=== PATIENT | male | born 1945 | race Caucasian/White ===

== ENCOUNTER → 2017-08-23 | Outpatient (CLI) | payer OTHER ==
[~2017-08-23] MED LIST: ALBU18002; ALBUAER19 INH; ALFU1TAB37 PO; ATEN-173 PO; CLTP PO; DOFE500C PO; DOXE10CA PO; DSWCR TOP; FLUT1INH INH; GADAVIST IV PRN; LISI5TAB PO; LSX20 PO; MAGN400T6 PO; MULT-506 PO; POTA10CA28 PO; PRED10TA PO; SIMV40TA2 PO; TIOTCAP INH; ZOLP10TA PO
--- NOTE | 2017-08-23 12:04 | DIAGNOSTIC IMAGING REPORT ---
PELVIC COMBO HISTORY: 72 years-old Male MALIGNANT NEOPLASM OF URINARY BLADDER questioned cystic lesion of the right inferior pubic ramus on comparison CT study with concern for metastasis. COMPARISON: CT abdomen and pelvis 08/02/2016, therapeutic CT scan 08/14/2017 TECHNIQUE: Multiplanar multisequence MRI of the pelvis was obtained both with and without the use of 9.5 mL Gadavist FINDINGS: Brachytherapy seeds noted within the prostate. Areas of heterogeneous asymmetric enhancement noted within the mid prostate as seen on image 34 series 11 and image 37 series 11. There is asymmetric wall thickening of the left lower lateral urinary bladder as seen on image 30 and 31 of series 8 mild diffuse bladder wall thickening and bladder wall trabeculation is noted with mild urinary bladder distention. No definite intraluminal urinary bladder mass identified. There is an ovoid nodular peripherally enhancing lesion posterior to the urinary bladder just left to the midline which measures 1.6 x 1.6 x 2.5 cm as seen on image 27 series 11 and image 24 of series 12 demonstrating enhancing internal septations. This lesion demonstrates intermediate T1 and T2 signal. No additional suspicious enhancing pelvic lesions identified. There is no adenopathy identified. There is mild intramuscular edema of the left iliopsoas muscle as seen on image 13 of series 4 with mild enhancement seen within this distribution. Additionally, there is mild enhancement of the distal iliopsoas musculature as seen on image 35 series 11 without significant iliopsoas bursitis. Minimal bone marrow edema of the right inferior pubic ramus, image 38 series 4 is likely degenerative. Mild to moderate degenerative changes involve the bilateral hips. No suspicious bony lesions identified. Subcortical cystic changes of the right acetabulum are noted. Avascular necrosis of the right femoral head is noted without articular collapse. No definite left 88. Intervertebral disc space narrowing and endplate spurring is seen within the lower lumbar spine. IMPRESSION: 1. Nodular lesion posterior to the urinary bladder just left of the midline measuring up to 1.6 x 1.6 x 2.5 cm demonstrates peripheral and thin internal enhancement with intermediate T1 and T2 signal appearing unchanged in size from comparison study 08/14/2017. This lesion is indeterminate with small abscess or metastatic disease differential considerations. Follow-up recommended. 2. Trabeculation of the urinary bladder wall with asymmetric thickening along the inferior lateral urinary bladder wall suggests sequela of chronic bladder outlet obstruction without definite suspicious enhancing bladder mass identified. 3. Brachytherapy seeds of the prostate with areas of ill-defined heterogeneous central prostate enhancement. Correlate with PSA level. 4. Mild intramuscular edema and enhancement of the left iliopsoas musculature suggests grade 1 muscle strain without evidence of iliopsoas bursitis. 5. Avascular necrosis of the right femoral head without articular collapse. 6. No evidence of bony metastasis. The above report was generated using voice recognition software. It may contain grammatical, syntax or spelling errors. Electronically signed by: Ish Diaz M.D. 08/23/2017 12:02 PM Dictated Date/Time: 08/23/2017 8:43 AM
== END | disposition home or self-care (01) ==
LOC: C.MRIBC 06:59
PROVIDERS: ATTEND Internal Medicine Hematology & Oncology
DX: C67.9 Malignant neoplasm of bladder, unspecified (principal)

== ENCOUNTER 2017-09-27 10:37 | Inpatient (IN) | payer OTHER ==
[~2017-09-27] VITALS: Ht 177.8 cm; Wt 97.0 kg
[~2017-09-27 10:37] MED LIST changes: -ALBU18002; +ALBU18002 IN; -GADAVIST IV PRN
[2017-09-27] MEDS ORDERED: SODIUM CHLORIDE 0.9% 1000ML 500 ML IV STA (11:17)
--- NOTE | 2017-09-27 11:26 | EMERGENCY ROOM VISIT NOTE ---
History Report prepared by Amilcar: Isabell Limon Under the Supervision of: Dr. Teddy Akbar M.D. First contact with patient: 10:58 Chief Complaint: REFERRED BY DOCTOR Stated Complaint: DR REFERRED - LOW BLOOD COUNT History of Present Illness The patient is a 72 year old male who presents to the Emergency Room with complaints of persistent generalized weakness that began several weeks ago. Per records, the patient is currently undergoing chemotherapy treatment for muscle invasive bladder cancer. Records indicate that over the last several days he has had at least three falls. Records indicate that the patient's was found to be hyponatremic with a sodium of 122. Records note that the patient has been drinking alcohol and the patient states that he drinks 3 drinks per day. The patient's notes that the patient fell and hit his head on September 15. Today, the patient complains of abdominal pain. He denies any fever or headache. The patient reports a history of COPD. He states that his tetanus is up to date. Source of History: patient, spouse/significant other (), other (records) Onset: several days ago Position: other (global) Quality: other (generalized weakness) Timing: other (persistent) Associated Symptoms: + abdominal pain, No fevers, No headache Review of Systems See HPI for pertinent positives & negatives. A total of 10 systems reviewed and were otherwise negative. Past Medical & Surgical Medical Problems: (1) Atrial fibrillation (2) COPD (chronic obstructive pulmonary disease) (3) Fall (4) Hyperlipidemia (5) Hypertension (6) Prostate cancer Family History Patient reports no known family medical history. Social History Smoking Status: Former Smoker Marital Status: Occupation Status: employed Current/Historical Medications Scheduled Alfuzosin HCl (Uroxatral), 10 MG PO QPM Atenolol (Tenormin), 25 MG PO BID Atorvastatin (Lipitor), 40 MG PO HS Calcium/Vitamin D (Caltrate 600 Plus *), 1 TAB PO QAM Dofetilide (Tikosyn), 500 MCG PO Q12H Fluticasone Furoate-Vilanterol (Breo Ellipta), 1 PUFF INH QAM Fluticasone Propionate (Nasal) (Flonase Allergy Relief), 2 SPRAYS INH DAILY Furosemide (Lasix *), 20 MG PO QAM Lisinopril (Prinivil), 1 TAB PO QPM Magnesium Oxide (Mag-Ox), 400 MG PO QPM Multivitamin (Multivitamin), 1 TAB PO QPM Potassium Chloride (Micro-K Ext Rel), 10 MEQ PO BID Tiotropium Harvey (Spiriva Handihaler), 1 CAP INH QAM Scheduled PRN Albuterol Inhaler (Ventolin Inhaler), 2 PUFFS INH QID PRN for SOB/Wheezing Albuterol Sulfate (Proair Respiclick), 1-2 INHA IN Q4H PRN for Shortness of Breath Desonide 0.05% (Desowen 0.05%), 1 APPLN TOP BID PRN for PRN Docusate Sodium (Colace), 1 CAP PO BID PRN for Constipation Promethazine (Phenergan ), 12.5 MG PO Q8H PRN for Nausea or Vomiting Zolpidem Tartrate (Ambien), 10 MG PO HS PRN for Sleep Allergies Coded Allergies: No Known Allergies (Unverified , 09/27/17) Physical Exam Vital Signs Date Time Temp Pulse Resp B/P (MAP) Pulse Ox O2 Delivery O2 Flow Rate FiO2 09/27/17 12:47 78 20 126/89 96 Room Air 09/27/17 12:03 81 16 109/63 96 Room Air 09/27/17 11:23 95 Room Air 09/27/17 10:51 36.9 65 18 131/70 94 Room Air Physical Exam GENERAL: Patient is in no acute distress. HEENT: Healing abrasion/laceration to the right parietal scalp, no signs of cellulitis, mucous membranes slightly dry, no scleral icterus NECK: No stridor, no adenopathy, no meningismus, trachea is midline. LUNGS: Wheezing bilaterally, breath sounds equal, no rhonchi HEART: Without murmurs gallops or rubs, regular rate and rhythm. ABDOMEN: Soft, nontender, bowel sounds positive, no hernias, no peritonitis. EXTREMITIES: Mild bilateral pedal edema. No cyanosis, full range of motion of all the joints without pain or difficulty, no signs for acute trauma. NEUROLOGIC: Oriented x 3, no acute motor or sensory deficits, no focal weakness. SKIN: No rash, no jaundice, no diaphoresis. Medical Decision & Procedures ER Provider Diagnostic Interpretation: Radiology results as stated below per my review and radiologist interpretation: CT SCAN OF THE BRAIN WITHOUT IV CONTRAST CLINICAL HISTORY: Generalized weakness. COMPARISON STUDY: No priors. TECHNIQUE: Unenhanced axial CT scan of the brain is performed from the vertex to the skull base. A dose lowering technique was utilized adhering to the principles of ALARA. CT DOSE: 537.48 mGy.cm FINDINGS: Brain parenchyma: There are age-related involutional changes noting moderate patchy subcortical and periventricular microangiopathic change. There is no hemorrhage, mass effect, or evidence of acute territorial ischemia by CT criteria. Coarse calcifications are noted in the right cerebellar hemisphere in the right periventricular white matter. Britton-white matter is preserved. No extra-axial fluid collection is seen. Ventricles, sulci, cisterns: Prominent secondary to involutional change. Intracranial vasculature: There is atherosclerotic calcification of the cavernous carotid and vertebral arteries. Calvarium: Unremarkable. Sinuses and mastoids: The visualized paranasal sinuses are clear. The mastoid air cells are well pneumatized. Orbits: The bony orbits are grossly intact. IMPRESSION: There is no hemorrhage, mass effect, or evidence of acute territorial ischemia by CT criteria. Electronically signed by: Teddy Aj M.D. 09/27/2017 11:57 AM Dictated Date/Time: 09/27/2017 11:54 AM CHEST ONE VIEW PORTABLE CLINICAL HISTORY: EVALUATE ALTERED MENTAL STATUS/WEAKNESS dyspnea COMPARISON STUDY: 08/31/2016 FINDINGS: Mild stable cardiomegaly. Diaphragms are smooth. Lungs are clear. Central catheter in superior vena cava. Stable postoperative changes of the low cervical spine. IMPRESSION: Chronic and postoperative change. No acute process. The above report was generated using voice recognition software. It may contain grammatical, syntax or spelling errors. Electronically signed by: Rg Neff M.D. 09/27/2017 11:52 AM Dictated Date/Time: 09/27/2017 11:51 AM Laboratory Results 09/27/17 11:15 Red Blood Count 2.35, Mean Corpuscular Volume 97.0, Mean Corpuscular Hemoglobin 34.5, Mean Corpuscular Hemoglobin Concent 35.5, Mean Platelet Volume , Neutrophils (%) (Auto) 54.7, Lymphocytes (%) (Auto) 26.2, Monocytes (%) (Auto) 17.6, Eosinophils (%) (Auto) 0.6, Basophils (%) (Auto) 0.6, Neutrophils # (Auto ) 1.99, Lymphocytes # (Auto) 0.95, Monocytes # (Auto) 0.64, Eosinophils # (Auto ) 0.02, Basophils # (Auto) 0.02 09/27/17 11:15 Test 09/27/17 11:10 09/27/17 11:15 09/27/17 11:31 Urine Color YELLOW Urine Appearance CLEAR (CLEAR) Urine pH 7.5 (4.5-7.5) Urine Specific [place] 1.010 (1.000-1.030) Urine Protein NEG (NEG) Urine Glucose (UA) NEG (NEG) Urine Ketones NEG (NEG) Urine Occult Blood TRACE (NEG) Urine Nitrite NEG (NEG) Urine Bilirubin NEG (NEG) Urine Urobilinogen NEG (NEG) Urine Leukocyte Esterase MODERATE (NEG) Urine WBC (Auto) >30 /hpf (0-5) Urine RBC (Auto) 0-4 /hpf (0-4) Urine Hyaline Casts (Auto) 1-5 /lpf (0-5) Urine Epithelial Cells (Auto) >30 /lpf (0-5) Urine Bacteria (Auto) NEG (NEG) Urine Renal Epithelial Cells 0-5 /lpf (0-5) White Blood Count 3.63 K/uL (4.8-10.8) Red Blood Count 2.35 M/uL (4.7-6.1) Hemoglobin 8.1 g/dL (14.0-18.0) Hematocrit 22.8 % (42-52) Mean Corpuscular Volume 97.0 fL (80-100) Mean Corpuscular Hemoglobin 34.5 pg (25-34) Mean Corpuscular Hemoglobin Concent 35.5 g/dl (32-36) Platelet Count K/uL (130-400) Mean Platelet Volume fL (7.4-10.4) Neutrophils (%) (Auto) 54.7 % Lymphocytes (%) (Auto) 26.2 % Monocytes (%) (Auto) 17.6 % Eosinophils (%) (Auto) 0.6 % Basophils (%) (Auto) 0.6 % Neutrophils # (Auto) 1.99 K/uL (1.4-6.5) Lymphocytes # (Auto) 0.95 K/uL (1.2-3.4) Monocytes # (Auto) 0.64 K/uL (0.11-0.59) Eosinophils # (Auto) 0.02 K/uL (0-0.5) Basophils # (Auto) 0.02 K/uL (0-0.2) RDW Standard Deviation 45.4 fL (36.4-46.3) RDW Coefficient of Variation 13.3 % (11.5-14.5) Immature Granulocyte % (Auto) 0.3 % Immature Granulocyte # (Auto) 0.01 K/uL (0.00-0.02) Large Platelets 1+ Prothrombin Time 10.5 SECONDS (9.0-12.0) Prothromb Time International Ratio 1.0 (0.9-1.1) Activated Partial Thromboplast Time 32.3 SECONDS (21.0-31.0) Partial Thromboplastin Ratio 1.2 Anion Gap 10.0 mmol/L (3-11) Est Creatinine Clear Calc Drug Dose 53.6 ml/min Estimated GFR () 55.1 Estimated GFR (Non- 47.5 BUN/Creatinine Ratio 19.1 (10-20) Calcium Level 8.6 mg/dl (8.5-10.1) Magnesium Level 1.5 mg/dl (1.8-2.4) Total Bilirubin 0.8 mg/dl (0.2-1) Aspartate Amino Transf (AST/SGOT) 25 U/L (15-37) Alanine Aminotransferase (ALT/SGPT) 28 U/L (12-78) Alkaline Phosphatase 65 U/L (45-117) Total Creatine Kinase 113 U/L (39-308) Troponin I 0.034 ng/ml (0-0.045) Total Protein 6.6 gm/dl (6.4-8.2) Albumin 2.6 gm/dl (3.4-5.0) Globulin 4.0 gm/dl (2.5-4.0) Albumin/Globulin Ratio 0.7 (0.9-2) Thyroid Stimulating Hormone (TSH) 1.230 uIu/ml (0.300-4.500) Ethyl Alcohol mg/dL < 3.0 mg/dl (0-3) Laboratory results reviewed by me. Medications Administered Medications (Trade) Dose Ordered Sig/Martha Route Start Time Stop Time Status Last Admin Dose Admin Sodium Chloride 500 ml @ 999 mls/hr Q31M STAT IV 09/27/17 11:17 09/27/17 11:47 DC 09/27/17 11:17 999 MLS/HR Magnesium Sulfate (Magnesium Sulfate) 2 gm NOW STAT IV 09/27/17 11:56 09/27/17 11:57 DC 09/27/17 12:43 2 GM Sodium Chloride 500 ml @ 999 mls/hr Q31M STAT IV 09/27/17 11:56 09/27/17 12:26 DC 09/27/17 11:56 999 MLS/HR Potassium Chloride (Klor-Con M10) 20 meq NOW STAT PO 09/27/17 13:04 09/27/17 13:16 DC 09/27/17 13:41 20 MEQ ECG Indication: weakness Rate (beats per minute): 80 Rhythm: sinus rhythm Findings: PVC, no acute ischemic change ED Course 1113: The patient was evaluated in room A12B. A complete history and physical exam was performed. 1117: Ordered Sodium Chloride 500 ml @ 999 mls/hr IV. 1156: Ordered Sodium Chloride 500 ml @ 999 mls/hr IV, Magnesium Sulfate 2 gm IV. 1213: I reevaluated the patient and he is resting comfortably. I discussed the test results with him and I discussed the treatment plan. He verbalized complete understanding and agreement. He will be evaluated for further treatment. 1243: I discussed the patients case with Maria Akbar PA-C. She is going to evaluate the patient for further treatment. Medical Decision The patient is a 72 year old male who presents to the ED with complaints of generalized weakness. Differential diagnoses considered include Renal failure, dehydration, electrolyte imbalance, anemia, infection, intracranial bleeding, alcohol abuse. The patient has a low white count and hemoglobin, this is baseline for him. Renal panel testing shows some mild acute renal failure and dehydration. Magnesium was low at 1.5. There is no hepatitis. The patient appears to be in a euthyroid state. There is no coagulopathy. Urinalysis suggests infection versus contamination, urine culture is pending. Alcohol level is undetectable. Brain CT shows no acute bleed or mass effect. Chest film does not show pneumonia or CHF. EKG shows a sinus rhythm, no acute ischemia. Cardiac enzyme testing times one is not consistent with acute cardiac injury. The patient presents with frequent falls. He is hyponatremic, dehydrated and hypomagnesemic. By history, he has been drinking quite a bit of alcohol as of late. The patient requires IV therapy to correct his chemistries. I did speak with the patient and the housing case manager. The on-call hospitalist was consulted. Patient was given IV magnesium, IV saline during his ER stay, he is resting comfortably. Medication Reconcilliation Current Medication List: was personally reviewed by me Blood Pressure Screening Patient's blood pressure: Elevated blood pressure Blood pressure disposition: Elevated BP felt to be situational, Did not require urgent referral Consults Time Called: 1210 Consulting Physician: Maria Akbar PA-C Returned Call: [phone] I discussed the patients case with Maria Akbar PA-C. She is going to evaluate the patient for further treatment. Impression Primary Impression: Hyponatremia Additional Impressions: Dehydration Anemia Hypomagnesemia Head trauma Scribe Attestation The scribe's documentation has been prepared under my direction and personally reviewed by me in its entirety. I confirm that the note above accurately reflects all work, treatment, procedures, and medical decision making performed by me. Departure Information Dispostion Being Evaluated By Hospitalist Referrals No Doctor, Assigned (PCP) Problem Qualifiers
[2017-09-27 11:32] LABS: HEMATOCRIT 22.8 % (42-52); MEAN CORPUSCULAR HEMOGLOBIN 34.5 pg (25-34); MEAN CORPUSCULAR HGB CONC 35.5 g/dl (32-36); RED BLOOD COUNT 2.35 M/uL (4.7-6.1); WHITE BLOOD COUNT 3.63 K/uL (4.8-10.8)
[2017-09-27] MEDS ORDERED: ASPI81TA28 PO (11:33)
[2017-09-27] MEDS ORDERED: DOCU-94 PO (11:33)
[2017-09-27] MEDS ORDERED: PROM12.57 PO (11:33)
[2017-09-27] MEDS ORDERED: ATOR-24 PO (11:33)
[2017-09-27] MEDS ORDERED: FLUT0.15 INH (11:33)
[2017-09-27 11:42] LABS: PARTIAL THROMBOPLASTIN RATIO 1.2; PROTHROMBIN TIME (PATIENT) 10.5 SECONDS (9.0-12.0)
[2017-09-27 11:50] LABS: BUN/CREATININE RATIO 19.1 (10-20); CALCIUM 8.6 mg/dl (8.5-10.1); CREATININE 1.44 mg/dl (0.60-1.40); MAGNESIUM 1.5 mg/dl (1.8-2.4); POTASSIUM 3.2 mmol/L (3.5-5.1)
[2017-09-27 11:53] LABS: URINE APPEARANCE CLEAR (CLEAR); URINE BILIRUBIN NEG (NEG); URINE COLOR YELLOW; URINE EPITHELIAL CELL AUTO >30 /lpf (0-5); URINE NITRITE NEG (NEG); URINE PH 7.5 (4.5-7.5); UROBILINOGEN NEG (NEG); ZZUR CULT IF INDIC CLEAN CATCH YES
--- NOTE | 2017-09-27 11:53 | DIAGNOSTIC IMAGING REPORT ---
CHEST ONE VIEW PORTABLE CLINICAL HISTORY: EVALUATE ALTERED MENTAL STATUS/WEAKNESS dyspnea COMPARISON STUDY: 08/31/2016 FINDINGS: Mild stable cardiomegaly. Diaphragms are smooth. Lungs are clear. Central catheter in superior vena cava. Stable postoperative changes of the low cervical spine. IMPRESSION: Chronic and postoperative change. No acute process. The above report was generated using voice recognition software. It may contain grammatical, syntax or spelling errors. Electronically signed by: Rg Neff M.D. 09/27/2017 11:52 AM Dictated Date/Time: 09/27/2017 11:51 AM
[2017-09-27 11:54] LABS: MANUAL MICROSCOPIC REQUIRED? NO; REVIEW REQ? YES
[2017-09-27] MEDS ORDERED: SODIUM CHLORIDE 0.9% 500ML 500 ML IV STA (11:56)
[2017-09-27] MEDS ORDERED: MAGNESIUM SULFATE 1GM / D5W 1 GM BAG IV STA (11:56)
--- NOTE | 2017-09-27 11:59 | DIAGNOSTIC IMAGING REPORT ---
CT SCAN OF THE BRAIN WITHOUT IV CONTRAST CLINICAL HISTORY: Generalized weakness. COMPARISON STUDY: No priors. TECHNIQUE: Unenhanced axial CT scan of the brain is performed from the vertex to the skull base. A dose lowering technique was utilized adhering to the principles of ALARA. CT DOSE: 537.48 mGy.cm FINDINGS: Brain parenchyma: There are age-related involutional changes noting moderate patchy subcortical and periventricular microangiopathic change. There is no hemorrhage, mass effect, or evidence of acute territorial ischemia by CT criteria. Coarse calcifications are noted in the right cerebellar hemisphere in the right periventricular white matter. Britton-white matter is preserved. No extra-axial fluid collection is seen. Ventricles, sulci, cisterns: Prominent secondary to involutional change. Intracranial vasculature: There is atherosclerotic calcification of the cavernous carotid and vertebral arteries. Calvarium: Unremarkable. Sinuses and mastoids: The visualized paranasal sinuses are clear. The mastoid air cells are well pneumatized. Orbits: The bony orbits are grossly intact. IMPRESSION: There is no hemorrhage, mass effect, or evidence of acute territorial ischemia by CT criteria. Electronically signed by: Teddy Aj M.D. 09/27/2017 11:57 AM Dictated Date/Time: 09/27/2017 11:54 AM
[2017-09-27 12:00] LABS: ALB/GLOB RATIO 0.7 (0.9-2); THYROID STIMULATING HORMONE 1.23 uIu/ml (0.300-4.500)
[2017-09-27 12:02] LABS: BASO % 0.6 %; BASO ABS # 0.02 K/uL (0-0.2); COMPLETE YES; EOS % 0.6 %; IG% 0.3 %; LARGE PLATELETS 1+; LYMPH % 26.2 %; LYMPH ABS # 0.95 K/uL (1.2-3.4); MONO % 17.6 %; NEUT % 54.7 %
[2017-09-27] MEDS ORDERED: POTASSIUM CHLORIDE 10 MEQ TABCR PO STA (13:04)
[2017-09-27] MEDS ORDERED: ONDANSETRON INJ 2 MG/ML 2 ML VIAL IV PRN (13:15)
[2017-09-27] MEDS ORDERED: ACETAMINOPHEN 325 MG TAB PO PRN (13:15)
[2017-09-27] MEDS ORDERED: PROMETHAZINE HCL 25 MG TAB PO PRN (13:30)
[2017-09-27] MEDS ORDERED: ALBUTEROL HFA 8 GM INHALER INH PRN (13:30)
[2017-09-27] MEDS ORDERED: DOCUSATE SODIUM 100 MG CAP PO PRN (13:30)
[2017-09-27] MEDS ORDERED: DESONIDE CR 15 GM TUBE EXT PRN (13:30)
[2017-09-27] MEDS ORDERED: HEPARIN SOD 5000 UNIT/0.5 ML CARP SQ SCH (14:00)
[2017-09-27 14:07] VITALS: BP 128/64; PULSE 78; O2SAT 96; Ht 177.8 cm; Wt 97.0 kg
--- NOTE | 2017-09-27 14:43 | History and Physical ---
History & Physical Date & Time of Service: Sep 27, 2017 at 14:00 Chief Complaint: Dr Referred - Low Blood Count Primary Care Physician: Nba Good III, M.D. History of Present Illness Source: patient, clinic records This is a 72 year old male with a PMH of muscle invasive bladder CA s/p TURBT with ongoing chemo/radiation, paroxysmal A. Fib s/p ablation on ongoing Tikosyn no longer on anticoagulation due to bladder CA, COPD and ongoing tobacco use, ongoing alcohol abuse, HTN, HLD, PAD (severe L common femoral artery arthrosclerosis, ascending thoracic aortic aneurysm, systolic CHF with LVEF ~ 45 % and global hypokinesis - presents after being sent over by Hem/Onc secondary to multiple falls in the past week. As per patient, he has fallen three times, states when he stands up, he gets really dizzy and falls. As per records, he is drinking "three drinks" per day - as per patient, he has been drinking like this for the past 50 years. He denies chest pain. States he has some shortness of breath at baseline, but it is because of his COPD and it is nothing new. Denies fevers/chills. States occasionally he gets nauseous but not this past week. Intermittent constipation and diarrhea with chemo/radiation. Is c/o urinary frequency, but no dysuria. Denies recent hematuria. Past Medical/Surgical History Medical Problems: (1) Atrial fibrillation Status: Chronic (2) COPD (chronic obstructive pulmonary disease) Status: Chronic (3) Hyperlipidemia Status: Chronic (4) Hypertension Status: Chronic (5) Prostate cancer Permanent Comment: Adenocarcinoma prostate, presenting PSA 4.8, clinical stage TIc Status post hormonal suppression for 7 months Status post external beam radiation therapy completed 12/01/2003 Status post iodine seed implant as boost completed 01/05/2004 Status: Resolved Family History Patient reports no known family medical history. Social History Smoking Status: Former Smoker Marital Status: Occupational Status: employed Immunizations History of Influenza Vaccine: Yes Influenza Vaccine Date: Aug 08, 2013 History of Tetanus Vaccine?: Yes History of Pneumococcal: Yes Pneumococcal Date: Jun 03, 2008 History of Hepatitis B Vaccine: No Multi-Drug Resistant Organisms History of MDRO: No Allergies Coded Allergies: No Known Allergies (Unverified , 09/27/17) Home Medications Scheduled Alfuzosin HCl (Uroxatral), 10 MG PO QPM Atenolol (Tenormin), 25 MG PO BID Atorvastatin (Lipitor), 40 MG PO HS Calcium/Vitamin D (Caltrate 600 Plus *), 1 TAB PO QAM Dofetilide (Tikosyn), 500 MCG PO Q12H Fluticasone Furoate-Vilanterol (Breo Ellipta), 1 PUFF INH QAM Fluticasone Propionate (Nasal) (Flonase Allergy Relief), 2 SPRAYS INH DAILY Furosemide (Lasix *), 20 MG PO QAM Lisinopril (Prinivil), 1 TAB PO QPM Magnesium Oxide (Mag-Ox), 400 MG PO QPM Multivitamin (Multivitamin), 1 TAB PO QPM Potassium Chloride (Micro-K Ext Rel), 10 MEQ PO BID Tiotropium [place] (Spiriva Handihaler), 1 CAP INH QAM Scheduled PRN Albuterol Inhaler (Ventolin Inhaler), 2 PUFFS INH QID PRN for SOB/Wheezing Albuterol Sulfate (Proair Respiclick), 1-2 INHA IN Q4H PRN for Shortness of Breath Desonide 0.05% ([place]en 0.05%), 1 APPLN TOP BID PRN for PRN Docusate Sodium (Colace), 1 CAP PO BID PRN for Constipation Promethazine (Phenergan ), 12.5 MG PO Q8H PRN for Nausea or Vomiting Zolpidem Tartrate (Ambien), 10 MG PO HS PRN for Sleep Review of Systems Constitutional: + weakness, + fatigue, No fever, No chills, No sweats Respiratory: No cough, No sputum, No wheezing, No shortness of breath, No dyspnea on exertion, No dyspnea at rest, No hemoptysis Cardiovascular: No chest pain, No orthopnea, No edema, No palpitations Abdomen: + nausea, + diarrhea, + constipation, No pain, No vomiting, No GI bleeding Musculoskeletal: No joint pain, No muscle pain Genitourinary - Male: + urinary frequency, No hematuria, No dysuria, No urinary urgency, No urinary hesitancy, No urinary retention, No urinary incontinence Neurologic: + weakness, + vertigo, + balance problems, No memory loss, No paralysis, No numbness/tingling Psychiatric: No depression symptoms, No anxiety, No insomnia Endocrine: No fatigue, No excessive thirst Hematologic / Lymphatic: No abnormal bleeding/bruising Integumentary: No rash Allergic / Immunologic: No environmental allergies, No seasonal allergies Physical Exam Vital Signs Date Time Temp Pulse Resp B/P (MAP) Pulse Ox O2 Delivery O2 Flow Rate FiO2 09/27/17 13:35 87 20 118/64 93 Room Air 09/27/17 12:47 78 20 126/89 96 Room Air 09/27/17 12:03 81 16 109/63 96 Room Air 09/27/17 11:23 95 Room Air 09/27/17 10:51 36.9 65 18 131/70 94 Room Air General Appearance: WD/WN, no apparent distress Head: normocephalic, atraumatic Eyes: normal inspection ENT: hearing grossly normal Neck: supple Respiratory/Chest: chest non-tender, lungs clear, normal breath sounds, no respiratory distress, no accessory muscle use Cardiovascular: regular rate, rhythm, no edema, no murmur Abdomen/GI: normal bowel sounds, non tender, soft Extremities/Musculoskelatal: normal inspection, no calf tenderness, normal capillary refill, no pedal edema, normal range of motion Neurologic/Psych: president and chief commercial officer II-XII nml as tested, no motor/sensory deficits, alert, normal mood/affect, oriented x 3 Skin: normal color Lymphatic: no adenopathy Diagnostics Laboratory Results Results Past 24 Hours Test 09/27/17 11:10 09/27/17 11:15 09/27/17 11:31 Range/Units Urine Color YELLOW Urine Appearance CLEAR CLEAR Urine pH 7.5 4.5-7.5 Urine Specific [place] 1.010 1.000-1.030 Urine Protein NEG NEG Urine Glucose (UA) NEG NEG Urine Ketones NEG NEG Urine Occult Blood TRACE NEG Urine Nitrite NEG NEG Urine Bilirubin NEG NEG Urine Urobilinogen NEG NEG Urine Leukocyte Esterase MODERATE NEG Urine WBC (Auto) >30 0-5 /hpf Urine RBC (Auto) 0-4 0-4 /hpf Urine Hyaline Casts (Auto) 1-5 0-5 /lpf Urine Epithelial Cells (Auto) >30 0-5 /lpf Urine Bacteria (Auto) NEG NEG Urine Renal Epithelial Cells 0-5 0-5 /lpf White Blood Count 3.63 4.8-10.8 K/uL Red Blood Count 2.35 4.7-6.1 M/uL Hemoglobin 8.1 14.0-18.0 g/dL Hematocrit 22.8 42-52 % Mean Corpuscular Volume 97.0 80-100 fL Mean Corpuscular Hemoglobin 34.5 25-34 pg Mean Corpuscular Hemoglobin Concent 35.5 32-36 g/dl Platelet Count 130-400 K/uL Mean Platelet Volume 7.4-10.4 fL Neutrophils (%) (Auto) 54.7 % Lymphocytes (%) (Auto) 26.2 % Monocytes (%) (Auto) 17.6 % Eosinophils (%) (Auto) 0.6 % Basophils (%) (Auto) 0.6 % Neutrophils # (Auto) 1.99 1.4-6.5 K/uL Lymphocytes # (Auto) 0.95 1.2-3.4 K/uL Monocytes # (Auto) 0.64 0.11-0.59 K/uL Eosinophils # (Auto) 0.02 0-0.5 K/uL Basophils # (Auto) 0.02 0-0.2 K/uL RDW Standard Deviation 45.4 36.4-46.3 fL RDW Coefficient of Variation 13.3 11.5-14.5 % Immature Granulocyte % (Auto) 0.3 % Immature Granulocyte # (Auto) 0.01 0.00-0.02 K/uL Large Platelets 1+ Prothrombin Time 10.5 9.0-12.0 SECONDS Prothromb Time International Ratio 1.0 0.9-1.1 Activated Partial Thromboplast Time 32.3 21.0-31.0 SECONDS Partial Thromboplastin Ratio 1.2 Sodium Level 123 136-145 mmol/L Potassium Level 3.2 3.5-5.1 mmol/L Chloride Level 88 98-107 mmol/L Carbon Dioxide Level 25 21-32 mmol/L Anion Gap 10.0 3-11 mmol/L Blood Urea Nitrogen 28 7-18 mg/dl Creatinine 1.44 0.60-1.40 mg/dl Est Creatinine Clear Calc Drug Dose 53.6 ml/min Estimated GFR () 55.1 Estimated GFR (Non- 47.5 BUN/Creatinine Ratio 19.1 10-20 Random Glucose 104 70-99 mg/dl Calcium Level 8.6 8.5-10.1 mg/dl Magnesium Level 1.5 1.8-2.4 mg/dl Total Bilirubin 0.8 0.2-1 mg/dl Aspartate Amino Transf (AST/SGOT) 25 15-37 U/L Alanine Aminotransferase (ALT/SGPT) 28 12-78 U/L Alkaline Phosphatase 65 45-117 U/L Total Creatine Kinase 113 39-308 U/L Troponin I 0.034 0-0.045 ng/ml Total Protein 6.6 6.4-8.2 gm/dl Albumin 2.6 3.4-5.0 gm/dl Globulin 4.0 2.5-4.0 gm/dl Albumin/Globulin Ratio 0.7 0.9-2 Thyroid Stimulating Hormone (TSH) 1.230 0.300-4.500 uIu/ml Ethyl Alcohol mg/dL < 3.0 0-3 mg/dl Microbiology Results 09/27/17 Urine Culture, Received Pending Diagnostic Radiology CT SCAN OF THE BRAIN WITHOUT IV CONTRAST CLINICAL HISTORY: Generalized weakness. COMPARISON STUDY: No priors. TECHNIQUE: Unenhanced axial CT scan of the brain is performed from the vertex to the skull base. A dose lowering technique was utilized adhering to the principles of ALARA. CT DOSE: 537.48 mGy.cm FINDINGS: Brain parenchyma: There are age-related involutional changes noting moderate patchy subcortical and periventricular microangiopathic change. There is no hemorrhage, mass effect, or evidence of acute territorial ischemia by CT criteria. Coarse calcifications are noted in the right cerebellar hemisphere in the right periventricular white matter. Britton-white matter is preserved. No extra-axial fluid collection is seen. Ventricles, sulci, cisterns: Prominent secondary to involutional change. Intracranial vasculature: There is atherosclerotic calcification of the cavernous carotid and vertebral arteries. Calvarium: Unremarkable. Sinuses and mastoids: The visualized paranasal sinuses are clear. The mastoid air cells are well pneumatized. Orbits: The bony orbits are grossly intact. IMPRESSION: There is no hemorrhage, mass effect, or evidence of acute territorial ischemia by CT criteria. CHEST ONE VIEW PORTABLE CLINICAL HISTORY: EVALUATE ALTERED MENTAL STATUS/WEAKNESS dyspnea COMPARISON STUDY: 08/31/2016 FINDINGS: Mild stable cardiomegaly. Diaphragms are smooth. Lungs are clear. Central catheter in superior vena cava. Stable postoperative changes of the low cervical spine. IMPRESSION: Chronic and postoperative change. No acute process. EKG Sinus rhythm with Premature atrial complexes with Aberrant conduction Left anterior fascicular block Prolonged QTc Impression Assessment and Plan This is a 72 year old male with a PMH of muscle invasive bladder CA s/p TURBT with ongoing chemo/radiation - presents with weakness, hyponatremia and multiple falls Weakness/Dehydration s/p Falls patient is presenting with three falls in the past week states that when he gets up, he feels weak and has falls Head CT - no acute process will monitor in tele give IVFs due to dehydration replace electrolytes PT/OT ordered discharge planning evaluation check an echo check vitamin B12 in AM Hyponatremia secondary to dehydration, diarrhea Na level of 123 will give IVFs (NS + 20meq KCl at 100mL/hr) closely monitor for fluid overload recheck labs at 1800 Hypokalemia/Hypomagnesemia secondary to diarrhea, dehydration, decreased appetite replace and monitor UTI UA with positive leukocytes, patient also c/o urinary frequency urine culture is pending will add Rocephin for now until cultures return L Hydroureter CT scan of abdomen/pelvis done as outpatient on September 15 there was concurrent asymmetric bladder wall thickening on that side will consult urology for further input regarding this Paroxysmal A. Fib patient with a regular rhythm currently he has gone through with ablation currently on Tikosyn as per cardiology recheck EKG in AM, monitor QTc continue Atenolol for rate control no anticoagulation due to bladder CA COPD ongoing tobacco use, counseled on cessation continue current medications Nocturnal 3L of O2 Chronic Systolic CHF last LVEF ~ 45% there was global hypokinesis noted on previous echo due to multiple falls, will recheck an echo hold Lasix continue b-ron DVT ppx Lovenox FULL CODE - discussion with patient who stated that he would do whatever his wishes; will need to discuss with VTE Prophylaxis VTE Risk Assessment Done? Y/N: Yes Risk Level: High
[2017-09-27] MEDS: NSS + 20MEQ KCL 1000ML 1,000 ML IV SCH (15:29)
[2017-09-27] MEDS: BREO ELLIPTA - ORDER AWAITING ACTION SCH ×2 (15:37→23:35)
[2017-09-27] MEDS: CEFTRIAXONE SOD INJ 1 GM in DEXTROSE 5% ADD-VANTAGE 50ML 50 ML IV SCH (15:37)
--- NOTE | 2017-09-27 16:11 | ECHOCARDIOGRAM REPORT ---
*NOTICE TO RECEIVING DEMOCRAT AGENCY This information is strictly Confidential and protected under [place] law. [place] law prohibits you from making any further disclosure of this information unless further disclosure is expressly permitted by the written consent of the person to whom it pertains or is authorized by law. A general authorization for the release of medical or other information is not sufficient for this purpose. Hospital accepts no responsibility if the information is made available to any other person, INCLUDING THE PATIENT. Interpretation Summary * Name: GABINO MCKINNEY JR Study Date: 09/27/2017 02:04 PM BP: 118/64 mmHg * Patient Location: [id number].2E\S\E209\S\1 HR: 87 * : 1945 (M/d/yyyy) Gender: Male Height: 70 in * Age: 72 yrs Ethnicity: CA Weight: 222 lb * Ordering Physician: Magda Echeverria * Referring Physician: Malik Britton * Performed By: Isabell Dodge RDCS * * Reason For Study: SYNCOPE * BSA: 2.2 m2 * -- Conclusions -- * The left ventricle is normal in size. * There is moderate concentric left ventricular hypertrophy. * No regional wall motion abnormalities noted. * Ejection Fraction = 50-55%. * Diastolic dysfunction, Grade II (pseudonormalization pattern). * Aortic valve sclerosis moderate, without significant aortic valvular stenosis. * There is mild to moderate mitral regurgitation. Procedure Details * A contrast injection of Definity was performed to improve assessment of LV function. * Contrast was injected into an intravenous site in the central line. * One vial of Definity ultrasound contrast was diluted in normal saline to a total volume of 10 ml. A total of '2' ml of solution was administered during imaging. * Lot # [id number] of Definity utilized for procedure. * Expiration date DEC 03. * The attending nurse who injected the contrast agent was HAYLEE TRINIDAD RN. * A complete two-dimensional transthoracic echocardiogram was performed (2D, M-mode, Doppler and color flow Doppler). Left Ventricle * The left ventricle is normal in size. * There is moderate concentric left ventricular hypertrophy. * Ejection Fraction = 50-55%. * Left ventricular systolic function is normal. * No regional wall motion abnormalities noted. Right Ventricle * The right ventricle is normal in size and function. Atria * The left atrial size is normal. * Right atrial size is normal. * No ASD detected; PFO is not assessed. Mitral Valve * The mitral valve leaflets appear thickened, but open well. * There is no mitral valve stenosis. * There is mild to moderate mitral regurgitation. Tricuspid Valve * The tricuspid valve is normal. * There is no tricuspid stenosis. * There is trace tricuspid regurgitation. Aortic Valve * Aortic valve sclerosis moderate, without significant aortic valvular stenosis. * The aortic valve is not well visualized. * No aortic regurgitation is present. Pulmonic Valve * The pulmonic valve is not well visualized. Great Vessels * The aortic root is normal size. Pericardium/Pleural * There is no pericardial effusion. Great Vessels * Normal inferior vena cava diameter and respiratory variation suggests normal central venous pressure. Left Ventricular Diastolic Function * Diastolic dysfunction, Grade II (pseudonormalization pattern). MMode 2D Measurements and Calculations IVSd 1.8 cm IVSs 2.3 cm LVIDd 5.5 cm LVIDs 3.7 cm LVPWd 1.5 cm LVPWs 2.3 cm IVS/LVPW 1.2 FS 31.8 % EDV(Teich) 145.8 ml ESV(Teich) 59.3 ml EF(Teich) 59.3 % EDV(cubed) 164.0 ml ESV(cubed) 51.9 ml EF(cubed) 68.3 % % IVS thick 24.3 % % LVPW thick 53.8 % LV mass(C)d 433.3 grams LV mass(C)dI 198.6 grams/m\S\2 LV mass(C)s 438.1 grams LV mass(C)sI 200.8 grams/m\S\2 SV(Teich) 86.5 ml SI(Teich) 39.7 ml/m\S\2 SV(cubed) 112.1 ml SI(cubed) 51.4 ml/m\S\2 Ao root diam 4.3 cm Ao root area 14.2 cm\S\2 LA dimension 4.7 cm LA/Ao 1.1 LVAd ap4 38.1 cm\S\2 LVLd ap4 9.3 cm EDV(MOD-sp4) 132.7 ml EDV(sp4-el) 132.9 ml LVAs ap4 23.2 cm\S\2 LVLs ap4 8.3 cm ESV(MOD-sp4) 56.5 ml ESV(sp4-el) 54.9 ml EF(MOD-sp4) 57.4 % EF(sp4-el) 58.7 % LVAd ap2 39.7 cm\S\2 LVLd ap2 8.2 cm EDV(MOD-sp2) 163.1 ml EDV(sp2-el) 163.1 ml LVAs ap2 25.4 cm\S\2 LVLs ap2 7.4 cm ESV(MOD-sp2) 76.4 ml ESV(sp2-el) 74.0 ml EF(MOD-sp2) 53.2 % EF(sp2-el) 54.6 % LVLd %diff -13.49 % EDV(MOD-bp) 156.9 ml LVLs %diff -12.48 % ESV(MOD-bp) 69.4 ml EF(MOD-bp) 55.7 % SV(MOD-sp4) 76.2 ml SI(MOD-sp4) 34.9 ml/m\S\2 SV(MOD-sp2) 86.7 ml SI(MOD-sp2) 39.8 ml/m\S\2 SV(MOD-bp) 87.4 ml SI(MOD-bp) 40.1 ml/m\S\2 SV(sp4-el) 78.0 ml SI(sp4-el) 35.8 ml/m\S\2 SV(sp2-el) 89.0 ml SI(sp2-el) 40.8 ml/m\S\2 Doppler Measurements and Calculations MV E max tati 102.8 cm/sec MV A max tati 64.6 cm/sec MV E/A 1.6 MV dec time 0.16 sec Ao V2 max 195.5 cm/sec Ao max PG 15.3 mmHg Ao max PG (full) 9.2 mmHg AI max tati 381.0 cm/sec AI max PG 58.1 mmHg AI dec slope 192.5 cm/sec\S\2 AI P1/2t 579.8 msec LV V1 max PG 6.0 mmHg LV V1 max 122.8 cm/sec MR max tati 488.7 cm/sec MR max PG 95.5 mmHg
--- NOTE | 2017-09-27 16:23 | Urology Consultation ---
History General Date of Service: Sep 27, 2017. Chief Complaint: left hydronephrosis Primary Care Physician: Nba Good III, M.D. Pt seen a urologist before?: Yes If yes, why?: bladder cancer History of Present Illness I am asked by Dr Echeverria to evaluate and treat patient for left hydronephrosis. He has had locally advanced bladder cancer for years. His comorbid illness ( mainly lung) have prevented him from consideration of cystectomy (Dr Bennett, [facility]) . He has had initial chemo with [place], then salvage chemo this fall with 5FU. He seems to have had a partial response on the most recent ct scan. He does have new left hydro. The hydro goes all the way down the ureter to the left bladder wall. Patient believes this ureter has needed a stent in years past with Dr Alcantara. He did not recall having problems tolerating the stent. He is admitted with weakness and falls. His serum sodium was very low at 122, and his creatinine was up from a baseline of 1.2 to 1.4 today. His urine has some white cells and he reports no dysuria and no hematuria , but he has had frequency and foul odor to the urine. His reports a few weeks ago he could not void and was able to pass a small 14 fr catheter to drain himself once and then he resumed voiding. He is feeling ok. Imaging Imaging: CT Laboratory Results Past 24 Hours Test 09/27/17 11:10 09/27/17 11:15 09/27/17 11:31 09/27/17 15:32 Range/Units Urine Color YELLOW Urine Appearance CLEAR CLEAR Urine pH 7.5 4.5-7.5 Urine Specific [place] 1.010 1.000-1.030 Urine Protein NEG NEG Urine Glucose (UA) NEG NEG Urine Ketones NEG NEG Urine Occult Blood TRACE NEG Urine Nitrite NEG NEG Urine Bilirubin NEG NEG Urine Urobilinogen NEG NEG Urine Leukocyte Esterase MODERATE NEG Urine WBC (Auto) >30 0-5 /hpf Urine RBC (Auto) 0-4 0-4 /hpf Urine Hyaline Casts (Auto) 1-5 0-5 /lpf Urine Epithelial Cells (Auto) >30 0-5 /lpf Urine Bacteria (Auto) NEG NEG Urine Renal Epithelial Cells 0-5 0-5 /lpf White Blood Count 3.63 4.8-10.8 K/uL Red Blood Count 2.35 4.7-6.1 M/uL Hemoglobin 8.1 14.0-18.0 g/dL Hematocrit 22.8 42-52 % Mean Corpuscular Volume 97.0 80-100 fL Mean Corpuscular Hemoglobin 34.5 25-34 pg Mean Corpuscular Hemoglobin Concent 35.5 32-36 g/dl Platelet Count 132 130-400 K/uL Mean Platelet Volume 7.4-10.4 fL Neutrophils (%) (Auto) 54.7 % Lymphocytes (%) (Auto) 26.2 % Monocytes (%) (Auto) 17.6 % Eosinophils (%) (Auto) 0.6 % Basophils (%) (Auto) 0.6 % Neutrophils # (Auto) 1.99 1.4-6.5 K/uL Lymphocytes # (Auto) 0.95 1.2-3.4 K/uL Monocytes # (Auto) 0.64 0.11-0.59 K/uL Eosinophils # (Auto) 0.02 0-0.5 K/uL Basophils # (Auto) 0.02 0-0.2 K/uL RDW Standard Deviation 45.4 36.4-46.3 fL RDW Coefficient of Variation 13.3 11.5-14.5 % Immature Granulocyte % (Auto) 0.3 % Immature Granulocyte # (Auto) 0.01 0.00-0.02 K/uL Large Platelets 1+ Prothrombin Time 10.5 9.0-12.0 SECONDS Prothromb Time International Ratio 1.0 0.9-1.1 Activated Partial Thromboplast Time 32.3 21.0-31.0 SECONDS Partial Thromboplastin Ratio 1.2 Sodium Level 123 136-145 mmol/L Potassium Level 3.2 3.5-5.1 mmol/L Chloride Level 88 98-107 mmol/L Carbon Dioxide Level 25 21-32 mmol/L Anion Gap 10.0 3-11 mmol/L Blood Urea Nitrogen 28 7-18 mg/dl Creatinine 1.44 0.60-1.40 mg/dl Est Creatinine Clear Calc Drug Dose 53.6 ml/min Estimated GFR () 55.1 Estimated GFR (Non- 47.5 BUN/Creatinine Ratio 19.1 10-20 Random Glucose 104 70-99 mg/dl Calcium Level 8.6 8.5-10.1 mg/dl Magnesium Level 1.5 1.8-2.4 mg/dl Total Bilirubin 0.8 0.2-1 mg/dl Aspartate Amino Transf (AST/SGOT) 25 15-37 U/L Alanine Aminotransferase (ALT/SGPT) 28 12-78 U/L Alkaline Phosphatase 65 45-117 U/L Total Creatine Kinase 113 39-308 U/L Troponin I 0.034 0-0.045 ng/ml Total Protein 6.6 6.4-8.2 gm/dl Albumin 2.6 3.4-5.0 gm/dl Globulin 4.0 2.5-4.0 gm/dl Albumin/Globulin Ratio 0.7 0.9-2 Thyroid Stimulating Hormone (TSH) 1.230 0.300-4.500 uIu/ml Ethyl Alcohol mg/dL < 3.0 0-3 mg/dl Microbiology Results 09/27/17 Urine Culture, Received Pending Labs were reviewed and are within normal limits unless listed below. Labs are available in the chart and at [facility] Problem List Medical Problems: (1) Acute urinary retention Status: Acute (2) Anemia Status: Acute (3) Dehydration Status: Acute (4) Head trauma Status: Acute (5) Hemorrhagic cystitis Status: Acute (6) Hypomagnesemia Status: Acute (7) Hyponatremia Status: Acute Past History A Fib, alcohol addiction, cancer, chemotherapy, COPD, coronary artery disease, hypertension Family History Patient reports no known family medical history. Social History Hx Tobacco Use In Past Year?: No Smoking: quit greater than 1 year Alcohol: daily (2-3 drinks per day) Marital status: Housing status: lives with family Occupation status: employed Immunizations History of Influenza Vaccine: Yes Influenza Vaccine Date: Aug 08, 2013 History of Tetanus Vaccine?: Yes History of Pneumococcal: Yes Pneumococcal Date: Jun 03, 2008 History of Hepatitis B Vaccine: No History of MDRO No Allergies Coded Allergies: No Known Allergies (Unverified , 09/27/17) Medications Home Medications: Home Meds and Scripts Medications Dose Route/Sig Max Daily Dose Days Date Category Flonase Allergy Relief (Fluticasone Propionate (Nasal)) 50 Mcg/Act Spr 2 Sprays INH DAILY 09/27/17 Reported Lipitor (Atorvastatin Calcium) 40 Mg Tab 40 Mg PO HS 09/27/17 Reported Phenergan (Promethazine HCl) 12.5 Mg Tab 12.5 Mg PO Q8H PRN 09/27/17 Reported Colace (Docusate Sodium) 100 Mg Cap 1 Cap PO BID PRN 09/27/17 Reported Micro-K Ext Rel (Potassium Chloride) 10 Meq Cap 10 Meq PO BID 09/10/17 Reported Uroxatral (Alfuzosin HCl) 10 Mg Tab 10 Mg PO QPM 08/23/16 Reported [place]en 0.05% (Desonide) 60 Gm Cr 1 Appln TOP BID PRN 08/23/16 Reported Proair Respiclick (Albuterol Sulfate) 108 Mcg/Act Aer 1-2 Inha IN Q4H PRN 07/18/16 Reported Prinivil (Lisinopril) 5 Mg Tab 1 Tab PO QPM 07/18/16 Reported Spiriva Handihaler (Tiotropium [place]) 18 Mcg/ Aerp 1 Cap INH QAM 08/21/14 Reported Ventolin Inhaler (Albuterol) Aers 2 Puffs INH QID PRN 08/14/14 Reported Tikosyn (Dofetilide) 500 Mcg Cap 500 Mcg PO Q12H 08/14/14 Reported Breo Ellipta (Fluticasone Furoate-Vilanterol) 1 Inh Inh 1 Puff INH QAM 08/14/14 Reported Ambien (Zolpidem Tartrate) 10 Mg Tab 10 Mg PO HS PRN 10/22/12 Reported Mag-Ox (Magnesium Oxide) 400 Mg Tab 400 Mg PO QPM 06/28/10 Reported Lasix * (Furosemide) 20 Mg Tab 20 Mg PO QAM 06/28/10 Reported Multivitamin (Multivitamins) Tab 1 Tab PO QPM 06/28/10 Reported Tenormin (Atenolol) 25 Mg Tab 25 Mg PO BID 06/28/10 Reported Caltrate 600 Plus * (Calcium/Vitamin D) Tab 1 Tab PO QAM 04/20/09 Reported Inpatient Medications: Current Inpatient Medications Medications (Trade) Dose Ordered Sig/Martha Route Start Time Stop Time Status Last Admin Dose Admin Ceftriaxone Sodium 1 gm/ Dextrose 50 ml @ 100 mls/hr Q24H IV 09/27/17 16:00 10/07/17 13:14 09/27/17 15:37 100 MLS/HR Potassium Chloride/Sodium Chloride 1,000 ml @ 100 mls/hr Q10H IV 09/27/17 15:15 10/27/17 13:14 09/27/17 15:29 100 MLS/HR Acetaminophen (Tylenol Tab) 650 mg Q4H PRN PO 09/27/17 13:15 10/27/17 13:14 Ondansetron HCl (Zofran Inj) 4 mg Q6H PRN IV 09/27/17 13:15 10/27/17 13:14 Albuterol (Ventolin Hfa Inhaler) 2 puffs QID PRN INH 09/27/17 13:30 10/27/17 13:29 Alfuzosin HCl (Uroxatral Tab) 10 mg QPM PO 09/27/17 21:00 10/27/17 20:59 Atenolol (Tenormin Tab) 25 mg BID PO 09/27/17 21:00 10/27/17 20:59 Atorvastatin Calcium (Lipitor Tab) 40 mg HS PO 09/27/17 21:00 10/27/17 20:59 Calcium/Vitamin D (Caltrate Plus Tab) 1 tab QAM PO 09/28/17 09:00 10/28/17 08:59 Desonide (Desowen 0.05% Crm) 1 appln BID PRN EXT 09/27/17 13:30 10/27/17 13:29 Docusate Sodium (coLACE CAP) 100 mg BID PRN PO 09/27/17 13:30 10/27/17 13:29 Fluticasone Propionate (Flonase Nasal [place]) 2 sprays DAILY NA 09/28/17 09:00 10/28/17 08:59 Lisinopril (Zestril Tab) 5 mg QPM PO 09/27/17 21:00 10/27/17 20:59 Magnesium Oxide (Mag-Ox Tab) 400 mg QPM PO 09/27/17 21:00 10/27/17 20:59 Multivitamins (Multivitamin Tab) 1 tab QPM PO 09/27/17 21:00 10/27/17 20:59 Potassium Chloride (Klor-Con M10) 10 meq BID PO 09/27/17 21:00 10/27/17 20:59 Promethazine HCl (Phenergan Tab) 12.5 mg Q8H PRN PO 09/27/17 13:30 10/27/17 13:29 Tiotropium [place] (Spiriva Handihaler Inhaler) 1 puff QAM INH 09/28/17 09:00 10/28/17 08:59 Zolpidem Tartrate (Ambien Tab) 10 mg HS PRN PO 09/27/17 13:30 10/27/17 13:29 Dofetilide (Tikosyn) 500 mcg Q12 PO 09/27/17 21:00 10/27/17 20:59 Miscellaneous Information (Order Awaiting Action) 1 ea QS N/A 09/27/17 16:00 10/27/17 15:59 Enoxaparin Sodium (Lovenox Inj) 30 mg Q12H SQ 09/27/17 14:15 10/27/17 14:14 UNV Review of Systems Review of Systems Constitutional: No fever, No chills Neurological: + problem reported (falls) Endocrine: + tired/sluggish Gastrointestinal: + nausea, + constipation Cardiovascular: No chest pain, No palpitations Respiratory: + chronic cough, No shortness of breath Male : + frequent urination, + weak stream, + nocturia more than once/night, No painful urination Physical Exam Vital Signs: Vital Signs Past 12 Hours Date Time Temp Pulse Resp B/P (MAP) Pulse Ox O2 Delivery O2 Flow Rate FiO2 09/27/17 14:07 78 20 128/64 96 Room Air 09/27/17 13:35 87 20 118/64 93 Room Air 09/27/17 12:47 78 20 126/89 96 Room Air 09/27/17 12:03 81 16 109/63 96 Room Air 09/27/17 11:23 95 Room Air 09/27/17 10:51 36.9 65 18 131/70 94 Room Air Physical Exam: General Appearance: WD/WN, no apparent distress, + obese Eyes: bilateral eyes normal inspection ENT: hearing grossly normal Neck: no adenopathy, no JVD, trachea midline Gastrointestinal: Abdomen: normal abdomen Bladder: normal bladder Renal: normal renal Hernia: absent hernia Liver: normal liver Extremities: non-tender, normal inspection, no pedal edema, no calf tenderness Neurologic/Psychiatric: alert, normal mood/affect, oriented x 3 Skin: normal color, warm/dry, no rash Lymphatic: no adenopathy Assessment & Plan Assessment & Plan new left hydroureteronephrosis I suspect this is from bladder cancer locally advanced at left trigone will see what tomorrows cr is if improving with hydration then no intervention. if creatinine rises then will need to consider nephrostomy tube or a nephro- ureteral stent at [facility]. I described neph tube and he is not certain he wants that if it comes to it. I have not been able to get scopes into his bladder this year due to urethral stenosis from prior prostate radiation so I do not think I can get a stent up from the bladder. await urine culture
[2017-09-27 19:05] LABS: BUN/CREATININE RATIO 18.8 (10-20); CALCIUM 8.3 mg/dl (8.5-10.1); CREATININE 1.64 mg/dl (0.60-1.40); MAGNESIUM 1.9 mg/dl (1.8-2.4); PHOSPHORUS 2.9 mg/dl (2.5-4.9); POTASSIUM 3.6 mmol/L (3.5-5.1)
[2017-09-27 19:20] VITALS: BP_SYST 123; BP_SYST 129; BP_SYST 145; BP_DIAS 73; BP_DIAS 82; BP_DIAS 86; PULSE 101; TEMP 37; O2SAT 94
[2017-09-27 20:30] VITALS: O2SAT 94
[2017-09-27] MEDS: ALFUZosin TAB 10 MG TAB PO SCH (20:56)
[2017-09-27] MEDS: ATORVASTATIN 40 MG TAB PO SCH (20:56)
[2017-09-27] MEDS: DOFETILIDE 125 MCG CAP PO SCH (20:56)
[2017-09-27] MEDS: MULTIVITAMIN TAB PO SCH (20:56)
[2017-09-27] MEDS: MAGNESIUM OXIDE 400 MG TAB PO SCH (20:57)
[2017-09-27] MEDS: POTASSIUM CHLORIDE 10 MEQ TABCR PO SCH (20:57)
[2017-09-27] MEDS ORDERED: LISINOPRIL 5 MG TAB PO SCH (21:00)
[2017-09-27] MEDS ORDERED: ENOXAPARIN 30 MG/0.3 ML SYR SQ SCH (21:00)
[2017-09-27] MEDS: ZOLPIDEM TARTRATE 10 MG TAB PO PRN (21:54)
[2017-09-28] VITALS (7 sets, daily range): BP systolic 119–142; BP diastolic 71–84; PULSE 66–101; TEMP 36.1–36.6; O2SAT 92–99
[2017-09-28] MEDS: NSS + 20MEQ KCL 1000ML 1,000 ML IV SCH ×2 (02:14→12:32)
[2017-09-28 07:12] LABS: HEMATOCRIT 20.8 % (42-52); MEAN CELL VOLUME 97.7 fL (80-100); MEAN CORPUSCULAR HEMOGLOBIN 33.8 pg (25-34); MEAN CORPUSCULAR HGB CONC 34.6 g/dl (32-36); RED BLOOD COUNT 2.13 M/uL (4.7-6.1); WHITE BLOOD COUNT 3.93 K/uL (4.8-10.8)
[2017-09-28 07:14] LABS: BUN/CREATININE RATIO 19.1 (10-20); CALCIUM 8.2 mg/dl (8.5-10.1); CREATININE 1.39 mg/dl (0.60-1.40); MAGNESIUM 1.8 mg/dl (1.8-2.4); PHOSPHORUS 3.1 mg/dl (2.5-4.9); POTASSIUM 3.3 mmol/L (3.5-5.1)
[2017-09-28] MEDS ORDERED: POTASSIUM CHLORIDE 10 MEQ TABCR PO STA (07:46)
[2017-09-28 07:50] LABS: MEAN PLATELET VOLUME 9.7 fL (7.4-10.4); PLATELET COUNT 188 K/uL (130-400)
[2017-09-28] MEDS: BREO ELLIPTA - ORDER AWAITING ACTION SCH ×2 (08:00→16:00)
[2017-09-28 08:04] LABS: HEMATOCRIT 21.8 % (42-52)
[2017-09-28] MEDS: POTASSIUM CHLORIDE 10 MEQ TABCR PO SCH ×2 (08:25→21:15)
[2017-09-28] MEDS: DOFETILIDE 125 MCG CAP PO SCH ×2 (08:25→21:15)
[2017-09-28] MEDS: CALCIUM 600MG + VIT D 400 IU TAB PO SCH (08:25)
[2017-09-28] MEDS: FLUTICASONE PROPIONATE NA SPR 16 GM BTL SCH (08:26)
[2017-09-28] MEDS: TIOTROPIUM BROMIDE 5 PUFF/90 MCG INH INH SCH (08:26)
[2017-09-28 09:13] LABS: BASO % 0.5 %; BASO ABS # 0.02 K/uL (0-0.2); COMPLETE YES; EOS % 0.5 %; GIANT PLATELETS 2+; LYMPH % 26.2 %; LYMPH ABS # 1.03 K/uL (1.2-3.4); MONO % 21.4 %; NEUT % 50.4 %
--- NOTE | 2017-09-28 10:24 | Nephrology Consultation ---
Nephrology Consultation Date of Consultation: Sep 28, 2017. Attending Physician: Dr Kelly Requesting Physician: Dr Kelly Reason for Consultation: Hyponatremia History of Present Illness 72 year old male undergoing active CTX for invasive bladder CA sent from oncology clinic yesterday d/t 3 falls past week and orthostatic sx and admitted w/ hyponatremia, hypokalemia, hypomagnesemia, new L hydroureter, dehydration, as well as further eval of falls. his presenting sodium was 123, w/ creatinine 1.4. He has chronic hyponatremia w/ values [id number] 130s since 2012. his most recent sodium in our system was 127 late laste month. His baseline creatinine is 1.1-1.2 most recently last month. His urine culture has 2 types of GNR w/ inflamed sediment and c/o frequency at presentation and transient retention a few weeks prior to presentation. Overnight orthostatics were checked > he does not quite meet criteria but did have 10 poitn drop in SBP from sitting/supine to standing (had been 20 point drop at presentation). He denies recent diarrhea or any bm over past 4 days. no n/v but does endorse decreased po past several days. 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 Social History Smoking Status: Former Smoker Marital Status: Occupation Status: employed Allergies Coded Allergies: No Known Allergies (Unverified , 09/27/17) Medications Current Inpatient Medications Medications (Trade) Dose Ordered Sig/Martha Route Start Time Stop Time Status Last Admin Dose Admin Ceftriaxone Sodium 1 gm/ Dextrose 50 ml @ 100 mls/hr Q24H IV 09/27/17 16:00 10/07/17 13:14 09/27/17 15:37 100 MLS/HR Potassium Chloride/Sodium Chloride 1,000 ml @ 75 mls/hr [id number] IV 09/27/17 15:15 10/27/17 13:14 09/28/17 02:14 100 MLS/HR Acetaminophen (Tylenol Tab) 650 mg Q4H PRN PO 09/27/17 13:15 10/27/17 13:14 Ondansetron HCl (Zofran Inj) 4 mg Q6H PRN IV 09/27/17 13:15 10/27/17 13:14 Albuterol (Ventolin Hfa Inhaler) 2 puffs QID PRN INH 09/27/17 13:30 10/27/17 13:29 Alfuzosin HCl (Uroxatral Tab) 10 mg QPM PO 09/27/17 21:00 10/27/17 20:59 09/27/17 20:56 10 MG Atenolol (Tenormin Tab) 25 mg BID PO 09/27/17 21:00 10/27/17 20:59 09/28/17 08:25 25 MG Atorvastatin Calcium (Lipitor Tab) 40 mg HS PO 09/27/17 21:00 10/27/17 20:59 09/27/17 20:56 40 MG Calcium/Vitamin D (Caltrate Plus Tab) 1 tab QAM PO 09/28/17 09:00 10/28/17 08:59 09/28/17 08:25 1 TAB Desonide (Desowen 0.05% Crm) 1 appln BID PRN EXT 09/27/17 13:30 10/27/17 13:29 Docusate Sodium (coLACE CAP) 100 mg BID PRN PO 09/27/17 13:30 10/27/17 13:29 Fluticasone Propionate (Flonase Nasal [place]) 2 sprays DAILY NA 09/28/17 09:00 10/28/17 08:59 09/28/17 08:26 2 SPRAYS Lisinopril (Zestril Tab) 5 mg QPM PO 09/27/17 21:00 10/27/17 20:59 09/27/17 20:57 5 MG Magnesium Oxide (Mag-Ox Tab) 400 mg QPM PO 09/27/17 21:00 10/27/17 20:59 09/27/17 20:57 400 MG Multivitamins (Multivitamin Tab) 1 tab QPM PO 09/27/17 21:00 10/27/17 20:59 09/27/17 20:56 1 TAB Potassium Chloride (Klor-Con M10) 10 meq BID PO 09/27/17 21:00 10/27/17 20:59 09/28/17 08:25 10 MEQ Promethazine HCl (Phenergan Tab) 12.5 mg Q8H PRN PO 09/27/17 13:30 10/27/17 13:29 Tiotropium [place] (Spiriva Handihaler Inhaler) 1 puff QAM INH 09/28/17 09:00 10/28/17 08:59 09/28/17 08:26 1 PUFF Zolpidem Tartrate (Ambien Tab) 10 mg HS PRN PO 09/27/17 13:30 10/27/17 13:29 09/27/17 21:54 10 MG Dofetilide (Tikosyn) 500 mcg Q12 PO 09/27/17 21:00 10/27/17 20:59 09/28/17 08:25 500 MCG Miscellaneous Information (Order Awaiting Action) 1 ea QS N/A 09/27/17 16:00 10/27/17 15:59 Heparin Sodium (Porcine) (Heparin 100 Unit/ml 5ml Flush) 5 ml PRN PRN IV 09/28/17 01:00 10/28/17 00:59 Home Meds and Scripts Medications Dose Route/Sig Max Daily Dose Days Date Category Flonase Allergy Relief (Fluticasone Propionate (Nasal)) 50 Mcg/Act Spr 2 Sprays INH DAILY 09/27/17 Reported Lipitor (Atorvastatin Calcium) 40 Mg Tab 40 Mg PO HS 09/27/17 Reported Phenergan (Promethazine HCl) 12.5 Mg Tab 12.5 Mg PO Q8H PRN 09/27/17 Reported Colace (Docusate Sodium) 100 Mg Cap 1 Cap PO BID PRN 09/27/17 Reported Micro-K Ext Rel (Potassium Chloride) 10 Meq Cap 10 Meq PO BID 09/10/17 Reported Uroxatral (Alfuzosin HCl) 10 Mg Tab 10 Mg PO QPM 08/23/16 Reported Desowen 0.05% (Desonide) 60 Gm Cr 1 Appln TOP BID PRN 08/23/16 Reported Proair Respiclick (Albuterol Sulfate) 108 Mcg/Act Aer 1-2 Inha IN Q4H PRN 07/18/16 Reported Prinivil (Lisinopril) 5 Mg Tab 1 Tab PO QPM 07/18/16 Reported Spiriva Handihaler (Tiotropium [place]) 18 Mcg/ Aerp 1 Cap INH QAM 08/21/14 Reported Ventolin Inhaler (Albuterol) Aers 2 Puffs INH QID PRN 08/14/14 Reported Tikosyn (Dofetilide) 500 Mcg Cap 500 Mcg PO Q12H 08/14/14 Reported Breo Ellipta (Fluticasone Furoate-Vilanterol) 1 Inh Inh 1 Puff INH QAM 08/14/14 Reported Ambien (Zolpidem Tartrate) 10 Mg Tab 10 Mg PO HS PRN 10/22/12 Reported Mag-Ox (Magnesium Oxide) 400 Mg Tab 400 Mg PO QPM 06/28/10 Reported Lasix * (Furosemide) 20 Mg Tab 20 Mg PO QAM 06/28/10 Reported Multivitamin (Multivitamins) Tab 1 Tab PO QPM 06/28/10 Reported Tenormin (Atenolol) 25 Mg Tab 25 Mg PO BID 06/28/10 Reported Caltrate 600 Plus * (Calcium/Vitamin D) Tab 1 Tab PO QAM 04/20/09 Reported Review of Systems Constitutional: + weakness, + fatigue, No fever, No weight loss Eyes: No worsening of vision ENT: No hearing loss Respiratory: No cough, No shortness of breath, No dyspnea on exertion, No dyspnea at rest Cardiac: No chest pain, No orthopnea, No edema, No palpitations Abdomen: + constipation, No pain, No nausea, No vomiting, No diarrhea Musculoskeletal: No joint pain, No muscle pain Male : + urinary frequency (+ urgency), + problem reported (occasional retention), No dysuria Neuro: + balance problems, No memory loss, No weakness Psych: No depression symptoms, No anxiety Heme: No abnormal bleeding/bruising Endo: + fatigue, No excessive thirst, No excessive urination Skin: No rash, No itch, No new/changing skin lesions Physical Exam Date Time Temp Pulse Resp B/P (MAP) Pulse Ox O2 Delivery O2 Flow Rate FiO2 09/28/17 08:00 Nasal Cannula 3.0 09/28/17 07:32 36.5 66 19 120/73 (89) 92 Room Air 09/28/17 04:09 36.4 67 16 130/76 (94) 97 Nasal Cannula 3.0 09/28/17 04:00 Nasal Cannula 2.0 09/28/17 00:33 36.1 97 18 140/81 (100) 95 3.0 101 139/74 (95) 129/84 (99) 09/28/17 00:00 Nasal Cannula 2.0 09/27/17 20:30 94 Room Air 09/27/17 19:20 37.0 101 20 123/73 (90) 94 Room Air 129/82 (98) 145/86 (105) 09/27/17 16:56 Room Air 09/27/17 14:07 78 20 128/64 96 Room Air 09/27/17 13:35 87 20 118/64 93 Room Air 09/27/17 12:47 78 20 126/89 96 Room Air 09/27/17 12:03 81 16 109/63 96 Room Air 09/27/17 11:23 95 Room Air 09/27/17 10:51 36.9 65 18 131/70 94 Room Air General Appearance: WD/WN, no apparent distress, + obese, + pertinent finding ( on RA, needs assist to maneuver for exam) Eyes: EOMI ENT: hearing grossly normal Neck: + pertinent finding (stiffer neck) Respiratory/Chest: normal breath sounds, no respiratory distress, + decreased breath sounds Cardiovascular: regular rate, rhythm, no edema Abdomen: normal bowel sounds, non tender, soft, + pertinent finding (no fuchs) Extremities: non-tender, normal inspection, no pedal edema Neurologic/Psych: alert, normal mood/affect, oriented x 3 (some recall limits at times) Skin: no jaundice, warm/dry, no rash Diagnostics Last 24 Hours Test 09/27/17 11:10 09/27/17 11:15 09/27/17 11:31 12/14/17 15:32 Urine Color YELLOW Urine Appearance CLEAR Urine pH 7.5 Urine Specific [place] 1.010 Urine Protein NEG Urine Glucose (UA) NEG Urine Ketones NEG Urine Occult Blood TRACE Urine Nitrite NEG Urine Bilirubin NEG Urine Urobilinogen NEG Urine Leukocyte Esterase MODERATE Urine WBC (Auto) >30 /hpf Urine RBC (Auto) 0-4 /hpf Urine Hyaline Casts (Auto) 1-5 /lpf Urine Epithelial Cells (Auto) >30 /lpf Urine Bacteria (Auto) NEG Urine Renal Epithelial Cells 0-5 /lpf White Blood Count 3.63 K/uL Red Blood Count 2.35 M/uL Hemoglobin 8.1 g/dL Hematocrit 22.8 % Mean Corpuscular Volume 97.0 fL Mean Corpuscular Hemoglobin 34.5 pg Mean Corpuscular Hemoglobin Concent 35.5 g/dl Platelet Count K/uL 132 K/uL Mean Platelet Volume fL Neutrophils (%) (Auto) 54.7 % Lymphocytes (%) (Auto) 26.2 % Monocytes (%) (Auto) 17.6 % Eosinophils (%) (Auto) 0.6 % Basophils (%) (Auto) 0.6 % Neutrophils # (Auto) 1.99 K/uL Lymphocytes # (Auto) 0.95 K/uL Monocytes # (Auto) 0.64 K/uL Eosinophils # (Auto) 0.02 K/uL Basophils # (Auto) 0.02 K/uL RDW Standard Deviation 45.4 fL RDW Coefficient of Variation 13.3 % Immature Granulocyte % (Auto) 0.3 % Immature Granulocyte # (Auto) 0.01 K/uL Large Platelets 1+ Prothrombin Time 10.5 SECONDS Prothromb Time International Ratio 1.0 Activated Partial Thromboplast Time 32.3 SECONDS Partial Thromboplastin Ratio 1.2 Sodium Level 123 mmol/L Potassium Level 3.2 mmol/L Chloride Level 88 mmol/L Carbon Dioxide Level 25 mmol/L Anion Gap 10.0 mmol/L Blood Urea Nitrogen 28 mg/dl Creatinine 1.44 mg/dl Est Creatinine Clear Calc Drug Dose 53.6 ml/min Estimated GFR () 55.1 Estimated GFR (Non- 47.5 BUN/Creatinine Ratio 19.1 Random Glucose 104 mg/dl Calcium Level 8.6 mg/dl Magnesium Level 1.5 mg/dl Total Bilirubin 0.8 mg/dl Aspartate Amino Transf (AST/SGOT) 25 U/L Alanine Aminotransferase (ALT/SGPT) 28 U/L Alkaline Phosphatase 65 U/L Total Creatine Kinase 113 U/L Troponin I 0.034 ng/ml Total Protein 6.6 gm/dl Albumin 2.6 gm/dl Globulin 4.0 gm/dl Albumin/Globulin Ratio 0.7 Thyroid Stimulating Hormone (TSH) 1.230 uIu/ml Ethyl Alcohol mg/dL < 3.0 mg/dl Test 09/27/17 18:22 09/28/17 06:05 09/28/17 07:57 Sodium Level 128 mmol/L 127 mmol/L Potassium Level 3.6 mmol/L 3.3 mmol/L Chloride Level 93 mmol/L 95 mmol/L Carbon Dioxide Level 29 mmol/L 25 mmol/L Anion Gap 6.0 mmol/L 7.0 mmol/L Blood Urea Nitrogen 31 mg/dl 27 mg/dl Creatinine 1.64 mg/dl 1.39 mg/dl Est Creatinine Clear Calc Drug Dose 46.1 ml/min 54.4 ml/min Estimated GFR () 47.0 57.5 Estimated GFR (Non- 40.6 49.6 BUN/Creatinine Ratio 18.8 19.1 Random Glucose 124 mg/dl 116 mg/dl Calcium Level 8.3 mg/dl 8.2 mg/dl Phosphorus Level 2.9 mg/dl 3.1 mg/dl Magnesium Level 1.9 mg/dl 1.8 mg/dl White Blood Count 3.93 K/uL Red Blood Count 2.13 M/uL Hemoglobin 7.2 g/dL 7.7 g/dL Hematocrit 20.8 % 21.8 % Mean Corpuscular Volume 97.7 fL Mean Corpuscular Hemoglobin 33.8 pg Mean Corpuscular Hemoglobin Concent 34.6 g/dl Platelet Count 188 K/uL Mean Platelet Volume 9.7 fL Neutrophils (%) (Auto) 50.4 % Lymphocytes (%) (Auto) 26.2 % Monocytes (%) (Auto) 21.4 % Eosinophils (%) (Auto) 0.5 % Basophils (%) (Auto) 0.5 % Neutrophils # (Auto) 1.98 K/uL Lymphocytes # (Auto) 1.03 K/uL Monocytes # (Auto) 0.84 K/uL Eosinophils # (Auto) 0.02 K/uL Basophils # (Auto) 0.02 K/uL RDW Standard Deviation 46.0 fL RDW Coefficient of Variation 13.5 % Immature Granulocyte % (Auto) 1.0 % Immature Granulocyte # (Auto) 0.04 K/uL Giant Platelets 2+ Vitamin B12 Level 488 pg/mL Diagnostic Radiology: head ct no acute i-c process cxr no acute cardiopulm process TTE moderate CLVH w/o WMA; EF 50%; grade 2 D dysfnxn; m-mod mitral rgg EKG: SR w/ PAC, aberrant conduction; L AFB; long QTc Assessment & Plan 72 y/o M w/ active tx for invasive bladder CA, chronic hyponatremia, HTN, A fib , chronic systolic HF, active tobacco/EtOH use admitted 09/27 for UTI, electrolyte disorders after presenting with falls and orthostatic sx. Acute on chronic hyponatremia improved w/ hydration back to his outpt baseline, though goal would be to normalize na if possible <<>>suspect acute component hydration issue; suspect chronic component relates more to low solute diet and possibly to ctx. Goal sNa tomorrow am is 133 -he had a L of NS and is now getting 75 mL / hr NS w/ K as below -orders in to recheck bmp today at 1500; then again in am -continue efforts to correct K <>sNa will not correct w/o repleting this -02 needs are not new; he appears to be tolerating fluids <> continue IVF for now but low threshold for XR Hypokalemia, ongoing mild -had 30 mEq this am; had 20 mEq last evening; on 20 mEq daily total as outpt w/ lasix <>this dose also continued on admission -also getting NS w/ 20 mEq/L K at 75 ml/hr -on acei -recheck lab as above Hypomagnesemia -on mag supplements chronically ; also had 20 gm iv >> now corrected L hydroureter and active bladder CA -urology following > if worsening renal failure, may need nephrostomy tube or neph/[place]teral stent [place] [facility] if [place]; not a stent candidate from urethral approach -given hydroureter, leukopenia, + urine cxs, I ordered blood cxs for completeness; already on ceftriaxone (first dose given yesterday 0) Appreciate consult; will follow with you.
[2017-09-28 11:46] LABS: PLATELET COUNT 197 K/uL (130-400)
[2017-09-28] MEDS ORDERED: NURSING VERBAL MED ORDER ONE (13:00)
[2017-09-28] MEDS ORDERED: POLYETHYLENE (MIRALAX) 17 GM PACK PO ONE (13:30)
[2017-09-28 15:58] LABS: BUN/CREATININE RATIO 19.7 (10-20); CALCIUM 8.7 mg/dl (8.5-10.1); CREATININE 1.39 mg/dl (0.60-1.40)
[2017-09-28] MEDS: CEFTRIAXONE SOD INJ 1 GM in DEXTROSE 5% ADD-VANTAGE 50ML 50 ML IV SCH (16:00)
--- NOTE | 2017-09-28 17:54 | Progress Note ---
Internal Med Progress Note Date of Service: Sep 28, 2017. Provider Documentation: SUBJECTIVE: feels much better no complain of dizzy spell or lightheadedness no SOB or sob no fever or chills OBJECTIVE: Vital Signs-as noted below Exam: General-no apparent distress . well appearing male , no sign of distress Eyes-sclera non icteric , PERRLA/EOMI ENT-NAD Neck-no thyromegaly , trachea midline Lungs-diminished , no wheeze or rales Heart-regular S1/S2 Abdomen-soft, non tender Extremities-no rash or deformity Neuro-AAO x3, no focal deficit Lab data as noted below. ASSESSMENT & PLAN: SYNCOPE : possible due to dehydration , electrolyte derangement no arrhythmia noted CT head negative for Acute change cont IV Fluids, monitor in tele ECHO : There is moderate concentric left ventricular hypertrophy. No regional wall motion abnormalities noted. Ejection Fraction = 50-55%. Diastolic dysfunction, Grade II (pseudonormalization pattern). Aortic valve sclerosis moderate, without significant aortic valvular stenosis. There is mild to moderate mitral regurgitation. FALL AMBULATORY DYSFUNCTION possible due to generalized deconditioning , bladder Ca on chemo needs PT/OT eval fall precaution possible rehab prior to returning home HYPONATREMIA/ELECTROLYTE DERANGEMENT due to poor po intake , dehydration cont IV fluid monitor lytes appreciate input form nephrology JAXON : due to dehydration , Cr improved with IV fluid ANEMIA OF CHRONIC DISEASE : due to bladder Ca on chemo follow H&H tx for Hb < 7 or if symptomatic BLADDER CA : advanced stage appreciate input form urology POSSIBLE UTI : on Rocephin follow urine culture LEFT SIDED HYDROURETER due to Bladder outlet obstruction with malignancy appreciate Urology eval Cystoscopy /ureteric stent no possible due to stricture, involvement of bladder trigone involvement with tumor may need Tertiary care tx with percutaneous Nephrostomy placement if clinically declines HX OF PAROXYSMAL AFIB on Tykosin not an candidate for anticoagulation due to bladder Ca, high risk for CA CHRONIC CHF ISCHEMIC CARDIOMYOPATHY: echo as above compensated ordered IV fluid for dehydration /JAXON /hyponatremia monitor vol status DVT ppx Lovenox FULL CODE DISPOSITION to be determined lives at home , multiple falls recently PT/OT eval Social service consulted for discharge planning Medicine follow up with Dr Good Vital Signs: Date Time Temp Pulse Resp B/P (MAP) Pulse Ox O2 Delivery O2 Flow Rate FiO2 09/28/17 19:13 36.4 93 24 142/71 (94) 98 Room Air 09/28/17 16:00 Nasal Cannula 3.0 09/28/17 15:25 36.6 73 18 119/80 (93) 99 Room Air 09/28/17 12:00 Nasal Cannula 3.0 09/28/17 11:42 36.6 87 19 121/72 (88) 93 Room Air 09/28/17 08:00 Nasal Cannula 3.0 09/28/17 07:32 36.5 66 19 120/73 (89) 92 Room Air 09/28/17 04:09 36.4 67 16 130/76 (94) 97 Nasal Cannula 3.0 09/28/17 04:00 Nasal Cannula 2.0 09/28/17 00:33 36.1 97 18 140/81 (100) 95 3.0 101 139/74 (95) 129/84 (99) 09/28/17 00:00 Nasal Cannula 2.0 09/27/17 20:30 94 Room Air Lab Results: Results Past 24 Hours Test 09/28/17 06:05 09/28/17 07:57 09/28/17 15:23 Range/Units White Blood Count 3.93 4.8-10.8 K/uL Red Blood Count 2.13 4.7-6.1 M/uL Hemoglobin 7.2 7.7 14.0-18.0 g/dL Hematocrit 20.8 21.8 42-52 % Mean Corpuscular Volume 97.7 80-100 fL Mean Corpuscular Hemoglobin 33.8 25-34 pg Mean Corpuscular Hemoglobin Concent 34.6 32-36 g/dl Platelet Count 188 130-400 K/uL Mean Platelet Volume 9.7 7.4-10.4 fL Neutrophils (%) (Auto) 50.4 % Lymphocytes (%) (Auto) 26.2 % Monocytes (%) (Auto) 21.4 % Eosinophils (%) (Auto) 0.5 % Basophils (%) (Auto) 0.5 % Neutrophils # (Auto) 1.98 1.4-6.5 K/uL Lymphocytes # (Auto) 1.03 1.2-3.4 K/uL Monocytes # (Auto) 0.84 0.11-0.59 K/uL Eosinophils # (Auto) 0.02 0-0.5 K/uL Basophils # (Auto) 0.02 0-0.2 K/uL RDW Standard Deviation 46.0 36.4-46.3 fL RDW Coefficient of Variation 13.5 11.5-14.5 % Immature Granulocyte % (Auto) 1.0 % Immature Granulocyte # (Auto) 0.04 0.00-0.02 K/uL Giant Platelets 2+ Sodium Level 127 130 136-145 mmol/L Potassium Level 3.3 4.0 3.5-5.1 mmol/L Chloride Level 95 99 98-107 mmol/L Carbon Dioxide Level 25 26 21-32 mmol/L Anion Gap 7.0 5.0 3-11 mmol/L Blood Urea Nitrogen 27 27 7-18 mg/dl Creatinine 1.39 1.39 0.60-1.40 mg/dl Est Creatinine Clear Calc Drug Dose 54.4 54.4 ml/min Estimated GFR () 57.5 57.5 Estimated GFR (Non- 49.6 49.6 BUN/Creatinine Ratio 19.1 19.7 10-20 Random Glucose 116 106 70-99 mg/dl Calcium Level 8.2 8.7 8.5-10.1 mg/dl Phosphorus Level 3.1 2.5-4.9 mg/dl Magnesium Level 1.8 1.8-2.4 mg/dl Vitamin B12 Level 488 211-911 pg/mL Microbiology Results 09/28/17 Blood Culture, Received Pending 09/28/17 Blood Culture, Received Pending
[2017-09-28] MEDS: MAGNESIUM OXIDE 400 MG TAB PO SCH (21:15)
[2017-09-28] MEDS: ATORVASTATIN 40 MG TAB PO SCH (21:15)
[2017-09-28] MEDS: ALFUZosin TAB 10 MG TAB PO SCH (21:15)
[2017-09-28] MEDS: MULTIVITAMIN TAB PO SCH (21:15)
[2017-09-28] MEDS: ZOLPIDEM TARTRATE 10 MG TAB PO PRN (22:22)
[2017-09-29] VITALS (13 sets, daily range): BP systolic 128–166; BP diastolic 70–96; PULSE 71–91; TEMP 36.3–37.1; O2SAT 93–99
[2017-09-29 05:07] LABS: BUN/CREATININE RATIO 18.8 (10-20); CALCIUM 8.5 mg/dl (8.5-10.1); CREATININE 1.37 mg/dl (0.60-1.40); POTASSIUM 3.8 mmol/L (3.5-5.1)
[2017-09-29 05:09] LABS: MEAN CELL VOLUME 98.6 fL (80-100); MEAN CORPUSCULAR HEMOGLOBIN 34.3 pg (25-34); MEAN CORPUSCULAR HGB CONC 34.8 g/dl (32-36); MEAN PLATELET VOLUME 9.8 fL (7.4-10.4); PLATELET COUNT 218 K/uL (130-400); RED BLOOD COUNT 2.13 M/uL (4.7-6.1); WHITE BLOOD COUNT 4.43 K/uL (4.8-10.8)
[2017-09-29] MEDS ORDERED: POLYETHYLENE (MIRALAX) 17 GM PACK PO SCH (09:00)
[2017-09-29] MEDS: CIPROFLOXACIN 500 MG TAB PO SCH ×2 (09:28→20:13)
[2017-09-29] MEDS: FLUTICASONE PROPIONATE NA SPR 16 GM BTL SCH (09:28)
[2017-09-29] MEDS: DOFETILIDE 125 MCG CAP PO SCH ×2 (09:29→20:13)
[2017-09-29] MEDS: TIOTROPIUM BROMIDE 5 PUFF/90 MCG INH INH SCH (09:29)
[2017-09-29] MEDS: BREO ELLIPTA - ORDER AWAITING ACTION SCH ×4 (09:29→22:19)
[2017-09-29] MEDS: CALCIUM 600MG + VIT D 400 IU TAB PO SCH (09:30)
[2017-09-29] MEDS: POTASSIUM CHLORIDE 10 MEQ TABCR PO SCH ×2 (09:30→20:13)
--- NOTE | 2017-09-29 16:25 | Progress Note ---
Internal Med Progress Note Date of Service: Sep 29, 2017. Provider Documentation: SUBJECTIVE: sitting up on chair , feels well offers no complain mentions he walked very well in hallway ( 3 rounds with physical therapy ) today did not had any dizzy spell or lightheadedness wants to go home tomorrow OBJECTIVE: Vital Signs-as noted below Exam: General-no apparent distress . well appearing male , no sign of distress Eyes-sclera non icteric , PERRLA/EOMI ENT-NAD Neck-no thyromegaly , trachea midline Lungs-diminished , no wheeze or rales Heart-regular S1/S2 Abdomen-soft, non tender Extremities-no rash or deformity Neuro-AAO x3, no focal deficit Lab data as noted below. ASSESSMENT & PLAN: SYNCOPE : possible due to dehydration , electrolyte derangement /infection UTI no arrhythmia noted CT head negative for Acute change ECHO : There is moderate concentric left ventricular hypertrophy. No regional wall motion abnormalities noted. Ejection Fraction = 50-55%. Diastolic dysfunction, Grade II (pseudonormalization pattern). Aortic valve sclerosis moderate, without significant aortic valvular stenosis. There is mild to moderate mitral regurgitation. 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 given bladder ca /radiation tx ordered for fluid restriction 1500 ml/day repeat BMP in AM JAXON : resolved due to dehydration , Cr improved with IV fluid ANEMIA OF CHRONIC DISEASE : due to bladder Ca on radiation no evidence of blood loss -no hematuria or GI bleed ( stool heme occult negative ) HB persistently low 7.2 with generalized weakness /deconditioning ordered for 1 unit of PRBC transfusion today repeat Hb in AM BLADDER CA : advanced stage appreciate input form urology LEFT SIDED HYDROURETER due to Bladder outlet obstruction with malignancy appreciate Urology eval Cystoscopy /ureteric stent no possible due to stricture, involvement of bladder trigone involvement with tumor may need Tertiary care tx with percutaneous Nephrostomy placement if clinically declines E Coli UTI : urine culture -E coli nieto sensitive changed to PO Cipro will need 10 days tx ( complicated UTI /bladder CA /urinary retention ) HX OF PAROXYSMAL AFIB on Tykosin not an candidate for anticoagulation due to bladder Ca, high risk for bleeding CHRONIC CHF ISCHEMIC CARDIOMYOPATHY: echo as above compensated monitor vol status DVT ppx Lovenox FULL CODE DISPOSITION lives at home , presented with generalized deconditioning /syncope /Fall at home cont PT/OT pt wants to return home D/w -pt does show improvement with his function and balance , was present during PT willing for home health visiting nurse Social service consulted for discharge planning Medicine follow up with Dr Good Vital Signs: Date Time Temp Pulse Resp B/P (MAP) Pulse Ox O2 Delivery O2 Flow Rate FiO2 09/29/17 13:10 36.3 72 18 132/70 (90) 99 Room Air 09/29/17 13:10 Nasal Cannula 09/29/17 12:46 36.6 71 18 96 3.0 09/29/17 12:00 Nasal Cannula 3.0 09/29/17 11:38 36.6 71 18 139/81 (100) 96 3.0 09/29/17 08:13 36.7 71 18 150/70 (96) 95 09/29/17 08:00 Nasal Cannula 3.0 09/29/17 04:00 Nasal Cannula 3.0 09/29/17 03:54 36.9 73 19 134/73 (93) 95 Room Air 09/29/17 00:00 Nasal Cannula 3.0 09/28/17 23:52 36.5 89 19 141/76 (97) 99 Nasal Cannula 2.0 09/28/17 20:00 Nasal Cannula 3.0 09/28/17 19:13 36.4 93 24 142/71 (94) 98 Room Air Lab Results: Results Past 24 Hours Test 09/29/17 04:20 09/29/17 09:15 Range/Units White Blood Count 4.43 4.8-10.8 K/uL Red Blood Count 2.13 4.7-6.1 M/uL Hemoglobin 7.3 14.0-18.0 g/dL Hematocrit 21.0 42-52 % Mean Corpuscular Volume 98.6 80-100 fL Mean Corpuscular Hemoglobin 34.3 25-34 pg Mean Corpuscular Hemoglobin Concent 34.8 32-36 g/dl RDW Standard Deviation 48.3 36.4-46.3 fL RDW Coefficient of Variation 13.8 11.5-14.5 % Platelet Count 218 130-400 K/uL Mean Platelet Volume 9.8 7.4-10.4 fL Sodium Level 129 136-145 mmol/L Potassium Level 3.8 3.5-5.1 mmol/L Chloride Level 98 98-107 mmol/L Carbon Dioxide Level 25 21-32 mmol/L Anion Gap 6.0 3-11 mmol/L Blood Urea Nitrogen 26 7-18 mg/dl Creatinine 1.37 0.60-1.40 mg/dl Est Creatinine Clear Calc Drug Dose 55.2 ml/min Estimated GFR () 58.5 Estimated GFR (Non- 50.4 BUN/Creatinine Ratio 18.8 10-20 Random Glucose 114 70-99 mg/dl Calcium Level 8.5 8.5-10.1 mg/dl Stool Occult Blood NEGATIVE NEGATIVE
[2017-09-29] MEDS ORDERED: TNR25 PO (16:26)
[2017-09-29] MEDS ORDERED: CPR500 PO (16:26)
[2017-09-29] MEDS: MULTIVITAMIN TAB PO SCH (20:13)
[2017-09-29] MEDS: ALFUZosin TAB 10 MG TAB PO SCH (20:13)
[2017-09-29] MEDS: ATORVASTATIN 40 MG TAB PO SCH (20:13)
[2017-09-29] MEDS: MAGNESIUM OXIDE 400 MG TAB PO SCH (20:14)
[2017-09-29] MEDS: ZOLPIDEM TARTRATE 10 MG TAB PO PRN (21:14)
[2017-09-30] VITALS (7 sets, daily range): BP systolic 139–162; BP diastolic 74–88; PULSE 69–96; TEMP 36.4–37.4; O2SAT 94–100
[2017-09-30 06:18] LABS: BUN/CREATININE RATIO 15.4 (10-20); CALCIUM 9.1 mg/dl (8.5-10.1); CREATININE 1.63 mg/dl (0.60-1.40); MAGNESIUM 1.5 mg/dl (1.8-2.4); POTASSIUM 4.3 mmol/L (3.5-5.1)
[2017-09-30 06:31] LABS: HEMATOCRIT 25.6 % (42-52); MEAN CELL VOLUME 97.3 fL (80-100); MEAN CORPUSCULAR HEMOGLOBIN 33.8 pg (25-34); MEAN CORPUSCULAR HGB CONC 34.8 g/dl (32-36); MEAN PLATELET VOLUME 9.2 fL (7.4-10.4); PLATELET COUNT 250 K/uL (130-400); RED BLOOD COUNT 2.63 M/uL (4.7-6.1); WHITE BLOOD COUNT 5.24 K/uL (4.8-10.8)
[2017-09-30 06:36] LABS: PLT ESTIMATE NORMAL
--- NOTE | 2017-09-30 06:36 | Progress Note ---
Subjective Date of Service: Sep 30, 2017. Subjective Pt evaluation today including: conversation w/ patient, physical exam, chart review, lab review Voiding: no voiding problems Hx of Bladder Ca with Left [place]. Trending Cr since admission: 09/28: 1.39 09/29: 1.37 09/30: 1.63 Pt denies left sided flank pain. No nausea. No vomiting. No complaints related to his bladder. He is still having dizzy spells. Urine Cx: E. Coli (nieto sensitive) Problem List Medical Problems: (1) Acute urinary retention Status: Acute (2) Anemia Status: Acute (3) Dehydration Status: Acute (4) Head trauma Status: Acute (5) Hemorrhagic cystitis Status: Acute (6) Hypomagnesemia Status: Acute (7) Hyponatremia Status: Acute Review of Systems Constitutional: No fever, No chills Respiratory: + shortness of breath Abdomen: No pain Male : + slowing stream Endo: + fatigue All Other Systems: Reviewed and Negative Objective Vital Signs Date Time Temp Pulse Resp B/P (MAP) Pulse Ox O2 Delivery O2 Flow Rate FiO2 09/30/17 00:00 98 Nasal Cannula 2.5 09/29/17 23:27 36.5 88 20 144/71 (95) 98 Nasal Cannula 2.0 09/29/17 19:44 37.1 88 20 158/88 93 09/29/17 19:15 36.9 91 20 157/72 99 09/29/17 18:15 36.9 77 20 159/83 95 09/29/17 17:45 37.0 88 20 164/96 94 09/29/17 17:30 36.6 90 22 154/86 96 09/29/17 17:19 36.6 85 20 166/89 95 09/29/17 16:00 Room Air 3.0 09/29/17 16:00 36.3 71 18 128/75 (92) 96 Room Air 09/29/17 13:10 36.3 72 18 132/70 (90) 99 Room Air 09/29/17 13:10 Nasal Cannula 09/29/17 12:46 36.6 71 18 96 3.0 09/29/17 12:00 Nasal Cannula 3.0 09/29/17 11:38 36.6 71 18 139/81 (100) 96 3.0 09/29/17 08:13 36.7 71 18 150/70 (96) 95 09/29/17 08:00 Nasal Cannula 3.0 Physical Exam General Appearance: WD/WN, no apparent distress Cardiovascular: regular rate, rhythm Abdomen: normal bowel sounds, non tender, soft Skin: warm/dry, no rash Lymphatic: no adenopathy Laboratory Results Last 24 Hours Test 09/29/17 09:15 09/30/17 05:42 Stool Occult Blood NEGATIVE Sodium Level 131 mmol/L Potassium Level 4.3 mmol/L Chloride Level 98 mmol/L Carbon Dioxide Level 26 mmol/L Anion Gap 7.0 mmol/L Blood Urea Nitrogen 25 mg/dl Creatinine 1.63 mg/dl Est Creatinine Clear Calc Drug Dose 46.5 ml/min Estimated GFR () 47.4 Estimated GFR (Non- 40.9 BUN/Creatinine Ratio 15.4 Random Glucose 110 mg/dl Calcium Level 9.1 mg/dl Magnesium Level 1.5 mg/dl Assessment and Plan (1) Hydronephrosis (2) Bladder cancer metastasized to bone The Cr has risen slightly today. He continues to deny flank pain. No CV tenderness. Too early to say if the rise will continue. Ideally would recheck Cr tomorrow. If continues to climb, then consider nephrostomy tube placement. Pt seems more agreeable to this option if it is felt to be necessary. Continue Cipro for UTI. Will follow closely.
[2017-09-30] MEDS ORDERED: MAGNESIUM SULFATE 1GM / D5W 1 GM in PREMIXED IN D5W 100 ML IV ONE (08:00)
[2017-09-30] MEDS: BREO ELLIPTA - ORDER AWAITING ACTION SCH ×3 (08:00→22:46)
[2017-09-30] MEDS: FLUTICASONE PROPIONATE NA SPR 16 GM BTL SCH (08:00)
[2017-09-30] MEDS ORDERED: SODIUM CHLORIDE 0.9% 1000ML 1,000 ML IV SCH (08:00)
[2017-09-30] MEDS ORDERED: LISINOPRIL 5 MG TAB PO SCH (08:00)
[2017-09-30] MEDS: CIPROFLOXACIN 500 MG TAB PO SCH ×2 (08:36→19:24)
[2017-09-30] MEDS: DOFETILIDE 125 MCG CAP PO SCH ×2 (08:36→19:26)
[2017-09-30] MEDS: POTASSIUM CHLORIDE 10 MEQ TABCR PO SCH ×2 (08:39→19:25)
[2017-09-30] MEDS: CALCIUM 600MG + VIT D 400 IU TAB PO SCH (08:39)
[2017-09-30] MEDS: TIOTROPIUM BROMIDE 5 PUFF/90 MCG INH INH SCH (09:10)
--- NOTE | 2017-09-30 16:48 | NEPHROLOGY PROGRESS NOTE ---
DATE: 09/30/2017 SUBJECTIVE: The patient denies having any new problems. Serum sodium is going up steadily and is up to 131 this morning. Denies any nausea, vomiting, chest pain, or shortness of breath. Urology is closely following the patient. He does have frequency of urine with low urine stream. Sodium is getting better and is up to 131, but creatinine this morning was slightly higher at 1.63. PHYSICAL EXAMINATION: VITAL SIGNS: Blood pressure 139/80, 97% on room air, temperature is 36.4. HEENT: Mucous membranes moist. NECK: Supple. No jugular venous distention. CHEST: Bilateral decreased breath sounds, occasional crackles. CARDIOVASCULAR: S1 and S2, regular. ABDOMEN: Soft, nontender. EXTREMITIES: Shows trace to 1+ edema. LABORATORY DATA: This morning show sodium 131, potassium 4.3, BUN 25, creatinine 1.6, phosphorus 3.1, magnesium 1.5. Hemoglobin 8.9, WBC count 5.24, and platelet count 250. ASSESSMENT AND PLAN: A 72-year-old male with active treatment for invasive bladder cancer as well as chronic hyponatremia. RECOMMENDATIONS: Acute on chronic hyponatremia, sodium is steadily going up and is now up to 131 with just IV fluid. I would continue with the same. He is starting to have some lower extremity edema, but his creatinine went up today, so I would have no problem with continuing the IV fluid. Potassium is now normal; however, magnesium is slightly low and he has already received 1 dose of magnesium today, so we do not need to give anymore. Continue daily labs to monitor the serum sodium as well as electrolytes. MTDD
--- NOTE | 2017-09-30 17:01 | Progress Note ---
Internal Med Progress Note Date of Service: Sep 30, 2017. Provider Documentation: SUBJECTIVE: offers no complain no dizzy spell or lightheadedness OBJECTIVE: Vital Signs-as noted below Exam: General-no apparent distress . well appearing male , no sign of distress Eyes-sclera non icteric , PERRLA/EOMI ENT-NAD Neck-no thyromegaly , trachea midline Lungs-diminished , no wheeze or rales Heart-regular S1/S2 Abdomen-soft, non tender Extremities-no rash or deformity Neuro-AAO x3, no focal deficit Lab data as noted below. ASSESSMENT & PLAN: SYNCOPE no further symptom : possible due to dehydration , electrolyte derangement /infection UTI no arrhythmia noted CT head negative for Acute change ECHO : There is moderate concentric left ventricular hypertrophy. No regional wall motion abnormalities noted. Ejection Fraction = 50-55%. Diastolic dysfunction, Grade II (pseudonormalization pattern). Aortic valve sclerosis moderate, without significant aortic valvular stenosis. There is mild to moderate mitral regurgitation. clinically pt improved , vitals stable cont PT/OT FALL/ AMBULATORY DYSFUNCTION possible due to generalized deconditioning , bladder Ca on chemo PT/OT eval requested pt mentions doing well with walking not interested in going to rehab HYPONATREMIA/ELECTROLYTE DERANGEMENT due to poor po intake , dehydration Na transiently improved with IV NSS monitor lytes appreciate input form nephrology -pt has chronic Hyponatremia JAXON : Cr elevated 1.6 today ordered IV fluid ( D/c fluid restriction ) monitor Lytes ANEMIA OF CHRONIC DISEASE : due to bladder Ca on radiation no evidence of blood loss -no hematuria or GI bleed ( stool heme occult negative ) HB persistently low 7.2 with generalized weakness /deconditioning rs/p 1 unit of PRBC transfusion repeat Hb in AM improved 8.9 BLADDER CA : advanced stage appreciate input form urology LEFT SIDED HYDROURETER due to Bladder outlet obstruction with malignancy appreciate Urology eval Cystoscopy /ureteric stent no possible due to stricture, involvement of bladder trigone involvement with tumor may need Tertiary care tx with percutaneous Nephrostomy placement if clinically declines E Coli UTI : urine culture -E coli nieto sensitive changed to PO Cipro will need 10 days tx ( complicated UTI /bladder CA /urinary retention ) HX OF PAROXYSMAL AFIB on Tykosin not an candidate for anticoagulation due to bladder Ca, high risk for bleeding CHRONIC CHF ISCHEMIC CARDIOMYOPATHY: echo as above compensated monitor vol status DVT ppx moderate to high risk due to advanced malignancy Lovenox FULL CODE DISPOSITION Possible discharge home tomorrow if remains medically stable Social service consulted for discharge planning Medicine follow up with Dr Good contact : katina Mascorro [phone]. Vital Signs: Date Time Temp Pulse Resp B/P (MAP) Pulse Ox O2 Delivery O2 Flow Rate FiO2 09/30/17 16:00 Room Air 09/30/17 15:13 36.4 80 18 139/80 (99) 97 Room Air 09/30/17 08:00 98 Nasal Cannula 2.5 09/30/17 07:30 36.6 69 18 158/88 (111) 100 2.0 09/30/17 00:00 98 Nasal Cannula 2.5 09/29/17 23:27 36.5 88 20 144/71 (95) 98 Nasal Cannula 2.0 09/29/17 19:44 37.1 88 20 158/88 93 09/29/17 19:15 36.9 91 20 157/72 99 Lab Results: Results Past 24 Hours Test 09/30/17 05:42 Range/Units White Blood Count 5.24 4.8-10.8 K/uL Red Blood Count 2.63 4.7-6.1 M/uL Hemoglobin 8.9 14.0-18.0 g/dL Hematocrit 25.6 42-52 % Mean Corpuscular Volume 97.3 80-100 fL Mean Corpuscular Hemoglobin 33.8 25-34 pg Mean Corpuscular Hemoglobin Concent 34.8 32-36 g/dl RDW Standard Deviation 52.7 36.4-46.3 fL RDW Coefficient of Variation 15.2 11.5-14.5 % Platelet Count 250 130-400 K/uL Mean Platelet Volume 9.2 7.4-10.4 fL Platelet Estimate NORMAL Sodium Level 131 136-145 mmol/L Potassium Level 4.3 3.5-5.1 mmol/L Chloride Level 98 98-107 mmol/L Carbon Dioxide Level 26 21-32 mmol/L Anion Gap 7.0 3-11 mmol/L Blood Urea Nitrogen 25 7-18 mg/dl Creatinine 1.63 0.60-1.40 mg/dl Est Creatinine Clear Calc Drug Dose 46.5 ml/min Estimated GFR () 47.4 Estimated GFR (Non- 40.9 BUN/Creatinine Ratio 15.4 10-20 Random Glucose 110 70-99 mg/dl Calcium Level 9.1 8.5-10.1 mg/dl Magnesium Level 1.5 1.8-2.4 mg/dl
--- NOTE | 2017-09-30 19:00 | Discharge Instructions ---
Discharge Instructions Date of Service Sep 30, 2017. Admission Reason for Admission: Dehydration, Fall Discharge Discharge Diagnosis / Problem: DEHYDRATION /FALL /ANEMIA OF CHRONIC DISEASE / UTI / C DIFF Discharge Goals Goal(s): Decrease discomfort, Improve function, Increase independence, Improve disease control, Diagnostic testing, Therapeutic intervention Activity Recommendations Activity Limitations: as noted below ( TOLERATED ) . Instructions / Follow-Up Instructions / Follow-Up HOSPITAL FOLLOW UP : 10/04/2017 10:00 AM Nba Good III, MD Family Practice [facility] LAB WORK COMPLETE BLOOD COUNT /BASIC METABOLIC PANEL : 10/03/17Sunday HEME ONC FOLLOW UP : 10/04/2017 8:15 AM Malik Britton MD Hematology/Oncology [facility] YOU HAVE GI INFECTION -C DIFFICILE IT IS A VERY CONTAGIOUS INFECTION -WASH YOUR HANDS WITH SOAP AND WATER EVERY TIME AFTER USING THE RESTROOM AND BEFORE EATING DO NOT SHARE PERSONAL ITEMS , UTENSILS WITH OTHER -CUPS, PLATES , GLASS NEEDS TO BE SEPARATE ALL HOUSEHOLD MEMBERS SHOULD ALSO DO STRICT HAND WASHING WITH SOAP AND WATER PRIOR TO MEALS PLEASE WIPE THE BATHROOM COMMODE , SKIN , FAUCETS , DOOR KNOBS , KITCHEN COUNTER -POSSIBLE CONTACT AREAS WITH CHLORAX WIPE -WHICH CAN HELP TO DESTROY THE SPORES OF THE BACTERIA TAKE PROBIOTICS -OVER THE COUNTER FOR AT LEAST 3-4 WEEKS PLEASE CALL YOUR FAMILY PHYSICIAN IF YOUR DEVELOP FEVER, WORSENING OF ABDOMINAL PAIN OR DIARRHEA Current Hospital Diet Patient's current hospital diet: Regular Diet Discharge Diet Recommended Diet: Regular Diet Pending Studies Studies pending at discharge: yes List of pending studies: LAB WORK COMPLETE BLOOD COUNT /BASIC METABOLIC PANEL 10/03/17Sunday Medical Emergencies . Who to Call and When: Medical Emergencies: If at any time you feel your situation is an emergency, please call 911 immediately. . Non-Emergent Contact Non-Emergency issues call your: Primary Care Provider . . "Provider Documentation" section prepared by Yoko Kelly. . VTE Core Measure Inpt VTE Proph given/why not?: Beena Khan, DARYL's
[2017-09-30] MEDS: ATORVASTATIN 40 MG TAB PO SCH (19:24)
[2017-09-30] MEDS: MAGNESIUM OXIDE 400 MG TAB PO SCH (19:24)
[2017-09-30] MEDS: MULTIVITAMIN TAB PO SCH (19:24)
[2017-09-30] MEDS: ALFUZosin TAB 10 MG TAB PO SCH (19:26)
[2017-09-30] MEDS: ZOLPIDEM TARTRATE 10 MG TAB PO PRN (21:23)
[2017-10-01 03:43] VITALS: BP 141/75; PULSE 75; TEMP 36.4; O2SAT 99
[2017-10-01 06:16] LABS: BUN/CREATININE RATIO 17.1 (10-20); CALCIUM 8.9 mg/dl (8.5-10.1); CREATININE 1.72 mg/dl (0.60-1.40); MAGNESIUM 1.6 mg/dl (1.8-2.4); POTASSIUM 4.2 mmol/L (3.5-5.1)
[2017-10-01 06:58] LABS: HEMATOCRIT 24.5 % (42-52); MEAN CELL VOLUME 97.6 fL (80-100); MEAN CORPUSCULAR HEMOGLOBIN 33.5 pg (25-34); MEAN CORPUSCULAR HGB CONC 34.3 g/dl (32-36); MEAN PLATELET VOLUME 9.8 fL (7.4-10.4); PLATELET COUNT 301 K/uL (130-400); RED BLOOD COUNT 2.51 M/uL (4.7-6.1); WHITE BLOOD COUNT 5.34 K/uL (4.8-10.8)
[2017-10-01 07:02] LABS: PLT ESTIMATE NORMAL
[2017-10-01 07:29] VITALS: BP 148/81; PULSE 79; TEMP 36.5; O2SAT 96
[2017-10-01] MEDS: BREO ELLIPTA - ORDER AWAITING ACTION SCH (08:00)
[2017-10-01] MEDS: FLUTICASONE PROPIONATE NA SPR 16 GM BTL SCH (08:00)
[2017-10-01] MEDS: METRONIDAZOLE 500 MG TAB PO SCH ×2 (08:59→13:08)
[2017-10-01] MEDS: CALCIUM 600MG + VIT D 400 IU TAB PO SCH (09:00)
[2017-10-01] MEDS: DOFETILIDE 125 MCG CAP PO SCH (09:01)
[2017-10-01] MEDS: POTASSIUM CHLORIDE 10 MEQ TABCR PO SCH (09:01)
[2017-10-01] MEDS: TIOTROPIUM BROMIDE 5 PUFF/90 MCG INH INH SCH (09:02)
[2017-10-01] MEDS: CIPROFLOXACIN 500 MG TAB PO SCH (09:03)
[2017-10-01 11:56] VITALS: BP 137/63; PULSE 72; TEMP 36.3; O2SAT 94
[2017-10-01] MEDS ORDERED: VANCOMYCIN HCL 125 MG/2.5ML SOLN PO SCH (12:00)
[2017-10-01] MEDS ORDERED: RASPBERRY SYRUP 5 ML UDP PO SCH (12:00)
[2017-10-01] MEDS ORDERED: VANC1SUS PO (12:27)
[2017-10-01] MEDS ORDERED: AMX500 PO (12:27)
[2017-10-01] MEDS ORDERED: LCTX PO (12:28)
[2017-10-01] MEDS ORDERED: MAGNESIUM OXIDE 400 MG TAB PO STA (12:29)
[2017-10-01 12:59] VITALS: BP 137/63; PULSE 72; TEMP 36.3; O2SAT 94
--- NOTE | 2017-10-01 15:50 | Discharge Summary ---
Discharge Summary Date of Service Oct 01, 2017. Discharge Summary Admission Date: Sep 27, 2017 at 13:13 Discharge Date: Oct 01, 2017 Discharge Disposition: Home with services Principal Diagnosis: DEHYDRATION /FALL /ANEMIA OF CHRONIC DISEASE /UTI / C DIFF Procedures: ECHO : There is moderate concentric left ventricular hypertrophy. No regional wall motion abnormalities noted. Ejection Fraction = 50-55%. Diastolic dysfunction, Grade II (pseudonormalization pattern). Aortic valve sclerosis moderate, without significant aortic valvular stenosis. There is mild to moderate mitral regurgitation. CT HEAD WITHOUT CONTRAST : IMPRESSION: There is no hemorrhage, mass effect, or evidence of acute territorial ischemia by CT criteria. CHEST XRAY : IMPRESSION: Chronic and postoperative change. No acute process. Consultations: UROLOGY DR HEAD NEPHROLOGY [facility] Medication Reconciliation New Medications: Lactobacillus Acidophilus (Lactinex) Tab 1 TAB PO TIDM for 30 Days, #90 TAB over the counter Amoxicillin (Amoxicillin) 500 Mg Cap 500 MG PO Q12 for 5 Days, #10 CAP Atenolol (Atenolol) 25 Mg Tab 25 MG PO DAILY for 30 Days, #30 TAB Vancomycin HCl (Vancomycin HCl + Syrspend) 50 Mg/Ml Natalee 125 MG PO QID for 10 Days, #40 EA Continued Medications: Albuterol Inhaler (Ventolin Inhaler) Aers 2 PUFFS INH QID PRN for SOB/Wheezing Albuterol Sulfate (Proair Respiclick) 108 Mcg/Act Aer 1-2 INHA IN Q4H PRN for Shortness of Breath Alfuzosin HCl (Uroxatral) 10 Mg Tab 10 MG PO QPM Atorvastatin (Lipitor) 40 Mg Tab 40 MG PO HS Calcium/Vitamin D (Caltrate 600 Plus *) Tab 1 TAB PO QAM Desonide 0.05% (Desowen 0.05%) 60 Gm Cr 1 APPLN TOP BID PRN for PRN Docusate Sodium (Colace) 100 Mg Cap 1 CAP PO BID PRN for Constipation Dofetilide (Tikosyn) 500 Mcg Cap 500 MCG PO Q12H Fluticasone Furoate-Vilanterol (Breo Ellipta) 1 Inh Inh 1 PUFF INH QAM Fluticasone Propionate (Nasal) (Flonase Allergy Relief) 50 Mcg/Act Spr 2 SPRAYS INH DAILY Magnesium Oxide (Mag-Ox) 400 Mg Tab 400 MG PO QPM, 0 Refills Multivitamin (Multivitamin) Tab 1 TAB PO QPM Potassium Chloride (Micro-K Ext Rel) 10 Meq Cap 10 MEQ PO BID Promethazine (Phenergan ) 12.5 Mg Tab 12.5 MG PO Q8H PRN for Nausea or Vomiting Tiotropium [place] (Spiriva Handihaler) 18 Mcg/ Aerp 1 CAP INH QAM Zolpidem Tartrate (Ambien) 10 Mg Tab 10 MG PO HS PRN for Sleep Discontinued Medications: Atenolol (Tenormin) 25 Mg Tab 25 MG PO BID Furosemide (Lasix *) 20 Mg Tab 20 MG PO QAM Lisinopril (Prinivil) 5 Mg Tab 1 TAB PO QPM, 1 Refill Referrals At Discharge Follow up Referrals: Oncology/Hematology Referral - 10/04/17 with Malik Britton MD Physician Referral - 10/04/17 with Nba Good III, M.D. Admission Information HPI (per Admitting provider): This is a 72 year old male with a PMH of muscle invasive bladder CA s/p TURBT with ongoing chemo/radiation, paroxysmal A. Fib s/p ablation on ongoing Tikosyn no longer on anticoagulation due to bladder CA, COPD and ongoing tobacco use, ongoing alcohol abuse, HTN, HLD, PAD (severe L common femoral artery arthrosclerosis, ascending thoracic aortic aneurysm, systolic CHF with LVEF ~ 45 % and global hypokinesis - presents after being sent over by Hem/Onc secondary to multiple falls in the past week. As per patient, he has fallen three times, states when he stands up, he gets really dizzy and falls. As per records, he is drinking "three drinks" per day - as per patient, he has been drinking like this for the past 50 years. He denies chest pain. States he has some shortness of breath at baseline, but it is because of his COPD and it is nothing new. Denies fevers/chills. States occasionally he gets nauseous but not this past week. Intermittent constipation and diarrhea with chemo/radiation. Is c/o urinary frequency, but no dysuria. Denies recent hematuria. Physical Exam (per Admitting): General Appearance: WD/WN, no apparent distress Head: normocephalic, atraumatic Eyes: normal inspection ENT: hearing grossly normal Neck: supple Respiratory/Chest: chest non-tender, lungs clear, normal breath sounds, no respiratory distress, no accessory muscle use Cardiovascular: regular rate, rhythm, no edema, no murmur Abdomen/GI: normal bowel sounds, non tender, soft Extremities/Musculoskelatal: normal inspection, no calf tenderness, normal capillary refill, no pedal edema, normal range of motion Neurologic/Psych: care transition coordinator II-XII nml as tested, no motor/sensory deficits, alert , normal mood/affect, oriented x 3 Skin: normal color Lymphatic: no adenopathy Hospital Course feels well very eager to be discharged home today had diarrhea last night stool C diff positive started on PO Vancomycin no complain of nausea or abdominal pain no fever or chills had one bowel movement with soft stool today PHYSICAL EXAM : Exam: General-no apparent distress . well appearing male , no sign of distress Eyes-sclera non icteric , PERRLA/EOMI ENT-NAD Neck-no thyromegaly , trachea midline Lungs-diminished , no wheeze or rales Heart-regular S1/S2 Abdomen-soft, non tender Extremities-no rash or deformity Neuro-AAO x3, no focal deficit Last 8 Hrs Date Time Temp Pulse Resp B/P (MAP) Pulse Ox O2 Delivery O2 Flow Rate FiO2 10/01/17 12:59 36.3 72 18 94 Room Air 10/01/17 11:56 36.3 72 18 137/63 (87) 94 Room Air 10/01/17 08:00 Room Air C DIFF + : Started on PO Vancomycin complete 10 days course added Probiotic /Lactinex pt and counselled for strict hand washing with soap and water and contact isolation to prevent spread SYNCOPE possible due to dehydration , electrolyte derangement /infection UTI no arrhythmia noted CT head negative for Acute change no further episode vitals stable no dizzy spell or lightheadedness ambulating without any symptoms ECHO : There is moderate concentric left ventricular hypertrophy. No regional wall motion abnormalities noted. Ejection Fraction = 50-55%. Diastolic dysfunction, Grade II (pseudonormalization pattern). Aortic valve sclerosis moderate, without significant aortic valvular stenosis. There is mild to moderate mitral regurgitation. clinically pt improved , vitals stable appreciate PT/OT -eval recommend return home with home health visiting nurse FALL/ AMBULATORY DYSFUNCTION possible due to generalized deconditioning , bladder Ca on chemo improved appreciate PT/OT -eval recommend return home with home health visiting nurse HYPONATREMIA/ELECTROLYTE DERANGEMENT due to poor po intake , dehydration monitor lytes appreciate input form nephrology JAXON /ckd stage 3 : Cr worsened 1.6-> 1.7 no improve after IV hydration ' bladder CA /involvement of bladder trigone - possible bladder Out let obstruction will need Nephrostomy drainage -at tertiary center if renal function continues to worsen home Medications -Lasix /Lisinopril D/alessandra repeat BMP in 2 days script given for lab draw by home health nursing report to be faxed to Dr Good 's office ANEMIA OF CHRONIC DISEASE : due to bladder Ca on radiation no evidence of blood loss -no hematuria or GI bleed ( stool heme occult negative ) HB persistently low 7.2 with generalized weakness /deconditioning s/p 1 unit of PRBC transfusion hb stable post transfusion monitor out pt lab BLADDER CA /LEFT SIDED HYDROURETER : advanced stage appreciate input form urology Bladder outlet obstruction with malignancy Cystoscopy /ureteric stent no possible due to stricture, involvement of bladder trigone involvement with tumor will need Tertiary care tx with percutaneous Nephrostomy placement if renal function continues to worsen pt and his updated E Coli UTI : urine culture -E coli nieto sensitive Abx changed to Amoxicillin/( Fluoroquinolone /Ciprofloxacin avoided due to C diff infection ) will need 10 days tx ( complicated UTI /bladder CA /urinary retention ) HX OF PAROXYSMAL AFIB on Tykosin not an candidate for anticoagulation due to bladder Ca, high risk for bleeding CHRONIC CHF ISCHEMIC CARDIOMYOPATHY: echo as above compensated monitor vol status DVT ppx moderate to high risk due to advanced malignancy Lovenox FULL CODE DISPOSITION discharge home today arrangements made for home health visiting nurse Medicine follow up with Dr Good Total time spent on discharge = 40MINS This includes examination of the patient, discharge planning, medication reconciliation, and communication with other providers. Discharge Instructions Discharge Instructions Date of Service Sep 30, 2017. Admission Reason for Admission: Dehydration, Fall Discharge Discharge Diagnosis / Problem: DEHYDRATION /FALL /ANEMIA OF CHRONIC DISEASE / UTI / C DIFF Discharge Goals Goal(s): Decrease discomfort, Improve function, Increase independence, Improve disease control, Diagnostic testing, Therapeutic intervention Activity Recommendations Activity Limitations: as noted below ( TOLERATED ) . Instructions / Follow-Up Instructions / Follow-Up HOSPITAL FOLLOW UP : 10/04/2017 10:00 AM Nba Good III, MD [facility] LAB WORK COMPLETE BLOOD COUNT /BASIC METABOLIC PANEL : 10/03/17Sunday HEME ONC FOLLOW UP : 10/04/2017 8:15 AM Malik Britton MD Hematology/Oncology [facility] YOU HAVE GI INFECTION -C DIFFICILE IT IS A VERY CONTAGIOUS INFECTION -WASH YOUR HANDS WITH SOAP AND WATER EVERY TIME AFTER USING THE RESTROOM AND BEFORE EATING DO NOT SHARE PERSONAL ITEMS , UTENSILS WITH OTHER -CUPS, PLATES , GLASS NEEDS TO BE SEPARATE ALL HOUSEHOLD MEMBERS SHOULD ALSO DO STRICT HAND WASHING WITH SOAP AND WATER PRIOR TO MEALS PLEASE WIPE THE BATHROOM COMMODE , SKIN , FAUCETS , DOOR KNOBS , KITCHEN COUNTER -POSSIBLE CONTACT AREAS WITH CHLORAX WIPE -WHICH CAN HELP TO DESTROY THE SPORES OF THE BACTERIA TAKE PROBIOTICS -OVER THE COUNTER FOR AT LEAST 3-4 WEEKS PLEASE CALL YOUR FAMILY PHYSICIAN IF YOUR DEVELOP FEVER, WORSENING OF ABDOMINAL PAIN OR DIARRHEA Current Hospital Diet Patient's current hospital diet: Regular Diet Discharge Diet Recommended Diet: Regular Diet Pending Studies Studies pending at discharge: yes List of pending studies: LAB WORK COMPLETE BLOOD COUNT /BASIC METABOLIC PANEL 10/03/17Sunday Medical Emergencies . Who to Call and When: Medical Emergencies: If at any time you feel your situation is an emergency, please call 911 immediately. . Non-Emergent Contact Non-Emergency issues call your: Primary Care Provider . . "Provider Documentation" section prepared by Yoko Kelly. . VTE Core Measure Inpt VTE Proph given/why not?: Beean Khan, SCD's Additional Copies To Nba Good III, M.D. Simmons, Jennifer ., MD
[2017-10-01] MEDS ORDERED: AMOXICILLIN 500 MG CAP PO SCH (21:00)
== END 2017-10-01 14:47 | disposition home or self-care (01) | DRG 687 ==
LOC: C.EDB 10:38 → C.2E 13:13 → ENRESERV 13:21 → C.4E 09-29 12:53
PROVIDERS: ADMIT Family Medicine; ATTEND Hospitalist
DX: C67.9 Malignant neoplasm of bladder, unspecified (principal); I50.22 Chronic systolic (congestive) heart failure; N13.4 Hydroureter; N39.0 Urinary tract infection, site not specified; I13.0 Hypertensive heart and chronic kidney disease with heart failure and stage 1 through stage 4 chronic kidney disease, or unspecified chronic kidney disease; C79.51 Secondary malignant neoplasm of bone; Z87.891 Personal history of nicotine dependence; I48.0 Paroxysmal atrial fibrillation; J44.9 Chronic obstructive pulmonary disease, unspecified; F10.10 Alcohol abuse, uncomplicated; E78.5 Hyperlipidemia, unspecified; I73.9 Peripheral vascular disease, unspecified; E78.1 Pure hyperglyceridemia; E86.0 Dehydration; E83.42 Hypomagnesemia; D63.8 Anemia in other chronic diseases classified elsewhere; B96.89 Other specified bacterial agents as the cause of diseases classified elsewhere; R55 Syncope and collapse; N18.3 Chronic kidney disease, stage 3 (moderate); W19.XXXA Unspecified fall, initial encounter

== ENCOUNTER → 2017-10-03 | Outpatient (CLI) | payer OTHER ==
[~2017-10-03] MED LIST changes: +AMX500 PO; -ATEN-173 PO; +ATOR-24 PO; +DOCU-94 PO; -DOXE10CA PO; +FLUT0.15 INH; +LCTX PO; -LISI5TAB PO; -LSX20 PO; -PRED10TA PO; +PROM12.57 PO; -SIMV40TA2 PO; +TNR25 PO; +VANC1SUS PO
[2017-10-03 12:07] LABS: BLOOD UREA NITROGEN 29 mg/dl (7-18); BUN/CREATININE RATIO 16.8 (10-20); CALCIUM 9.2 mg/dl (8.5-10.1); CARBON DIOXIDE 22 mmol/L (21-32); CHLORIDE 96 mmol/L (98-107); CREATININE 1.71 mg/dl (0.60-1.40); GLUCOSE 91 mg/dl (70-99); POTASSIUM 4.1 mmol/L (3.5-5.1); SODIUM 127 mmol/L (136-145)
[2017-10-03 13:21] LABS: HEMATOCRIT 27.8 % (42-52); MEAN CELL VOLUME 96.2 fL (80-100); MEAN CORPUSCULAR HEMOGLOBIN 33.2 pg (25-34); MEAN CORPUSCULAR HGB CONC 34.5 g/dl (32-36); MEAN PLATELET VOLUME 9.8 fL (7.4-10.4); PLATELET COUNT 420 K/uL (130-400); RED BLOOD COUNT 2.89 M/uL (4.7-6.1); WHITE BLOOD COUNT 5.79 K/uL (4.8-10.8)
[2017-10-03 13:22] LABS: PLT ESTIMATE NORMAL
== END | disposition home or self-care (01) ==
LOC: C.LABSPEC 11:13
PROVIDERS: ATTEND Hospitalist
DX: N17.9 Acute kidney failure, unspecified (principal); D64.9 Anemia, unspecified

== ENCOUNTER → 2017-10-17 | Outpatient (CLI) | payer OTHER ==
[~2017-10-17] MED LIST changes: -AMX500 PO; -LCTX PO
[2017-10-17 11:05] LABS: BLOOD UREA NITROGEN 19 mg/dl (7-18); CALCIUM 9.1 mg/dl (8.5-10.1); CARBON DIOXIDE 24 mmol/L (21-32); CREATININE 1.25 mg/dl (0.60-1.40); GLUCOSE 96 mg/dl (70-99); POTASSIUM 4.1 mmol/L (3.5-5.1); SODIUM 132 mmol/L (136-145)
== END | disposition home or self-care (01) ==
LOC: C.LABSPEC 10:27
PROVIDERS: ATTEND Family Medicine
DX: N18.3 Chronic kidney disease, stage 3 (moderate) (principal)

== ENCOUNTER → 2017-12-07 | Outpatient (CLI) | payer OTHER ==
[~2017-12-07] MED LIST changes: -DOCU-94 PO; -PROM12.57 PO; -VANC1SUS PO
[2017-12-07 10:07] VITALS: BP 114/61; PULSE 72; TEMP 36.7; O2SAT 95
--- NOTE | 2017-12-07 11:48 | Radiation Oncology Follow-Up ---
Radiation Oncology Follow-Up Date of Visit Dec 07, 2017. Reason For Visit One-month follow-up in cancer survivorship care plan Radiation Completion Date 11/05/17 Bladder;Hormonal supp;RT 12/01/03;Implant 01/05/04 Diagnosis (1) Bladder cancer Status: Acute Permanent Comment: Gross hematuria Status post TURBT 08/21/2014 High-grade urothelial carcinoma T1 Ureteral stent and BCG instillations Status post TURBT 12/15/2014 high-grade urothelial carcinoma Follow-up with recheck cystoscopies Status post cystoscopy and bladder biopsy 07/28/2016 High-grade urothelial carcinoma T2 Status post 4 cycles of neoadjuvant cisplatin and gemcitabine Patient found to be inoperable due to comorbidities Unable to advance cystoscope in 01/2017 Status post completion of palliative radiation therapy 11/05/2017. He received 5940 cGy Last Edited By: Sallie Levy on Dec 07, 2017 11:47 (2) Prostate cancer Status: Resolved Permanent Comment: Adenocarcinoma prostate, presenting PSA 4.8, clinical stage TIc Status post hormonal suppression for 7 months Status post external beam radiation therapy completed 12/01/2003 Status post iodine seed implant as boost completed 01/05/2004 Last Edited By: Sallie Levy on Aug 08, 2017 11:52 History of Present Illness Mr. 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 The lesion was a biopsy stage TIIc. The patient was treated with definitive combined modality therapy consisting of 7 months of hormonal suppression followed by a course of external radiation completing on 12/01/2003 with a dose of 45 Gy followed by an iodine seed implant on 2003 for a planned dose of 115 Gy. The patient's MARY responded well and ultimately became undetectable. Unfortunately in the fall the patient presented with an episode of gross hematuria. He was seen by Dr. Omalley who performed a cystoscopy and transurethral resection of a bladder tumor with retrograde stent on the left on 08/21/2014. The patient was noted to have a bladder tumor covering the left wall the bladder and obstructing the left ureteral orifice with left hydronephrosis. Pathology confirmed a high-grade urothelial carcinoma with focal invasion of the subepithelial connective tissue. There was no infiltration in the muscularis propria. The TNM stage was a T1 lesion. Case: [id number]. On 12/15/2014 patient underwent a repeat cystoscopy with transurethral resection and fulguration of bladder tumor. Several TUR biopsies of abnormal tissue was removed along with removal of a left ureteral stent, a left retrograde pyelogram was performed with replacement of the left ureteral stent. His cystoscopic examination revealed a normal anterior urethra. Prostatic fossa was mildly obstructing and ischemic-looking from prior radiation. The bladder showed 1 tumor on the left lateral wall with areas of erythema in the posterior bladder wall. The retrograde study showed improvement in the hydronephrosis seen on previous studies. The tissue again showed a urothelial carcinoma high-grade without invasion of the subepithelial connective tissue or the muscularis propria identified. Case: [id number]. On 05/04/2015 Dr. Omalley performed a cystoscopy, left retrograde pyelogram and transurethral resection with fulguration of bladder tumor. His cystoscopic exam showed the prostatic fossa was open. The prostate was ischemic secondary to radioactive seed implant and years ago. The bladder showed 2 tumors on the posterior wall that were papillary. There was irregular mucosa on the trigone and around both the left and right ureteral orifices. Pathology showed carcinoma in situ with no invasive carcinoma identified. Case: [id number]. Urine cytology performed on 2014 showed benign squamous urothelial cells with no malignant cells seen. Repeat urine cytology performed on 2015 showed rare atypical cells suspicious for high-grade dysplasia/ adenocarcinoma. Case: [id number]. Urine cytology performed on 07/07/2016 showed atypical urothelial cells that are concerning for neoplasm particularly a low-grade urothelial neoplasia. Case: [id number]. On 07/18/2016 Dr. Omalley performed a cystoscopy with clot evacuation and bladder biopsy and fulguration following recurrent gross hematuria. He did note some difficulty getting through the stricture at the prostatic fossa but was able to negotiate the scope through the stricture into the bladder. The right and left ureteral orifices were identified and cannulated. The clot was evacuated. 2 specimens of abnormal looking mucosa was removed from the bladder with the area and fulgurated for hemostasis. Pathology revealed an invasive urothelial carcinoma high-grade with evidence of muscularis propria and therefore invasion appreciated. There was no lymphovascular invasion. The tumor did invade into the muscularis propria and was a pathologic stage pTII this was consistent with an invasive high-grade urothelial carcinoma. Case: [id number]. 08/02/2016 patient underwent an abdominal and pelvic CT scan with contrast. This showed multiple iodine seeds within the prostate with no other acute processes appreciated in the abdomen or pelvis. Patient was treated with BCG. Patient was subsequently seen by Dr. Brittaney Umaña and Dr. Malik Britton. CT scans of the abdomen and pelvis were performed on 11/30/2016. This revealed a nodule in the left aspect of the bladder wall measuring 1.2 x 1.0 cm that was of concern for bladder carcinoma. The patient was started on Neoadjuvant Chemotherapy with Cisplatin and Gemcitabine. He received 4 cycles and underwent a repeat CT scan on 06/21/2017. This showed prominent bladder wall thickening most notably posteriorly and inferiorly. It also noted an increase in the size of the soft tissue nodule posterior to the left aspect of the bladder wall. This measured 2.0 x 1.6 cm which is increased from the previous measurement of 1.2 x 1.0 cm. There was a stable appearance of a pulmonary nodule less than 3 mm. There was a stable 4.5 cm ascending aortic aneurysm appreciated and evidence of stable emphysema noted. Brachytherapy seeds were in seen within the prostate there was no suspicious lytic or blastic lesions. There was a mild compression deformity at T6 superior endplate of T8. The patient was seen by Dr. Umaña to evaluate the potential role of surgery with evidence of tumor growth following systemic chemotherapy. Dr. Umaña arranged for the patient to be seen by Dr. Dionicio Faustin who evaluated the patient and given his comorbidities did not feel he would be a surgical candidate. The patient was sent for a second opinion to Dr. Bennett at [place] who also felt that given his comorbidities and prior pelvic radiation that radical surgery would not be an option. We were therefore asked to see the patient for consideration of palliative radiation. He completed radiation therapy He completed radiation therapy November 05, 2017. He received 5940 cGy. Interim History He has been doing well over the past month. He has had no recurrence of hematuria. He denies bladder pressure or pain. He feels his urinary status is unchanged. He completed an AUA score sheet and gave a score of 15. He also completed and expanded prostate cancer index composite for clinical practice and gave a score of 2 of 12 and urinary incontinence symptoms. He gives a score of 6 of 12 and urinary irritation symptoms. He given a score of 0 12 and bowel symptoms. He gave a score of 8 of 12 and sexual symptoms. He gives a score 0 of 12 and hormonal vitality symptoms. His total was 16 of 60. He denies dysuria. He has recheck appointment with Dr. Umaña next week. He has continued follow-up with medical oncology. Allergies Coded Allergies: No Known Allergies (Unverified , 09/27/17) Home Medications Scheduled Alfuzosin HCl (Uroxatral), 10 MG PO QPM Atenolol (Atenolol), 25 MG PO DAILY Atorvastatin (Lipitor), 40 MG PO HS Calcium/Vitamin D (Caltrate 600 Plus *), 1 TAB PO QAM Dofetilide (Tikosyn), 500 MCG PO Q12H Fluticasone Furoate-Vilanterol (Breo Ellipta), 1 PUFF INH QAM Fluticasone Propionate (Nasal) (Flonase Allergy Relief), 2 SPRAYS INH DAILY Magnesium Oxide (Mag-Ox), 400 MG PO QPM Multivitamin (Multivitamin), 1 TAB PO QPM Potassium Chloride (Micro-K Ext Rel), 10 MEQ PO DAILY Tiotropium [place] (Spiriva Handihaler), 1 CAP INH QAM Scheduled PRN Albuterol Inhaler (Ventolin Inhaler), 2 PUFFS INH QID PRN for SOB/Wheezing Albuterol Sulfate (Proair Respiclick), 1-2 INHA IN Q4H PRN for Shortness of Breath Desonide 0.05% (Desowen 0.05%), 1 APPLN TOP BID PRN for PRN Zolpidem Tartrate (Ambien), 10 MG PO HS PRN for Sleep Review of Systems Gastrointestinal: Symptoms: WNL GI Comments: 2 BMs/day;Formed stools;No fiber supplements; Oral: Symptoms: No Problems Respiratory: Symptoms: Moist Cough, SOB With Exertion, Productive Cough Respiratory Comments: oxygen at 3l/min via cannula at HS Sputum Character: Clear sputum when productive; Other Respiratory: SOB w/exertion that he related to his COPD - no change Urinary: Comments: Doesn't ignore urge to void;Can' go 2 hrs betw'n voids;Hourly at HS Skin: Symptoms: No Problems Physical Exam Vital Signs Date Time Temp Pulse Resp B/P (MAP) Pulse Ox O2 Delivery O2 Flow Rate FiO2 12/07/17 10:07 36.7 72 20 114/61 95 Fatigue: None General Appearance: no apparent distress Eyes: normal inspection, EOMI ENT: normal ENT inspection, hearing grossly normal Respiratory/Chest: lungs clear, no respiratory distress, no accessory muscle use, + decreased breath sounds Cardiovascular: regular rate, rhythm, no gallop, no murmur Abdomen: non tender, soft, no organomegaly Extremities: no pedal edema Neurologic/Psychiatric: no motor/sensory deficits, alert, normal mood/affect Skin: normal color Pain Management Patient Reports Pain: Yes Initial Pain Intensity: 3.0 Pain Management Plan The pain he has is related to arthritis. He takes prescribed medication. He does not require any pain management through our office. Laboratory Laboratory Results: not applicable Pathology Pathology Results: not applicable Imaging Imaging Studies: not applicable Assessment & Plan Plan: Continue follow-up with his primary care physician, medical oncology and urology. He will be seeing Dr. Umaña next week. We discussed that if PSA is currently not up-to-date. Will defer the timing of the PSA to Dr. Umaña. Because he has recently completed radiation therapy to the bladder she may possibly postpone this to a later date. He will continue follow-up in medical oncology and a CAT scan has been ordered for January. Today we completed a cancer survivorship care plan. A copy of the document was given to the patient. He was given a survivorship booklet. We asked him to return to our office in 6 months. He may call our office if he has any questions or concerns in the interim. Total Time In Follow-Up I spent 20 minutes speaking to the patient and performing examination. I spent 20 minutes reviewing information, preparing the survivorship document, and completing this note. Copy To Malik Britton MD; Nba Good III, M.D.; Brittaney Umaña MD Problem Qualifiers (1) Bladder cancer: Bladder location: overlapping sites Qualified Codes: C67.8 - Malignant neoplasm of overlapping sites of bladder
== END | disposition home or self-care (01) ==
LOC: C.ONC 09:54
PROVIDERS: ATTEND Physician Assistant Medical
DX: Z08 Encounter for follow-up examination after completed treatment for malignant neoplasm (principal); Z92.3 Personal history of irradiation; Z85.51 Personal history of malignant neoplasm of bladder; Z85.46 Personal history of malignant neoplasm of prostate

== ENCOUNTER 2019-05-03 20:32 | Inpatient (IN) ==
--- OUTSIDE RECORDS SUMMARY | 2019-05-03 20:35 | External Medical Summary | Continuity of Care Document ---
:1945 Author Name Keren Langford Address Unavailable Unavailable , Care Team Providers Name Role Phone Tushar Langford Unavailable [email or web address] Unavailable [email or web address] Shahram Langford Unavailable [email or web address] Carlos Langford Unavailable [email or web address] Nadine ANTUNEZ Unavailable [email or web address] RAJAN III, E Unavailable Unavailable Unavailable Unavailable Unavailable Problems Bladder cancer (188.9) (C67.9) Gross hematuria (599.71) (R31.0) Prostate cancer (185) (C61) Urinary symptom or sign (788.99) (R39.9) Adenocarcinoma of prostate (185) (C61) Allergic dermatitis (692.9) (L23.9) Actinic keratosis (702.0) (L57.0) Epidermal cyst (706.2) (L72.0) Inflamed seborrheic keratosis (702.11) (L82.0) Dysuria (788.1) (R30.0) Abnormal finding on lung imaging (793.19) (R91.8) Pneumonia (486) (J18.9) Nocturia (788.43) (R35.1) Urinary tract infection (599.0) (N39.0) Skin infection (686.9) (L08.9) Chronic obstructive pulmonary disease (496) (J44.9) Neoplasm of uncertain behavior of skin (238.2) (D48.5) Pleural effusion (511.9) (J90) Malignant tumor of urinary bladder (188.9) (C67.9) Solitary pulmonary nodule (793.11) (R91.1) Prostatitis (601.9) (N41.9) 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 Quantity: 90 Refills: 3 Multi-Day Oral Tablet; TAKE 1 TABLET DAILY. Refills: 0 Atenolol 25 MG Oral Tablet; TAKE 1 TABLET TWICE DAILY. Quantity: 180 Refills: 3 Furosemide 20 MG Oral Tablet; TAKE 1 TABLET DAILY NEEDED. Quantity: 30 Refills: 5 Lisinopril 5 MG Oral Tablet; TAKE 1 TABLET DAILY. Refills: 0 Tikosyn 500 MCG Oral Capsule; TAKE 1 CAPSULE TWICE DAILY. Start: 20-Jan-2014 Refills: 0 Potassium Chloride ER 10 MEQ Oral Tablet Extended Release Refills: 0 Flonase 50 MCG/ACT SUSP Refills: 0 Desonide 0.05 % External Cream Refills: 0 Fish Oil 1000 MG Oral Capsule Refills: 0 predniSONE TABS; TAKE TABLET PRN Refills: 0 Caltrate 600 + D 600-125 MG-IU TABS Refills: 0 Clobetasol Propionate 0.05 % External Oi ntment; APPLY AND GENTLY MASSAGE INTO AFFECTED AREA(S) TWICE DAILY. Primitivo Gonzalez Start: 24-Apr-2016 Quantity: 1 60 GM Tube Refills: 3 Fluocinonide 0.05 % External Ointment; A PPLY SPARINGLY TO AFFECTED AREA(S) TWICE DAILY Primitivo Gonzalez Start: 04-May-2016 Quantity: 1 60 GM Tube Refills: 2 Zocor TABS; TAKE 40 MG Bedtime Refills: 0 Spiriva HandiHaler 18 MCG Inhalation Cap yemi; INHALE CONTENTS OF 1 CAPSULE ONCE DAILY. Quantity: 30 Refills: 5 Vitamin C TABS; TAKE 1000 MG Daily Refills: 0 Doxepin HCl - 10 MG Oral Capsule Refills: 0 Clobetasol Propionate 0.05 % External Oi ntment; APPLY SPARINGLY TO AFFECTED AREA(S) TWICE DAILY Primitivo Gonzalez Start: 16-May-2016 Quantity: 1 45 GM Tube Refills: 1 Alfuzosin HCl ER 10 MG Oral Tablet Exten ded Release 24 Hour; TAKE 1 TABLET Daily after supper Primitivo Omalley Start: 13-Jul-2014 Quantity: 90 Refills: 3 Breo Ellipta 100-25 MCG/INH Inhalation A erosol Powder Breath Activated; INHALE 1 PUFFS Daily HARMONY Castro Start: 22-Apr-2014 Quantity: 1 60 Aerosol Powder Br eath Activated Disp Pack Refills: 5 ProAir RespiClick 108 (90 Base) MCG/ACT Inhalation Aerosol Powder Breath Activated; 2 Puffs Q4 hours as needed. HARMONY Mccoy Start: 015 Quantity: 1 1 Aerosol Powder Zeny ath Activated Box Refills: 5 Ambien 10 MG Oral Tablet; TAKE 1 TABLET AT BEDTIME NEEDED . Quantity: 30 Refills: 5 Procedures History of Neck Surgery Status: Complete d History of Heart Surgery Status: Complet ed Immunizations Fluzone High-Dose Intramuscular Suspension On: 27-Jul-2014 1 5:47 Lot #: [id number], [employer] Influenza On: Jul-2015 Family History natural daughter Family history of Familial (Benign Essential) Tremor Status: Active Social History - Smoking Status Former smoker Plan of Treatment Planned Observations Planned Goals not documented Results No Known Results Results not documented
[2019-05-03] MEDS ORDERED: MoRPHine SULFATE 4 MG/ML 1 ML CARP\\VIAL IV STA ×2 (20:47→23:26)
[2019-05-03 21:42] LABS: Prothrombin Time 9.8 Seconds (9.0-12.0)
[2019-05-03 21:45] LABS: Albumin Level 3.3 gm/dl (3.4-5.0); BUN Creatinine Ratio 15.5 (10-20); Calcium 8.5 mg/dl (8.5-10.1); Creatinine Clr Calc Pharmacy 55.2 ml/min; Est GFR (Non-African American) 54.4; Magnesium 1.9 mg/dl (1.8-2.4); Potassium 3.8 mmol/L (3.5-5.1)
[2019-05-03 21:54] LABS: Hematocrit (blood only) 30.6 % (42-52); Hemoglobin 10.9 g/dL (14.0-18.0); Mean Corpuscular Hgb Conc 35.6 g/dL (32-36); Mean Platelet Volume 9.8 fL (7.4-10.4); Platelet Count 199 K/uL (130-400); RDW Coefficient of Variation 13.5 % (11.5-14.5); RDW Standard Deviation 45.8 fL (36.4-46.3); Red Blood Count 3.29 M/uL (4.7-6.1)
[2019-05-03 21:55] LABS: Immature Granulocytes # (auto) 0.04 K/uL (0.00-0.02); Immature Granulocytes % (auto) 0.4 %; Lymphocytes # (auto) 0.87 K/uL (1.2-3.4); Lymphocytes % (auto) 8.9 %; Monocytes # (auto) 0.69 K/uL (0.11-0.59); Neutrophils % (auto) 83.7 %; Target Cells 1+
[2019-05-03 21:56] LABS: Albumin Globulin Ratio 0.9 (0.9-2); Bilirubin,Total 0.6 mg/dl (0.2-1); Globulin 3.7 gm/dl (2.5-4.0)
--- NOTE | 2019-05-03 22:12 | CT Scan Report ---
CT head/brain wo con CLINICAL HISTORY: Head pain status post trauma COMPARISON STUDY: 09/01/2018 TECHNIQUE: Axial CT of the brain is performed from the vertex to the skull base. IV contrast was not administered for this examination. A dose lowering technique was utilized adhering to the principles of ALARA. CT DOSE: FINDINGS: No intra or extra-axial mass lesions are visualized. There is no CT evidence of acute cortical infarc tion. There is no evidence of midline shift. There is no acute hemorrhage. No calvarial fractures ar e visualized. There are moderate white matter hypodensities likely on a small vessel basis. There is mild ventricular prominence likely secondary to volume loss. There is a stable small right cerebellar parenchymal calcification, and stable small calcification ad jacent to the right lateral ventricle. There is no evidence of acute sinusitis IMPRESSION: No acute intracranial findings Electronically signed by: Win Granados M.D. 05/03/2019 10:10 PM
[2019-05-03] MEDS ORDERED: THIAMINE HCL 100 MG TAB PO STA (22:16)
[2019-05-03] MEDS ORDERED: FOLIC ACID 1 MG TAB PO STA (22:16)
[2019-05-03] MEDS ORDERED: LORazepam 1 MG/2 ML VIAL IV STA (22:16)
--- NOTE | 2019-05-03 22:16 | CT Scan Report ---
CT OF THE CERVICAL SPINE CLINICAL HISTORY: Neck pain status post trauma COMPARISON STUDY: October 2012 CT DOSE: 1534.61 mGy.cm TECHNIQUE: CT scan of the cervical spine was performed from the skull base to the thoracic inlet. Yvonne ges are reviewed in the axial, sagittal, and coronal planes. IV contrast was not administered for thi s examination. A dose lowering technique was utilized adhering to the principles of ALARA. FINDINGS: Visualized portions lung apices reveal pulmonary emphysema. The prevertebral soft tissues are normal. No fractures or subluxations are visualized. There are postsurgical changes of a C4 and C5 corpectomy with anterior spinal fusion. There is also e vidence of a C2-T2 posterior spinal fusion. The examination is somewhat limited from a technical standpoint due to marked osteopenia and artifact from the metallic hardware. IMPRESSION: 1. Technically limited study secondary to osteopenia and artifact from cervical spinal hardware 2. Postsurgical changes as described above 3. No acute fractures or traumatic subluxations identified. Electronically signed by: Win Granados M.D. 05/03/2019 10:14 PM
--- NOTE | 2019-05-03 22:18 | CT Scan Report ---
CT facial bones wo con CT DOSE: CLINICAL HISTORY: Facial pain status post trauma COMPARISON STUDY: No previous studies for comparison. TECHNIQUE: Helical images were acquired in the transverse plane. The study was reviewed and analyzed on the independent 3-D workstation. A dose lowering technique was utilized adhering to the principle s of ALARA. The pterygoid plates appear intact. The zygomatic arches appear intact. The globes appear intact. There is no evidence of orbital emphysema. The orbital melchor and floor appear intact. The mandibular condyles appear intact. There is bilateral maxillary sinus mucosal thickening. There are postsurgical changes present within the cervical spine. IMPRESSION: No facial fractures identified. Electronically signed by: Win Granados M.D. 05/03/2019 10:17 PM
--- NOTE | 2019-05-03 22:28 | XRay Report ---
XR chest 1V portable CLINICAL HISTORY: weakness COMPARISON STUDY: 09/08/2018 FINDINGS: The heart is enlarged. There is a right-sided A-Port catheter present. There are old right- sided rib fractures. There is stable focal eventration right hemidiaphragm. Increased density at the left lung base remains unchanged from the prior study and may be chronic. There is stable mild inters titial thickening.[There are postsurgical changes within the cervical spine. IMPRESSION: Stable cardiomegaly and interstitial thickening. Increased density at the left lung base, unchanged from the prior study and likely chronic. No acute findings. Electronically signed by: Win Granados M.D. 05/03/2019 10:26 PM
--- NOTE | 2019-05-03 22:29 | XRay Report ---
XR hip LT 2-3V w pelvis CLINICAL HISTORY: Right hip pain status post trauma COMPARISON: None. DISCUSSION: There are vascular calcifications present. There are osteoarthritic changes present withi n the hips right greater than left. Prostate brachytherapy seeds are visualized. There are no acute f ractures or dislocations. IMPRESSION: No acute fractures or dislocations identified. Electronically signed by: Win Granados M.D. 05/03/2019 10:28 PM
--- NOTE | 2019-05-03 22:29 | XRay Report ---
XR shoulder LT min 2V routine CLINICAL HISTORY: Left shoulder pain status post trauma COMPARISON: None. DISCUSSION: There is acute nondisplaced proximal humeral fracture involving the greater tuberosity. T here is no dislocation. There are old left-sided rib fractures. IMPRESSION: Acute nondisplaced proximal left humeral fracture with involvement of the greater tuberos ity Electronically signed by: Win Granados M.D. 05/03/2019 10:27 PM
--- NOTE | 2019-05-04 01:32 | Emergency Department Note ---
Entered by Johanny Dodd acting as a scribe for History of Present Illness General Chief complaint: Fall Time Seen by Provider: 05/03/19 20:32 History of Present Illness Provider complaint: fall Onset (ago): hour(s) (20) Pain Consistency: + other (episode) Maximum Pain Intensity: 7 Quality: + other (fall) Associated symptoms: + other (left arm pain, left leg pain) Treatments prior to arrival: none The patient is a 73 year old white male w/ PMHx of alcohol abuse, DVT, COPD, HTN, Afib, and atrial flutter who presents to the ED w/ CC of an episode of a f all beginning 20 hours ago. The patient states that fell this morning at 0100, but does not remember how. The patient states that his left arm and left leg are in pain. The patient denies any treatments prior to arrival. Per EMS, the patient is an alcoholic and his last drink was at 1800 today. Home Medications Home Medications Medication Instructions Recorded Confirmed Type Breo Ellipta 1 inh INHALATION DAILY 09/01/18 05/03/19 History ProAir RespiClick 1 - 2 puff INHALATION Q4 PRN 09/01/18 05/03/19 History Spiriva with HandiHaler 1 cap INHALATION DAILY 09/01/18 05/03/19 History alfuzosin 10 mg PO QPM 09/01/18 05/03/19 History atorvastatin 40 mg PO DAILY 09/01/18 05/03/19 History clobetasol [Temovate] 1 applic TOPICAL BID PRN 09/01/18 05/03/19 History desonide 1 applic TOPICAL BID PRN 09/01/18 05/03/19 History dofetilide 500 mcg PO Q12H 09/01/18 05/03/19 History multivitamin with iron 1 tab PO DAILY 09/01/18 05/03/19 History potassium chloride 10 meq PO DAILY 09/01/18 05/03/19 History zolpidem 10 mg PO HS PRN 09/01/18 05/03/19 History metoprolol succinate 12.5 mg PO BID 05/03/19 05/03/19 History naproxen sodium 220 mg PO BID PRN 05/03/19 05/03/19 History Allergies Allergy/AdvReac Type Severity Reaction Status Date / Time No Known Allergies Allergy Unverified 09/01/18 06:31 Past Med/Surg History Medical History Orthostatic hypotension Alcohol withdrawal Tremor DVT prophylaxis Acute renal failure Lower extremity edema Obesity (BMI 30.0-34.9) Hyponatremia Aspiration pneumonia (Acute) Atrial flutter (Acute) COPD (chronic obstructive pulmonary disease) (Chronic) Atrial fibrillation (Chronic) Hypertension (Chronic) Hyperlipidemia (Chronic) Atrial fibrillation with RVR (Acute) Prostate cancer (Resolved) "Adenocarcinoma prostate, presenting PSA 4.8, clinical stage TIc Status post hormonal suppression for 7 months Status post external beam radiation therapy completed 12/01/2003 Status post iodine seed implant as boost completed 01/05/2004" Bladder cancer (Acute) "Gross hematuria Status post TURBT 08/21/2014 High-grade urothelial carcinoma T1 Ureteral stent and BCG instillations Status post TURBT 12/15/2014 high-grade urothelial carcinoma Follow-up with recheck cystoscopies Status post cystoscopy and bladder biopsy 07/28/2016 High-grade urothelial carcinoma T2 Status post 4 cycles of neoadjuvant cisplatin and gemcitabine Patient found to be inoperable due to comorbidities Unable to advance cystoscope in 01/2017 Status post completion of palliative radiation therapy 11/05/2017. He received 5940 cGy" On 11/12/17 12:59 Sallie Levy wrote "Gross hematuria Status post TURBT 08/21/2014 High-grade urothelial carcinoma T1 Ureteral stent and BCG instillations Status post TURBT 12/15/2014 high-grade urothelial carcinoma Follow-up with recheck cystoscopies Status post cystoscopy and bladder biopsy 07/28/2016 High-grade urothelial carcinoma T2 Status post 4 cycles of neoadjuvant cisplatin and gemcitabine Patient found to be in optimal due to comorbidities Unable to advance cystoscope in 01/2017 Status post completion of palliative radiation therapy 11/05/2017. He received 5940 cGy" Social History Preferred Language: Moldovan Communication Ability: Effective Beliefs That Will Affect Care: None marital status: Current Living Situation: Spouse Feels Safe at Home: Yes Smoking Status: Former smoker Tobacco Type: cigarettes Cigarettes Per Day: 1 pack per day Hx Alcohol Use: Yes Alcohol type: beer and hard liquor Hx Substance Use: No Review of Systems See HPI for pertinent positives & negatives. and A total of 10 systems reviewed and were otherwise negative Physical Exam Vital Signs Vital Signs - 24 hr 05/03/19 20:43 05/03/19 22:14 05/03/19 22:47 Temperature 37.0 C Temperature Source Oral Sepsis Recent Fever Within 48 Hours No Sepsis New/Unexplained Change in Mental Status No Sepsis Action Taken by Nursing No Action Required Pulse Rate 77 Pulse Rate [Right Finger] 81 Pulse Rhythm Regular Pulse Strength Normal Respiratory Rate 26 H 26 H Respiratory Effort / Characteristics Labored Respiratory Depth Normal Respiratory Pattern Regular Blood Pressure 138/73 Blood Pressure [Right Arm] 158/82 H Blood Pressure Mean 94 Blood Pressure Mean [Right Arm] 107 Blood Pressure Position Sitting Pulse Oximetry 94 94 94 Oxygen Delivery Method Room Air 05/03/19 22:48 Temperature Temperature Source Sepsis Recent Fever Within 48 Hours Sepsis New/Unexplained Change in Mental Status Sepsis Action Taken by Nursing Pulse Rate Pulse Rate [Right Finger] 71 Pulse Rhythm Pulse Strength Respiratory Rate 18 Respiratory Effort / Characteristics Respiratory Depth Respiratory Pattern Blood Pressure Blood Pressure [Right Arm] 158/82 H Blood Pressure Mean Blood Pressure Mean [Right Arm] 107 Blood Pressure Position Pulse Oximetry 93 Oxygen Delivery Method Room Air GENERAL: Well appearing, well nourished, NAD, non-toxic. EYE EXAM: Normal conjunctiva. PERRL, no anisocoria and EOM's grossly intact w/o pain. HEAD: Abrasion to left forehead, bruising to nasal bridge. OROPHARYNX: Moist mucous membranes. Grossly normal dentition. NECK: Supple, no nuchal rigidity, no adenopathy, non-tender. No signs of me ningismus. LUNGS: Wheezes throughout. Normal chest wall mechanics. HEART: NSR, no MRG. ABDOMEN: Abdomen soft, non-tender, normo-active bowel sounds, no masses, no rebound or guarding. BACK: No CVA TTP. SKIN: No rashes and bruising as noted on L knee. UPPER EXTREMITIES: Left shoulder pain, decreased ROM secondary to pain, compartment soft, NVI distally. Upper extremities are grossly normal. LOWER EXTREMITIES: Left hip pain, decreased ROM secondary to pain. L knee pain w/ scant bruising and swelling. Compartments soft, NVI distally. No pitting edema. No calf pain. NEURO EXAM: A&O x3, cranial nerves II-XII grossly intact, normal speech, moves all 4 extremities on command w/o issue. Course 2038: Past medical records reviewed. The patient was evaluated in room B12. A complete history and physical exam was performed. 2323: I reevaluated the patient and he is having trouble bearing weight on his left leg. 2345: I discussed the patient's case with Dr. Giovana Sifuentes Hospitalist. He will manage the patient for further management. Consultations Consultation #1: I discussed the patient's case with Dr. Giovana Sifuentes Hospitalliz. He will manage the patient for further management. Time: 23:45 Administered Medications Discontinued Medications Folic Acid (Folvite) 1 mg PO NOW STA Stop: 05/03/19 22:17 Last Admin: 05/03/19 22:40 Dose: 1 mg Documented by: [id number] Lorazepam (Ativan) 1 mg in 2 mls @ 2 mls/min IV NOW STA Stop: 05/03/19 22:17 Last Admin: 05/03/19 22:41 Dose: 2 mls/min Documented by: [id number] Morphine Sulfate (Morphine Sulfate) 4 mg IV NOW STA Stop: 05/03/19 20:48 Last Admin: 05/03/19 21:11 Dose: 4 mg Documented by: [id number] Morphine Sulfate (Morphine Sulfate) 4 mg IV NOW STA Stop: 05/03/19 23:27 Last Admin: 05/04/19 00:19 Dose: 4 mg Documented by: [id number] Thiamine HCl (Vitamin B-1) 100 mg PO NOW STA Stop: 05/03/19 22:17 Last Admin: 05/03/19 22:40 Dose: 100 mg Documented by: [id number] Medical Decision Making Medical Records Attestation: I reviewed the patient's medical records. Home Medications Current Medication List: was personally reviewed by me Laboratory Data Attestation: I reviewed the patient's lab results. Result diagrams: 05/03/19 21:00 05/03/19 21:00 Lab Results 05/03/19 05/03/19 05/03/19 Range/Units 21:00 21:00 21:00 WBC 9.80 (4.8-10.8) K/uL RBC 3.29 L (4.7-6.1) M/uL Hgb 10.9 L (14.0-18.0) g/dL Hct 30.6 L (42-52) % MCV 93.0 (80-100) fL MCH 33.1 (25-34) pg MCHC 35.6 (32-36) g/dL RDW Std Deviation 45.8 (36.4-46.3) fL RDW Coeff of Jude 13.5 (11.5-14.5) % Plt Count 199 (130-400) K/uL MPV 9.8 (7.4-10.4) fL Immature Gran % (Auto) 0.4 % Neut % (Auto) 83.7 % Lymph % (Auto) 8.9 % [place] % (Auto) 7.0 % Eos % (Auto) 0.0 % Baso % (Auto) 0.0 % Immature Gran # (Auto) 0.04 H (0.00-0.02) K/uL Neut # (Auto) 8.20 H (1.4-6.5) K/uL Lymph # (Auto) 0.87 L (1.2-3.4) K/uL [place] # (Auto) 0.69 H (0.11-0.59) K/uL Eos # (Auto) 0.00 (0-0.5) K/uL Baso # (Auto) 0.00 (0-0.2) K/uL Target Cells 1+ PT 9.8 (9.0-12.0) Seconds INR 1.0 (0.9-1.1) Sodium (136-145) mmol/L Potassium (3.5-5.1) mmol/L Chloride (98-107) mmol/L Carbon Dioxide (21-32) mmol/L Anion Gap (3-11) BUN (7-18) mg/dl Creatinine (0.6-1.4) mg/dl Est Cr Clr Drug Dosing ml/min Est GFR ( Amer) Est GFR (Non-Af Amer) BUN/Creatinine Ratio (10-20) Glucose (70-99) mg/dl Calcium (8.5-10.1) mg/dl Magnesium (1.8-2.4) mg/dl Total Bilirubin (0.2-1) mg/dl AST (15-37) U/L ALT (12-78) U/L Alkaline Phosphatase (45-117) U/L Total Creatine Kinase (39-308) U/L Total Protein (6.4-8.2) gm/dl Albumin (3.4-5.0) gm/dl Globulin (2.5-4.0) gm/dl Albumin/Globulin Ratio (0.9-2) TSH (0.300-4.500) uIu/ml Ethyl Alcohol mg/dL 140.0 H (0-3) mg/dl 05/03/19 Range/Units 21:00 WBC (4.8-10.8) K/uL RBC (4.7-6.1) M/uL Hgb (14.0-18.0) g/dL Hct (42-52) % MCV (80-100) fL MCH (25-34) pg MCHC (32-36) g/dL RDW Std Deviation (36.4-46.3) fL RDW Coeff of Jude (11.5-14.5) % Plt Count (130-400) K/uL MPV (7.4-10.4) fL Immature Gran % (Auto) % Neut % (Auto) % Lymph % (Auto) % [place] % (Auto) % Eos % (Auto) % Baso % (Auto) % Immature Gran # (Auto) (0.00-0.02) K/uL Neut # (Auto) (1.4-6.5) K/uL Lymph # (Auto) (1.2-3.4) K/uL [place] # (Auto) (0.11-0.59) K/uL Eos # (Auto) (0-0.5) K/uL Baso # (Auto) (0-0.2) K/uL Target Cells PT (9.0-12.0) Seconds INR (0.9-1.1) Sodium 125 L (136-145) mmol/L Potassium 3.8 (3.5-5.1) mmol/L Chloride 90 L (98-107) mmol/L Carbon Dioxide 24 (21-32) mmol/L Anion Gap 11.0 (3-11) BUN 20 H (7-18) mg/dl Creatinine 1.28 (0.6-1.4) mg/dl Est Cr Clr Drug Dosing 55.2 ml/min Est GFR ( Amer) 63.0 Est GFR (Non-Af Amer) 54.4 BUN/Creatinine Ratio 15.5 (10-20) Glucose 100 H (70-99) mg/dl Calcium 8.5 (8.5-10.1) mg/dl Magnesium 1.9 (1.8-2.4) mg/dl Total Bilirubin 0.6 (0.2-1) mg/dl AST 54 H (15-37) U/L ALT 55 (12-78) U/L Alkaline Phosphatase 152 H (45-117) U/L Total Creatine Kinase 303 (39-308) U/L Total Protein 7.0 (6.4-8.2) gm/dl Albumin 3.3 L (3.4-5.0) gm/dl Globulin 3.7 (2.5-4.0) gm/dl Albumin/Globulin Ratio 0.9 (0.9-2) TSH 1.850 (0.300-4.500) uIu/ml Ethyl Alcohol mg/dL (0-3) mg/dl Imaging Data Attestation: I personally reviewed and interpreted this imaging study as follows: My Impression: L KNEE XR Indication: Knee pain Impression: Mild left knee effusion. No obvious fracture dislocation. At herosclerotic disease noted. Radiologist's Impression: Radiology results as stated below per my review and the radiologist's interpretation: CT head/brain wo con CLINICAL HISTORY: Head pain status post trauma COMPARISON STUDY: 09/01/2018 TECHNIQUE: Axial CT of the brain is performed from the vertex to the skull base. IV contrast was not administered for this examination. A dose lowering technique was utilized adhering to the principles of ALARA. CT DOSE: FINDINGS: No intra or extra-axial mass lesions are visualized. There is no CT evidence of acute cortical infarction. There is no evidence of midline shift. There is no acute hemorrhage. No calvarial fractures are visualized. There are moderate white matter hypodensities likely on a small vessel basis. There is mild ventricular prominence likely secondary to volume loss. There is a stable small right cerebellar parenchymal calcification, and stable small calcification adjacent to the right lateral ventricle. There is no evidence of acute sinusitis IMPRESSION: No acute intracranial findings Electronically signed by: Win Granados M.D. 05/03/2019 10:[address] facial bones wo con CT DOSE: CLINICAL HISTORY: Facial pain status post trauma COMPARISON STUDY: No previous studies for comparison. TECHNIQUE: Helical images were acquired in the transverse plane. The study was r eviewed and analyzed on the independent 3-D workstation. A dose lowering technique was utilized adhering to the principles of ALARA. The pterygoid plates appear intact. The zygomatic arches appear intact. The globes appear intact. There is no evidence of orbital emphysema. The orbital melchor and floor appear intact. The mandibular condyles appear intact. There is bilateral maxillary sinus mucosal thickening. There are postsurgical changes present within the cervical spine. IMPRESSION: No facial fractures identified. Electronically signed by: Win Granados M.D. 05/03/2019 10:[address] OF THE CERVICAL SPINE CLINICAL HISTORY: Neck pain status post trauma COMPARISON STUDY: October 2012 CT DOSE: 1534.61 mGy.cm TECHNIQUE: CT scan of the cervical spine was performed from the skull base to the thoracic inlet. Images are reviewed in the axial, sagittal, and coronal planes. IV contrast was not administered for this examination. A dose lowering technique was utilized adhering to the principles of ALARA. FINDINGS: Visualized portions lung apices reveal pulmonary emphysema. The prevertebral soft tissues are normal. No fractures or subluxations are visualized. There are postsurgical changes of a C4 and C5 corpectomy with anterior spinal fusion. There is also evidence of a C2-T2 posterior spinal fusion. The examination is somewhat limited from a technical standpoint due to marked osteopenia and artifact from the metallic hardware. IMPRESSION: 1. Technically limited study secondary to osteopenia and artifact from cervical spinal hardware 2. Postsurgical changes as described above 3. No acute fractures or traumatic subluxations identified. Electronically signed by: Win Granados M.D. 05/03/2019 10:14 PM XR chest 1V portable CLINICAL HISTORY: weakness COMPARISON STUDY: 09/08/2018 FINDINGS: The heart is enlarged. There is a right-sided A-Port catheter present. There are old right-sided rib fractures. There is stable focal eventration right hemidiaphragm. Increased density at the left lung base remains unchanged from the prior study and may be chronic. There is stable mild interstitial thickening.[There are postsurgical changes within the cervical spine. IMPRESSION: Stable cardiomegaly and interstitial thickening. Increased density at the left lung base, unchanged from the prior study and likely chronic. No acute findings. Electronically signed by: Win Granados M.D. 05/03/2019 10:26 PM XR shoulder LT min 2V routine CLINICAL HISTORY: Left shoulder pain status post trauma COMPARISON: None. DISCUSSION: There is acute nondisplaced proximal humeral fracture involving the greater tuberosity. There is no dislocation. There are old left-sided rib fractures. IMPRESSION: Acute nondisplaced proximal left humeral fracture with involvement of the greater tuberosity Electronically signed by: Win Granados M.D. 05/03/2019 10:27 PM XR hip LT 2-3V w pelvis CLINICAL HISTORY: Right hip pain status post trauma COMPARISON: None. DISCUSSION: There are vascular calcifications present. There are osteoarthritic changes present within the hips right greater than left. Prostate brachytherapy seeds are visualized. There are no acute fractures or dislocations. IMPRESSION: No acute fractures or dislocations identified. Electronically signed by: Win Granados M.D. 05/03/2019 10:28 PM ECG Data Attestation: I personally reviewed and interpreted this ECG as follows: Indication: other (fall) Rhythm: sinus rhythm Findings: + 1st degree AV block, + Q waves (inferiorly) and + left axis deviation Comparison ECG Date: from (04/15/2019) Change: the following changes noted (1st degree AV block new, left axis deviation old, Q wave more pronounced) Blood Pressure Blood Pressure Findings: Elevated blood pressure Blood Pressure Disposition: further management by hospitalist MDM Narrative The patient is a 73 year old white male w/ PMHx of alcohol abuse, DVT, COPD, HTN, Afib, and atrial flutter who presents to the ED w/ CC of an episode of a fall beginning 20 hours ago. Differential diagnosis: Etiologies such as fracture, cervical/vertebral injury, dislocation, intra- abdominal process, pneumothorax, intrathoracic trauma, intracranial injury, soft tissue injury, neurologic process, as well as other traumatic pathologies were entertained. Patient was seen and evaluated the bedside. The patient reportedly did have a fall earlier today around 1 AM tonight was seen again by EMS later in the day. The patient does have a known history of COPD history of alcohol abuse as well as COPD A. fib hypertension. The patient does take Tikosyn but does not take any blood thinning medications. The patient did have CTs of the head neck face as well as extremity films of the shoulder and left hip. The patient also does have a white count chronic but stable anemia. The patient does have low sodium which is likely related to the patient's alcohol intoxication and chronic alcohol use. Patient's EKG does not appear much changed with the exception of first-degree AV block. The patient does have a left humerus fracture. Patient was placed in a sling. CT of the cervical spine was unremarkable. Patient was also noted to have left knee swelling so a knee x-ray was obtained. Patient's left hip films were unremarkable. Left knee x-ray by my read does not show any evidence of acute fracture dislocation but the patient was stated that he was not able to bear weight. Given the acute concerns alcohol intoxication and associated hyponatremia I did discuss case with the on-call hospitalist agreed to further evaluate treat the patient. Patient was admitted to the medicine service. I counseled the patient on smoking cessation for 5 minutes, was offered reso urces as well as recommendations to help with smoking cessation, resources were provided, patient understood. Patient was also counseled on alcohol abstinence. Impression & Plan Fall, Alcohol intoxication, Hyponatremia, Fracture, humerus, Encounter for smoking cessation counseling Discharge Plan Visit Data Chief Complaint: Fall ED Provider: Michael Burk Discharge Problem: Fall, Alcohol intoxication, Hyponatremia, Fracture, humerus, Encounter for smoking cessation counseling Patient Disposition: Being Evaluated by Hospitalist Discharge Instructions Interventions: ED Discharge Assessment Last Done: 05/04/19 00:48 Discharge Problem: Fall Qualifiers: Encounter type: initial encounter Qualified Code(s): W19.XXXA - Unspecified fall, initial encounter Alcohol intoxication Qualifiers: Complication of substance-induced condition: with unspecified complication Qualified Code(s): F10.929 - Alcohol use, unspecified with intoxication, unspecified Fracture, humerus Qualifiers: Encounter type: initial encounter Humerus Location: shaft Fracture type: closed Fracture morphology: transverse Fracture alignment: displaced Laterality: left Qualified Code(s): S42.322A - Displaced transverse fracture of shaft of humerus, left arm, initial encounter for closed fracture The scribe's documentation has been prepared under my direction and personally reviewed by me in its entirety. I confirm that the note above accurately reflects all work, treatment, procedures, and medical decision making performed by me.
--- NOTE | 2019-05-04 01:39 | History & Physical Report ---
Date of Service May 04, 2019 Assessment & Plan (1) Alcohol intoxication: (2) Hyponatremia: (3) Fracture, humerus: (4) Orthostatic hypotension: (5) Dizziness: (6) Obesity (BMI 30.0-34.9): (7) Atrial fibrillation: (8) Hypertension: (9) Hyperlipidemia: (10) Prostate cancer: (11) Fall: Gentle IV fluids, alcohol withdrawal protocol, he has a nondisplaced fracture of the humerus we have put the arm in a sling, Ortho consult in the morning, continue outpatient medications where appropriate, monitor daily labs. Urology eval for the hematuria with Dr. Umaña who is his urologist. She can see him on Sunday, inpatient status likely to be here more than 2 midnights, DVT prophylaxis with SCDs, hold subcu heparin secondary to hematuria, fall and aspiration precautions ROS-No Headache, No Visual Changes, No Nausea, No Vomiting, No Fever, No Chills, No Neck Pain or Stiffness, No Chest Pain, No Palpitations, No SOB, No VU, No Cough, No Sputum, No Wheezing, No Abdominal Pain, No Diarrhea, No Hematemesis, No Hemoptysis, No Unexpected Weight Loss, No Flank pain, No Melena, No Hematochezia, No Frequency, No Urgency, No Burning, No Hematuria, No Rashes, No Diaphoresis. Appetite is Normal, complains of falling, left arm pain, left knee and left hip pain. Sore nose and sore forehead Physical Exam Gen-AAO x 3, NAD, Afebrile, very pleasant Head-swollen nose, head lack left forehead with swelling, EOMI, PERRLA, Anicteric Sclera, No Posterior Pharyngeal Erythema Neck-Supple, No JVD, No Thyromegaly, No Masses, No LAD, No Bruits Lungs-Clear to Auscultation Bilaterally, No Rales, No Rhonchi, No Wheezing, No Crepitus Chest-No S4, +S1, +S2, No S3, No Murmurs, No Rubs, No Gallops, No Ectopy Abdomen-Soft, Bowel Sounds Present, Non Tender, Non Distended, No Hepatomegaly, No Splenomegaly, No Palpable Masses, No Rebound, No Rigidity, No Guarding Musculoskeletal-Full Range of Motion Bilaterally, No CVAT Extremities-No Cyanosis, No Clubbing, No Edema Nuero-Cranial Nerves II-XII grossly intact, Motor WNL, DTRs WNL, Strength WNL, Non Focal Psych-Normal Mood History of Present Illness 73 year old male past medical history of orthostatic hypotension, alcoholism, a cute renal failure, hypertension, edema, obesity, hyponatremia, aspiration pneumonia, atrial fib/flutter, COPD-on 3 L nasal cannula at home, hyperlipidemia, prostate and bladder cancer, degenerative disc disease of the cervical spine, hyperlipidemia who fell last night around 1 AM, on 05/03 AM at 1 AM. He had been drinking and was going to the bathroom and does not remember how he fell but he fell. He sleeps in a recliner downstairs in his living room and his did not realize what it happened to him until the morning. It took several hours to coax the patient to come to the emergency room he was found to have a left humerus fracture which was nondisplaced. His sodium was found to be 125 so I was called and asked to admit the patient. Past medical historyorthostatic hypotension, alcoholism, acute renal failure, hypertension, edema, obesity, pancreatic cyst, hyponatremia, aspiration pneumonia, atrial fib/flutter, COPD-on 3 L nasal cannula at home, hyperl ipidemia, prostate and bladder cancer, degenerative disc disease of the cervical spine, hyperlipidemia Past surgical historypancreatic cyst, seeds in his prostate, neck fusion and cervical spine Family historymother of an unknown cause father of some kind of organ failure, he has a brother who in a motor vehicle accident he has 1 son one daughter who are alive and healthy Social historyheavy drinker hard liquor and beer, pack a day smoker for 55 years, lives with his . Primary Care Provider: Nba Good MD Allergies Allergy/AdvReac Type Severity Reaction Status Date / Time No Known Allergies Allergy Unverified 09/01/18 06:31 Home Medications Home Medications Medication Instructions Recorded Confirmed Type Breo Ellipta 1 inh INHALATION DAILY 09/01/18 05/03/19 History ProAir RespiClick 1 - 2 puff INHALATION Q4 PRN 09/01/18 05/03/19 History Spiriva with HandiHaler 1 cap INHALATION DAILY 09/01/18 05/03/19 History alfuzosin 10 mg PO QPM 09/01/18 05/03/19 History atorvastatin 40 mg PO DAILY 09/01/18 05/03/19 History clobetasol [Temovate] 1 applic TOPICAL BID PRN 09/01/18 05/03/19 History desonide 1 applic TOPICAL BID PRN 09/01/18 05/03/19 History dofetilide 500 mcg PO Q12H 09/01/18 05/03/19 History multivitamin with iron 1 tab PO DAILY 09/01/18 05/03/19 History potassium chloride 10 meq PO DAILY 09/01/18 05/03/19 History zolpidem 10 mg PO HS PRN 09/01/18 05/03/19 History metoprolol succinate 12.5 mg PO BID 05/03/19 05/03/19 History naproxen sodium 220 mg PO BID PRN 05/03/19 05/03/19 History Past Med/Surg History Medical History Orthostatic hypotension Alcohol withdrawal Tremor DVT prophylaxis Acute renal failure Lower extremity edema Obesity (BMI 30.0-34.9) Hyponatremia Aspiration pneumonia (Acute) Atrial flutter (Acute) COPD (chronic obstructive pulmonary disease) (Chronic) Atrial fibrillation (Chronic) Hypertension (Chronic) Hyperlipidemia (Chronic) Atrial fibrillation with RVR (Acute) Prostate cancer (Resolved) "Adenocarcinoma prostate, presenting PSA 4.8, clinical stage TIc Status post hormonal suppression for 7 months Status post external beam radiation therapy completed 12/01/2003 Status post iodine seed implant as boost completed 01/05/2004" Bladder cancer (Acute) "Gross hematuria Status post TURBT 08/21/2014 High-grade urothelial carcinoma T1 Ureteral stent and BCG instillations Status post TURBT 12/15/2014 high-grade urothelial carcinoma Follow-up with recheck cystoscopies Status post cystoscopy and bladder biopsy 07/28/2016 High-grade urothelial carcinoma T2 Status post 4 cycles of neoadjuvant cisplatin and gemcitabine Patient found to be inoperable due to comorbidities Unable to advance cystoscope in 01/2017 Status post completion of palliative radiation therapy 11/05/2017. He received 5940 cGy" On 11/12/17 12:59 Sallie Levy wrote "Gross hematuria Status post TURBT 08/21/2014 High-grade urothelial carcinoma T1 Ureteral stent and BCG instillations Status post TURBT 12/15/2014 high-grade urothelial carcinoma Follow-up with recheck cystoscopies Status post cystoscopy and bladder biopsy 07/28/2016 High-grade urothelial carcinoma T2 Status post 4 cycles of neoadjuvant cisplatin and gemcitabine Patient found to be in optimal due to comorbidities Unable to advance cystoscope in 01/2017 Status post completion of palliative radiation therapy 11/05/2017. He received 5940 cGy" Social History Preferred Language: Danish Communication Ability: Effective Beliefs That Will Affect Care: None marital status: Current Living Situation: Spouse Feels Safe at Home: Yes Smoking Status: Former smoker Tobacco Type: cigarettes Cigarettes Per Day: 1 pack per day Hx Alcohol Use: Yes Alcohol type: beer and hard liquor Hx Substance Use: No Results & Data Vital Signs (Past 12 Hours) Vital Signs Temp Pulse Pulse Resp BP BP Pulse Ox 05/04/19 00:20 80 18 183/88 H 94 05/03/19 22:48 71 18 158/82 H 93 05/03/19 22:47 94 05/03/19 22:14 81 26 H 158/82 H 94 05/03/19 20:43 37.0 C 77 26 H 138/73 94 Allergies No Known Allergies Allergy (Unverified 09/01/18 06:31) Height/Weight/Isolation Height 5 ft 6 in Weight 99.9 kg Chemistry 05/03/19 21:00 Sodium 125 L Potassium 3.8 Chloride 90 L Carbon Dioxide 24 Anion Gap 11.0 BUN 20 H Creatinine 1.28 Glucose 100 H (1) Alcohol intoxication Complication of substance-induced condition: with unspecified complication Qualified Code(s): F10.929 - Alcohol use, unspecified with intoxication, unspecified (2) Fracture, humerus Encounter type: initial encounter Fracture alignment: displaced Fracture morphology: transverse Fracture type: closed Humerus Location: shaft Laterality: left Qualified Code(s): S42.322A - Displaced transverse fracture of shaft of humerus, left arm, initial encounter for closed fracture (3) Hypertension Hypertension type: essential hypertension Qualified Code(s): I10 - Essential (primary) hypertension (4) Fall Encounter type: initial encounter Qualified Code(s): W19.XXXA - Unspecified fall, initial encounter
[2019-05-04] MEDS ORDERED: MULTI-VITAMIN INFUSION 10 ML, THIAMINE HCL 100 MG, FOLIC ACID 1 MG in SODIUM CHLORIDE 0... IV SCH (01:43)
[2019-05-04] MEDS ORDERED: DESONIDE CR 15 GM TUBE EXT PRN (01:43)
[2019-05-04] MEDS ORDERED: POLYETHYLENE (MIRALAX) 17 GM PACK PO PRN (01:43)
[2019-05-04] MEDS ORDERED: CLOBETASOL PROPIONATE 0.05% OINT 15 GM TUBE EXT PRN (01:43)
[2019-05-04] MEDS ORDERED: LORazepam 1 MG/2 ML VIAL IV PRN (01:43)
[2019-05-04] MEDS ORDERED: LORazepam 1 MG TAB PO PRN ×2 (01:43)
[2019-05-04] MEDS ORDERED: THIAMINE HCL 100 MG/ML 2 ML VIAL IM STA (01:43)
[2019-05-04 05:24] LABS: Prothrombin Time 10.2 Seconds (9.0-12.0)
[2019-05-04 05:39] LABS: BUN Creatinine Ratio 15.7 (10-20); Calcium 8.5 mg/dl (8.5-10.1); Creatinine Clr Calc Pharmacy 66.7 ml/min; Est GFR (African American) 75.7; Est GFR (Non-African American) 65.3; Potassium 4.3 mmol/L (3.5-5.1)
[2019-05-04 05:41] LABS: Albumin Globulin Ratio 0.9 (0.9-2); Bilirubin,Total 0.6 mg/dl (0.2-1); Globulin 3.4 gm/dl (2.5-4.0); Total Protein 6.4 gm/dl (6.4-8.2)
[2019-05-04 06:02] LABS: Hematocrit (blood only) 28.9 % (42-52); Hemoglobin 10.2 g/dL (14.0-18.0); Mean Corpuscular Hgb Conc 35.3 g/dL (32-36); Mean Corpuscular Volume 93.8 fL (80-100); Mean Platelet Volume 9.8 fL (7.4-10.4); Platelet Count 181 K/uL (130-400); RDW Coefficient of Variation 13.6 % (11.5-14.5); RDW Standard Deviation 46.6 fL (36.4-46.3); Red Blood Count 3.08 M/uL (4.7-6.1); White Blood Count 10.87 K/uL (4.8-10.8)
[2019-05-04 06:03] LABS: Platelet Estimate Normal (Normal)
--- NOTE | 2019-05-04 06:09 | XRay Report ---
XR knee LT 3V CLINICAL HISTORY: pain post fall trauma. Pain. COMPARISON: None. DISCUSSION: Moderate degenerative change medial joint compartment. Chondrocalcinosis. Small joint eff usion. Soft tissue vascular calcification. There is no evidence for soft tissue swelling. IMPRESSION: Degenerative change. Small joint effusion. The above report was generated using voice recognition software. It may contain grammatical, syntax or spelling errors. Electronically signed by: Rg Neff M.D. 05/04/2019 6:08 AM
[2019-05-04] MEDS: FLINTSTONES COMPLETE CHEWABLE TAB PO SCH (07:24)
[2019-05-04] MEDS: POTASSIUM CHLORIDE 10 MEQ TABCR PO SCH (07:24)
[2019-05-04] MEDS: ATORVASTATIN 40 MG TAB PO SCH (07:25)
[2019-05-04] MEDS: DOFETILIDE 125 MCG CAPSULE PO SCH ×2 (07:25→20:13)
[2019-05-04] MEDS: TIOTROPIUM BROMIDE 5 PUFF/90 MCG INH INH SCH (07:25)
[2019-05-04] MEDS: METOPROLOL SUCC 25MG EXT REL TAB PO SCH ×2 (07:26→20:13)
[2019-05-04 09:53] LABS: Appearance Urine Cloudy (Clear); Bacteria Urine Automated 3+ (Negative); Bilirubin Urine Negative (Negative); Color Urine Yellow; Epithelial Cell Urine Auto 0-5 /lpf (0-5); Glucose Urine UA Negative (Negative); Ketones Urine Trace (Negative); Leukocyte Esterase Urine 3+ (Negative); Nitrite Urine Negative (Negative); Specific Gravity Urine 1.011 (1.000-1.030); Urobilinogen Urine Negative (Negative); WBC Urine Automated >30 /hpf (0-5); pH Urine 7.5 (4.5-7.5)
[2019-05-04 10:04] LABS: Protein Urine Negative (Negative)
--- NOTE | 2019-05-04 10:27 | Urology Consultation ---
Date of Consultation May 04, 2019 History of Present Illness Reason for Consultation: gross hematuria Attending Physician: Danielle Avina MD History of Present Illness I was paged at 8am to see pt for gross hematuria. I interviewed patient this morning and he has no gross hematuria at present. He did have some urinary bleeding earlier this week which resolved on its own as he tends to do. He has metastatic bladder cancer and has had chemotherapy and radiation for palliation. He has never been a surgical candidate for cystectomy due to medical comorbidities and this has not improved with time. 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 Padron catheters should be avoided in this patient. Allergies Allergy/AdvReac Type Severity Reaction Status Date / Time No Known Allergies Allergy Unverified 09/01/18 06:31 Home Medications Home Medications Medication Instructions Recorded Confirmed Type Breo Ellipta 1 inh INHALATION DAILY 09/01/18 05/03/19 History ProAir RespiClick 1 - 2 puff INHALATION Q4 PRN 09/01/18 05/03/19 History Spiriva with HandiHaler 1 cap INHALATION DAILY 09/01/18 05/03/19 History alfuzosin 10 mg PO QPM 09/01/18 05/03/19 History atorvastatin 40 mg PO DAILY 09/01/18 05/03/19 History clobetasol [Temovate] 1 applic TOPICAL BID PRN 09/01/18 05/03/19 History desonide 1 applic TOPICAL BID PRN 09/01/18 05/03/19 History dofetilide 500 mcg PO Q12H 09/01/18 05/03/19 History multivitamin with iron 1 tab PO DAILY 09/01/18 05/03/19 History potassium chloride 10 meq PO DAILY 09/01/18 05/03/19 History zolpidem 10 mg PO HS PRN 09/01/18 05/03/19 History metoprolol succinate 12.5 mg PO BID 05/03/19 05/03/19 History naproxen sodium 220 mg PO BID PRN 05/03/19 05/03/19 History Patient History Medical History Orthostatic hypotension Alcohol withdrawal Tremor DVT prophylaxis Acute renal failure Lower extremity edema Obesity (BMI 30.0-34.9) Hyponatremia Aspiration pneumonia (Acute) Atrial flutter (Acute) COPD (chronic obstructive pulmonary disease) (Chronic) Atrial fibrillation (Chronic) Hypertension (Chronic) Hyperlipidemia (Chronic) Atrial fibrillation with RVR (Acute) Prostate cancer (Resolved) "Adenocarcinoma prostate, presenting PSA 4.8, clinical stage TIc Status post hormonal suppression for 7 months Status post external beam radiation therapy completed 12/01/2003 Status post iodine seed implant as boost completed 01/05/2004" Bladder cancer (Acute) "Gross hematuria Status post TURBT 08/21/2014 High-grade urothelial carcinoma T1 Ureteral stent and BCG instillations Status post TURBT 12/15/2014 high-grade urothelial carcinoma Follow-up with recheck cystoscopies Status post cystoscopy and bladder biopsy 07/28/2016 High-grade urothelial carcinoma T2 Status post 4 cycles of neoadjuvant cisplatin and gemcitabine Patient found to be inoperable due to comorbidities Unable to advance cystoscope in 01/2017 Status post completion of palliative radiation therapy 11/05/2017. He received 5940 cGy" On 11/12/17 12:59 Sallie Levy wrote "Gross hematuria Status post TURBT 08/21/2014 High-grade urothelial carcinoma T1 Ureteral stent and BCG instillations Status post TURBT 12/15/2014 high-grade urothelial carcinoma Follow-up with recheck cystoscopies Status post cystoscopy and bladder biopsy 07/28/2016 High-grade urothelial carcinoma T2 Status post 4 cycles of neoadjuvant cisplatin and gemcitabine Patient found to be in optimal due to comorbidities Unable to advance cystoscope in 01/2017 Status post completion of palliative radiation therapy 11/05/2017. He received 5940 cGy" Social History Preferred Language: Yi Communication Ability: Effective Beliefs That Will Affect Care: None marital status: Current Living Situation: Spouse Other Information That Helps Us Care for You: No Feels Safe at Home: Yes Safety Concerns: Feels Safe At This Time Smoking Status: Heavy tobacco smoker Tobacco Type: cigarettes Cigarettes Per Day: 1 pack per day Hx Alcohol Use: Yes Alcohol type: hard liquor Hx Substance Use: No Results & Data Vital Signs (Past 12 Hours) Vital Signs Temp Pulse Pulse Resp BP Pulse Ox 05/04/19 08:28 37.3 C 93 H 18 146/67 H 96 05/04/19 03:26 36.6 C 76 18 143/83 H 97 05/04/19 03:15 79 05/04/19 01:35 36.9 C 72 20 146/76 H 94 05/04/19 00:20 80 18 183/88 H 94 05/03/19 22:48 71 18 158/82 H 93 05/03/19 22:47 94
--- NOTE | 2019-05-04 10:57 | Consultation Report ---
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 HISTORY OF PRESENT ILLNESS: Nba is delightful. He is pleasant, multitude of medical problems. He was drinking alcohol early last evening, had suffered a fall injury, unsure of the exact mechanism, was admitted through the hospital because of the alcohol intoxication, low sodium, hypertension and dizziness. I am seeing him this morning on rounds at 8:30 a.m. and he is alert, oriented, pleasant and with moderate left shoulder pain. No significant left hip pain. PAST MEDICAL HISTORY: Positive as stated for alcoholism, hyponatremia, obesity, AFib, hypertension, prostate CA. PAST SURGICAL HISTORY: Includes prostate CA, neck fusion cervical spine surgery. SOCIAL HISTORY: Positive for significant alcohol intake and smoking. REVIEW OF SYSTEMS: Denies any blurred vision, double vision, tinnitus, vertigo. No chest pain. No wheezing. No abdominal pain. No urgency, frequency. PHYSICAL EXAMINATION: GENERAL: He is alert, oriented, pleasant gentleman. He is afebrile. MUSCULOSKELETAL: He has some full range of motion of the extremities. He has pain over the left shoulder near the greater tuberosity of the left shoulder. There is no breakage of skin. There is no warmth, erythema. NEUROLOGIC: Intact. IMAGING DATA: His x-rays demonstrated a nondisplaced fracture lateral aspect of the left proximal humerus. IMPRESSION: Delightful patient with a significant amount of comorbidities that have been dictated upon. Also has now a nondisplaced left proximal humerus fracture. PLAN: He would be treated with a sling only. There are no surgical indications. Hopefully we will get him stabilized and he can get back to the office next 2 or 3 weeks for further followup.
[2019-05-04] MEDS: ACETAMINOPHEN 325 MG TAB PO PRN ×2 (16:11→21:50)
--- NOTE | 2019-05-04 18:00 | Hospitalist Progress Note ---
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 CT face showed no facial fractures identified. CT head showed no acute intracranial finding Xray Hip/Pelvis showed no acute fractures or dislocations identified. Left knee xray showed no degenerative change. small joint effusion. Ortho on board recommended no surgical intervention for the left humeral fracture Continue conservative management and keep the sling on Follow up with Ortho Dr. Blanca in 2 to 3 weeks Fall precaution (4) Alcohol intoxication: Chronic alcohol abuse Alcohol level on admission 114 Alcohol protocol with Ativan will add gabapentin will monitor closely for sign of withdrawn and DT Continue thiamine and folic acid (5) Hyponatremia: Chronic Hyponatremia Mostly related to alcohol intake Na on admission 125, improves to 131 today Continue monitor BMP (6) COPD (chronic obstructive pulmonary disease): Continue spiriva Will add on duoneb prn Stable (7) Prostate cancer: (8) Hematuria: Episode of hematuria early today Urine has been cleared Urology on board recommended to avoid Padron catheter insertion Not surgical candidate for cystectomy due to medical comorbidities Hemoglobin stable Monitor CBC (9) Paroxysmal atrial fibrillation: Currently in sinus rhythm on the telemetry Had ablation done in 2014 Rate controlled on dofetilide and Metoprolol succinate Not a candidate for anticoagulant due to poor tolerance, multiple falls, past hematuria with persistent anemia Stable DVT px on SCDs due to hematuria CODE STATUS FULL CODE Disposition Continue monitor in telemetry Subjective Pt was seen and examined Lying in bed with no distress Pt said that his left arm hurt only whenever he moves it He said that he is having pain in his left knee Pt said that he did not do well today with therapy He said that about 1 week ago while he was in the bathroom, he lost his balance and fell back on the toilet sit He said that he has been drinking alcohol for about 60yrs He said that he will not quit drinking alcohol once discharge from the hospital Denies any chest pain, palpitation, dizziness and SOB Physical Exam Physical Exam: General- No acute distress Head- atraumatic Eyes- PERRL, EOMI, ENT- oropharynx clear Neck- supple, no JVD Lungs- No wheezing, No crackles Heart- regular rhythm; no murmur Abdomen- normal bowel sounds, soft, nontender Extremities- no calf tenderness, +left arm in sling tender with movement, +Left knee pain with bruise Neuro- alert, oriented x 3; PERRL, EOMI; no facial palsy; no dysarthria, +tremor Skin- warm & dry Results & Data Vital Signs (Past 12 Hours) Vital Signs Temp Pulse Resp BP Pulse Ox 05/04/19 15:24 36.7 C 81 20 123/65 97 05/04/19 11:30 36.5 C 80 18 133/61 96 05/04/19 08:28 37.3 C 93 H 18 146/67 H 96 (1) Alcohol intoxication Complication of substance-induced condition: with unspecified complication Qualified Code(s): F10.929 - Alcohol use, unspecified with intoxication, unspecified (2) Fracture, humerus Encounter type: initial encounter Fracture alignment: displaced Fracture morphology: transverse Fracture type: closed Humerus Location: shaft Laterality: left Qualified Code(s): S42.322A - Displaced transverse fracture of shaft of humerus, left arm, initial encounter for closed fracture (3) Fall Encounter type: initial encounter Qualified Code(s): W19.XXXA - Unspecified fall, initial encounter
[2019-05-04] MEDS ORDERED: GABAPENTIN 800MG ALCOHOL WITHDRAWAL LOAD PO ONE (18:30)
[2019-05-04] MEDS ORDERED: GABAPENTIN 400 MG CAP PO ONE (19:00)
[2019-05-04] MEDS: ALFUZOSIN HCL 10 MG TAB PO SCH (20:13)
[2019-05-05] MEDS: GABAPENTIN 400 MG CAP PO SCH ×4 (00:04→21:44)
[2019-05-05 06:56] LABS: BUN Creatinine Ratio 18.2 (10-20); Calcium 8.8 mg/dl (8.5-10.1); Creatinine Clr Calc Pharmacy 68.4 ml/min; Est GFR (African American) 78.3; Est GFR (Non-African American) 67.5; Potassium 3.6 mmol/L (3.5-5.1)
[2019-05-05 07:11] LABS: Hematocrit (blood only) 27.7 % (42-52); Hemoglobin 9.6 g/dL (14.0-18.0); Mean Corpuscular Hgb Conc 34.7 g/dL (32-36); Mean Corpuscular Volume 94.9 fL (80-100); Mean Platelet Volume 9.5 fL (7.4-10.4); Platelet Count 196 K/uL (130-400); RDW Coefficient of Variation 13.9 % (11.5-14.5); RDW Standard Deviation 48.6 fL (36.4-46.3); Red Blood Count 2.92 M/uL (4.7-6.1); White Blood Count 9.43 K/uL (4.8-10.8)
[2019-05-05] MEDS: POTASSIUM CHLORIDE 10 MEQ TABCR PO SCH (07:54)
[2019-05-05] MEDS: FLINTSTONES COMPLETE CHEWABLE TAB PO SCH (07:55)
[2019-05-05] MEDS: ATORVASTATIN 40 MG TAB PO SCH (07:55)
[2019-05-05] MEDS: DOFETILIDE 125 MCG CAPSULE PO SCH ×2 (07:55→19:44)
[2019-05-05] MEDS: TIOTROPIUM BROMIDE 5 PUFF/90 MCG INH INH SCH (07:55)
[2019-05-05] MEDS: METOPROLOL SUCC 25MG EXT REL TAB PO SCH ×2 (07:56→19:44)
--- NOTE | 2019-05-05 16:01 | Hospitalist Progress Note ---
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 CT face showed no facial fractures identified. CT head showed no acute intracranial finding Xray Hip/Pelvis showed no acute fractures or dislocations identified. Left knee xray showed no degenerative change. small joint effusion. Ortho on board recommended no surgical intervention for the left humeral fracture Continue conservative management and keep the sling on Follow up with Ortho Dr. Blanca in 2 to 3 weeks Fall precaution (4) Alcohol intoxication: Chronic alcohol abuse Alcohol level on admission 114 Pt said that he drinks hard [place] whiskey (about 4 glasses per day) Not interest to quit drinking alcohol on discharge Continue alcohol protocol with Ativan and Gabapentin Continue monitor closely for sign of withdrawn and DT Continue thiamine and folic acid Will consider to add low dose librium if develops any sign of withdrawn (5) Hyponatremia: Chronic Hyponatremia Mostly related to alcohol intake Na on admission 125, improves to 134 today Continue monitor BMP (6) COPD (chronic obstructive pulmonary disease): Continue spiriva Continue duoneb prn Stable (7) Prostate cancer: (8) Hematuria: Episode of hematuria early today Urine has been cleared Urology on board recommended to avoid Padron catheter insertion Not surgical candidate for cystectomy due to medical comorbidities Hemoglobin 9.6 today Monitor CBC (9) Ambulatory dysfunction: Generalized weakness Fall precaution Continue PT/OT Might need inpatient rehab (10) Paroxysmal atrial fibrillation: Currently in sinus rhythm on the telemetry Had ablation done in 2013 Rate controlled on dofetilide and Metoprolol succinate Not a candidate for anticoagulant due to poor tolerance, multiple falls, past hematuria with persistent anemia Stable DVT px on SCDs due to hematuria CODE STATUS FULL CODE Disposition Continue monitor in telemetry Subjective Pt was seen and examined Lying in bed with no distress Pt said that he feels a little better today He said that the pain slightly improves He said that he was able to stand today during therapy, but was not able to take any step yet Pt said that he was able to walk around to get his alcohol before this admission Pt said that he drinks hard [place] whiskey (about 4 glasses per day) Not interest to quit drinking alcohol on discharge Denies any chest pain, palpitation, dizziness and SOB Physical Exam Physical Exam: General- No acute distress Head- atraumatic Eyes- PERRL, EOMI, ENT- oropharynx clear Neck- supple, no JVD Lungs- No wheezing, No crackles Heart- regular rhythm; no murmur Abdomen- normal bowel sounds, soft, nontender Extremities- no calf tenderness, +left arm in sling tender with movement, +Left knee pain with bruise Neuro- alert, oriented x 3; PERRL, EOMI; no facial palsy; no dysarthria, +tremor Skin- warm & dry Results & Data Vital Signs (Past 12 Hours) Vital Signs Temp Pulse Pulse Resp BP Pulse Ox 05/05/19 15:28 36.8 C 85 20 134/76 98 05/05/19 14:58 81 05/05/19 11:33 36.7 C 82 22 134/64 96 05/05/19 08:00 87 05/05/19 07:37 36.7 C 88 20 96/65 L 95 (1) Alcohol intoxication Complication of substance-induced condition: with unspecified complication Qualified Code(s): F10.929 - Alcohol use, unspecified with intoxication, unspecified (2) Fracture, humerus Encounter type: initial encounter Fracture alignment: displaced Fracture morphology: transverse Fracture type: closed Humerus Location: shaft Laterality: left Qualified Code(s): S42.322A - Displaced transverse fracture of shaft of humerus, left arm, initial encounter for closed fracture (3) Fall Encounter type: initial encounter Qualified Code(s): W19.XXXA - Unspecified fall, initial encounter
[2019-05-05] MEDS: ACETAMINOPHEN 325 MG TAB PO PRN (19:43)
[2019-05-05] MEDS: ALFUZOSIN HCL 10 MG TAB PO SCH (19:43)
[2019-05-06 04:05] LABS: Bilirubin Urine Negative (Negative); Glucose Urine UA Negative (Negative); Ketones Urine Negative (Negative); Leukocyte Esterase Urine 3+ (Negative); Nitrite Urine Negative (Negative); Specific Gravity Urine 1.009 (1.000-1.030); Urobilinogen Urine Negative (Negative)
[2019-05-06 04:31] LABS: Appearance Urine Slightly Cloudy (Clear); Color Urine Yellow
[2019-05-06 04:32] LABS: Protein Urine Negative (Negative)
[2019-05-06 04:33] LABS: Bacteria Urine Automated 3+ (Negative); Cast Urine Automated 0 /lpf (0-5); WBC Urine Automated >30 /hpf (0-5)
[2019-05-06] MEDS: GABAPENTIN 400 MG CAP PO SCH ×2 (05:27→17:26)
[2019-05-06 07:04] LABS: BUN Creatinine Ratio 19.5 (10-20); Calcium 8.7 mg/dl (8.5-10.1); Creatinine Clr Calc Pharmacy 58.6 ml/min; Est GFR (African American) 64.9; Potassium 3.1 mmol/L (3.5-5.1)
[2019-05-06 07:15] LABS: Hematocrit (blood only) 29.6 % (42-52); Hemoglobin 10.1 g/dL (14.0-18.0); Mean Corpuscular Hgb Conc 34.1 g/dL (32-36); Mean Corpuscular Volume 95.8 fL (80-100); Mean Platelet Volume 9.4 fL (7.4-10.4); Platelet Count 223 K/uL (130-400); RDW Coefficient of Variation 13.8 % (11.5-14.5); RDW Standard Deviation 48.1 fL (36.4-46.3); Red Blood Count 3.09 M/uL (4.7-6.1); White Blood Count 9.47 K/uL (4.8-10.8)
[2019-05-06] MEDS ORDERED: POTASSIUM CHLORIDE 20 MEQ TABCR PO ONE (08:00)
[2019-05-06] MEDS: FLINTSTONES COMPLETE CHEWABLE TAB PO SCH (08:06)
[2019-05-06] MEDS: ATORVASTATIN 40 MG TAB PO SCH (08:06)
[2019-05-06] MEDS: METOPROLOL SUCC 25MG EXT REL TAB PO SCH ×2 (08:06→20:59)
[2019-05-06] MEDS: TIOTROPIUM BROMIDE 5 PUFF/90 MCG INH INH SCH (08:06)
[2019-05-06] MEDS: DOFETILIDE 125 MCG CAPSULE PO SCH ×2 (08:06→21:00)
[2019-05-06] MEDS: POTASSIUM CHLORIDE 10 MEQ TABCR PO SCH (08:06)
[2019-05-06] MEDS: ACETAMINOPHEN 325 MG TAB PO PRN ×2 (13:18→21:00)
--- NOTE | 2019-05-06 15:13 | Hospitalist Progress Note ---
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 CT face showed no facial fractures identified. CT head showed no acute intracranial finding Xray Hip/Pelvis showed no acute fractures or dislocations identified. Left knee xray showed no degenerative change. small joint effusion. Ortho on board recommended no surgical intervention for the left humeral fracture Continue conservative management and keep the sling on Follow up with Ortho Dr. Blanca in 2 to 3 weeks Fall precaution (4) Alcohol intoxication: Chronic alcohol abuse Alcohol level on admission 114 Pt said that he drinks hard [place] whiskey (about 4 glasses per day) Not interest to quit drinking alcohol on discharge Continue alcohol protocol with Ativan and Gabapentin Continue monitor closely for sign of withdrawn and DT Continue thiamine and folic acid Will consider to add low dose librium if develops any sign of withdrawn Stable (5) Hyponatremia: Chronic Hyponatremia Mostly related to alcohol intake Na on admission 125, improves to 130 today Continue monitor BMP (6) COPD (chronic obstructive pulmonary disease): Continue spiriva Continue duoneb prn Stable (7) Prostate cancer: (8) Hematuria: Episode of hematuria early today Urine has been cleared Urology on board recommended to avoid Padron catheter insertion Not surgical candidate for cystectomy due to medical comorbidities Hemoglobin 10.1 today stable (9) Ambulatory dysfunction: Generalized weakness Fall precaution Continue PT/OT Will need inpatient rehab (10) Paroxysmal atrial fibrillation: Currently in sinus rhythm on the telemetry Had ablation done in 2013 Rate controlled on dofetilide and Metoprolol succinate Not a candidate for anticoagulant due to poor tolerance, multiple falls, past hematuria with persistent anemia Stable Hypokalemia K 3.1 today K replaced Monitor BMP DVT px on SCDs due to hematuria CODE STATUS FULL CODE Disposition Continue monitor in telemetry Subjective Pt was seen and examined Lying in bed with no distress Pt said that he feels much better He dis much better today in therapy He said that his pain improves Denies any chest pain, palpitation, dizziness and SOB Physical Exam Physical Exam: General- No acute distress Head- atraumatic Eyes- PERRL, EOMI, ENT- oropharynx clear Neck- supple, no JVD Lungs- No wheezing, No crackles Heart- regular rhythm; no murmur Abdomen- normal bowel sounds, soft, nontender Extremities- no calf tenderness, +left arm in sling tender with movement, +Left knee pain with bruise Neuro- alert, oriented x 3; PERRL, EOMI; no facial palsy; no dysarthria, +tremor Skin- warm & dry Results & Data Vital Signs (Past 12 Hours) Vital Signs Temp Pulse Resp BP Pulse Ox 05/06/19 11:34 36.7 C 79 18 128/72 97 05/06/19 08:42 36.7 C 97 H 20 123/63 95 05/06/19 04:31 36.8 C 78 21 145/79 H 96 (1) Fracture, humerus Encounter type: initial encounter Fracture alignment: displaced Fracture morphology: transverse Fracture type: closed Humerus Location: shaft Laterality: left Qualified Code(s): S42.322A - Displaced transverse fracture of shaft of humerus, left arm, initial encounter for closed fracture (2) Fall Encounter type: initial encounter Qualified Code(s): W19.XXXA - Unspecified fall, initial encounter (3) Alcohol intoxication Complication of substance-induced condition: with unspecified complication Qualified Code(s): F10.929 - Alcohol use, unspecified with intoxication, unspecified
[2019-05-06] MEDS: ALFUZOSIN HCL 10 MG TAB PO SCH (20:59)
[2019-05-06] MEDS: ZOLPIDEM TARTRATE 5 MG TAB PO PRN (21:58)
[2019-05-07] MEDS: GABAPENTIN 400 MG CAP PO SCH (05:27)
[2019-05-07 07:34] LABS: Basophils # (auto) 0.01 K/uL (0-0.2); Basophils % (auto) 0.1 %; Eosinophils # (auto) 0.09 K/uL (0-0.5); Eosinophils % (auto) 0.9 %; Hematocrit (blood only) 29.2 % (42-52); Immature Granulocytes # (auto) 0.03 K/uL (0.00-0.02); Immature Granulocytes % (auto) 0.3 %; Lymphocytes # (auto) 1.11 K/uL (1.2-3.4); Lymphocytes % (auto) 10.5 %; Mean Corpuscular Hgb Conc 34.2 g/dL (32-36); Mean Corpuscular Volume 95.1 fL (80-100); Mean Platelet Volume 9.7 fL (7.4-10.4); Monocytes # (auto) 0.81 K/uL (0.11-0.59); Monocytes % (auto) 7.7 %; Neutrophils # (auto) 8.53 K/uL (1.4-6.5); Neutrophils % (auto) 80.5 %; Platelet Count 213 K/uL (130-400); RDW Coefficient of Variation 13.5 % (11.5-14.5); RDW Standard Deviation 47.1 fL (36.4-46.3); Red Blood Count 3.07 M/uL (4.7-6.1); White Blood Count 10.58 K/uL (4.8-10.8)
[2019-05-07 07:48] LABS: BUN Creatinine Ratio 20.7 (10-20); Calcium 8.8 mg/dl (8.5-10.1); Creatinine Clr Calc Pharmacy 52.9 ml/min; Est GFR (African American) 58.7; Est GFR (Non-African American) 50.6; Potassium 3.9 mmol/L (3.5-5.1)
[2019-05-07] MEDS: POTASSIUM CHLORIDE 10 MEQ TABCR PO SCH (07:56)
[2019-05-07] MEDS: DOFETILIDE 125 MCG CAPSULE PO SCH ×2 (07:57→20:41)
[2019-05-07] MEDS: ATORVASTATIN 40 MG TAB PO SCH (07:57)
[2019-05-07] MEDS: METOPROLOL SUCC 25MG EXT REL TAB PO SCH ×2 (07:57→20:41)
[2019-05-07] MEDS: FLINTSTONES COMPLETE CHEWABLE TAB PO SCH (07:57)
[2019-05-07] MEDS: TIOTROPIUM BROMIDE 5 PUFF/90 MCG INH INH SCH (07:57)
--- NOTE | 2019-05-07 09:18 | Hospitalist Progress Note ---
Date of Service May 07, 2019 Assessment & Plan (1) Fracture, humerus: Acute nondisplaced proximal left humerus fracture, secondary to fall Orthopedics recommended no surgical intervention, conservative management, keep a left arm sling Nonweightbearing on left upper extremity Ortho follow-up with Dr. 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 CT face showed no facial fractures identified. CT head showed no acute intracranial finding Xray Hip/Pelvis showed no acute fractures or dislocations identified. Left knee xray showed no degenerative change. small joint effusion. Ortho on board recommended no surgical intervention for the left humeral fracture Continue conservative management and keep the sling on Follow up with Ortho Dr. Blanca in 2 to 3 weeks Fall precaution (4) Alcohol intoxication: Chronic alcohol abuse Alcohol level on admission 114 Pt said that he drinks hard [place] whiskey (about 4 glasses per day) Not interest to quit drinking alcohol on discharge Continue alcohol protocol with Ativan and Gabapentin Continue monitor closely for sign of withdrawn and DT Continue thiamine and folic acid -So far patient has not shown any evidence of active withdrawal, has not needed any PRN Ativan No tachycardia on telemetry or hypertensive episodes Counseling provided: Patient can have severe life-threatening alcohol withdrawal, heart failure, kidney failure, stroke, early dementia, encephalopathy with continued heavy alcohol drinking Patient wants to think about cutting down his alcohol intake, but states "has been drinking for last 60 years, not be able to quit as "this is what he is" Given advanced prostate cancer, chronic alcohol abuse, patient's overall prognosis remains poor at present patient does not have a good insight Regarding his disease process We will try to discuss plan of care with patient's , (5) Hyponatremia: Chronic Hyponatremia Mostly related to alcohol intake Sodium level improved Continue monitor BMP (6) COPD (chronic obstructive pulmonary disease): Noted to have scattered wheeze, mostly on the lower lung dorantes for wheeze Continue spiriva Continue duoneb prn for wheeze (7) Prostate cancer: Adenocarcinoma prostate Dx in 2003 Status post hormonal suppression for 7 months Status post external beam radiation therapy completed 12/01/2003 Status post iodine seed implant as boost completed 01/05/2004" (8) Bladder carcinoma: BLADDER CA Status post TURBT 08/21/2014 High-grade urothelial carcinoma T1 Ureteral stent and BCG instillations Status post TURBT 12/15/2014 high-grade urothelial carcinoma Status post cystoscopy and bladder biopsy 07/28/2016 High-grade urothelial carcinoma T2 Status post 4 cycles of neoadjuvant cisplatin and gemcitabine Patient found to be inoperable due to comorbidities Unable to advance cystoscope in 01/2017 Status post completion of palliative radiation therapy 11/05/2017. He received 5940 cGy" OVERALL PROGNOSIS POOR (9) Hematuria: Episode of hematuria -intermittent possibly secondary to prostate cancer patient has overall very poor prognosis, Urine has been cleared Urology on board recommended to avoid Padron catheter insertion -severe urethral stricture, radiation injury not a candidate for suprapubic catheter due to above Not a candidate for surgical resection of a bladder tumor secondary to multiple comorbidities (10) Ambulatory dysfunction: Generalized weakness Fall precaution Continue PT/OT Will need inpatient rehab (11) Paroxysmal atrial fibrillation: Currently in sinus rhythm on the telemetry Had ablation done in 2013 Rate controlled on dofetilide and Metoprolol succinate Not a candidate for anticoagulant due to poor tolerance, multiple falls, past hematuria with persistent anemia Stable (12) Urinary retention: Possible secondary to malignant prostate CA, status post history of chemo/radiation treatment for palliation Patient had urinary retention/episode of hematuria overnight, post void bladder scan reports of 700 mL On-call urology Dr. Brittaney Umaña was contacted by souvenir assembler over the phone, Padron catheters should be avoided in this patient-due to severe stenosis of urethra due to scar form Radiation tx Patient will not tolerate suprapubic catheter secondary to severe radiation injury to urinary bladder Patient's overall prognosis remains poor Hypokalemia corrected Monitor BMP DVT px on SCDs due to hematuria CODE STATUS FULL CODE Disposition will be transferred to medical floor today Continue PT OT Family physician: Dr. Good at [facility] (13) Tobacco abuse: Smokes a pack of cigarette a day-on going smoking with advanced bladder ca Request for nicotine patch: Ordered Subjective pt Seen at bedside in room 206 this morning Patient denies of any discomfort, says left Arm does not hurt as long as he is not moving it Denies of any feeling of anxiety, vitals stable, no sign of withdrawal noted very fine tremors on outstretched hands, as per patient that is chronic Has nonproductive cough: Chronic per patient, no fever, no chills/no chest pain or shortness of breath: On 2 L oxygen via nasal cannula (uses oxygen at night) Denies of any suprapubic discomfort Voided approximately 200 mL of urine in the urinal this morning, no hematuria noted-post void bladder scan shows 470 mm of residual urine Patient remains asymptomatic denies of any more lower abdominal /bladder pain discomfort Physical Exam Physical Exam: GENERAL: No sign of distress, HEENT: Sclera nonicteric, pink-purple bilateral equal reactive to light extraocular muscle intact Normal oral mucosa, neck: No JVD, no thyromegaly, trachea midline Lungs: Scattered wheeze, mostly in the lower lung area Cardiovascular: Regular S1 and S2, no murmur or gallop, no JVD, no lower extremity edema Abdomen: Soft, nontender, bowel sounds active, no hepatosplenomegaly Extremities: Multiple bruits on extremities, left arm and shoulder, on forehead/left side, left knee superficial skin tear noted Neuro: No focal neurological deficit, no dysarthria, no facial droop Psych: Alert awake oriented x3: Euthymic Results & Data Vital Signs (Past 12 Hours) Vital Signs Temp Pulse Pulse Resp BP Pulse Ox 05/07/19 08:55 82 05/07/19 07:51 37.1 C 99 H 20 122/72 97 05/07/19 03:47 36.8 C 97 H 23 152/74 H 93 05/06/19 23:53 36.7 C 75 19 131/66 96 (1) Alcohol intoxication Complication of substance-induced condition: with unspecified complication Qualified Code(s): F10.929 - Alcohol use, unspecified with intoxication, unspecified (2) Fracture, humerus Encounter type: initial encounter Fracture alignment: displaced Fracture morphology: transverse Fracture type: closed Humerus Location: shaft Laterality: left Qualified Code(s): S42.322A - Displaced transverse fracture of shaft of humerus, left arm, initial encounter for closed fracture (3) Fall Encounter type: initial encounter Qualified Code(s): W19.XXXA - Unspecified fall, initial encounter
[2019-05-07] MEDS ORDERED: ALBUT/IPRATROP 3MG/0.5MG NEB 3 ML VIAL NEB PRN (09:21)
[2019-05-07] MEDS: NICOTINE 21 MG/24 HR TDSY TD SCH (09:35)
[2019-05-07] MEDS: FLUTICASONE/SALMETEROL (ADVAIR) 500/50 INH 14 PUFF INH SCH ×2 (10:30→20:36)
[2019-05-07] MEDS: ACETAMINOPHEN 325 MG TAB PO PRN ×2 (13:41→22:59)
[2019-05-07] MEDS: ALFUZOSIN HCL 10 MG TAB PO SCH (20:41)
[2019-05-07] MEDS: ZOLPIDEM TARTRATE 5 MG TAB PO PRN (22:59)
[2019-05-08] MEDS: ACETAMINOPHEN 325 MG TAB PO PRN ×2 (05:09→20:06)
[2019-05-08] MEDS ORDERED: GABAPENTIN 400 MG CAP PO SCH (06:00)
[2019-05-08 08:34] LABS: Calcium 9.1 mg/dl (8.5-10.1); Creatinine Clr Calc Pharmacy 52.5 ml/min; Est GFR (African American) 58.2; Est GFR (Non-African American) 50.2; Magnesium 1.7 mg/dl (1.8-2.4); Potassium 3.9 mmol/L (3.5-5.1)
[2019-05-08] MEDS: TIOTROPIUM BROMIDE 5 PUFF/90 MCG INH INH SCH (09:30)
[2019-05-08] MEDS: FLUTICASONE/SALMETEROL (ADVAIR) 500/50 INH 14 PUFF INH SCH ×2 (09:30→20:06)
[2019-05-08] MEDS: METOPROLOL SUCC 25MG EXT REL TAB PO SCH ×2 (09:30→20:07)
[2019-05-08] MEDS: POTASSIUM CHLORIDE 10 MEQ TABCR PO SCH (09:31)
[2019-05-08] MEDS: ATORVASTATIN 40 MG TAB PO SCH (09:31)
[2019-05-08] MEDS: DOFETILIDE 125 MCG CAPSULE PO SCH ×2 (09:31→20:07)
[2019-05-08] MEDS: FLINTSTONES COMPLETE CHEWABLE TAB PO SCH (09:31)
[2019-05-08] MEDS: NICOTINE 21 MG/24 HR TDSY TD SCH (09:32)
--- NOTE | 2019-05-08 18:10 | Hospitalist Progress Note ---
Date of Service May 08, 2019 Assessment & Plan (1) Fracture, humerus: Acute nondisplaced proximal left humerus fracture, secondary to fall Orthopedics recommended no surgical intervention, conservative management, keep a left arm sling Pain appears to be well controlled Nonweightbearing on left upper extremity Ortho follow-up with Dr. 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 CT face showed no facial fractures identified. CT head showed no acute intracranial finding Xray Hip/Pelvis showed no acute fractures or dislocations identified. Left knee xray showed no degenerative change. small joint effusion. Ortho on board recommended no surgical intervention for the left humeral fracture Continue conservative management and keep the sling on Follow up with Ortho Dr. Blanca in 2 to 3 weeks Fall precaution (4) Alcohol intoxication: No evidence of alcohol withdrawal chronic alcohol abuse Alcohol level on admission 114 Pt said that he drinks hard [place] whiskey (about 4 glasses per day) Not interest to quit drinking alcohol on discharge Continue thiamine and folic acid -So far patient has not shown any evidence of active withdrawal, has not needed any PRN Ativan No tachycardia on telemetry or hypertensive episodes (5) Hyponatremia: Chronic Hyponatremia Mostly related to alcohol intake Sodium level improved Continue monitor BMP (6) COPD (chronic obstructive pulmonary disease): Noted to have scattered wheeze, mostly on the lower lung dorantes for wheeze Continue spiriva Continue duoneb prn for wheeze (7) Prostate cancer: Adenocarcinoma prostate Dx in 2003 Status post hormonal suppression for 7 months Status post external beam radiation therapy completed 12/01/2003 Status post iodine seed implant as boost completed 01/05/2004" (8) Bladder carcinoma: BLADDER CA Status post TURBT 08/21/2014 High-grade urothelial carcinoma T1 Ureteral stent and BCG instillations Status post TURBT 12/15/2014 high-grade urothelial carcinoma Status post cystoscopy and bladder biopsy 07/28/2016 High-grade urothelial carcinoma T2 Status post 4 cycles of neoadjuvant cisplatin and gemcitabine Patient found to be inoperable due to comorbidities Unable to advance cystoscope in 01/2017 Status post completion of palliative radiation therapy 11/05/2017. He received 5940 cGy" OVERALL PROGNOSIS POOR Discussed with patient regarding status of bladder cancer, as per Dr. Umaña evaluation patient has end-stage, advanced bladder CA Severe bladder outlet obstruction secondary to scarring/stenosis of urethra and bladder neck from radiation treatment Padron cannot be inserted, urology could not pass cystoscopy in the past secondary to severe stenosis not a candidate for suprapubic catheter placement for radiation Injury to bladder wall Patient can develop progressive bladder outlet obstruction which can lead severe abdominal pain discomfort, kidney failure Palliative care hospice will be appropriate Discussed with patient for the option, at present he does not have any pain or discomfort wants to consider about hospice when he needs it Advised of the poor prognosis (9) Hematuria: Episode of hematuria -intermittent possibly secondary to prostate cancer patient has overall very poor prognosis, Urine has been cleared Urology on board recommended to avoid Padron catheter insertion -severe urethral stricture, radiation injury not a candidate for suprapubic catheter due to above Not a candidate for surgical resection of a bladder tumor secondary to multiple comorbidities Very poor prognosis hospice palliative care would be appropriate (10) Ambulatory dysfunction: Generalized weakness Fall precaution Continue PT/OT Will need inpatient rehab-referral made [facility] does not have a bed [facility] (11) Paroxysmal atrial fibrillation: Currently in sinus rhythm on the telemetry Had ablation done in 2013 Rate controlled on dofetilide and Metoprolol succinate Not a candidate for anticoagulant due to poor tolerance, multiple falls, past hematuria with persistent anemia Stable (12) Urinary retention: Possible secondary to malignant prostate CA, status post history of chemo/radiation treatment for palliation Patient had urinary retention/episode of hematuria overnight, post void bladder scan reports of 700 mL On-call urology Dr. Brittaney Umaña was contacted by blade changer over the phone, Padron catheters should be avoided in this patient-due to severe stenosis of urethra due to scar form Radiation tx Patient will not tolerate suprapubic catheter secondary to severe radiation injury to urinary bladder Patient's overall prognosis remains poor patient is aware, Wants to think about hospice palliative care Hypokalemia corrected Monitor BMP DVT px on SCDs due to hematuria CODE STATUS FULL CODE Disposition Plan to discharge to rehab when bed available Family physician: Dr. Good at [facility] [place] (13) Tobacco abuse: Smokes a pack of cigarette a day-on going smoking with advanced bladder ca Request for nicotine patch: Ordered Subjective Denies of any pain or discomfort, Awake and alert very pleasant, No complaint of abdominal pain, no fever chills Left arm remains on sling, has minimum pain at rest Physical Exam Physical Exam: GENERAL: No sign of distress, HEENT: Sclera nonicteric, pink-purple bilateral equal reactive to light extraocular muscle intact superficial wound on Left forehead Normal oral mucosa, neck: No JVD, no thyromegaly, trachea midline Lungs: Clear to auscultate, no wheeze or rales Cardiovascular: Regular S1 and S2, no murmur or gallop, no JVD, no lower extremity edema Abdomen: Soft, nontender, bowel sounds active, no hepatosplenomegaly Extremities: Left arm fracture on sling Superficial skin tear on left knee Neuro: No focal neurological deficit, no dysarthria, no facial droop Psych: Alert awake oriented x3: Euthymic Skin: No rash LYMPH NODES: No cervical lymphadenopathy Results & Data Vital Signs (Past 12 Hours) Vital Signs Temp Pulse Pulse Resp BP Pulse Ox 05/08/19 15:33 36.8 C 78 20 134/69 95 05/08/19 07:13 36.7 C 82 18 144/84 H 92 (1) Fracture, humerus Encounter type: initial encounter Fracture alignment: displaced Fracture morphology: transverse Fracture type: closed Humerus Location: shaft Laterality: left Qualified Code(s): S42.322A - Displaced transverse fracture of shaft of humerus, left arm, initial encounter for closed fracture (2) Fall Encounter type: initial encounter Qualified Code(s): W19.XXXA - Unspecified fall, initial encounter (3) Alcohol intoxication Complication of substance-induced condition: with unspecified complication Qualified Code(s): F10.929 - Alcohol use, unspecified with intoxication, unspecified
[2019-05-08] MEDS: ALFUZOSIN HCL 10 MG TAB PO SCH (20:07)
[2019-05-08] MEDS: ZOLPIDEM TARTRATE 5 MG TAB PO PRN (21:35)
[2019-05-09] MEDS: ACETAMINOPHEN 325 MG TAB PO PRN ×4 (01:49→23:37)
[2019-05-09 08:30] LABS: BUN Creatinine Ratio 25.2 (10-20); Calcium 8.9 mg/dl (8.5-10.1); Creatinine Clr Calc Pharmacy 52.8 ml/min; Est GFR (African American) 58.2; Est GFR (Non-African American) 50.2; Magnesium 1.8 mg/dl (1.8-2.4); Potassium 3.5 mmol/L (3.5-5.1)
[2019-05-09] MEDS: METOPROLOL SUCC 25MG EXT REL TAB PO SCH ×2 (09:06→20:31)
[2019-05-09] MEDS: POTASSIUM CHLORIDE 10 MEQ TABCR PO SCH (09:06)
[2019-05-09] MEDS: ATORVASTATIN 40 MG TAB PO SCH (09:06)
[2019-05-09] MEDS: FLUTICASONE/SALMETEROL (ADVAIR) 500/50 INH 14 PUFF INH SCH ×2 (09:06→20:31)
[2019-05-09] MEDS: FLINTSTONES COMPLETE CHEWABLE TAB PO SCH (09:06)
[2019-05-09] MEDS: NICOTINE 21 MG/24 HR TDSY TD SCH (09:06)
[2019-05-09] MEDS: DOFETILIDE 125 MCG CAPSULE PO SCH ×2 (09:06→20:31)
[2019-05-09] MEDS: TIOTROPIUM BROMIDE 5 PUFF/90 MCG INH INH SCH (09:37)
--- NOTE | 2019-05-09 16:29 | Hospitalist Progress Note ---
Date of Service May 09, 2019 Assessment & Plan (1) Hematuria: Having intermittent painless hematuria, secondary to prostate cancer overall very poor prognosis, Urology on board recommended to avoid Padron catheter insertion -severe urethral stricture, radiation injury not a candidate for suprapubic catheter due to above Not a candidate for surgical resection of a bladder tumor secondary to multiple comorbidities Very poor prognosis hospice palliative care would be appropriate-plan of care discussed with patient, understands poor prognosis, Present he is comfortable does not have any pain or discomfort, does not have any active palliative need wants to discuss about palliative care when the time comes (2) Paroxysmal atrial fibrillation: Remains in sinus rhythm Had ablation done in 2013 Rate controlled on dofetilide and Metoprolol succinate Not a candidate for anticoagulant due to poor tolerance, multiple falls, past hematuria with persistent anemia (3) Ambulatory dysfunction: Generalized weakness Fall precaution Continue PT/OT Will need inpatient rehab-referral made to [facility] rehab does not have a bed Waiting for response from [facility] rehab (4) Fracture, humerus: Acute nondisplaced proximal left humerus fracture, secondary to fall Orthopedics recommended no surgical intervention, conservative management, keep a left arm sling Pain appears to be well controlled Nonweightbearing on left upper extremity Referral made to rehab, awaiting placement Ortho follow-up with Dr. 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 CT face showed no facial fractures identified. CT head showed no acute intracranial finding Xray Hip/Pelvis showed no acute fractures or dislocations identified. Left knee xray showed no degenerative change. small joint effusion. Ortho on board recommended no surgical intervention for the left humeral fracture Continue conservative management and keep the sling on Follow up with Ortho Dr. Blanca in 2 to 3 weeks Fall precaution (7) Alcohol intoxication: No evidence of alcohol withdrawal chronic alcohol abuse Alcohol level on admission 114 Pt said that he drinks hard [place] whiskey (about 4 glasses per day) Not interest to quit drinking alcohol on discharge Continue thiamine and folic acid -So far patient has not shown any evidence of active withdrawal, has not needed any PRN Ativan (8) Hyponatremia: Chronic Hyponatremia Mostly related to alcohol intake Sodium level improved Continue monitor BMP (9) COPD (chronic obstructive pulmonary disease): Noted to have scattered wheeze, mostly on the lower lung dorantes for wheeze Continue spiriva Continue duoneb prn for wheeze (10) Prostate cancer: Adenocarcinoma prostate Dx in 2003 Status post hormonal suppression for 7 months Status post external beam radiation therapy completed 12/01/2003 Status post iodine seed implant as boost completed 01/05/2004" (11) Bladder carcinoma: BLADDER CA Status post TURBT 08/21/2014 High-grade urothelial carcinoma T1 Ureteral stent and BCG instillations Status post TURBT 12/15/2014 high-grade urothelial carcinoma Status post cystoscopy and bladder biopsy 07/28/2016 High-grade urothelial carcinoma T2 Status post 4 cycles of neoadjuvant cisplatin and gemcitabine Patient found to be inoperable due to comorbidities Unable to advance cystoscope in 01/2017 Status post completion of palliative radiation therapy 11/05/2017. He received 5940 cGy" OVERALL PROGNOSIS POOR Discussed with patient regarding status of bladder cancer, as per Dr. Umaña evaluation patient has end-stage, advanced bladder CA Severe bladder outlet obstruction secondary to scarring/stenosis of urethra and bladder neck from radiation treatment Padron cannot be inserted, urology could not pass cystoscopy in the past secondary to severe stenosis not a candidate for suprapubic catheter placement for radiation Injury to bladder wall Patient can develop progressive bladder outlet obstruction which can lead severe abdominal pain discomfort, kidney failure Palliative care hospice will be appropriate Discussed with patient for the option, at present he does not have any pain or discomfort wants to consider about hospice when he needs it Advised of the poor prognosis (12) Tobacco abuse: Smokes a pack of cigarette a day-on going smoking with advanced bladder ca Request for nicotine patch: Ordered (13) Urinary retention: Possible secondary to malignant prostate CA, status post history of chemo/radiation treatment for palliation Patient had urinary retention/episode of hematuria overnight, post void bladder scan reports of 700 mL On-call urology Dr. Brittaney Umaña was contacted by government guard over the phone, Padron catheters should be avoided in this patient-due to severe stenosis of urethra due to scar form Radiation tx Patient will not tolerate suprapubic catheter secondary to severe radiation injury to urinary bladder Patient's overall prognosis remains poor patient is aware, Wants to think about hospice palliative care Hypokalemia corrected Monitor BMP DVT px on SCDs due to hematuria CODE STATUS FULL CODE Disposition Patient is accepted at [facility] for rehab No bed available till Sunday Family physician: Dr. Good at [facility] Subjective Had episode of painless hematuria earlier today, has resolved No complaint of lower abdominal pain, no fever or chills As of any pain or discomfort Physical Exam Constitutional: no acute distress Eyes: PERRL, conjunctivae normal, anicteric sclerae ENMT: external ear and nose normal, oropharynx normal Neck: trachea midline, no thyromegaly Respiratory: normal respiratory effort, lungs clear to auscultation Cardiovascular: RRR, no murmur, no edema Gastrointestinal (Abdomen): normal bowel sounds, soft, nontender, no hepatosplenomegaly Musculoskeletal: Left shoulder in sling, Skin: Multiple skin tear on forehead left arm, left knee-healing Psychiatric: A+Ox3, euthymic affect Results & Data Vital Signs (Past 12 Hours) Vital Signs Temp Pulse Pulse Resp BP Pulse Ox 05/09/19 15:12 36.8 C 78 16 120/68 93 05/09/19 07:53 36.9 C 71 17 136/76 92 (1) Fracture, humerus Encounter type: initial encounter Fracture alignment: displaced Fracture morphology: transverse Fracture type: closed Humerus Location: shaft Laterality: left Qualified Code(s): S42.322A - Displaced transverse fracture of shaft of humerus, left arm, initial encounter for closed fracture (2) Fall Encounter type: initial encounter Qualified Code(s): W19.XXXA - Unspecified fall, initial encounter (3) Alcohol intoxication Complication of substance-induced condition: with unspecified complication Qualified Code(s): F10.929 - Alcohol use, unspecified with intoxication, unspecified (4) COPD (chronic obstructive pulmonary disease) COPD type: unspecified COPD Qualified Code(s): J44.9 - Chronic obstructive pulmonary disease, unspecified (5) Hematuria Hematuria type: gross Qualified Code(s): R31.0 - Gross hematuria
[2019-05-09] MEDS: ALFUZOSIN HCL 10 MG TAB PO SCH (20:31)
[2019-05-09] MEDS: ZOLPIDEM TARTRATE 5 MG TAB PO PRN (22:22)
[2019-05-09] MEDS: ALBUTEROL HFA 8 GM INHALER INH PRN (22:23)
[2019-05-10] MEDS: ZOLPIDEM TARTRATE 5 MG TAB PO PRN ×2 (01:14→22:38)
[2019-05-10] MEDS: POTASSIUM CHLORIDE 10 MEQ TABCR PO SCH (08:52)
[2019-05-10] MEDS: DOFETILIDE 125 MCG CAPSULE PO SCH ×2 (08:52→20:27)
[2019-05-10] MEDS: ATORVASTATIN 40 MG TAB PO SCH (08:52)
[2019-05-10] MEDS: METOPROLOL SUCC 25MG EXT REL TAB PO SCH ×2 (08:52→20:27)
[2019-05-10] MEDS: FLINTSTONES COMPLETE CHEWABLE TAB PO SCH (08:52)
[2019-05-10] MEDS: TIOTROPIUM BROMIDE 5 PUFF/90 MCG INH INH SCH (08:52)
[2019-05-10] MEDS: NICOTINE 21 MG/24 HR TDSY TD SCH (08:52)
[2019-05-10] MEDS: FLUTICASONE/SALMETEROL (ADVAIR) 500/50 INH 14 PUFF INH SCH ×2 (08:53→20:26)
[2019-05-10] MEDS: ACETAMINOPHEN 325 MG TAB PO PRN ×3 (08:56→23:02)
[2019-05-10] MEDS: ALBUTEROL HFA 8 GM INHALER INH PRN (08:59)
--- NOTE | 2019-05-10 17:41 | Hospitalist Progress Note ---
Date of Service May 10, 2019 Assessment & Plan (1) Hematuria: Having intermittent painless hematuria, secondary to prostate cancer overall very poor prognosis, Urology on board recommended to avoid Padron catheter insertion -severe urethral stricture, radiation injury not a candidate for suprapubic catheter due to above Not a candidate for surgical resection of a bladder tumor secondary to multiple comorbidities Very poor prognosis hospice palliative care would be appropriate-plan of care discussed with patient, understands poor prognosis, Present he is comfortable does not have any pain or discomfort, does not have any active palliative need wants to discuss about palliative care when the time comes Patient's updated over the phone, she is also aware of the poor prognosis secondary to advanced bladder cancer Wants to put the decision to Mr. Nba Mascorro regarding palliative care At present Mr. Mascorro is comfortable does not have any urinary symptoms Plan to transfer to [facility] on Sunday for skilled rehab (2) Paroxysmal atrial fibrillation: Remains in sinus rhythm Had ablation done in 2013 Rate controlled on dofetilide and Metoprolol succinate Not a candidate for anticoagulant due to poor tolerance, multiple falls, past hematuria with persistent anemia (3) Ambulatory dysfunction: Generalized weakness Fall precaution Continue PT/OT Will need inpatient rehab-referral made to [facility] does not have a bed Plan to transfer to [facility] on Sunday for rehab (4) Fracture, humerus: Acute nondisplaced proximal left humerus fracture, secondary to fall Orthopedics recommended no surgical intervention, conservative management, keep a left arm sling Pain appears to be well controlled Nonweightbearing on left upper extremity Referral made to rehab, awaiting placement Ortho follow-up with Dr. 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 CT face showed no facial fractures identified. CT head showed no acute intracranial finding Xray Hip/Pelvis showed no acute fractures or dislocations identified. Left knee xray showed no degenerative change. small joint effusion. Ortho on board recommended no surgical intervention for the left humeral fracture Continue conservative management and keep the sling on Follow up with Ortho Dr. Blanca in 2 to 3 weeks Fall precaution (7) Alcohol intoxication: No evidence of alcohol withdrawal chronic alcohol abuse Alcohol level on admission 114 Pt said that he drinks hard [place] whiskey (about 4 glasses per day) Not interest to quit drinking alcohol on discharge Continue thiamine and folic acid -So far patient has not shown any evidence of active withdrawal, has not needed any PRN Ativan (8) Hyponatremia: Chronic Hyponatremia Mostly related to alcohol intake Sodium level improved Continue monitor BMP (9) COPD (chronic obstructive pulmonary disease): Noted to have scattered wheeze, mostly on the lower lung dorantes for wheeze Continue spiriva Continue duoneb prn for wheeze (10) Prostate cancer: Adenocarcinoma prostate Dx in 2003 Status post hormonal suppression for 7 months Status post external beam radiation therapy completed 12/01/2003 Status post iodine seed implant as boost completed 01/05/2004" (11) Bladder carcinoma: BLADDER CA Status post TURBT 08/21/2014 High-grade urothelial carcinoma T1 Ureteral stent and BCG instillations Status post TURBT 12/15/2014 high-grade urothelial carcinoma Status post cystoscopy and bladder biopsy 07/28/2016 High-grade urothelial carcinoma T2 Status post 4 cycles of neoadjuvant cisplatin and gemcitabine Patient found to be inoperable due to comorbidities Unable to advance cystoscope in 01/2017 Status post completion of palliative radiation therapy 11/05/2017. He received 5940 cGy" OVERALL PROGNOSIS POOR Discussed with patient regarding status of bladder cancer, as per Dr. Umaña evaluation patient has end-stage, advanced bladder CA Severe bladder outlet obstruction secondary to scarring/stenosis of urethra and bladder neck from radiation treatment Padron cannot be inserted, urology could not pass cystoscopy in the past secondary to severe stenosis not a candidate for suprapubic catheter placement for radiation Injury to bladder wall Patient can develop progressive bladder outlet obstruction which can lead severe abdominal pain discomfort, kidney failure Palliative care hospice will be appropriate Discussed with patient for the option, at present he does not have any pain or discomfort wants to consider about hospice when he needs it Advised of the poor prognosis (12) Tobacco abuse: Smokes a pack of cigarette a day-on going smoking with advanced bladder ca Request for nicotine patch: Ordered (13) Urinary retention: Possible secondary to malignant prostate CA, status post history of chemo/radiation treatment for palliation Patient had urinary retention/episode of hematuria overnight, post void bladder scan reports of 700 mL On-call urology Dr. Brittaney Umaña was contacted by foundry manager over the phone, Padron catheters should be avoided in this patient-due to severe stenosis of urethra due to scar form Radiation tx Patient will not tolerate suprapubic catheter secondary to severe radiation injury to urinary bladder Patient's overall prognosis remains poor patient is aware, Wants to think about hospice palliative care Hypokalemia corrected Monitor BMP DVT px on SCDs due to hematuria CODE STATUS FULL CODE Disposition Patient is accepted at [facility] for rehab No bed available till Sunday Family physician: Dr. Good at [facility] Subjective No further episode of hematuria, No abdominal pain, No fever or chills, Left arm remains in sling, has no pain or discomfort at rest Physical Exam Constitutional: no acute distress Eyes: PERRL, conjunctivae normal, anicteric sclerae ENMT: external ear and nose normal, oropharynx normal Neck: trachea midline, no thyromegaly Respiratory: normal respiratory effort, lungs clear to auscultation Cardiovascular: RRR, no murmur, no edema Gastrointestinal (Abdomen): normal bowel sounds, soft, nontender, no hepatosplenomegaly Musculoskeletal: Left arm on sling Neurologic: PERRL, EOMI, accommodation nl, no face palsy, no dysarthria Psychiatric: A+Ox3, euthymic affect Results & Data Vital Signs (Past 12 Hours) Vital Signs Temp Pulse Resp BP Pulse Ox 05/10/19 15:12 36.7 C 66 16 127/69 94 05/10/19 07:34 36.7 C 77 16 143/68 H 95 (1) Hematuria Hematuria type: gross Qualified Code(s): R31.0 - Gross hematuria (2) Alcohol intoxication Complication of substance-induced condition: with unspecified complication Qualified Code(s): F10.929 - Alcohol use, unspecified with intoxication, unspecified (3) COPD (chronic obstructive pulmonary disease) COPD type: unspecified COPD Qualified Code(s): J44.9 - Chronic obstructive pulmonary disease, unspecified (4) Fracture, humerus Encounter type: initial encounter Fracture alignment: displaced Fracture morphology: transverse Fracture type: closed Humerus Location: shaft Laterality: left Qualified Code(s): S42.322A - Displaced transverse fracture of shaft of humerus, left arm, initial encounter for closed fracture (5) Fall Encounter type: initial encounter Qualified Code(s): W19.XXXA - Unspecified fall, initial encounter
[2019-05-10] MEDS: ALFUZOSIN HCL 10 MG TAB PO SCH (20:26)
[2019-05-11] MEDS: ZOLPIDEM TARTRATE 5 MG TAB PO PRN ×2 (00:29→22:15)
[2019-05-11] MEDS: ACETAMINOPHEN 325 MG TAB PO PRN ×3 (08:35→20:35)
[2019-05-11] MEDS: FLUTICASONE/SALMETEROL (ADVAIR) 500/50 INH 14 PUFF INH SCH ×2 (08:38→20:31)
[2019-05-11] MEDS: DOFETILIDE 125 MCG CAPSULE PO SCH ×2 (09:20→20:28)
[2019-05-11] MEDS: FLINTSTONES COMPLETE CHEWABLE TAB PO SCH (09:20)
[2019-05-11] MEDS: ATORVASTATIN 40 MG TAB PO SCH (09:20)
[2019-05-11] MEDS: TIOTROPIUM BROMIDE 5 PUFF/90 MCG INH INH SCH (09:20)
[2019-05-11] MEDS: POTASSIUM CHLORIDE 10 MEQ TABCR PO SCH (09:20)
[2019-05-11] MEDS: NICOTINE 21 MG/24 HR TDSY TD SCH (09:21)
[2019-05-11] MEDS: METOPROLOL SUCC 25MG EXT REL TAB PO SCH ×2 (09:21→20:29)
--- NOTE | 2019-05-11 17:50 | Hospitalist Progress Note ---
Date of Service May 11, 2019 Assessment & Plan (1) Hematuria: No hematuria since yesterday Intermittent hematuria: Secondary to water cancer overall very poor prognosis, Patient been following with urology Dr. Brittaney Umaña Urology recommended to avoid Padron catheter insertion -severe urethral stricture, radiation injury not a candidate for suprapubic catheter due to patient injury to urinary bladder Not a candidate for surgical resection of a bladder tumor secondary to multiple comorbidities Very poor prognosis hospice palliative care would be appropriate-plan of care discussed with patient, understands poor prognosis, Present he is comfortable does not have any pain or discomfort, does not have any active palliative need wants to discuss about palliative care when the time comes Patient's updated over the phone, she is also aware of the poor prognosis secondary to advanced bladder cancer Wants to put the decision to Mr. Nba Mascorro regarding palliative care At present Mr. Mascorro is comfortable does not have any urinary symptoms Plan to transfer to [facility] on Sunday for skilled rehab Patient and his are requesting second opinion from [facility] physician group urology team Dr. Del Murillo Patient has advanced bladder cancer with minimum or no option for cure/treatment Talk with Dr. Murillo tomorrow to evaluate the patient (2) Paroxysmal atrial fibrillation: Remains in sinus rhythm Had ablation done in 2013 Rate controlled on dofetilide and Metoprolol succinate Not a candidate for anticoagulant due to poor tolerance, multiple falls, past hematuria with persistent anemia (3) Ambulatory dysfunction: Generalized weakness Fall precaution Continue PT/OT Will need inpatient rehab-referral made to [facility] does not have a bed Plan to transfer to [facility] on Sunday for rehab (4) Fracture, humerus: Acute nondisplaced proximal left humerus fracture, secondary to fall Orthopedics recommended no surgical intervention, conservative management, keep a left arm sling Pain appears to be well controlled Nonweightbearing on left upper extremity Referral made to rehab, awaiting placement Ortho follow-up with Dr. 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 CT face showed no facial fractures identified. CT head showed no acute intracranial finding Xray Hip/Pelvis showed no acute fractures or dislocations identified. Left knee xray showed no degenerative change. small joint effusion. Ortho on board recommended no surgical intervention for the left humeral fracture Continue conservative management and keep the sling on Follow up with Ortho Dr. Blanca in 2 to 3 weeks Fall precaution (7) Alcohol intoxication: No evidence of alcohol withdrawal chronic alcohol abuse Alcohol level on admission 114 Pt said that he drinks hard [place] whiskey (about 4 glasses per day) Not interest to quit drinking alcohol on discharge Continue thiamine and folic acid -So far patient has not shown any evidence of active withdrawal, has not needed any PRN Ativan (8) Hyponatremia: Chronic Hyponatremia Mostly related to alcohol intake Sodium level improved Continue monitor BMP (9) COPD (chronic obstructive pulmonary disease): Noted to have scattered wheeze, mostly on the lower lung dorantes for wheeze Continue spiriva Continue duoneb prn for wheeze (10) Prostate cancer: Adenocarcinoma prostate Dx in 2003 Status post hormonal suppression for 7 months Status post external beam radiation therapy completed 12/01/2003 Status post iodine seed implant as boost completed 01/05/2004" (11) Bladder carcinoma: BLADDER CA Status post TURBT 08/21/2014 High-grade urothelial carcinoma T1 Ureteral stent and BCG instillations Status post TURBT 12/15/2014 high-grade urothelial carcinoma Status post cystoscopy and bladder biopsy 07/28/2016 High-grade urothelial carcinoma T2 Status post 4 cycles of neoadjuvant cisplatin and gemcitabine Patient found to be inoperable due to comorbidities Unable to advance cystoscope in 01/2017 Status post completion of palliative radiation therapy 11/05/2017. He received 5940 cGy" OVERALL PROGNOSIS POOR Discussed with patient regarding status of bladder cancer, as per Dr. Umaña evaluation patient has end-stage, advanced bladder CA Severe bladder outlet obstruction secondary to scarring/stenosis of urethra and bladder neck from radiation treatment Padron cannot be inserted, urology could not pass cystoscopy in the past secondary to severe stenosis not a candidate for suprapubic catheter placement for radiation Injury to bladder wall Patient can develop progressive bladder outlet obstruction which can lead severe abdominal pain discomfort, kidney failure Palliative care hospice will be appropriate Discussed with patient for the option, at present he does not have any pain or discomfort wants to consider about hospice when he needs it Advised of the poor prognosis (12) Tobacco abuse: Smokes a pack of cigarette a day-on going smoking with advanced bladder ca Request for nicotine patch: Ordered (13) Urinary retention: Possible secondary to malignant prostate CA, status post history of chemo/radiation treatment for palliation Patient had urinary retention/episode of hematuria overnight, post void bladder scan reports of 700 mL On-call urology Dr. Brittaney Umaña was contacted by sales enablement consultant over the phone, Padron catheters should be avoided in this patient-due to severe stenosis of urethra due to scar form Radiation tx Patient will not tolerate suprapubic catheter secondary to severe radiation injury to urinary bladder Patient's overall prognosis remains poor patient is aware, Wants to think about hospice palliative care Hypokalemia corrected Monitor BMP DVT px on SCDs due to hematuria CODE STATUS FULL CODE Disposition Patient is accepted at [facility] for rehab No bed available till Sunday Family physician: Dr. Good at [facility] Subjective Not had any further episode of hematuria, Fever or chills Patient requesting referral consulted to Dr. Del Murillo [facility] physician group urology team for second opinion for his bladder cancer Physical Exam Constitutional: no acute distress Eyes: PERRL, conjunctivae normal, anicteric sclerae ENMT: external ear and nose normal, oropharynx normal Neck: trachea midline, no thyromegaly Respiratory: normal respiratory effort, lungs clear to auscultation Cardiovascular: RRR, no murmur, no edema Gastrointestinal (Abdomen): normal bowel sounds, soft, nontender, no hepatosplenomegaly Neurologic: PERRL, EOMI, accommodation nl, no face palsy, no dysarthria Psychiatric: A+Ox3, euthymic affect Results & Data Vital Signs (Past 12 Hours) Vital Signs Temp Pulse Resp BP Pulse Ox 05/11/19 15:03 36.5 C 85 16 96/60 L 94 05/11/19 07:44 36.5 C 76 21 162/78 H 94 (1) Hematuria Hematuria type: gross Qualified Code(s): R31.0 - Gross hematuria (2) Fracture, humerus Encounter type: initial encounter Fracture alignment: displaced Fracture morphology: transverse Fracture type: closed Humerus Location: shaft Laterality: left Qualified Code(s): S42.322A - Displaced transverse fracture of shaft of humerus, left arm, initial encounter for closed fracture (3) Fall Encounter type: initial encounter Qualified Code(s): W19.XXXA - Unspecified fall, initial encounter (4) Alcohol intoxication Complication of substance-induced condition: with unspecified complication Qualified Code(s): F10.929 - Alcohol use, unspecified with intoxication, unspecified (5) COPD (chronic obstructive pulmonary disease) COPD type: unspecified COPD Qualified Code(s): J44.9 - Chronic obstructive pulmonary disease, unspecified
[2019-05-11] MEDS: ALFUZOSIN HCL 10 MG TAB PO SCH (20:33)
[2019-05-12] MEDS: ACETAMINOPHEN 325 MG TAB PO PRN ×4 (02:05→23:35)
[2019-05-12] MEDS: FLINTSTONES COMPLETE CHEWABLE TAB PO SCH (10:10)
[2019-05-12] MEDS: FLUTICASONE/SALMETEROL (ADVAIR) 500/50 INH 14 PUFF INH SCH ×2 (10:10→20:09)
[2019-05-12] MEDS: ATORVASTATIN 40 MG TAB PO SCH (10:11)
[2019-05-12] MEDS: POTASSIUM CHLORIDE 10 MEQ TABCR PO SCH (10:11)
[2019-05-12] MEDS: DOFETILIDE 125 MCG CAPSULE PO SCH ×2 (10:11→20:11)
[2019-05-12] MEDS: TIOTROPIUM BROMIDE 5 PUFF/90 MCG INH INH SCH (10:12)
[2019-05-12] MEDS: NICOTINE 21 MG/24 HR TDSY TD SCH (10:13)
[2019-05-12] MEDS: METOPROLOL SUCC 25MG EXT REL TAB PO SCH ×2 (10:16→20:11)
[2019-05-12] MEDS: MAGNESIUM OXIDE 400 MG TAB PO SCH (11:24)
--- NOTE | 2019-05-12 13:39 | Urology Consultation ---
Date of Consultation May 12, 2019 Assessment & Plan (1) Urinary retention: 73yo M with high grade, muscle invasive urothelial carcinoma, severe urethral strictures, CaP s/p brachy, requesting transfer of care to Dr. Murillo. Currently satisfied with voiding but fearful of retention in the future. It appears his voiding has been stable for the past 2.5 years which is encouraging. Discussed options including DVIU with fuchs placement vs suprapubic catheter- currently undesirable options due to risk for bleeding, infection, worsening pain. Pt feels reassured there are options if he develops acute retention, understands we prefer conservative measures presently. Dr. Murillo has been made aware of this patient, agreeable to following as outpatient. Will tentatively arrange for 4-[address] Murillo as outpatient. History of Present Illness Reason for Consultation: second opinion, bladder cancer Requesting Physician: Dr. Kelly Attending Physician: Yoko Kelly MD History of Present Illness 74yo M with extensive PMHX including hx prostate cancer and muscle invasive bladder cancer, admitted to [facility] s/p fall with left humerus fracture. We were consulted for second opinion regarding urology management, hematuria. . Previously managed by Dr. Omalley in 2016, referred to [facility] for evaluation due to comorbidities. Hx prostate cancer, cT2c, [place] 3+3, received 7 months of hormones, brachy, then XRT in 2003 Then diagnosed with high-grade urothelial carcinoma T1, unable to advance cystoscope due to severe urethral strictures secondary to radiation injury since 2016, completed palliative radiation in October 2017. Deemed very high risk for cystectomy by [facility] in 2015 given prior XRT, seeds and prior abdominal surgery with mesh - risk for rectal injury, need for permanent colostomy in additional to ileal conduit. COPD with prolonged ventilation after first TURBT, subsequently have been under spinal. Smoked 1-1.5PPD [id number], quit a few years ago. Extensive alcohol consumption history as well. Becomes short of breath with minimal exertion. Currently voiding spontaneously, viewed in Urinal at bedside - clear yellow. Able to void 100-200cc. He does experience urgency/frequency. Denies suprapubic discomfort or dysuria. Pt okay with voiding status, however very fearful of retention. is a patient of Dr. Murillo, requesting to establish with him. Allergies Allergy/AdvReac Type Severity Reaction Status Date / Time No Known Allergies Allergy Unverified 09/01/18 06:31 Home Medications Home Medications Medication Instructions Recorded Confirmed Type Breo Ellipta 1 inh INHALATION DAILY 09/01/18 05/03/19 History ProAir RespiClick 1 - 2 puff INHALATION Q4 PRN 09/01/18 05/03/19 History Spiriva with HandiHaler 1 cap INHALATION DAILY 09/01/18 05/03/19 History alfuzosin 10 mg PO QPM 09/01/18 05/03/19 History atorvastatin 40 mg PO DAILY 09/01/18 05/03/19 History clobetasol [Temovate] 1 applic TOPICAL BID PRN 09/01/18 05/03/19 History desonide 1 applic TOPICAL BID PRN 09/01/18 05/03/19 History dofetilide 500 mcg PO Q12H 09/01/18 05/03/19 History multivitamin with iron 1 tab PO DAILY 09/01/18 05/03/19 History zolpidem 10 mg PO HS PRN 09/01/18 05/03/19 History metoprolol succinate 12.5 mg PO BID 05/03/19 05/03/19 History magnesium 400 mg PO DAILY #60 tab 05/12/19 Rx multivitamin 1 tab PO DAILY #30 tab 05/12/19 Rx potassium chloride [Klor-Con M10] 10 meq PO DAILY 30 Days #30 tab 05/12/19 Rx Patient History Medical History Orthostatic hypotension Alcohol withdrawal Tremor DVT prophylaxis Acute renal failure Lower extremity edema Obesity (BMI 30.0-34.9) Hyponatremia Aspiration pneumonia (Acute) Atrial flutter (Acute) COPD (chronic obstructive pulmonary disease) (Chronic) Atrial fibrillation (Chronic) Hypertension (Chronic) Hyperlipidemia (Chronic) Atrial fibrillation with RVR (Acute) Prostate cancer (Resolved) "Adenocarcinoma prostate, presenting PSA 4.8, clinical stage TIc Status post hormonal suppression for 7 months Status post external beam radiation therapy completed 12/01/2003 Status post iodine seed implant as boost completed 01/05/2004" Bladder cancer (Acute) "Gross hematuria Status post TURBT 08/21/2014 High-grade urothelial carcinoma T1 Ureteral stent and BCG instillations Status post TURBT 12/15/2014 high-grade urothelial carcinoma Follow-up with recheck cystoscopies Status post cystoscopy and bladder biopsy 07/28/2016 High-grade urothelial carcinoma T2 Status post 4 cycles of neoadjuvant cisplatin and gemcitabine Patient found to be inoperable due to comorbidities Unable to advance cystoscope in 01/2017 Status post completion of palliative radiation therapy 11/05/2017. He received 5940 cGy" On 11/12/17 12:59 Sallie Levy wrote "Gross hematuria Status post TURBT 08/21/2014 High-grade urothelial carcinoma T1 Ureteral stent and BCG instillations Status post TURBT 12/15/2014 high-grade urothelial carcinoma Follow-up with recheck cystoscopies Status post cystoscopy and bladder biopsy 07/28/2016 High-grade urothelial carcinoma T2 Status post 4 cycles of neoadjuvant cisplatin and gemcitabine Patient found to be in optimal due to comorbidities Unable to advance cystoscope in 01/2017 Status post completion of palliative radiation therapy 11/05/2017. He received 5940 cGy" Social History Preferred Language: Faroese Communication Ability: Effective Beliefs That Will Affect Care: None marital status: Current Living Situation: Spouse Other Information That Helps Us Care for You: No Feels Safe at Home: Yes Safety Concerns: Feels Safe At This Time Smoking Status: Heavy tobacco smoker Tobacco Type: cigarettes Cigarettes Per Day: 1 pack per day Hx Alcohol Use: Yes Alcohol type: hard liquor Hx Substance Use: No Review of Systems Review of Systems: Denies headache Denies chest pain, shortness of breath. Denies abdominal pain, n/v. Denies suprapubic or flank pain. Denies LE swelling Left arm discomfort - in sling s/p fracture Physical Exam Physical Exam: A&Ox3 RRR Abd soft, nontender : voiding clear yellow, small volumes Left arm - sling intact
--- NOTE | 2019-05-12 18:01 | Hospitalist Progress Note ---
Date of Service May 12, 2019 Assessment & Plan (1) Hematuria: No further hematuria Intermittent hematuria: Related to bladder cancer overall very poor prognosis, Patient been following with urology Dr. Brittaney Umaña Urology recommended to avoid Padron catheter insertion -severe urethral stricture, radiation injury Requested second opinion with [facility] urology team: Appreciate input Very poor prognosis hospice palliative care would be appropriate-plan of care discussed with patient, understands poor prognosis, Present he is comfortable does not have any pain or discomfort, does not have any active palliative need wants to discuss about palliative care when the time comes Patient's updated over the phone, she is also aware of the poor prognosis secondary to advanced bladder cancer Wants to put the decision to Mr. Nba Mascorro regarding palliative care At present Mr. Mascorro is comfortable does not have any urinary symptoms Plan to transfer to [facility] on Sunday for skilled rehab Patient and his are requesting second opinion from [facility] physician group urology team Dr. Del Murillo Patient has advanced bladder cancer with minimum or no option for cure/treatment Talk with Dr. Murillo tomorrow to evaluate the patient (2) Paroxysmal atrial fibrillation: Remains in sinus rhythm Had ablation done in 2013 Rate controlled on dofetilide and Metoprolol succinate Not a candidate for anticoagulant due to poor tolerance, multiple falls, past hematuria with persistent anemia (3) Ambulatory dysfunction: Generalized weakness Fall precaution Continue PT/OT Will need inpatient rehab-referral made to [facility] does not have a bed Plan to transfer to [facility] on Sunday for rehab (4) Fracture, humerus: Acute nondisplaced proximal left humerus fracture, secondary to fall Orthopedics recommended no surgical intervention, conservative management, keep a left arm sling Pain appears to be well controlled Nonweightbearing on left upper extremity Referral made to rehab, awaiting placement Ortho follow-up with Dr. 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 CT face showed no facial fractures identified. CT head showed no acute intracranial finding Xray Hip/Pelvis showed no acute fractures or dislocations identified. Left knee xray showed no degenerative change. small joint effusion. Ortho on board recommended no surgical intervention for the left humeral fracture Continue conservative management and keep the sling on Follow up with Ortho Dr. Blanca in 2 to 3 weeks Fall precaution (7) Alcohol intoxication: No evidence of alcohol withdrawal chronic alcohol abuse Alcohol level on admission 114 Pt said that he drinks hard [place] whiskey (about 4 glasses per day) Not interest to quit drinking alcohol on discharge Continue thiamine and folic acid -So far patient has not shown any evidence of active withdrawal, has not needed any PRN Ativan (8) Hyponatremia: Chronic Hyponatremia Mostly related to alcohol intake Sodium level improved Continue monitor BMP (9) COPD (chronic obstructive pulmonary disease): Noted to have scattered wheeze, mostly on the lower lung dorantes for wheeze Continue spiriva Continue duoneb prn for wheeze (10) Prostate cancer: Adenocarcinoma prostate Dx in 2003 Status post hormonal suppression for 7 months Status post external beam radiation therapy completed 12/01/2003 Status post iodine seed implant as boost completed 01/05/2004" (11) Bladder carcinoma: BLADDER CA Status post TURBT 08/21/2014 High-grade urothelial carcinoma T1 Ureteral stent and BCG instillations Status post TURBT 12/15/2014 high-grade urothelial carcinoma Status post cystoscopy and bladder biopsy 07/28/2016 High-grade urothelial carcinoma T2 Status post 4 cycles of neoadjuvant cisplatin and gemcitabine Patient found to be inoperable due to comorbidities Unable to advance cystoscope in 01/2017 Status post completion of palliative radiation therapy 11/05/2017. He received 5940 cGy" OVERALL PROGNOSIS POOR Discussed with patient regarding status of bladder cancer, as per Dr. Umaña evaluation patient has end-stage, advanced bladder CA Severe bladder outlet obstruction secondary to scarring/stenosis of urethra and bladder neck from radiation treatment Patient is aware of the poor prognosis Evaluated by [facility] for second opinion Non-treatable bladder cancer, In the setting of gross hematuria with blood clots causing urinary obstruction, [facility] will attempt palliative Padron versus surgical suprapubic catheter (12) Tobacco abuse: Smokes a pack of cigarette a day-on going smoking with advanced bladder ca Request for nicotine patch: Ordered (13) Urinary retention: Possible secondary to malignant prostate CA, status post history of chemo/radiation treatment for palliation Patient had urinary retention/episode of hematuria overnight, post void bladder scan reports of 700 mL On-call urology Dr. Brittaney Umaña was contacted by sod stripper over the phone, Padron catheters should be avoided in this patient-due to severe stenosis of urethra due to scar form Radiation tx Patient will not tolerate suprapubic catheter secondary to severe radiation injury to urinary bladder Patient's overall prognosis remains poor patient is aware, Wants to think about hospice palliative care Hypokalemia corrected Monitor BMP DVT px on SCDs due to hematuria CODE STATUS FULL CODE Disposition Patient will need rehab, referral made to [facility], and awaiting insurance authorization Family physician: Dr. Good at [facility] Subjective No episode of hematuria, no fever chills, does not have any pain or discomfort anywhere Waiting for insurance of for rehab placement at [facility] Patient was seen briefly by group urology, patient requests a second opinion for advanced bladder cancer Appreciate input, Future if patient developed urinary obstruction, will be seen by urology team for palliative versus suprapubic catheter Physical Exam Constitutional: no acute distress Eyes: PERRL, conjunctivae normal, anicteric sclerae ENMT: external ear and nose normal, oropharynx normal Neck: trachea midline, no thyromegaly Respiratory: normal respiratory effort, lungs clear to auscultation Cardiovascular: RRR, no murmur, no edema Gastrointestinal (Abdomen): normal bowel sounds, soft, nontender, no hepatosplenomegaly Neurologic: PERRL, EOMI, accommodation nl, no face palsy, no dysarthria Psychiatric: A+Ox3, euthymic affect Results & Data Vital Signs (Past 12 Hours) Vital Signs Temp Pulse Resp BP Pulse Ox 05/12/19 15:17 37 C 72 16 102/62 91 05/12/19 08:00 36.8 C 74 14 138/70 94 (1) Hematuria Hematuria type: gross Qualified Code(s): R31.0 - Gross hematuria (2) Alcohol intoxication Complication of substance-induced condition: with unspecified complication Qualified Code(s): F10.929 - Alcohol use, unspecified with intoxication, unspecified (3) COPD (chronic obstructive pulmonary disease) COPD type: unspecified COPD Qualified Code(s): J44.9 - Chronic obstructive pulmonary disease, unspecified (4) Fracture, humerus Encounter type: initial encounter Fracture alignment: displaced Fracture morphology: transverse Fracture type: closed Humerus Location: shaft Lateral ity: left Qualified Code(s): S42.322A - Displaced transverse fracture of shaft of humerus, left arm, initial encounter for closed fracture (5) Fall Encounter type: initial encounter Qualified Code(s): W19.XXXA - Unspecified fall, initial encounter
[2019-05-12] MEDS: ALFUZOSIN HCL 10 MG TAB PO SCH (20:11)
[2019-05-12] MEDS ORDERED: ZOLPIDEM TARTRATE 10 MG TAB PO PRN (20:48)
[2019-05-13] MEDS: ATORVASTATIN 40 MG TAB PO SCH (09:02)
[2019-05-13] MEDS: FLUTICASONE/SALMETEROL (ADVAIR) 500/50 INH 14 PUFF INH SCH (09:02)
[2019-05-13] MEDS: METOPROLOL SUCC 25MG EXT REL TAB PO SCH (09:04)
[2019-05-13] MEDS: FLINTSTONES COMPLETE CHEWABLE TAB PO SCH (09:04)
[2019-05-13] MEDS: DOFETILIDE 125 MCG CAPSULE PO SCH (09:04)
[2019-05-13] MEDS: MAGNESIUM OXIDE 400 MG TAB PO SCH (09:04)
[2019-05-13] MEDS: TIOTROPIUM BROMIDE 5 PUFF/90 MCG INH INH SCH (09:05)
[2019-05-13] MEDS: POTASSIUM CHLORIDE 10 MEQ TABCR PO SCH (09:05)
[2019-05-13] MEDS: NICOTINE 21 MG/24 HR TDSY TD SCH (09:05)
[2019-05-13] MEDS: ACETAMINOPHEN 325 MG TAB PO PRN (11:10)
--- NOTE | 2019-05-13 17:00 | Discharge Summary ---
Date of Service May 13, 2019 Admission HPI Per Admitting Provider History of Present Illness 73 year old male past medical history of orthostatic hypotension, alcoholism, acute renal failure, hypertension, edema, obesity, hyponatremia, aspiration pneumonia, atrial fib/flutter, COPD-on 3 L nasal cannula at home, hyperlipidemia, prostate and bladder cancer, degenerative disc disease of the cervical spine, hyperlipidemia who fell last night around 1 AM, on 05/03 AM at 1 AM. He had been drinking and was going to the bathroom and does not remember how he fell but he fell. He sleeps in a recliner downstairs in his living room and his did not realize what it happened to him until the morning. It took several hours to coax the patient to come to the emergency room he was found to have a left humerus fracture which was nondisplaced. His sodium was found to be 125 so I was called and asked to admit the patient. Past medical historyorthostatic hypotension, alcoholism, acute renal failure, hypertension, edema, obesity, pancreatic cyst, hyponatremia, aspiration pneumonia, atrial fib/flutter, COPD-on 3 L nasal cannula at home, hyperlipidemia, prostate and bladder cancer, degenerative disc disease of the cervical spine, hyperlipidemia Past surgical historypancreatic cyst, seeds in his prostate, neck fusion and cervical spine Family historymother of an unknown cause father of some kind of organ failure, he has a brother who in a motor vehicle accident he has 1 son one daughter who are alive and healthy Social historyheavy drinker hard liquor and beer, pack a day smoker for 55 years, lives with his . Primary Care Provider: Nba Good MD Principal Diagnosis Fall/left arm fracture/chronic alcohol abuse/advanced bladder cancer/prostate cancerurinary retention- chronic Discharge Exam Constitutional no acute distress Eyes PERRL, conjunctivae normal, anicteric sclerae ENMT external ear and nose normal, oropharynx normal Neck trachea midline, no thyromegaly Respiratory normal respiratory effort, lungs clear to auscultation Cardiovascular RRR, no murmur, no edema Gastrointestinal (Abdomen) normal bowel sounds, soft, nontender, no hepatosplenomegaly Neurologic PERRL, EOMI, accommodation nl, no face palsy, no dysarthria Psychiatric A+Ox3, euthymic affect Discharge Data Allergies Allergy/AdvReac Type Severity Reaction Status Date / Time No Known Allergies Allergy Unverified 09/01/18 06:31 Consultations 05/03/19 23:46 ED Decision to Admit Stat 05/04/19 01:43 Consult Urology Routine 05/04/19 03:44 Consult Orthopedic Surgery Routine 05/09/19 08:07 Consult Podiatry Routine 05/12/19 12:29 Consult Urology Routine Ordered Studies 05/03/19 20:45 CT cervical spine wo con Stat CT facial bones wo con Stat CT head/brain wo con Stat Hospital Course (1) Hematuria: No further hematuria Intermittent hematuria: Related to bladder cancer overall very poor prognosis, Patient been following with urology Dr. Brittaney Umaña Urology recommended to avoid Padron catheter insertion -severe urethral strictur e, radiation injury Requested second opinion with [facility] urology team: Appreciate input Very poor prognosis hospice palliative care would be appropriate-plan of care discussed with patient, understands poor prognosis, Present he is comfortable does not have any pain or discomfort, does not have any active palliative need wants to discuss about palliative care when the time comes Patient's updated over the phone, she is also aware of the poor prognosis secondary to advanced bladder cancer Wants to put the decision to Mr. Nba Mascorro regarding palliative care At present Mr. Mascorro is comfortable does not have any urinary symptoms Plan to transfer to [facility] on Sunday for skilled rehab Patient and his are requesting second opinion from [facility] urology team Dr. Del Murillo appreciate input from Dr Stinson team pt will be seen at his clinic in 6 weeks to discuss regarding options of palliative tx if pt developed urinary retention due to gross hematuria /blood clots (2) Paroxysmal atrial fibrillation: Remains in sinus rhythm Had ablation done in 2013 Rate controlled on dofetilide and Metoprolol succinate Not a candidate for anticoagulant due to poor tolerance, multiple falls, past hematuria with persistent anemia (3) Ambulatory dysfunction: Generalized weakness Fall precaution Continue PT/OT Will need inpatient rehab-referral made stable to transfer to [facility] today (4) Fracture, humerus: Acute nondisplaced proximal left humerus fracture, secondary to fall Orthopedics recommended no surgical intervention, conservative management, keep a left arm sling Pain appears to be well controlled Nonweightbearing on left upper extremity Referral made to rehab, awaiting placement Ortho follow-up with Dr. 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 CT face showed no facial fractures identified. CT head showed no acute intracranial finding Xray Hip/Pelvis showed no acute fractures or dislocations identified. Left knee xray showed no degenerative change. small joint effusion. Ortho on board recommended no surgical intervention for the left humeral fracture Continue conservative management and keep the sling on Follow up with Ortho Dr. Blanca in 2 to 3 weeks Fall precaution (7) Alcohol intoxication: No evidence of alcohol withdrawal chronic alcohol abuse Alcohol level on admission 114 Pt said that he drinks hard [place] whiskey (about 4 glasses per day) Not interest to quit drinking alcohol on discharge Continue thiamine and folic acid -So far patient has not shown any evidence of active withdrawal, has not needed any PRN Ativan (8) Hyponatremia: Chronic Hyponatremia Mostly related to alcohol intake Sodium level improved (9) COPD (chronic obstructive pulmonary disease): Noted to have scattered wheeze, mostly on the lower lung dorantes for wheeze Continue spiriva Continue duoneb prn for wheeze (10) Prostate cancer: Adenocarcinoma prostate Dx in 2003 Status post hormonal suppression for 7 months Status post external beam radiation therapy completed 12/01/2003 Status post iodine seed implant as boost completed 01/05/2004" (11) Bladder carcinoma: BLADDER CA Status post TURBT 08/21/2014 High-grade urothelial carcinoma T1 Ureteral stent and BCG instillations Status post TURBT 12/15/2014 high-grade urothelial carcinoma Status post cystoscopy and bladder biopsy 07/28/2016 High-grade urothelial carcinoma T2 Status post 4 cycles of neoadjuvant cisplatin and gemcitabine Patient found to be inoperable due to comorbidities Unable to advance cystoscope in 01/2017 Status post completion of palliative radiation therapy 11/05/2017. He received 5940 cGy" OVERALL PROGNOSIS POOR Discussed with patient regarding status of bladder cancer, as per Dr. Umaña evaluation patient has end-stage, advanced bladder CA Severe bladder outlet obstruction secondary to scarring/stenosis of urethra and bladder neck from radiation treatment Patient is aware of the poor prognosis Evaluated by [facility] urology for second opinion Non-treatable bladder cancer, In the setting of gross hematuria with blood clots causing urinary obstruction, [facility] urology will attempt palliative Padron versus surgical suprapubic catheter (12) Tobacco abuse: Smokes a pack of cigarette a day-on going smoking with advanced bladder ca Request for nicotine patch: Ordered (13) Urinary retention: Possible secondary to malignant prostate CA, status post history of chemo/radiation treatment for palliation Patient had urinary retention/episode of hematuria overnight, post void bladder scan reports of 700 mL On-call urology Dr. Brittaney Umaña was contacted by dike supervisor over the phone, Padron catheters should be avoided in this patient-due to severe stenosis of urethra due to scar form Radiation tx Patient will not tolerate suprapubic catheter secondary to severe radiation injury to urinary bladder Patient's overall prognosis remains poor patient is aware, Wants to think about hospice palliative care Hypokalemia corrected Monitor BMP DVT px on SCDs due to hematuria CODE STATUS FULL CODE Disposition Patient will need rehab, referral made to [facility], stable to be transferred today Family physician: Dr. Good at [facility] Total Time Total Time Spent Total Time Spent (In Minutes): approx 40 mins Total Time Includes: Examination of the Patient, Discharge Planning and Medication Reconciliation Discharge Plan Discharge Items Patient Disposition: Transfer Long Term Fac Reason For Visit: FALL, HUMERUS FRACTURE, HYPONATREMIA Discharge Diagnosis: Fall/left arm fracture/chronic alcohol abuse/advanced bladder cancer/prostate cancerurinary retention- chronic Discharge Goals: Decrease discomfort and Therapeutic intervention Activity: As commented below Activity Comment: Continue physical therapy occupational therapy at [facility] Non-emergency contact: Primary Care Provider Call non-emergency contact if: you have any medication questions Follow-up/Referrals: Del Murillo MD [Physician] - Nba Good MD [Primary Care Provider] - Nba Blanca DO [Surgeon] - (In 3-4 weeks) Diet: Regular Addtl Provider Instructions: Follow-up with orthopedics in clinic in 3 to 4 weeks Do not take aspirin, or any other blood thinner, will cause bleeding in the urinary bladder Oxygen 3 L via nasal cannula at night Urology follow-up with Dr. Del Murillo in 6 weeks for urinary retention/blood in urine Prescriptions: New magnesium 200 mg tablet 400 mg PO DAILY Qty: 60 RF: 0 multivitamin tablet 1 tab PO DAILY Qty: 30 RF: 0 potassium chloride [Klor-Con M10] 10 mEq Tablet,Er Particles/Crystals 10 meq PO DAILY 30 Days Qty: 30 RF: 0 Continued atorvastatin 40 mg Tablet 40 mg PO DAILY RF: 0 clobetasol [Temovate] 0.05 % Ointment 1 applic TOPICAL BID PRN (Reason: Rash) RF: 0 zolpidem 10 mg Tablet 10 mg PO HS PRN (Reason: Sleep) RF: 0 dofetilide 500 mcg Capsule 500 mcg PO Q12H RF: 0 alfuzosin 10 mg Tablet Extended Release 24 Hr 10 mg PO QPM RF: 0 desonide 0.05 % Cream 1 applic TOPICAL BID PRN (Reason: Outbreak) RF: 0 multivitamin with iron Tablet 1 tab PO DAILY RF: 0 Spiriva with HandiHaler 18 mcg Capsule, W/Inhalation Device 1 cap INHALATION DAILY RF: 0 Breo Ellipta 100-25 mcg/dose Blister With Device 1 inh INHALATION DAILY RF: 0 ProAir RespiClick 90 mcg/actuation Aerosol Powdr Breath Activated 1 - 2 puff INHALATION Q4 PRN (Reason: Shortness Of Breath Or Wheezing) RF: 0 metoprolol succinate 25 mg Tablet Extended Release 24 Hr 12.5 mg PO BID RF: 0 Discontinued potassium chloride 10 mEq Tablet Extended Release 10 meq PO DAILY RF: 0 naproxen sodium 220 mg Tablet 220 mg PO BID PRN (Reason: Pain) RF: 0 Stand-Alone Forms: [facility] Discharge Orders: Discharge Order (Routine); Ordered 05/13/19 Ordered By: Yoko Kelly Skilled Items Patient informed of condition?: Yes DNR: No Discharge Level of Care: Skilled Communicable Disease: No Discharge Prognosis: Stable Admission Data Admit Date/Time: 05/04/19 00:01 Attending Provider: Yoko Kelly Admit Provider: Meet Tirado Primary Care Provider: Nba Good Other Providers: Danielle Avina ; Meet Tirado ; Brittaney Umaña ; Nba Blanca ; Kike Gomez ; Ludin Carpenter ; Samson Omalley ; Del Murillo I. ; Atul Faustin ; Jonna Barry ; Jackson Recinos II ; Juli Mcgee Service: Medical Other Interventions: Discharge Summary Assessment (RN) Last Done: 05/13/19 10:02 DC Date/Time DO NOT enter until pt leaves facility: 05/13/19 11:28
== END 2019-05-13 11:28 | DRG 687 ==
LOC: ED 20:32 → 2E 05-04 00:01 → SUATTDRO 05-04 00:01 → 2E 05-04 00:48 → 3W 05-07 09:41
DX: Z92.3 Personal history of irradiation; I48.0 Paroxysmal atrial fibrillation; E87.1 Hypo-osmolality and hyponatremia; W19.XXXA Unspecified fall, initial encounter; F10.239 Alcohol dependence with withdrawal, unspecified; C67.9 Malignant neoplasm of bladder, unspecified; R31.0 Gross hematuria; E66.9 Obesity, unspecified; R33.9 Retention of urine, unspecified; Z98.1 Arthrodesis status; Z86.718 Personal history of other venous thrombosis and embolism; I10 Essential (primary) hypertension; N99.114 Postprocedural urethral stricture, male, unspecified; Y92.89 Other specified places as the place of occurrence of the external cause; I95.1 Orthostatic hypotension; Y84.2 Radiological procedure and radiotherapy as the cause of abnormal reaction of the patient, or of later complication, without mention of misadventure at the time of the procedure; Z68.30 Body mass index [BMI] 30.0-30.9, adult; E87.6 Hypokalemia; F17.210 Nicotine dependence, cigarettes, uncomplicated; J44.9 Chronic obstructive pulmonary disease, unspecified; E78.5 Hyperlipidemia, unspecified; C61 Malignant neoplasm of prostate

== ENCOUNTER 2019-08-29 13:35 | Inpatient (IN) ==
[2019-08-29] MEDS ORDERED: SODIUM CHLORIDE 0.9% 250 ML IV PRN ×4 (14:05→22:03)
[2019-08-29] MEDS ORDERED: SODIUM CHLORIDE 0.9% 500 ML IV SCH (14:15)
[2019-08-29 14:32] LABS: Hematocrit (blood only) 14.2 % (42-52); Hemoglobin 4.8 g/dL (14.0-18.0); Mean Corpuscular Hemoglobin 32.7 pg (25-34); Mean Corpuscular Hgb Conc 33.8 g/dL (32-36); Mean Corpuscular Volume 96.6 fL (80-100); RDW Coefficient of Variation 15.9 % (11.5-14.5); RDW Standard Deviation 54.7 fL (36.4-46.3); Red Blood Count 1.47 M/uL (4.7-6.1)
[2019-08-29 14:40] LABS: Alanine Aminotransferase 46 U/L (12-78); Albumin Level 2.9 gm/dl (3.4-5.0); Aspartate Aminotransferase 33 U/L (15-37); BUN Creatinine Ratio 36.6 (10-20); Blood Urea Nitrogen 69 mg/dl (7-18); Calcium 8.3 mg/dl (8.5-10.1); Carbon Dioxide 25 mmol/L (21-32); Chloride 88 mmol/L (98-107); Est GFR (African American) 38.8; Est GFR (Non-African American) 33.5; Glucose 86 mg/dl (70-99); Potassium 3.2 mmol/L (3.5-5.1); Sodium 127 mmol/L (136-145)
[2019-08-29 14:42] LABS: Alkaline Phosphatase 88 U/L (45-117); Bilirubin,Total 0.7 mg/dl (0.2-1); Total Protein 5.9 gm/dl (6.4-8.2)
[2019-08-29 14:44] LABS: Immature Granulocytes # (auto) 0.02 K/uL (0.00-0.02); Immature Granulocytes % (auto) 0.4 %; Lymphocytes % (auto) 13.2 %; Mean Platelet Volume 8.8 fL (7.4-10.4); Monocytes % (auto) 7.5 %; Neutrophils # (auto) 4.18 K/uL (1.4-6.5); Neutrophils % (auto) 78.9 %; Nucleated RBC # (auto) 0.05 K/uL (0-0); Nucleated RBC % (auto) 0.9 %; Pappenheimer Bodies 2+; Platelet Count 174 K/uL (130-400); Polychromasia 1+
[2019-08-29 14:49] LABS: INR 1.1 (0.9-1.1); Partial Thromboplastin Ratio > 5.1
[2019-08-29 15:05] LABS: Partial Thromboplastin Time > 139.0 Seconds (21.0-31.0)
[2019-08-29] MEDS ORDERED: PANTOprazole 80 MG in DEXTROSE 5% 100 ML IV ONE (15:15)
--- NOTE | 2019-08-29 16:17 | History & Physical Report ---
Date of Service August 29, 2019 Assessment & Plan (1) Acute blood loss anemia: Hemoglobin noted to be 4.8 today Denies any active blood loss from vomiting and/or bowel movement Hemoglobin noted to be 12 in November of this year Has been taking Aleve and Vania-Banco for right hip pain for the last 2 weeks Seems to be upper GI bleed secondary to use of NSAID use Hemocult is positive Has been started on Protonix drip and will get blood transfusion No NSAIDs Monitor H&H every 6 hourly GI consulted for further evaluation (2) Paroxysmal atrial fibrillation: History of paroxysmal atrial fibrillation was on chronic dofetilide therapy Status post pulmonary vein isolation in 2013 Also history of aortic atherosclerosis with moderate aortic insufficiency and enlarged aortic root Variable systolic function with EF 45 to 65% with small circumferential pericardial effusion Has not been on anticoagulation due to advanced bladder bladder cancer, multiple recurrent falls, persistent anemia and poor tolerance Heart rate remains stable Denies any cardiac symptoms We will continue beta-ron (3) COPD (chronic obstructive pulmonary disease): Has been on inhalers and also home oxygen at nighttime Does not have any acute exacerbation at this time (4) Malignant tumor of urinary bladder: Status post cystoscopy, transurethral incision of prostate, and cold clip bladder biopsy in July of this year Received chemotherapy 2 years back Denies any acute symptoms now (5) Prostate cancer: As above (6) Hypertension: Blood pressure seems to be the lower side of normal We will continue current medications (7) Hyperlipidemia: Continue statin (8) Tobacco abuse: Continues to use tobacco and also drink alcohol Has risk of withdrawal symptoms Will put him on alcohol withdrawal protocol and start nicotine patch Advised to quit smoking and drinking alcohol DVT prophylaxis SCDs due to ongoing bleeding and symptomatic anemia CODE STATUS Full History of Present Illness Chief Complaint: Weakness, exertional shortness of breath with recurrent falls for last 2 weeks Primary Care Provider: Nba Good MD He is a 74 years old male with significant complicated past medical history including PAF, aortic atherosclerosis with aortic insufficiency, enlarged aortic root, hypertension, COPD, bladder and prostate cancer status post surgery and radiation apparently has been complaining of weakness and tiredness associated with exertional shortness of breath and recurrent falls for the last 1 to 2 weeks. He has been complaining of right hip pain and back pain and has been taking occasional Aleve to control the pain on top of Vania-Banco that he has been using routinely. He denies any chest pain and/or palpitation. Denies any fever chills or Rigors. Denies any abdominal pain, nausea and/or vomiting and no change in his bowel habit. He denies any hematemesis and/or black tarry stool, denies any problem with his urine as well. He was seen at the cardiology clinic as an outpatient today and was found to have very low hemoglobin of 5.1 and was sent in to the hospital for further evaluation and management. Allergies Allergy/AdvReac Type Severity Reaction Status Date / Time No Known Allergies Allergy Verified 08/29/19 15:15 Home Medications Home Medications Medication Instructions Recorded Confirmed Type Breo Ellipta 1 inh INHALATION QAM 09/01/18 08/29/19 History ProAir RespiClick 1 - 2 puff INHALATION Q4H PRN 09/01/18 08/29/19 History Spiriva with HandiHaler 1 cap INHALATION QAM 09/01/18 08/29/19 History atorvastatin 40 mg PO QPM 09/01/18 08/29/19 History clobetasol [Temovate] 1 applic TOPICAL BID PRN 09/01/18 08/29/19 History desonide 1 applic TOPICAL BID PRN 09/01/18 08/29/19 History metoprolol succinate 25 mg PO BID 05/03/19 08/29/19 History acetaminophen [Tylenol] 325 mg PO Q6H PRN 07/04/19 08/29/19 History magnesium 400 mg PO QAM 07/04/19 08/29/19 History multivitamin 1 tab PO QPM 07/04/19 08/29/19 History potassium chloride 10 meq PO QAM 07/04/19 08/29/19 History trospium 60 mg capsule,extended 60 mg PO QAM #30 cap 08/12/19 08/29/19 Rx release 24 hr Past Med/Surg History Medical History Alcohol abuse (Acute) Arthritis Atrial fibrillation S/P pulmonary vein isolation ablation (2013) Atrial flutter COPD (chronic obstructive pulmonary disease) Hyperlipidemia Hypertension Hyponatremia Lower extremity edema Obesity (BMI 30.0-34.9) On home oxygen therapy 2-3 L/MIN NC HS ONLY Orthostatic hypotension Smoker (Acute) Tremor familial Surgical History Bladder cancer s/p TURBT, ureteral stent and BCG instillations, 4 cycles of neoadjuvant cisplatin and gemcitabine, s/p completion of "palliative radiation" therapy 10/2017 History of anesthesia reaction TURBT 2013- patient had respiratory distress- sats decreased to 80's and patient was reintubated on ventilator 24-48 hours- ?fluid overload/pleural effusions; patient had subsequent TURBT with SAB (tolerated well). 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: No Beliefs That Will Affect Care: None marital status: Current Living Situation: Spouse Feels Safe at Home: Yes Smoking Status: Current every day smoker Tobacco Type: cigarettes ; Cigarettes Per Day: 1 PPD X 60 YRS ; Second Hand Exposure: Yes (SPOUSE SMOKES) ; Hx Alcohol Use: Yes Alcohol type: hard liquor Hx Substance Use: No Review of Systems Review of Systems: All systems reviewed & are unremarkable except as noted in HPI & below Physical Exam Physical Exam: Looks pale with benign positional essential tremor and minimally short of breath at rest Constitutional: well developed, well nourished, + acute distress (Due to shortness of breath) and + ill appearing Eyes: PERRL, conjunctivae normal, anicteric sclerae ENMT: external ear and nose normal, oropharynx normal Neck: trachea midline, no thyromegaly Respiratory: + respiratory distress (Minimal shortness of breath at rest) Auscultation: + diminished lung sounds and + wheezes (Minimal wheezing all over) Cardiovascular: Rate/Rhythm: + abnormal rate and + abnormal rhythm Heart Sounds: + murmur (2/6 over precordium) Chest (Breasts): Additional Comments: Has a port placed in the right upper chest anteriorly Gastrointestinal (Abdomen): Inspection/Auscultation: abdomen normal to inspection and normal bowel sounds Percussion/Palpation: abdomen soft; abdomen nontender Musculoskeletal: No acute arthritis involving any joints Neurologic: moves all extremities; no focal motor deficits Generally weak and lethargic Lymphatic: no cervical or axillary lymphadenopathy Results & Data Vital Signs (Past 12 Hours) Vital Signs Temp Pulse Resp BP Pulse Ox 08/29/19 15:32 102 H 23 125/64 91 08/29/19 15:30 100 H 22 95 08/29/19 15:01 96 H 26 H 97 08/29/19 15:00 95 H 28 H 117/69 97 08/29/19 14:31 101 H 15 97 08/29/19 14:30 107 H 24 119/59 L 96 08/29/19 14:28 108 H 20 97/63 L 97 08/29/19 14:10 108 H 22 08/29/19 13:37 36.6 C 107 H 22 109/59 L 96 Laboratory Results Short CBC 08/29/19 Range/Units 14:07 WBC 5.30 (4.8-10.8) K/uL Hgb 4.8 L* (14.0-18.0) g/dL Hct 14.2 L* (42-52) % Plt Count 174 (130-400) K/uL BMP 08/29/19 14:07 Sodium 127 L Potassium 3.2 L Chloride 88 L Carbon Dioxide 25 BUN 69 H Creatinine 1.90 H Glucose 86 Calcium 8.3 L Liver Function 08/29/19 Range/Units 14:07 Total Bilirubin 0.7 (0.2-1) mg/dl AST 33 (15-37) U/L ALT 46 (12-78) U/L Alkaline Phosphatase 88 (45-117) U/L Albumin 2.9 L (3.4-5.0) gm/dl Medications Administered Current Inpatient Medications Sodium Chloride (Nss) 250 mls @ 15 mls/hr IV .[id number] PRN PRN Reason: For Transfusion Stop: 09/28/19 14:04 Sodium Chloride (Nss) 250 mls @ 15 mls/hr IV .[id number] PRN PRN Reason: For Transfusion Stop: 09/28/19 14:20 Pantoprazole Sodium 40 mg/ (Dextrose) 100 mls @ 20 mls/hr IV Q5H EBENEZER Stop: 08/29/19 20:29 Code Status & VTE Plan VTE Prophylaxis Plan VTE Prophylaxis will be ordered: Yes (1) COPD (chronic obstructive pulmonary disease) COPD type: unspecified COPD Qualified Code(s): J44.9 - Chronic obstructive pulmonary disease, unspecified (2) Hypertension Hypertension type: essential hypertension Qualified Code(s): I10 - Essential (primary) hypertension
[2019-08-29] MEDS ORDERED: FUROSEMIDE 40 MG/4 ML VIAL IV SCH (16:33)
[2019-08-29] MEDS ORDERED: DESONIDE CR 15 GM TUBE EXT PRN (17:09)
[2019-08-29] MEDS ORDERED: ACETAMINOPHEN 325 MG TAB PO PRN (17:20)
[2019-08-29] MEDS: PANTOprazole 40 MG in DEXTROSE 5% 100 ML IV SCH ×2 (17:21→21:17)
[2019-08-29] MEDS ORDERED: CLOBETASOL PROPIONATE 0.05% OINT 15 GM TUBE EXT PRN (17:24)
[2019-08-29] MEDS ORDERED: ALBUTEROL HFA 8 GM INHALER INH PRN (17:30)
[2019-08-29 17:43] LABS: Hematocrit (blood only) 13.4 % (42-52); Hemoglobin 4.7 g/dL (14.0-18.0)
[2019-08-29] MEDS ORDERED: LORazepam 1 MG/2 ML VIAL IV PRN (17:44)
[2019-08-29] MEDS ORDERED: GABAPENTIN 1200MG ALCOHOL WITHDRAWAL LOAD PO STA (17:44)
[2019-08-29] MEDS ORDERED: LORazepam 2 MG/4 ML VIAL ONE (17:52)
[2019-08-29] MEDS ORDERED: GABAPENTIN 600 MG TAB PO SCH (18:00)
[2019-08-29] MEDS: ALBUTEROL 0.083% NEBU SOLN 3 ML VIAL NEB PRN (18:11)
--- NOTE | 2019-08-29 18:31 | Emergency Department Note ---
Entered by Jaci Katz acting as a scribe for Michael Burk MD History of Present Illness General Chief complaint: Abnormal Labs/Diagnostic Testing Stated complaint: BLOOD PLATLETS LOW SENT BY Time Seen by Provider: 08/29/19 14:05 Source: patient Mode of arrival: ambulatory Limitations: no limitations History of Present Illness Provider complaint: Abnormal labs Onset (ago): hour(s) (today) Pain Consistency: + other (episode) Maximum Pain Intensity: 2 Quality: + other (low hemoglobin) Associated symptoms: + cough (productive), + shortness of breath, + weakness and + other (Additional symptoms: fatigue, unsatisfactory bowel movement. Denies: melena, hematochezia); no chest pain, no fever/chills and no nausea/vomiting Treatments prior to arrival: none The patient is a 74 year old white male w/ PMHx of tremors at baseline, prostate cancer, bladder cancer, atrial fibrillation, atrial flutter, COPD, hyperlipidemia, hypertension, and pancreatic surgery who presents to the ED w/ CC of an episode of low hemoglobin beginning today. The patient reports that he saw his paraoptometric, Dr. Prater, today when he had blood work performed. He states that he currently feels weak and tired, and he adds that he has a productive cough and is short of breath secondary to COPD. He notes that he wears oxygen at night. He also complains of not having a good bowel movement in 5 days but otherwise denies any fevers, chest pain, nausea, vomiting, melena, and hematochezia. The patient reports that he has been taking 2 doses of Vania- Bonfield daily for a couple of weeks and last took some this morning. He states that he does not take blood thinners. He notes that he last had chemotherapy a couple of years ago and has been in remission for prostate and bladder cancer. He denies a history of GI bleeds and hemorrhoids. Home Medications Home Medications Medication Instructions Recorded Confirmed Type Breo Ellipta 1 inh INHALATION QAM 09/01/18 08/29/19 History ProAir RespiClick 1 - 2 puff INHALATION Q4H PRN 09/01/18 08/29/19 History Spiriva with HandiHaler 1 cap INHALATION QAM 09/01/18 08/29/19 History atorvastatin 40 mg PO QPM 09/01/18 08/29/19 History clobetasol [Temovate] 1 applic TOPICAL BID PRN 09/01/18 08/29/19 History desonide 1 applic TOPICAL BID PRN 09/01/18 08/29/19 History metoprolol succinate 25 mg PO BID 05/03/19 08/29/19 History acetaminophen [Tylenol] 325 mg PO Q6H PRN 07/04/19 08/29/19 History magnesium 400 mg PO QAM 07/04/19 08/29/19 History multivitamin 1 tab PO QPM 07/04/19 08/29/19 History potassium chloride 10 meq PO QAM 07/04/19 08/29/19 History trospium 60 mg capsule,extended 60 mg PO QAM #30 cap 08/12/19 08/29/19 Rx release 24 hr Allergies Allergy/AdvReac Type Severity Reaction Status Date / Time No Known Allergies Allergy Verified 08/29/19 15:15 Past Med/Surg History Medical History Alcohol abuse (Acute) Arthritis Atrial fibrillation S/P pulmonary vein isolation ablation (2013) Atrial flutter COPD (chronic obstructive pulmonary disease) Hyperlipidemia Hypertension Hyponatremia Lower extremity edema Obesity (BMI 30.0-34.9) On home oxygen therapy 2-3 L/MIN NC HS ONLY Orthostatic hypotension Smoker (Acute) Tremor familial Surgical History Bladder cancer s/p TURBT, ureteral stent and BCG instillations, 4 cycles of neoadjuvant cisplatin and gemcitabine, s/p completion of "palliative radiation" therapy 10/2017 History of anesthesia reaction TURBT 2013- patient had respiratory distress- sats decreased to 80's and patient was reintubated on ventilator 24-48 hours- ?fluid overload/pleural effusions; patient had subsequent TURBT with SAB (tolerated well). 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 and A total of 10 systems reviewed and were otherwise negative Physical Exam Vital Signs Vital Signs - 24 hr 08/29/19 13:37 08/29/19 14:05 08/29/19 14:10 Temperature 36.6 C Temperature Source Oral Pulse Rate 107 H 108 H Pulse Rate from SpO2 Sensor Respiratory Rate 22 22 Blood Pressure 109/59 L Blood Pressure Mean 75 Blood Pressure Position Sitting Pulse Oximetry 96 Oxygen Delivery Method Room Air Room Air Sepsis Recent Fever Within 48 Hours No Sepsis New/Unexplained Change in Mental Status No Sepsis Action Taken by Nursing No Action Required 08/29/19 14:28 08/29/19 14:30 08/29/19 14:31 Temperature Temperature Source Pulse Rate 108 H 107 H 101 H Pulse Rate from SpO2 Sensor 106 H 111 H 106 H Respiratory Rate 20 24 15 Blood Pressure 97/63 L 119/59 L Blood Pressure Mean 77 71 Blood Pressure Position Pulse Oximetry 97 96 97 Oxygen Delivery Method Sepsis Recent Fever Within 48 Hours Sepsis New/Unexplained Change in Mental Status Sepsis Action Taken by Nursing 08/29/19 15:00 08/29/19 15:01 08/29/19 15:30 Temperature Temperature Source Pulse Rate 95 H 96 H 100 H Pulse Rate from SpO2 Sensor 101 H 99 H 103 H Respiratory Rate 28 H 26 H 22 Blood Pressure 117/69 Blood Pressure Mean 80 Blood Pressure Position Pulse Oximetry 97 97 95 Oxygen Delivery Method Sepsis Recent Fever Within 48 Hours Sepsis New/Unexplained Change in Mental Status Sepsis Action Taken by Nursing 08/29/19 15:32 08/29/19 15:33 Temperature Temperature Source Pulse Rate 102 H 103 H Pulse Rate from SpO2 Sensor 107 H 102 H Respiratory Rate 23 27 H Blood Pressure 125/64 Blood Pressure Mean 73 Blood Pressure Position Pulse Oximetry 91 97 Oxygen Delivery Method Sepsis Recent Fever Within 48 Hours Sepsis New/Unexplained Change in Mental Status Sepsis Action Taken by Nursing GENERAL: Well nourished, non-toxic. EYE EXAM: Normal conjunctiva. PERRL, no anisocoria and EOM's grossly intact w/o pain. OROPHARYNX: Moist mucous membranes. Grossly normal dentition. NECK: Supple, no nuchal rigidity, no adenopathy, non-tender. No signs of meningismus. LUNGS: Clear to auscultation. Normal chest wall mechanics. HEART: Tachycardic rate and regular rhythm, no MRG. CHEST: Port in right chest. ABDOMEN: Abdomen soft, non-tender, normo-active bowel sounds, no masses, no rebound or guarding. BACK: No CVA TTP. RECTUM: No obvious bleeding or hemorrhoids. Heme positive. No bright red blood. SKIN: No rashes. Bruising on upper extremities and left buttock. UPPER EXTREMITIES: Upper extremities are grossly normal. LOWER EXTREMITIES: No pitting edema. No calf pain. NEURO EXAM: A&O x3, cranial nerves II-XII grossly intact, normal speech, moves all 4 extremities on command w/o issue. Baseline upper extremity tremors. Course Course 1416: The patient was evaluated in room C3, and a complete history and physical examination were performed. 1500: I reviewed the patient's case with Dr. Valdez - Maria Pena. Dr. Valdez will evaluate the patient for further management. Consultations Consultation #1: I reviewed the patient's case with Maria Thorpe. Dr. Valdez will evaluate the patient for further management. Time: 15:00 Administered Medications Albuterol (Ventolin 0.083% 2.5mg/3ml) 2.5 mg NEB Q6R PRN PRN Reason: Wheezing Stop: 09/28/19 16:35 Last Admin: 08/29/19 18:11 Dose: 2.5 mg Documented by: [id number] Pantoprazole Sodium 40 mg/ (Dextrose) 100 mls @ 20 mls/hr IV Q5H EBENEZER Stop: 09/28/19 15:29 Last Admin: 08/29/19 17:21 Dose: 20 mls/hr Documented by: [id number] Discontinued Medications Sodium Chloride (Nss) 500 mls @ 999 mls/hr IV .Q31M EBENEZER Stop: 08/29/19 14:45 Last Infusion: 08/29/19 15:55 Dose: 0 mls/hr Documented by: [id number] Admin: 08/29/19 14:45 Dose: 999 mls/hr Documented by: [id number] Pantoprazole Sodium 80 mg/ (Dextrose) 120 mls @ 480 mls/hr IV NOW ONE Stop: 08/29/19 15:29 Last Infusion: 08/29/19 16:14 Dose: 0 mls/hr Documented by: [id number] Admin: 08/29/19 15:57 Dose: 480 mls/hr Documented by: [id number] Critical Care Time Critical Care Time: Yes Total Critical Care Time: 42 I have personally spent 42 minutes of critical care time in the direct management of this patient. This includes bedside care, interpretation of diagnostic studies, and testing, discussion with consultants, patient, and family members, and other required patient management activities. This 42 minutes is in excess of all separately billable procedures. Medical Decision Making Differential Diagnosis Differential diagnosis: Etiologies such as metabolic, infection, hypo/hyperglycemia, electrolyte abnormalities, cardiac sources, intracerebral event, toxicologic, neurologic, as well as others were entertained. Medical Records Attestation: I reviewed the patient's medical records. Home Medications Current Medication List: was personally reviewed by me Laboratory Data Attestation: I reviewed the patient's lab results. Result diagrams: 08/29/19 17:03 08/29/19 14:07 Lab Results 08/29/19 08/29/19 08/29/19 Range/Units 14:07 14:07 14:07 WBC 5.30 (4.8-10.8) K/uL RBC 1.47 L (4.7-6.1) M/uL Hgb 4.8 L* (14.0-18.0) g/dL Hct 14.2 L* (42-52) % MCV 96.6 (80-100) fL MCH 32.7 (25-34) pg MCHC 33.8 (32-36) g/dL RDW Std Deviation 54.7 H (36.4-46.3) fL RDW Coeff of Jude 15.9 H (11.5-14.5) % Plt Count 174 (130-400) K/uL MPV 8.8 (7.4-10.4) fL Immature Gran % (Auto) 0.4 % Neut % (Auto) 78.9 % Lymph % (Auto) 13.2 % Maries % (Auto) 7.5 % Eos % (Auto) 0.0 % Baso % (Auto) 0.0 % Immature Gran # (Auto) 0.02 (0.00-0.02) K/uL Neut # (Auto) 4.18 (1.4-6.5) K/uL Lymph # (Auto) 0.70 L (1.2-3.4) K/uL Maries # (Auto) 0.40 (0.11-0.59) K/uL Eos # (Auto) 0.00 (0-0.5) K/uL Baso # (Auto) 0.00 (0-0.2) K/uL Absolute Nucleated RBC 0.05 H (0-0) K/uL Nucleated RBC % (auto) 0.9 % Polychromasia 1+ Pappenheimer Bodies 2+ PT 11.0 (9.0-12.0) Seconds INR 1.1 (0.9-1.1) APTT > 139.0 H* (21.0-31.0) Seconds PTT Ratio > 5.1 Sodium 127 L (136-145) mmol/L Potassium 3.2 L (3.5-5.1) mmol/L Chloride 88 L (98-107) mmol/L Carbon Dioxide 25 (21-32) mmol/L Anion Gap 14.0 H (3-11) BUN 69 H (7-18) mg/dl Creatinine 1.90 H (0.6-1.4) mg/dl Est Cr Clr Drug Dosing Not Reportable Est GFR ( Amer) 38.8 Est GFR (Non-Af Amer) 33.5 BUN/Creatinine Ratio 36.6 H (10-20) Glucose 86 (70-99) mg/dl Calcium 8.3 L (8.5-10.1) mg/dl Total Bilirubin 0.7 (0.2-1) mg/dl AST 33 (15-37) U/L ALT 46 (12-78) U/L Alkaline Phosphatase 88 (45-117) U/L Total Protein 5.9 L (6.4-8.2) gm/dl Albumin 2.9 L (3.4-5.0) gm/dl Globulin 3.0 (2.5-4.0) gm/dl Albumin/Globulin Ratio 1.0 (0.9-2) Blood Type Antibody Screen Crossmatch 08/29/19 Range/Units 14:07 WBC (4.8-10.8) K/uL RBC (4.7-6.1) M/uL Hgb (14.0-18.0) g/dL Hct (42-52) % MCV (80-100) fL MCH (25-34) pg MCHC (32-36) g/dL RDW Std Deviation (36.4-46.3) fL RDW Coeff of Jude (11.5-14.5) % Plt Count (130-400) K/uL MPV (7.4-10.4) fL Immature Gran % (Auto) % Neut % (Auto) % Lymph % (Auto) % Maries % (Auto) % Eos % (Auto) % Baso % (Auto) % Immature Gran # (Auto) (0.00-0.02) K/uL Neut # (Auto) (1.4-6.5) K/uL Lymph # (Auto) (1.2-3.4) K/uL Maries # (Auto) (0.11-0.59) K/uL Eos # (Auto) (0-0.5) K/uL Baso # (Auto) (0-0.2) K/uL Absolute Nucleated RBC (0-0) K/uL Nucleated RBC % (auto) % Polychromasia Pappenheimer Bodies PT (9.0-12.0) Seconds INR (0.9-1.1) APTT (21.0-31.0) Seconds PTT Ratio Sodium (136-145) mmol/L Potassium (3.5-5.1) mmol/L Chloride (98-107) mmol/L Carbon Dioxide (21-32) mmol/L Anion Gap (3-11) BUN (7-18) mg/dl Creatinine (0.6-1.4) mg/dl Est Cr Clr Drug Dosing Est GFR ( Amer) Est GFR (Non-Af Amer) BUN/Creatinine Ratio (10-20) Glucose (70-99) mg/dl Calcium (8.5-10.1) mg/dl Total Bilirubin (0.2-1) mg/dl AST (15-37) U/L ALT (12-78) U/L Alkaline Phosphatase (45-117) U/L Total Protein (6.4-8.2) gm/dl Albumin (3.4-5.0) gm/dl Globulin (2.5-4.0) gm/dl Albumin/Globulin Ratio (0.9-2) Blood Type B Positive Antibody Screen NEGATIVE Crossmatch See Detail ECG Data Attestation: I personally reviewed and interpreted this ECG as follows: Indication: + other (abnormal labs) Rate (beats per minute): 104 Rhythm: + atrial fibrillation ECG Intervals/blocks: no Normal QRS (wide QRS) ECG Buras: + Left axis deviation ECG Findings: + Q waves (throughout) Blood Pressure Blood Pressure Findings: Normal blood pressure MDM Narrative The patient is a 74 year old white male w/ PMHx of tremors at baseline, prostate cancer, bladder cancer, atrial fibrillation, atrial flutter, COPD, hyperlipidemia, hypertension, and pancreatic surgery who presents to the ED w/ CC of an episode of low hemoglobin beginning today. Patient was seen and evaluated the bedside. The patient was referred due to low blood counts. The patient is not on any anticoagulant medication even get a history of A. fib. Patient is currently in A. fib. The patient has been taking increasing amounts of Vania-Bonfield. The patient did have a rectal completed which it was heme positive. No bright red blood or dark tarry stools noted. Patient's blood counts were low. Patient was consented and the patient agreed to blood transfusion. 1 unit was ordered. I did speak the on-call hospitalist agreed to further evaluate treat the patient. Patient was subsequentlyadmitted to the medicine service. Impression & Plan GI bleed, Symptomatic anemia, A-fib, CKD (chronic kidney disease) Discharge Plan Visit Data *Final* Discharge Date/Time: 08/29/19 16:21 Chief Complaint: Abnormal Labs/Diagnostic Testing Stated Complaint: BLOOD PLATLETS LOW SENT BY ED Provider: Michael Burk Discharge Problem: GI bleed, Symptomatic anemia, A-fib, CKD (chronic kidney disease) Patient Disposition: Admitted As Inpatient Discharge Instructions Interventions: ED Discharge Assessment Last Done: 08/29/19 16:21 Discharge Problem: GI bleed Qualifiers: GI bleed type/associated pathology: unspecified gastrointestinal hemorrhage type Qualified Code(s): K92.2 - Gastrointestinal hemorrhage, unspecified A-fib Qualifiers: Atrial fibrillation type: unspecified Qualified Code(s): I48.91 - Unspecified atrial fibrillation CKD (chronic kidney disease) Qualifiers: Chronic kidney disease stage: stage 4 (severe) Qualified Code(s): N18.4 - Chronic kidney disease, stage 4 (severe) The scribe's documentation has been prepared under my direction and personally reviewed by me in its entirety. I confirm that the note above accurately reflects all work, treatment, procedures, and medical decision making performed by me.
[2019-08-29] MEDS: POTASSIUM CHLORIDE / WTR 10 MEQ/100 ML PLCT IV SCH ×2 (18:43→19:50)
[2019-08-29] MEDS: NICOTINE 14 MG/24 HR PATCH TD SCH (18:45)
[2019-08-29] MEDS ORDERED: LORazepam 1 MG/2 ML VIAL IV STA (19:14)
[2019-08-29] MEDS: ATORVASTATIN 40 MG TAB PO SCH (20:54)
[2019-08-29] MEDS: METOPROLOL SUCC 25MG EXT REL TAB PO SCH (20:54)
[2019-08-29] MEDS: MULTIVITAMIN TAB PO SCH (20:55)
[2019-08-29] MEDS: GABAPENTIN 600 MG TAB PO SCH (23:38)
[2019-08-30] MEDS ORDERED: HEPARIN 100 UNIT/ML 5ML FLUSH FLUSH PRN (00:38)
[2019-08-30] MEDS: PANTOprazole 40 MG in DEXTROSE 5% 100 ML IV SCH ×5 (02:16→21:20)
[2019-08-30 03:41] LABS: BUN Creatinine Ratio 31.1 (10-20); Calcium 7.9 mg/dl (8.5-10.1); Creatinine Clr Calc Pharmacy 38.7 ml/min; Est GFR (African American) 39.8; Est GFR (Non-African American) 34.4; Potassium 2.9 mmol/L (3.5-5.1)
[2019-08-30 03:59] LABS: Hematocrit (blood only) 18.6 % (42-52); Hemoglobin 6.6 g/dL (14.0-18.0); Mean Corpuscular Hemoglobin 32.8 pg (25-34); Mean Corpuscular Hgb Conc 35.5 g/dL (32-36); Mean Corpuscular Volume 92.5 fL (80-100); Nucleated RBC # (auto) 0.02 K/uL (0-0); Nucleated RBC % (auto) 0.4 %; Platelet Count 133 K/uL (130-400); RDW Coefficient of Variation 17.4 % (11.5-14.5); RDW Standard Deviation 56.7 fL (36.4-46.3); Red Blood Count 2.01 M/uL (4.7-6.1); White Blood Count 4.48 K/uL (4.8-10.8)
[2019-08-30 04:02] LABS: Basophils # (auto) 0.01 K/uL (0-0.2); Basophils % (auto) 0.2 %; Eosinophils # (auto) 0.02 K/uL (0-0.5); Eosinophils % (auto) 0.4 %; Immature Granulocytes # (auto) 0.02 K/uL (0.00-0.02); Immature Granulocytes % (auto) 0.4 %; Lymphocytes # (auto) 0.89 K/uL (1.2-3.4); Lymphocytes % (auto) 19.9 %; Monocytes # (auto) 0.67 K/uL (0.11-0.59); Neutrophils # (auto) 2.87 K/uL (1.4-6.5); Neutrophils % (auto) 64.1 %; Pappenheimer Bodies 1+; Polychromasia 1+
[2019-08-30] MEDS ORDERED: FUROSEMIDE 20 MG in SYRINGE 0 ML IV ONE ×2 (04:09→09:30)
[2019-08-30] MEDS ORDERED: SODIUM CHLORIDE 0.9% 250 ML IV PRN (04:09)
[2019-08-30] MEDS ORDERED: POTASSIUM CHLORIDE 20 MEQ TABCR PO STA ×3 (04:11→18:18)
[2019-08-30] MEDS ORDERED: POTASSIUM CHLORIDE / WTR 10 MEQ/100 ML PLCT IV STA (04:11)
[2019-08-30] MEDS: GABAPENTIN 600 MG TAB PO SCH ×3 (05:40→21:07)
[2019-08-30] MEDS: MAGNESIUM OXIDE 400 MG TAB PO SCH (08:18)
[2019-08-30] MEDS: FOLIC ACID 1 MG in SYRINGE 9.8 ML IV SCH (08:18)
[2019-08-30] MEDS: METOPROLOL SUCC 25MG EXT REL TAB PO SCH ×2 (08:18→21:06)
[2019-08-30] MEDS: THIAMINE HCL 100 MG in SYRINGE 9 ML IV SCH (08:18)
[2019-08-30] MEDS: NICOTINE 14 MG/24 HR PATCH TD SCH (08:19)
[2019-08-30] MEDS: TIOTROPIUM BROMIDE 5 PUFF/90 MCG INH INH SCH (08:48)
[2019-08-30] MEDS ORDERED: POTASSIUM CHLORIDE 10 MEQ TABCR PO SCH (09:00)
[2019-08-30] MEDS ORDERED: D5W AND 1/2NSS 1,000 ML IV SCH (09:15)
[2019-08-30 10:40] LABS: Hematocrit (blood only) 23.3 % (42-52)
[2019-08-30 11:13] LABS: Albumin Globulin Ratio 0.9 (0.9-2); Albumin Level 2.8 gm/dl (3.4-5.0); BUN Creatinine Ratio 29.4 (10-20); Bilirubin,Total 0.9 mg/dl (0.2-1); Creatinine Clr Calc Pharmacy 40.3 ml/min; Est GFR (African American) 42.3; Est GFR (Non-African American) 36.5; Globulin 3.1 gm/dl (2.5-4.0); Magnesium 1.8 mg/dl (1.8-2.4); Phosphorus 3.1 mg/dl (2.5-4.9); Potassium 3.4 mmol/L (3.5-5.1); Total Protein 5.9 gm/dl (6.4-8.2)
--- NOTE | 2019-08-30 12:13 | Hospitalist Progress Note ---
Date of Service August 30, 2019 Assessment & Plan (1) Acute blood loss anemia: -on admission Hemoglobin 4.8 -FOBT positive on 08/29/19 but patient reports constipation in recent days and denies blood in stool or in urine at home; no recent chemotherapy in 1 to 2 years -patient to date is s/p a total of 3 units of PRBC -Hemoglobin is 8 on 08/30/19 after the 3rd PRBC to date -discussed with Gastroenterology and that anemia may be multifactorial including possible slow bleed in GI tract versus suppression of blood counts from alcohol use or etiology of other suppression of Hemoglobin productions -continue Protonix -Avoid NSAIDs -continue to monitor CBC (2) Malignant tumor of urinary bladder: Status post cystoscopy, transurethral incision of prostate, and cold clip bladder biopsy in July of this year Received chemotherapy 2 years back Denies any acute symptoms now (3) Prostate cancer: As above (4) Paroxysmal atrial fibrillation: -History of paroxysmal atrial fibrillation was on chronic dofetilide therapy Status post pulmonary vein isolation in 2013 Also history of aortic atherosclerosis with moderate aortic insufficiency and enlarged aortic root Variable systolic function with EF 45 to 65% with small circumferential pericardial effusion Has not been on anticoagulation due to advanced bladder bladder cancer, multiple recurrent falls, persistent anemia and poor tolerance -continue metoprolol (5) Hypertension: -on metoprolol (6) Hyperlipidemia: Continue statin (7) COPD (chronic obstructive pulmonary disease): -Does not have any acute exacerbation at this time -uses home oxygen at nighttime -continue home inhalers (8) Tobacco abuse: -give nicotine patch Advised to quit smoking and drinking alcohol (9) Alcohol use: -alcohol use at home -on gabapentin alcohol withdrawal protocol in case of alcohol withdrawal DVT prophylaxis: SCDs due to ongoing bleeding and symptomatic anemia CODE STATUS Full Subjective Patient seen and examined. breathing comfortably on nasal cannula. denies chest pain. denies abdominal pain. no vomiting. denies blood in urine. patient reports constipation. patient reports at home he is wheelchair bound and uses oxygen with sleep Review of Systems Review of Systems: All systems reviewed & are unremarkable except as noted in HPI & below Physical Exam Constitutional: comfortable Eyes: PERRL, conjunctivae normal, anicteric sclerae EOM intact bilaterally ENMT: external ear and nose normal, oropharynx normal Neck: normal visual inspection Respiratory: normal respiratory effort, lungs clear to auscultation Cardiovascular: Rate/Rhythm: regular rate and regular rhythm Chest (Breasts): Chest: + vascular access device or port Gastrointestinal (Abdomen): normal bowel sounds, soft, nontender, no hepatosplenomegaly Musculoskeletal: Head/Neck/Chest: normocephalic and head atraumatic Skin: bruises note on left upper extremity Neurologic: PERRL, EOMI, accommodation nl, no face palsy, no dysarthria Psychiatric: A+Ox3, euthymic affect Results & Data Vital Signs (Past 12 Hours) Vital Signs Temp Pulse Pulse Resp BP BP Pulse Ox 08/30/19 11:11 37 C 99 H 20 145/84 H 100 08/30/19 10:11 36.8 C 101 H 18 139/93 100 08/30/19 09:11 36.8 C 101 H 18 125/77 96 08/30/19 08:11 36.7 C 94 H 20 144/87 H 98 08/30/19 07:59 36.7 C 92 H 18 142/80 H 94 08/30/19 06:59 36.9 C 93 H 20 136/85 96 08/30/19 05:59 36.9 C 102 H 18 137/71 95 08/30/19 05:29 36.8 C 98 H 18 120/66 98 08/30/19 05:14 36.4 C L 95 H 18 118/64 96 08/30/19 04:58 36.6 C 102 H 18 118/69 97 08/30/19 04:36 37.2 C 108 H 18 134/62 97 08/30/19 01:30 36.9 C 96 H 20 115/70 98 08/30/19 00:28 37.0 C 101 H 20 135/68 99 (1) COPD (chronic obstructive pulmonary disease) COPD type: unspecified COPD Qualified Code(s): J44.9 - Chronic obstructive pulmonary disease, unspecified (2) Hypertension Hypertension type: essential hypertension Qualified Code(s): I10 - Essential (primary) hypertension
[2019-08-30] MEDS ORDERED: MAGNESIUM SULFATE / D5W 1 GM/100 ML BAG IV ONE (13:00)
--- NOTE | 2019-08-30 14:06 | Consultation Report ---
DATE OF CONSULTATION: 08/30/2019 REFERRED BY: Dr. Meet High. I was asked by Dr. High to consult on this gentleman for evaluation of anemia. HISTORY OF PRESENT ILLNESS: The patient is a 74-year-old who presented after being seen by his cardiology provider with anemia. He had some fatigue and his cardiology provider ordered blood testing and he was found to be severely anemic. He denies any overt bleeding. In fact, he states he has been constipated. He denies any hematemesis. He denies any nosebleeds. He does occasionally note bleeding in his urine. He denies any rectal bleeding. He has been taking some occasional aspirin and nonsteroidal products because of aches and pains. He has not been on any acid inhibition by report. He denies any abdominal pain. He has had no fevers. He does drink regularly on a daily basis, sometimes 5 or 6 cocktails a day. PAST MEDICAL HISTORY: He has a history of prostate cancer and radiation in 2003. He has a history of bladder cancer. He has not been on any recent chemotherapy or radiation. He has hypertension, A. fib., and hyperlipidemia. He is a daily smoker as well. He has a history of COPD. SOCIAL HISTORY: Again, is significant for daily alcohol use, sometimes 5 or 6 drinks a day and smoking. FAMILY HISTORY: Negative for gastrointestinal disease. ALLERGIES: He denies any drug allergies. OUTPATIENT MEDICATIONS: Include numerous inhalers such as Spiriva, ProAir and Breo. He is on atorvastatin, metoprolol, magnesium, multivitamin, potassium and trospium. REVIEW OF SYSTEMS: As above, otherwise he denies any recent change in vision or hearing. He does have some easy bruising but this is not acute. He denies any seizures. He denies any altered mental status issues. He has had no heat or cold intolerance. He denies any productive cough or exertional chest pains. He has had significant fatigue, however. He denies dysphagia. He denies any polyuria or polydipsia. He has had no joint swelling or new rashes or jaundice. He denies any recent change in mood. PHYSICAL EXAMINATION: GENERAL: Reveals a pleasant gentleman lying in bed in no distress. VITAL SIGNS: His most recent blood pressure is 145/84, pulse is 99, temperature is 37. SKIN: Anicteric. EYES: Show anicteric sclerae. MOUTH: Dry with clear lesions. NECK: Supple, no adenopathy. CHEST: Has diffuse scattered rhonchi, but is otherwise clear. HEART: Slightly tachycardic with some ectopy. ABDOMEN: Soft with good bowel sounds. There is no organomegaly, masses, rebound tenderness noted. EXTREMITIES: Warm with fair distal pulses. He does have some bruising in his upper extremities. NEUROLOGIC: He is alert and oriented x3 and grossly intact. LABORATORY DATA: Show a hemoglobin on admission of 4.7 and after 3 units, his hemoglobin is 8. BUN and creatinine, most recently are 52 and 1.77 respectively. Liver enzymes are normal. Platelets are normal at 133. IMPRESSION: A 74-year-old gentleman with severe anemia most likely related to chronic blood loss for multiple reasons. Certainly, he is at risk for gastritis and peptic ulcer disease. Also, he has had radiation for his prostate many years ago and it is not unusual for patients to have radiation proctitis. He has chronic kidney disease and this is also unsure contributing to his anemia and he is a regular drinker, which can suppress bone marrow. At this point, I agree with following his hemoglobin, keep him on a proton pump inhibitor and transfusing him as need be. It does not appear at all that he is acutely aggressively bleeding. In fact, he has not had a bowel movement in a few days. Most likely this is a chronic low-grade bleed that finally presented clinically. He describes having a colonoscopy in 2011 for history of polyps. I do not think he needs emergent endoscopy at this point and I would recommend conservative management given his numerous comorbid diseases. It may be reasonable if he remains stable and is cleared by anesthesia to consider an upper endoscopy on Sunday. I would keep him on a light diet. If he becomes more acute, endoscopic timing can be readdressed. DILLON
[2019-08-30 17:55] LABS: Hematocrit (blood only) 24.6 % (42-52); Hemoglobin 8.6 g/dL (14.0-18.0); Mean Corpuscular Hemoglobin 32.3 pg (25-34); Mean Corpuscular Volume 92.5 fL (80-100); RDW Coefficient of Variation 18.5 % (11.5-14.5); Red Blood Count 2.66 M/uL (4.7-6.1); White Blood Count 4.63 K/uL (4.8-10.8)
[2019-08-30 18:03] LABS: Albumin Level 2.8 gm/dl (3.4-5.0); BUN Creatinine Ratio 24.6 (10-20); Calcium 8.1 mg/dl (8.5-10.1); Creatinine Clr Calc Pharmacy 36.4 ml/min; Est GFR (African American) 37.4; Est GFR (Non-African American) 32.3; Potassium 3.5 mmol/L (3.5-5.1)
[2019-08-30 18:06] LABS: Albumin Globulin Ratio 0.8 (0.9-2); Bilirubin,Total 0.9 mg/dl (0.2-1); Globulin 3.3 gm/dl (2.5-4.0); Total Protein 6.1 gm/dl (6.4-8.2)
[2019-08-30 18:09] LABS: Basophilic Stippling Occasional; Eosinophils # (auto) 0.08 K/uL (0-0.5); Eosinophils % (auto) 1.7 %; Immature Granulocytes # (auto) 0.03 K/uL (0.00-0.02); Immature Granulocytes % (auto) 0.6 %; Lymphocytes # (auto) 0.77 K/uL (1.2-3.4); Lymphocytes % (auto) 16.6 %; Mean Platelet Volume 8.9 fL (7.4-10.4); Monocytes # (auto) 0.27 K/uL (0.11-0.59); Monocytes % (auto) 5.8 %; Neutrophils # (auto) 3.48 K/uL (1.4-6.5); Neutrophils % (auto) 75.3 %; Platelet Count 161 K/uL (130-400)
[2019-08-30] MEDS: MULTIVITAMIN TAB PO SCH (21:05)
[2019-08-30] MEDS: ATORVASTATIN 40 MG TAB PO SCH (21:05)
[2019-08-30] MEDS: ALBUTEROL 0.083% NEBU SOLN 3 ML VIAL NEB PRN (22:52)
[2019-08-31 01:21] LABS: BUN Creatinine Ratio 24.2 (10-20); Calcium 8.1 mg/dl (8.5-10.1); Est GFR (African American) 40.6; Est GFR (Non-African American) 35.1; Potassium 3.7 mmol/L (3.5-5.1)
[2019-08-31 01:34] LABS: Hematocrit (blood only) 24.5 % (42-52); Hemoglobin 8.2 g/dL (14.0-18.0); Mean Corpuscular Hemoglobin 31.2 pg (25-34); Mean Corpuscular Hgb Conc 33.5 g/dL (32-36); Mean Corpuscular Volume 93.2 fL (80-100); Mean Platelet Volume 9.3 fL (7.4-10.4); Platelet Count 176 K/uL (130-400); RDW Coefficient of Variation 18.6 % (11.5-14.5); RDW Standard Deviation 60.5 fL (36.4-46.3); Red Blood Count 2.63 M/uL (4.7-6.1); White Blood Count 5.48 K/uL (4.8-10.8)
[2019-08-31 01:35] LABS: Basophils # (auto) 0.01 K/uL (0-0.2); Basophils % (auto) 0.2 %; Eosinophils # (auto) 0.14 K/uL (0-0.5); Eosinophils % (auto) 2.6 %; Immature Granulocytes # (auto) 0.04 K/uL (0.00-0.02); Immature Granulocytes % (auto) 0.7 %; Lymphocytes # (auto) 0.99 K/uL (1.2-3.4); Lymphocytes % (auto) 18.1 %; Monocytes # (auto) 0.55 K/uL (0.11-0.59); Neutrophils # (auto) 3.75 K/uL (1.4-6.5); Neutrophils % (auto) 68.4 %; Pappenheimer Bodies 1+; Polychromasia 1+
[2019-08-31] MEDS: PANTOprazole 40 MG in DEXTROSE 5% 100 ML IV SCH ×5 (02:20→22:33)
[2019-08-31] MEDS: GABAPENTIN 600 MG TAB PO SCH ×2 (05:36→18:08)
[2019-08-31] MEDS: FLUTICASONE INH SCH (07:46)
[2019-08-31] MEDS: VILANTEROL INH SCH (07:46)
[2019-08-31] MEDS: TIOTROPIUM BROMIDE 5 PUFF/90 MCG INH INH SCH (07:46)
[2019-08-31] MEDS: NICOTINE 14 MG/24 HR PATCH TD SCH (07:46)
[2019-08-31] MEDS: MAGNESIUM OXIDE 400 MG TAB PO SCH (07:46)
[2019-08-31] MEDS: METOPROLOL SUCC 25MG EXT REL TAB PO SCH ×2 (07:46→19:35)
[2019-08-31] MEDS: THIAMINE HCL 100 MG in SYRINGE 9 ML IV SCH (07:47)
[2019-08-31] MEDS: FOLIC ACID 1 MG in SYRINGE 9.8 ML IV SCH (07:47)
--- NOTE | 2019-08-31 08:04 | Hospitalist Progress Note ---
Date of Service August 31, 2019 Assessment & Plan (1) Acute blood loss anemia: -on admission Hemoglobin 4.8 -FOBT positive on 08/29/19 but patient reports constipation in recent days and denies blood in stool or in urine at home; no recent chemotherapy in 1 to 2 years -patient to date is s/p a total of 3 units of PRBC -Hemoglobin is 8 on 08/30/19 after the 3rd PRBC to date -discussed with Gastroenterology and that anemia may be multifactorial including possible slow bleed in GI tract versus suppression of blood counts from alcohol use or etiology of other suppression of Hemoglobin productions -continue Protonix -Avoid NSAIDs -Hgb since his 3rd blood transfusion is 8.6 and then 8.2 so there is some degree of stability. Patient will be NPO after midnight in case gastroenterology service to do upper endoscopy on 09/01/19. Anesthesia consult requested (2) Malignant tumor of urinary bladder: Status post cystoscopy, transurethral incision of prostate, and cold clip bladder biopsy in July of this year Received chemotherapy 2 years back Denies any acute symptoms now (3) Prostate cancer: As above (4) Paroxysmal atrial fibrillation: -History of paroxysmal atrial fibrillation was on chronic dofetilide therapy Status post pulmonary vein isolation in 2013 Also history of aortic atherosclerosis with moderate aortic insufficiency and enlarged aortic root Variable systolic function with EF 45 to 65% with small circumferential pericardial effusion Has not been on anticoagulation due to advanced bladder bladder cancer, multiple recurrent falls, persistent anemia and poor tolerance -continue metoprolol BID (5) Hypertension: -on metoprolol (6) Hyperlipidemia: Continue statin (7) COPD (chronic obstructive pulmonary disease): -Does not have any acute exacerbation at this time -uses home oxygen at nighttime -continue home inhalers (8) Tobacco abuse: -give nicotine patch -Advised to quit smoking and drinking alcohol (9) Alcohol use: -alcohol use at home -on gabapentin alcohol withdrawal protocol in case of alcohol withdrawal DVT prophylaxis: SCDs due to ongoing bleeding and symptomatic anemia CODE STATUS Full Subjective Patient seen and examined while sitting up in the chair after eating breakfast. breathing on room air. reports breathing is baseline. denies abdomen pain and denies chest pain. Patient reports he was able to make large bowel movements yesterday Review of Systems Review of Systems: All systems reviewed & are unremarkable except as noted in HPI & below Physical Exam Constitutional: comfortable Eyes: PERRL, conjunctivae normal, anicteric sclerae EOM intact bilaterally ENMT: external ear and nose normal, oropharynx normal Neck: normal visual inspection Respiratory: normal respiratory effort Cardiovascular: mildly tachycardic Chest (Breasts): Chest: + vascular access device or port Gastrointestinal (Abdomen): normal bowel sounds, soft, nontender, no hepatosplenomegaly Musculoskeletal: Head/Neck/Chest: normocephalic and head atraumatic Neurologic: PERRL, EOMI, accommodation nl, no face palsy, no dysarthria Psychiatric: A+Ox3, euthymic affect Results & Data Vital Signs (Past 12 Hours) Vital Signs Temp Pulse Resp BP Pulse Ox 08/31/19 07:04 36.7 C 81 20 127/64 100 08/31/19 04:33 36.4 C L 55 L 20 164/71 H 94 08/31/19 00:28 36.6 C 101 H 22 145/77 H 98 08/30/19 22:52 96 H 20 98 (1) Hypertension Hypertension type: essential hypertension Qualified Code(s): I10 - Essential (primary) hypertension (2) COPD (chronic obstructive pulmonary disease) COPD type: unspecified COPD Qualified Code(s): J44.9 - Chronic obstructive pulmonary disease, unspecified
--- NOTE | 2019-08-31 13:16 | Progress Note ---
DATE: 08/31/2019 HISTORY OF PRESENT ILLNESS: Mr. Mascorro is doing very well today. He finally had 1 bowel movement. He describes as dark, but not bloody. He has no abdominal pain. His hemoglobin has been stable. PHYSICAL EXAMINATION: VITAL SIGNS: During this visit, his blood pressure is 127/64, pulse is 81, temperature is 36.7. SKIN: Anicteric. EYES: Show anicteric sclerae. MOUTH: Moist with clear lesions. NECK: Supple. CHEST: Has some rhonchi. HEART: Irregular. ABDOMEN: Benign. NEUROLOGIC: He is alert and oriented x3. LABORATORY DATA: His most recent hemoglobin is 8.2. BUN and creatinine are 44 and 1.8 respectively. IMPRESSION AND PLAN: Stable and no signs of active ongoing GI bleeding. Given the fact that he had such severe anemia, I will take the liberty of setting him up for an upper endoscopy to rule out an upper GI source and make sure we are treating him appropriately medically. He is agreeable with this plan.
--- NOTE | 2019-08-31 15:46 | Anesthesiology Consultation ---
Date of Service August 31, 2019 Assessment & Plan Chart Review Chart Review: Acceptable Risk for Surgery and Patient NOT seen in Pre Admission Testing ASA ASA4 Proposed Anesthesia Anesthesia Type: General History Height/Weight Height: 5 ft 10 in Weight: 91.3 kg Allergies Allergy/AdvReac Type Severity Reaction Status Date / Time No Known Allergies Allergy Verified 08/29/19 15:15 Medications Home Medications Medication Instructions Recorded Confirmed Last Taken Breo Ellipta 1 inh INHALATION QAM 09/01/18 08/29/19 08/29/19 ProAir RespiClick 1 - 2 puff INHALATION Q4H PRN 09/01/18 08/29/19 07/20/19 Spiriva with HandiHaler 1 cap INHALATION QAM 09/01/18 08/29/19 08/29/19 atorvastatin 40 mg PO QPM 09/01/18 08/29/19 07/20/19 20:00 clobetasol [Temovate] 1 applic TOPICAL BID PRN 09/01/18 08/29/19 07/07/19 desonide 1 applic TOPICAL BID PRN 09/01/18 08/29/19 07/07/19 metoprolol succinate 25 mg PO BID 05/03/19 08/29/19 08/29/19 12.5 MG AM DOSE acetaminophen [Tylenol] 325 mg PO Q6H PRN 07/04/19 08/29/19 07/07/19 magnesium 400 mg PO QAM 07/04/19 08/29/19 07/20/19 08:00 multivitamin 1 tab PO QPM 07/04/19 08/29/19 07/20/19 20:00 potassium chloride 10 meq PO QAM 07/04/19 08/29/19 07/20/19 08:00 trospium 60 mg capsule,extended 60 mg PO QAM #30 cap 08/12/19 08/29/19 Unknown release 24 hr Active Medications Generic Name Dose Route Start Last Admin Trade Name Freq PRN Reason Stop Dose Admin Albuterol 2.5 mg 08/29/19 16:36 08/30/19 22:52 Ventolin 0.083% 2.5mg/3ml NEB 09/28/19 16:35 2.5 mg Q6R PRN Administration Wheezing Atorvastatin Calcium 40 mg 08/29/19 21:00 08/30/19 21:05 Lipitor PO 09/28/19 20:59 40 mg QPM EBENEZER Administration Fluticasone/Vilanterol 1 puffs 08/31/19 09:00 08/31/19 07:46 Breo Ellipta INH 09/30/19 08:59 1 puffs QAM EBENEZER Administration Pantoprazole Sodium 40 mg/ 100 mls @ 20 mls/hr 08/29/19 15:30 08/31/19 12:56 Dextrose IV 09/28/19 15:29 20 mls/hr Q5H EBENEZER Administration Thiamine HCl 100 mg/ Syringe 10 mls @ 2 mls/min 08/30/19 09:00 08/31/19 07:47 IV 09/29/19 08:59 2 mls/min QAM EBENEZER Administration Folic Acid 1 mg/ Syringe 10 mls @ 5 mls/min 08/30/19 09:00 08/31/19 07:47 IV 09/29/19 08:59 5 mls/min QAM EBENEZER Administration Magnesium Oxide 400 mg 08/30/19 09:00 08/31/19 07:46 Mag-Ox PO 09/29/19 08:59 400 mg QAM EBENEZER Administration Metoprolol Succinate 25 mg 08/29/19 21:00 08/31/19 07:46 Toprol Xl PO 09/28/19 20:59 25 mg BID EBENEZER Administration Miscellaneous 1 ea 08/30/19 00:00 08/31/19 07:47 Order Awaiting Action N/A 09/29/19 00:00 Not Given QS EBENEZER Miscellaneous 1 ea 08/30/19 08:59 08/31/19 07:45 Remove Nicoderm Patch N/A 09/29/19 08:58 1 ea DAILY@[id number] EBENEZER Administration Multivitamins 1 tab 08/29/19 21:00 08/30/19 21:05 Multivitamin Tab PO 09/28/19 20:59 1 tab QPM EBENEZER Administration Nicotine 14 mg 08/29/19 18:00 08/31/19 07:46 Nicoderm Cq TD 09/28/19 17:59 14 mg QAM EBENEZER Administration Tiotropium [place] 1 puffs 08/30/19 09:00 08/31/19 07:46 Spiriva INH 09/29/19 08:59 1 puffs QAM EBENEZER Administration Past Medical History Medical History Alcohol abuse (Acute) Arthritis Atrial fibrillation S/P pulmonary vein isolation ablation (2013) Atrial flutter COPD (chronic obstructive pulmonary disease) Hyperlipidemia Hypertension Hyponatremia Lower extremity edema Obesity (BMI 30.0-34.9) On home oxygen therapy 2-3 L/MIN NC HS ONLY Orthostatic hypotension Smoker (Acute) Tremor familial Exercise / Class Metabolic Activity III < 4 Walking/Shop/Light housework Past Surgical History Surgical History Bladder cancer s/p TURBT, ureteral stent and BCG instillations, 4 cycles of neoadjuvant cisplatin and gemcitabine, s/p completion of "palliative radiation" therapy 10/2017 History of anesthesia reaction TURBT 2013- patient had respiratory distress- sats decreased to 80's and patient was reintubated on ventilator 24-48 hours- ?fluid overload/pleural effusions; patient had subsequent TURBT with SAB (tolerated well). History of bladder surgery TURBT History of cardiac radiofrequency ablation X 2 History of pancreatic surgery BENIGN CYST REMOVED/INCIDENTAL SPLENECTOMY History of surgery A-PORT Prostate cancer Adenocarcinoma prostate s/p hormonal suppression, external beam radiation therapy (completed 2003), s/p iodine seed implant (2003) S/P TURP Past Anesthesia History No Hx of Anesthesia Complications and No Family Hx of Anesthesia Complications History of PONV No Hx of PONV and No Hx of Motion Sickness Social History Smoking Status: Current every day smoker tobacco type: cigarettes Smoking cigarettes per day: 15 Do You Dip or Chew Tobacco: No Hx Alcohol Use: Yes Alcohol type: hard liquor alcohol intake frequency: 3 or more drinks per day Alcohol Intake Frequency Comment: last drink was 12-noon today Hx Substance Use: No Physical Exam Vital Signs Last Vital Signs Temp 36.7 C 08/31/19 11:59 Pulse 102 H 08/31/19 11:59 Resp 20 08/31/19 11:59 BP 119/74 08/31/19 11:59 Pulse Ox 93 08/31/19 11:59 Testing Laboratory Results 08/31/19 00:52 08/31/19 00:52 PT 11.0 Seconds (9.0-12.0) 08/29/19 14:07 INR 1.1 (0.9-1.1) 08/29/19 14:07 APTT > 139.0 Seconds (21.0-31.0) H* 08/29/19 14:07 Blood Type B Positive 08/29/19 14:07 Antibody Screen NEGATIVE 08/29/19 14:07 Electrocardiogram Date: 08/29/19 Findings: + ST @ (at 104;LAD;NS IVCB) Echocardiogram Date: 04/03/19 EF: 50 LV Function: dysfunctional (mild) RWMA: + hypokinetic (mild diffuse LV inferior wall); no none Other Findings: + atrial enlargement (severe LAE), + LVH (mild) and + diastolic dysfunction (Grade 2) Valvular Disease: + AI (moderate) and + MR (mild - mod.) TR-mild
[2019-08-31] MEDS: ATORVASTATIN 40 MG TAB PO SCH (19:35)
[2019-08-31] MEDS: MULTIVITAMIN TAB PO SCH (19:36)
[2019-09-01] MEDS: PANTOprazole 40 MG in DEXTROSE 5% 100 ML IV SCH ×2 (03:39→08:42)
[2019-09-01] MEDS: GABAPENTIN 600 MG TAB PO SCH (05:49)
[2019-09-01] MEDS: FLUTICASONE INH SCH (07:38)
[2019-09-01] MEDS: VILANTEROL INH SCH (07:38)
[2019-09-01] MEDS: THIAMINE HCL 100 MG in SYRINGE 9 ML IV SCH (07:38)
[2019-09-01] MEDS: METOPROLOL SUCC 25MG EXT REL TAB PO SCH ×2 (07:38→20:27)
[2019-09-01] MEDS: FOLIC ACID 1 MG in SYRINGE 9.8 ML IV SCH (07:38)
[2019-09-01] MEDS: NICOTINE 14 MG/24 HR PATCH TD SCH (07:39)
[2019-09-01] MEDS: TIOTROPIUM BROMIDE 5 PUFF/90 MCG INH INH SCH (07:39)
[2019-09-01] MEDS: MAGNESIUM OXIDE 400 MG TAB PO SCH (07:39)
--- NOTE | 2019-09-01 08:12 | Gastroenterology Progress Note ---
Date of Service September 01, 2019 Assessment & Plan (1) Symptomatic anemia: 74 year old male with history of afib, aortic atherosclerosis with aortic insufficiency, enlarged aortic root, hypertension, COPD, bladder and prostate cancer status post surgery and radiation who was admitted w/ o anemia, HGB 4.7 s/p 3 units RBC w/ HGB 8.2. No BUN elevation, normal LFTs NPO for EGD evaluation to rule out UGI source of anemia. - NPO - Await AM labs - EGD pending stable AM labs Thank you for allowing us to participate in the care of this patient. Please call with any acute changes, questions or concerns. Please see addendum below with additional recommendation from my supervising physician. Present on Admission?: Yes Supervising Physician Co-Signing Physician Notes I have seen and examined the patient with GILLIAN Germain whose note reflects our findings and plan. Patient with anemia. Received 4 units of blood. hemodynamically stable. EGD planned for today Subjective Pt was seen and evaluated, chart reviewed No acute events noted overnight Is NPO for EGD Had pills w/ sip of water earlier this AM No concerns No abd pain, nausea, vomiting Last BM was yesterday, regular per pt Has not seen any black/bloody stools/emesis prior to admission or currently Review of Systems Constitutional: no fever, no chills and no fatigue Respiratory: no cough, no dyspnea and no wheezing Cardiovascular: no chest pain, no radiating jaw, neck or arm pain and no dyspnea on exertion Gastrointestinal: no abdominal pain, no nausea, no coffee ground emesis, no hematemesis, no blood in stools and no melena Physical Exam Constitutional: well nourished; no acute distress Respiratory: normal respiratory effort Cardiovascular: Rate/Rhythm: regular rate and regular rhythm Gastrointestinal (Abdomen): normal bowel sounds, soft, nontender, no hepatosplenomegaly Skin: no rashes, warm and dry Results & Data Vital Signs (Past 12 Hours) Vital Signs Temp Pulse Resp BP BP Pulse Ox 09/01/19 07:34 37 C 81 18 139/76 93 09/01/19 03:55 36.5 C 84 20 120/68 94 08/31/19 23:19 36.4 C L 73 19 120/71 98 Laboratory Results No labs in 24h
[2019-09-01] MEDS ORDERED: ePHEDrine sulfate 50 MG/ML AMP IV PRN (09:28)
[2019-09-01] MEDS ORDERED: ATROPINE SULFATE 0.1 MG/ML 10ML SYR IV PRN (09:28)
[2019-09-01 10:00] LABS: Partial Thromboplastin Time 26.8 Seconds (21.0-31.0); Prothrombin Time 10.7 Seconds (9.0-12.0)
[2019-09-01 10:05] LABS: Albumin Level 2.4 gm/dl (3.4-5.0); BUN Creatinine Ratio 18.2 (10-20); Calcium 8.4 mg/dl (8.5-10.1); Creatinine Clr Calc Pharmacy 42.5 ml/min; Est GFR (African American) 45.1; Est GFR (Non-African American) 38.9; Magnesium 1.7 mg/dl (1.8-2.4); Potassium 3.7 mmol/L (3.5-5.1)
[2019-09-01 10:07] LABS: Albumin Globulin Ratio 0.8 (0.9-2); Bilirubin,Total 0.7 mg/dl (0.2-1); Phosphorus 2.8 mg/dl (2.5-4.9); Total Protein 5.4 gm/dl (6.4-8.2)
[2019-09-01] MEDS ORDERED: LIDOCAINE HCL 2% 2 ML VIAL/AMP(20MG/ML) INFIL ONE (10:10)
[2019-09-01] MEDS ORDERED: PROPOFOL IV EMULSION 10 MG/ML 20 ML VIAL IV ONE (10:10)
--- NOTE | 2019-09-01 10:11 | GI REPORT ---
Patient Name: Nba Mascorro Procedure Date: 09/01/2019 9:21 AM Date of : 1945 Admit Type: Inpatient Age: 74 Gender: Male Attending MD: Shannan Mcfadden DO Procedure: Upper GI endoscopy Providers: Shannan Mcfadden DO Referring MD: Nba Good Indications: Iron deficiency anemia Medicines: Propofol per Anesthesia Complications: No immediate complications. Estimated blood loss: None. Estimated Blood Loss: Estimated blood loss: none. Procedure: Pre-Anesthesia Assessment: - Prior to the procedure, a History and Physical was performed, and patient medications, allergies and sensitivities were reviewed. The patient's tolerance of previous anesthesia was reviewed. - The risks and benefits of the procedure and the sedation options and risks were discussed with the patient. All questions were answered and informed consent was obtained. - Patient identification and proposed procedure were verified prior to the procedure by the physician and the nurse. The procedure was verified in the pre-procedure area in the procedure room. - Mental Status Examination: alert and oriented. Airway Examination: normal oropharyngeal airway and neck mobility. Respiratory Examination: clear to auscultation. CV Examination: normal. Abdominal Examination: bowel sounds present, abdomen soft and non-tender, no masses or organomegaly noted. - ASA Grade Assessment: III - A patient with severe systemic disease. After obtaining informed consent, the endoscope was passed under direct vision. Throughout the procedure, the patient's blood pressure, pulse, and oxygen saturations were monitored continuously. The Endoscope was introduced through the mouth, and advanced to the second part of duodenum. The upper GI endoscopy was accomplished without difficulty. The patient tolerated the procedure well. Findings: The esophagus was normal. Minimal inflammation characterized by erythema was found in the entire examined stomach. The examined duodenum was normal. Impression: - Normal esophagus. - Gastritis. - Normal examined duodenum. - No specimens collected. Recommendation: - Follow an antireflux regimen. - Use a proton pump inhibitor PO daily. - Return patient to hospital [facility] for ongoing care. - Advance diet as tolerated. Mary Alice Capellan DO 09/01/2019 10:11:31 AM This report has been signed electronically. Note Initiated On: 09/01/2019 9:21 AM Number of Addenda: 0 I attest to the content of the Intraoperative Record and orders documented therein, exceptions below {[id number]}
--- NOTE | 2019-09-01 11:17 | Hospitalist Progress Note ---
Date of Service September 01, 2019 Assessment & Plan (1) Acute blood loss anemia: -on admission Hemoglobin 4.8 -FOBT positive on 08/29/19 but patient reports constipation in recent days and denies blood in stool or in urine at home; no recent chemotherapy in 1 to 2 years -patient to date is s/p a total of 3 units of PRBC -Hemoglobin is 8 on 08/30/19 after the 3rd PRBC to date -discussed with Gastroenterology and that anemia may be multifactorial including possible slow bleed in GI tract versus suppression of blood counts from alcohol use or etiology of other suppression of Hemoglobin productions -continue Protonix -Avoid NSAIDs -Hgb since his 3rd blood transfusion is above 8 -09/01/19: Patient seen and examined after upper endoscopy. No acute source of bleed was found. Gastroenterology recommend daily oral protonics and colonoscopy as outpatient. Discussed with patient about removing fuchs for trial of void. Patient is aware that his functional status in terms of mobility is limited. Physical Therapist had seen patient on 08/31/19 and recommending physical rehabilitation placement after hospital stay because patient is deemed to be high fall risk. Hospitalist asked shoe parts caser to assist patient with looking for inpatient physical therapy center or SNF if patient and family are agreeable. Ambulation Dysfunction -assessment as above (2) Malignant tumor of urinary bladder: Status post cystoscopy, transurethral incision of prostate, and cold clip bladder biopsy in July of this year Received chemotherapy 2 years back Denies any acute symptoms now (3) Prostate cancer: As above (4) Paroxysmal atrial fibrillation: -History of paroxysmal atrial fibrillation was on chronic dofetilide therapy Status post pulmonary vein isolation in 2013 Also history of aortic atherosclerosis with moderate aortic insufficiency and enlarged aortic root Variable systolic function with EF 45 to 65% with small circumferential pericardial effusion Has not been on anticoagulation due to advanced bladder bladder cancer, multiple recurrent falls, persistent anemia and poor tolerance -continue metoprolol BID (5) Hypertension: -on metoprolol (6) Hyperlipidemia: Continue statin (7) COPD (chronic obstructive pulmonary disease): -Does not have any acute exacerbation at this time -uses home oxygen at nighttime -continue home inhalers (8) Tobacco abuse: -give nicotine patch -Advised to quit smoking and drinking alcohol (9) Alcohol use: -alcohol use at home -on gabapentin alcohol withdrawal protocol in case of alcohol withdrawal DVT prophylaxis: SCDs CODE STATUS Full Subjective Patient seen and examined after upper endoscopy. No acute source of bleed was found. Gastroenterology recommend daily oral protonics and colonoscopy as outpatient. Discussed with patient about removing fuchs for trial of void. Patient is aware that his functional status in terms of mobility is limited. Physical Therapist had seen patient on 08/31/19 and recommending physical rehabilitation placement after hospital stay because patient is deemed to be high fall risk. Hospitalist asked shoe parts caser to assist patient with looking for inpatient physical therapy center or SNF if patient and family are agreeable. Patient denies acute abdomen pain. no acute chest pain. No dizziness. No nausea.No acute shortness of breath Review of Systems Review of Systems: All systems reviewed & are unremarkable except as noted in HPI & below Physical Exam Constitutional: comfortable Eyes: PERRL, conjunctivae normal, anicteric sclerae EOM intact bilaterally ENMT: external ear and nose normal, oropharynx normal Neck: normal visual inspection Respiratory: normal respiratory effort, lungs clear to auscultation normal respiratory effort Cardiovascular: Rate/Rhythm: regular rate and regular rhythm Chest (Breasts): Chest: + vascular access device or port Gastrointestinal (Abdomen): normal bowel sounds, soft, nontender, no hepatosplenomegaly Musculoskeletal: Head/Neck/Chest: normocephalic and head atraumatic Neurologic: PERRL, EOMI, accommodation nl, no face palsy, no dysarthria Psychiatric: A+Ox3, euthymic affect Results & Data Vital Signs (Past 12 Hours) Vital Signs Temp Pulse Pulse Pulse Resp BP BP 09/01/19 10:59 36.9 C 83 18 124/63 09/01/19 10:18 93 H 77 18 113/55 L 09/01/19 10:03 36.8 C 80 78 20 102/55 L 09/01/19 09:19 36.8 C 80 80 20 L 20 130/71 130/71 09/01/19 07:34 37 C 81 18 139/76 09/01/19 03:55 36.5 C 84 20 120/68 08/31/19 23:19 36.4 C L 73 19 120/71 Pulse Ox 09/01/19 10:59 93 09/01/19 10:18 93 09/01/19 10:03 95 09/01/19 09:19 92 09/01/19 07:34 93 09/01/19 03:55 94 11/17/19 23:19 98 (1) Hypertension Hypertension type: essential hypertension Qualified Code(s): I10 - Essential (primary) hypertension (2) COPD (chronic obstructive pulmonary disease) COPD type: unspecified COPD Qualified Code(s): J44.9 - Chronic obstructive pulmonary disease, unspecified
[2019-09-01 11:18] LABS: Hematocrit (blood only) 24.1 % (42-52); Mean Corpuscular Hgb Conc 33.2 g/dL (32-36); Mean Corpuscular Volume 96.4 fL (80-100); Mean Platelet Volume 9.1 fL (7.4-10.4); Platelet Count 210 K/uL (130-400); RDW Coefficient of Variation 18.8 % (11.5-14.5); RDW Standard Deviation 63.8 fL (36.4-46.3); White Blood Count 5.19 K/uL (4.8-10.8)
[2019-09-01 11:19] LABS: Eosinophils # (auto) 0.16 K/uL (0-0.5); Eosinophils % (auto) 3.1 %; Immature Granulocytes # (auto) 0.02 K/uL (0.00-0.02); Immature Granulocytes % (auto) 0.4 %; Lymphocytes % (auto) 19.3 %; Monocytes # (auto) 0.61 K/uL (0.11-0.59); Monocytes % (auto) 11.8 %; Neutrophils % (auto) 65.4 %; Platelet Estimate Normal (Normal)
[2019-09-01] MEDS: MAGNESIUM SULFATE / D5W 1 GM/100 ML BAG IV SCH ×2 (12:11→13:55)
--- NOTE | 2019-09-01 16:57 | Anesthesiology Progress Note ---
Date of Service September 01, 2019 Anesthesia Post Procedure Vital Signs Vital Signs: Temp Pulse Pulse Pulse Pulse Resp BP 09/01/19 16:01 36.5 C 72 20 117/72 09/01/19 14:20 77 09/01/19 10:59 36.9 C 83 18 124/63 09/01/19 10:18 93 H 77 18 09/01/19 10:03 36.8 C 80 78 20 09/01/19 09:19 36.8 C 80 80 20 L 20 130/71 09/01/19 07:34 37 C 81 18 09/01/19 03:55 36.5 C 84 20 120/68 08/31/19 23:19 36.4 C L 73 19 120/71 08/31/19 19:54 36.7 C 82 18 122/67 BP Pulse Ox 09/01/19 16:01 99 09/01/19 14:20 09/01/19 10:59 93 09/01/19 10:18 113/55 L 93 09/01/19 10:03 102/55 L 95 09/01/19 09:19 130/71 92 09/01/19 07:34 139/76 93 09/01/19 03:55 94 08/31/19 23:19 98 08/31/19 19:54 122/67 93 Transfer of Care Handoff Completed per policy Notes Mental Status: alert / awake / arousable Patient Amnestic to Procedure: Yes Nausea / Vomiting: adequately controlled Pain: adequately controlled Airway Patency, RR, SpO2: stable & adequate BP & HR: stable & adequate Hydration State: stable & adequate Anesthetic Complications: no major complications apparent and Pt Satisfied with anesthetic care
[2019-09-01] MEDS: ATORVASTATIN 40 MG TAB PO SCH (20:26)
[2019-09-01] MEDS: MULTIVITAMIN TAB PO SCH (20:26)
[2019-09-02] MEDS ORDERED: GABAPENTIN 600 MG TAB PO SCH (06:00)
[2019-09-02] MEDS: TIOTROPIUM BROMIDE 5 PUFF/90 MCG INH INH SCH (08:10)
[2019-09-02] MEDS: THIAMINE HCL 100 MG in SYRINGE 9 ML IV SCH (08:10)
[2019-09-02] MEDS: VILANTEROL INH SCH (08:10)
[2019-09-02] MEDS: METOPROLOL SUCC 25MG EXT REL TAB PO SCH ×2 (08:10→20:51)
[2019-09-02] MEDS: FLUTICASONE INH SCH (08:10)
[2019-09-02] MEDS: FOLIC ACID 1 MG in SYRINGE 9.8 ML IV SCH (08:10)
[2019-09-02] MEDS: PANTOprazole 40 MG TAB PO SCH (08:10)
[2019-09-02] MEDS: MAGNESIUM OXIDE 400 MG TAB PO SCH (08:10)
[2019-09-02] MEDS: NICOTINE 14 MG/24 HR PATCH TD SCH (08:10)
--- NOTE | 2019-09-02 09:58 | Anesthesiology Progress Note ---
Date of Service September 02, 2019 Anesthesia Post Procedure Vital Signs Vital Signs: Temp Pulse Pulse Pulse Resp BP BP 09/02/19 07:45 36.8 C 89 19 128/71 09/02/19 03:54 36.7 C 84 20 121/68 09/02/19 00:30 36.5 C 83 20 115/68 09/01/19 19:37 37.0 C 80 16 121/80 09/01/19 16:01 36.5 C 72 20 117/72 09/01/19 14:20 77 09/01/19 10:59 36.9 C 83 18 124/63 09/01/19 10:18 93 H 77 18 113/55 L 09/01/19 10:03 36.8 C 80 78 20 102/55 L Pulse Ox 09/02/19 07:45 95 09/02/19 03:54 95 09/02/19 00:30 94 09/01/19 19:37 99 09/01/19 16:01 99 09/01/19 14:20 09/01/19 10:59 93 09/01/19 10:18 93 09/01/19 10:03 95 Notes Mental Status: alert / awake / arousable and participated in evaluation Nausea / Vomiting: adequately controlled Pain: adequately controlled Airway Patency, RR, SpO2: stable & adequate BP & HR: stable & adequate Hydration State: stable & adequate Anesthetic Complications: no major complications apparent
--- NOTE | 2019-09-02 14:49 | Hospitalist Progress Note ---
Date of Service September 02, 2019 Assessment & Plan (1) Acute blood loss anemia: -on admission Hemoglobin 4.8 -FOBT positive on 08/29/19 but patient reports constipation in recent days and denies blood in stool or in urine at home; no recent chemotherapy in 1 to 2 years -patient to date is s/p a total of 3 units of PRBC -Hemoglobin is 8 on 08/30/19 after the 3rd PRBC to date -discussed with Gastroenterology and that anemia may be multifactorial including possible slow bleed in GI tract versus suppression of blood counts from alcohol use or etiology of other suppression of Hemoglobin productions -continue Protonix -Avoid NSAIDs -Hgb since his 3rd blood transfusion is above 8 -09/01/19:Patient seen and examined after upper endoscopy. No acute source of bleed was found. Gastroenterology recommend daily oral protonics and colonoscopy as outpatient. Discussed with patient about removing fuchs for trial of void. Patient is aware that his functional status in terms of mobility is limited. Physical Therapist had seen patient on 08/31/19 and recommending physical rehabilitation placement after hospital stay because patient is deemed to be high fall risk. Hospitalist asked case sealer to assist patient with looking for inpatient physical therapy center or SNF if patient and family are agreeable. -09/02/19: hemoglobin is 8. no acute events. Patient and his have been informed that there may be shelter facility bed tomorrow ([facility]) Patient will need follow up with primary medical doctor and may need outpatient referral/arrangements for [facility] gastroenterology on determining when possible for outpatient colonoscopy Ambulation Dysfunction -assessment as above (2) Malignant tumor of urinary bladder: -Status post cystoscopy, transurethral incision of prostate, and cold clip bladder biopsy in July of this year Received chemotherapy 2 years back Denies any acute symptoms now -has outpatient appointments with 10/10/2019 1:15 PM Provider Juventino Simpson MD Department Hematology/Oncology [facility] 10/10/2019 1:45 PM Provider Chair 6 Hem Onc [facility] Department Hematology/Oncology [facility] [address], [place] (3) Prostate cancer: As above (4) Paroxysmal atrial fibrillation: -History of paroxysmal atrial fibrillation was on chronic dofetilide therapy Status post pulmonary vein isolation in 2013 Also history of aortic atherosclerosis with moderate aortic insufficiency and enlarged aortic root Variable systolic function with EF 45 to 65% with small circumferential pericardial effusion Has not been on anticoagulation due to advanced bladder bladder cancer, multiple recurrent falls, persistent anemia and poor tolerance -continue metoprolol BID (5) Hypertension: -on metoprolol Acute Kidney Injury, on point of arrival, on chronic kidney disease -admission creatinine 1.9 on 08/29/19 -creatinine general between that and now as low as 1.68 on 09/02/19 -conservative strategy of monitoring was done given multiple blood transfusions and IV fluids in beginning of hospital stay -patient is eating and drinking fluids (6) Hyperlipidemia: Continue statin (7) COPD (chronic obstructive pulmonary disease): -Does not have any acute exacerbation at this time -uses home oxygen at nighttime -continue home inhalers (8) Tobacco abuse: -give nicotine patch -Advised to quit smoking and drinking alcohol (9) Alcohol use: -alcohol use at home -was on gabapentin alcohol withdrawal protocol in case of alcohol withdrawal. but no withdrawal symptoms at this time DVT prophylaxis: SCDs CODE STATUS Full Subjective Patient seen and examined. No acute distress. No shortness of breath. No chest pain. No abdomen pain. He is feeling well. However shelter facility bed not available today. Patient and his have been informed that there may be shelter facility bed tomorrow ([facility]) Review of Systems Review of Systems: All systems reviewed & are unremarkable except as noted in HPI & below Physical Exam Constitutional: comfortable Eyes: PERRL, conjunctivae normal, anicteric sclerae EOM intact bilaterally ENMT: external ear and nose normal, oropharynx normal Neck: normal visual inspection Respiratory: normal respiratory effort, lungs clear to auscultation normal respiratory effort Cardiovascular: Rate/Rhythm: regular rate and regular rhythm Chest (Breasts): Chest: + vascular access device or port Gastrointestinal (Abdomen): normal bowel sounds, soft, nontender, no hepatosplenomegaly Musculoskeletal: Head/Neck/Chest: normocephalic and head atraumatic Neurologic: PERRL, EOMI, accommodation nl, no face palsy, no dysarthria Psychiatric: A+Ox3, euthymic affect Results & Data Vital Signs (Past 12 Hours) Vital Signs Temp Pulse Resp BP Pulse Ox 09/02/19 10:40 36.5 C 84 18 133/71 95 09/02/19 07:45 36.8 C 89 19 128/71 95 09/02/19 03:54 36.7 C 84 20 121/68 95 (1) COPD (chronic obstructive pulmonary disease) COPD type: unspecified COPD Qualified Code(s): J44.9 - Chronic obstructive pulmonary disease, unspecified (2) Hypertension Hypertension type: essential hypertension Qualified Code(s): I10 - Essential (primary) hypertension
[2019-09-02] MEDS: ATORVASTATIN 40 MG TAB PO SCH (20:51)
[2019-09-02] MEDS: MULTIVITAMIN TAB PO SCH (20:54)
[2019-09-03] MEDS: FLUTICASONE INH SCH (07:49)
[2019-09-03] MEDS: NICOTINE 14 MG/24 HR PATCH TD SCH (07:49)
[2019-09-03] MEDS: PANTOprazole 40 MG TAB PO SCH (07:49)
[2019-09-03] MEDS: VILANTEROL INH SCH (07:49)
[2019-09-03] MEDS: MAGNESIUM OXIDE 400 MG TAB PO SCH (07:49)
[2019-09-03] MEDS: METOPROLOL SUCC 25MG EXT REL TAB PO SCH ×2 (07:49→21:13)
[2019-09-03 09:03] LABS: Hematocrit (blood only) 27.5 % (42-52); Mean Corpuscular Hemoglobin 31.7 pg (25-34); Mean Corpuscular Hgb Conc 32.7 g/dL (32-36); Mean Corpuscular Volume 96.8 fL (80-100); Mean Platelet Volume 9.4 fL (7.4-10.4); Platelet Count 295 K/uL (130-400); Platelet Estimate Normal (Normal); RDW Coefficient of Variation 18.3 % (11.5-14.5); Red Blood Count 2.84 M/uL (4.7-6.1); White Blood Count 5.93 K/uL (4.8-10.8)
[2019-09-03 09:09] LABS: BUN Creatinine Ratio 15.5 (10-20); Calcium 8.9 mg/dl (8.5-10.1); Creatinine Clr Calc Pharmacy 37.1 ml/min; Est GFR (African American) 38.1; Est GFR (Non-African American) 32.9; Potassium 3.6 mmol/L (3.5-5.1)
[2019-09-03 09:14] LABS: Ferritin 159.5 ng/ml (8-388)
[2019-09-03] MEDS: TIOTROPIUM BROMIDE 5 PUFF/90 MCG INH INH SCH (09:18)
[2019-09-03] MEDS: FOLIC ACID 1 MG TAB PO SCH (09:18)
[2019-09-03] MEDS: THIAMINE HCL 100 MG TAB PO SCH (09:18)
--- NOTE | 2019-09-03 14:14 | Hospitalist Progress Note ---
Date of Service September 03, 2019 Assessment & Plan (1) Acute blood loss anemia: Significant blood loss with unclear source. Etiologies include but are not limited to GI blood loss with source not found on upper endoscopy, recurrent bladder malignancy with patient having noted inflamed areas of bladder on recent cystoscopy without charla tumor, bone marrow suppression secondary to increased alcohol use. With JAXON also present will ensure No hydronephrosis is present with a renal ultrasound. We will also obtain urine studies to look screen for microscopic hematuria as no charla hematuria is reported present by patient. H&H trend is improved after 3 units of blood and patient's symptoms have resolved. H&H appears stable. Will recommend very close follow-up with urology and hematology regarding his anemia. Outpatient colonoscopy may also be pursued. (2) Malignant tumor of urinary bladder: Status post cystoscopy in July without evidence of charla tumor. Biopsies taken were negative for malignancy. Continue outpatient follow-up with hematology/oncology physician, Dr. Simpson. (3) Prostate cancer: Status post TURP with most recent PSA 0 in June 2019. Continue with oncology follow-up as above. (4) Paroxysmal atrial fibrillation: History of pulmonary vein isolation in 2013 also with history of aortic atherosclerosis with moderate aortic sufficient insufficiency and enlarged aortic root. Variable systolic function with EF 45 to 65% with small circumferential pericardial effusion. Not on anticoagulation therapy secondary to advanced bladder cancer, multiple recurrent falls, persistent anemia and poor tolerance. Continue rate control efforts with metoprolol twice daily. (5) COPD (chronic obstructive pulmonary disease): Chronic, stable. Continue home nocturnal oxygen and Breo and Spiriva daily (6) Tobacco abuse: -give nicotine patch -Advised to quit smoking and drinking alcohol (7) Alcohol use: No withdrawal symptoms during this admission. Encouraged to quit as this can promote bone marrow suppression and contribute to anemia. In addition this is not good for his health. (8) DVT prophylaxis: SCDs, chemoprophylaxis contraindicated in the setting of severe anemia Full code Disposition-likely to [facility] pending improvement of JAXON in the morning. DO Maria Gregg ospitalist Subjective 74-year-old man with history of bladder cancer treated with chemo and radiation 2 years ago presented with a hemoglobin of 4.8. He did have symptoms of lightheadedness and malaise which have improved after 3 units of blood this admission. He was noted to have a hemoglobin of 12 in November of this year. He has been taking long-term Aleve for his back and recently switched Vania- [place] in the last couple of weeks for back and right hip pain. He has not seen any abnormal stools including no gross blood or black stools. He did undergo an upper EGD that was negative for any source of bleeding. He was started on Protonix drip and transition to daily Protonix. His H&H has improved and he is feeling better than on admission. He has a history of paroxysmal atrial fibrillation status post pulmonary vein isolation in 2013. He has not been on anticoagulation therapy due to advanced bladder cancer multiple recurrent falls and persistent anemia with poor tolerance. Regarding his b ladder tumor he is status post cystoscopy with transurethral incision of the prostate and cold clip bladder biopsy in July of this year. He denies any gross hematuria. He is currently tolerating p.o. and feeling ready to leave the hospital. Review of Systems Review of Systems: All systems reviewed & are unremarkable except as noted in HPI & below Physical Exam Physical Exam: CONSTITUTIONAL: WNWD, vitals as above, generally well- appearing EYES: normal conjunctivae, no scleral icterus ENT: MMM RESPIRATORY: clear to auscultation bilaterally, no crackles, rales or wheezes, normal respiratory effort CARDIOVASCULAR: regular rate and rhythm, S1 and 2 heard without murmurs, gallops or rubs, no peripheral edema GASTROINTESTINAL: normal bowel sounds, soft, nontender, nondistended MUSCULOSKELETAL: strength 5/5 throughout, head is normocephalic and atraumatic SKIN: warm and dry NEUROLOGIC: CN 2-12 grossly intact,normal cognition, normal speech, no gross focal deficits. PSYCHIATRIC: alert cooperative and oriented to person, place and time. Results & Data Vital Signs (Past 12 Hours) Vital Signs Temp Pulse Resp BP Pulse Ox 09/03/19 11:56 36.7 C 72 16 123/75 98 09/03/19 08:00 36.7 C 78 16 129/72 95 09/03/19 07:06 36.7 C 78 21 129/73 92 Laboratory Results Short CBC 09/03/19 Range/Units 08:16 WBC 5.93 (4.8-10.8) K/uL Hgb 9.0 L (14.0-18.0) g/dL Hct 27.5 L (42-52) % Plt Count 295 (130-400) K/uL BMP 09/03/19 08:16 Sodium 134 L Potassium 3.6 Chloride 100 Carbon Dioxide 28 BUN 30 H Creatinine 1.93 H Glucose 92 Calcium 8.9 Medications Administered Current Inpatient Medications Acetaminophen (Tylenol) 325 mg PO Q6H PRN PRN Reason: FEVER OR PAIN Stop: 09/28/19 17:19 Albuterol (Ventolin Hfa) 2 puffs INH Q4H PRN PRN Reason: Shortness Of Breath Or Wheezin Stop: 09/28/19 17:29 Atorvastatin Calcium (Lipitor) 40 mg PO QPM [facility] Stop: 09/28/19 20:59 Last Admin: 09/02/19 20:51 Dose: 40 mg Documented by: Clobetasol Propionate (Clobetasol Propionate Oint) 1 appln EXT BID PRN PRN Reason: Rash Stop: 09/28/19 17:23 Desonide (Desowen 0.05%) 1 appln EXT BID PRN PRN Reason: Outbreak Stop: 09/28/19 17:08 Fluticasone/Vilanterol (Breo Ellipta) 1 puffs INH QAM [facility] Stop: 09/30/19 08:59 Last Admin: 09/03/19 07:49 Dose: 1 puffs Documented by: Folic Acid (Folvite) 1 mg PO QAM [facility] Stop: 10/03/19 08:59 Last Admin: 09/03/19 09:18 Dose: 1 mg Documented by: Magnesium Oxide (Mag-Ox) 400 mg PO QAM [facility] Stop: 09/29/19 08:59 Last Admin: 09/03/19 07:49 Dose: 400 mg Documented by: Metoprolol Succinate (Toprol Xl) 25 mg PO BID [facility] Stop: 09/28/19 20:59 Last Admin: 09/03/19 07:49 Dose: 25 mg Documented by: Miscellaneous (Remove Nicoderm Patch) 1 ea N/A DAILY@[id number] [facility] Stop: 09/29/19 08:58 Last Admin: 09/03/19 06:18 Dose: Not Given Documented by: Multivitamins (Multivitamin Tab) 1 tab PO QPM [facility] Stop: 09/28/19 20:59 Last Admin: 09/02/19 20:54 Dose: 1 tab Documented by: Nicotine (Nicoderm Cq) 14 mg TD QAM [facility] Stop: 09/28/19 17:59 Last Admin: 09/03/19 07:49 Dose: 14 mg Documented by: Pantoprazole Sodium (Protonix) 40 mg PO QAM [facility] Stop: 10/02/19 08:59 Last Admin: 09/03/19 07:49 Dose: 40 mg Documented by: Thiamine HCl (Vitamin B-1) 100 mg PO QAM [facility] Stop: 10/03/19 08:59 Last Admin: 09/03/19 09:18 Dose: 100 mg Documented by: Tiotropium [place] (Spiriva) 1 puffs INH QAM [facility] Stop: 09/29/19 08:59 Last Admin: 09/03/19 09:18 Dose: 1 puffs Documented by: (1) COPD (chronic obstructive pulmonary disease) COPD type: unspecified COPD Qualified Code(s): J44.9 - Chronic obstructive pulmonary disease, unspecified
--- NOTE | 2019-09-03 17:07 | Ultrasound Report ---
US renal/blad retro comp HISTORY: Renal insufficiency JAXON, h/o bladder CA, r/o hydro COMPARISON: None. FINDINGS: Right kidney: Maximum dimension 11.7 cm. No evidence for necrosis. Moderate cortical scarring Left kidney: Maximum dimension 11.6 cm. No evidence for hydronephrosis. Moderate cortical scarring Bladder: Moderate generalized bladder wall thickening. IMPRESSION: 1. No evidence for hydronephrosis. 2. Moderate renal cortical scarring bilaterally. 3. Moderate generalized bladder wall thickening. The above report was generated using voice recognition software. It may contain grammatical, syntax or spelling errors. Electronically signed by: Rg Neff M.D. 09/03/2019 5:05 PM
[2019-09-03 18:37] LABS: Appearance Urine Clear (Clear); Bilirubin Urine Negative (Negative); Blood Urine Negative (Negative); Color Urine Yellow; Glucose Urine UA Negative (Negative); Ketones Urine Negative (Negative); Leukocyte Esterase Urine Negative (Negative); Nitrite Urine Negative (Negative); Protein Urine Negative (Negative); Urobilinogen Urine Negative (Negative); pH Urine 7.5 (4.5-7.5)
[2019-09-03 18:53] LABS: Creatinine Urine Random 51.2 mg/dl; Protein Creatinine Ratio Urine 0.5 (0-0.2)
[2019-09-03] MEDS ORDERED: POLYETHYLENE (MIRALAX) 17 GM PACK PO PRN (20:17)
[2019-09-03] MEDS: DOCUSATE SODIUM 100 MG CAP PO SCH (21:12)
[2019-09-03] MEDS: ATORVASTATIN 40 MG TAB PO SCH (21:13)
[2019-09-03] MEDS: MULTIVITAMIN TAB PO SCH (21:13)
[2019-09-04] MEDS ORDERED: HEPARIN 100 UNIT/ML 5ML FLUSH FLUSH PRN (05:52)
[2019-09-04 07:15] LABS: BUN Creatinine Ratio 17.7 (10-20); Calcium 8.6 mg/dl (8.5-10.1); Creatinine Clr Calc Pharmacy 37.3 ml/min; Est GFR (African American) 38.3; Est GFR (Non-African American) 33.1; Potassium 3.8 mmol/L (3.5-5.1)
[2019-09-04 07:16] LABS: Hematocrit (blood only) 24.4 % (42-52); Mean Corpuscular Hemoglobin 31.7 pg (25-34); Mean Corpuscular Hgb Conc 32.8 g/dL (32-36); Mean Corpuscular Volume 96.8 fL (80-100); Mean Platelet Volume 9.3 fL (7.4-10.4); Platelet Count 328 K/uL (130-400); RDW Standard Deviation 62.8 fL (36.4-46.3); Red Blood Count 2.52 M/uL (4.7-6.1); White Blood Count 4.98 K/uL (4.8-10.8)
[2019-09-04] MEDS: DOCUSATE SODIUM 100 MG CAP PO SCH (09:12)
[2019-09-04] MEDS: FOLIC ACID 1 MG TAB PO SCH (09:13)
[2019-09-04] MEDS: MAGNESIUM OXIDE 400 MG TAB PO SCH (09:13)
[2019-09-04] MEDS: FLUTICASONE INH SCH (09:13)
[2019-09-04] MEDS: NICOTINE 14 MG/24 HR PATCH TD SCH (09:13)
[2019-09-04] MEDS: THIAMINE HCL 100 MG TAB PO SCH (09:13)
[2019-09-04] MEDS: METOPROLOL SUCC 25MG EXT REL TAB PO SCH (09:13)
[2019-09-04] MEDS: VILANTEROL INH SCH (09:13)
[2019-09-04] MEDS: PANTOprazole 40 MG TAB PO SCH (09:13)
[2019-09-04] MEDS: TIOTROPIUM BROMIDE 5 PUFF/90 MCG INH INH SCH (10:36)
--- NOTE | 2019-09-04 13:17 | Discharge Summary ---
Date of Service September 04, 2019 Admission HPI Per Admitting Provider He is a 74 years old male with significant complicated past medical history including PAF, aortic atherosclerosis with aortic insufficiency, enlarged aortic root, hypertension, COPD, bladder and prostate cancer status post surgery and radiation apparently has been complaining of weakness and tiredness associated with exertional shortness of breath and recurrent falls for the last 1 to 2 weeks. He has been complaining of right hip pain and back pain and has been taking occasional Aleve to control the pain on top of Vania-Guy that he has been using routinely. He denies any chest pain and/or palpitation. Denies any fever chills or Rigors. Denies any abdominal pain, nausea and/or vomiting and no change in his bowel habit. He denies any hematemesis and/or black tarry stool, denies any problem with his urine as well. He was seen at the cardiology clinic as an outpatient today and was found to have very low hemoglobin of 5.1 and was sent in to the hospital for further evaluation and management. Discharge Data Allergies Allergy/AdvReac Type Severity Reaction Status Date / Time No Known Allergies Allergy Verified 08/29/19 15:15 Consultations 08/29/19 15:23 ED Decision to Admit Stat 08/30/19 07:20 Consult Gastroenterology Routine 08/31/19 08:00 Consult Anesthesiology Routine Procedures Performed Operation Date: 09/01/19 16:00 Actual Procedures p Esophagogastroduodenoscopy - Shanann Mcfadden Ordered Studies 09/03/19 15:36 US renal/blad retro comp Routine Hospital Course (1) Acute blood loss anemia: Significant blood loss with unclear source. Etiologies include but are not limited to GI blood loss with source not found on upper endoscopy, recurrent bladder malignancy with patient having noted inflamed areas of bladder on recent cystoscopy without charla tumor, bone marrow suppression secondary to increased alcohol use. With JAXON also present will ensure No hydronephrosis is present with a renal ultrasound. We will also obtain urine studies to look screen for microscopic hematuria as no charla hematuria is reported present by patient. H&H trend is improved after 3 units of blood and patient's symptoms have resolved. H&H appears stable. Will recommend very close follow-up with urology and hemat ology regarding his anemia. Outpatient colonoscopy may also be pursued. (2) Malignant tumor of urinary bladder: Status post cystoscopy in July without evidence of charla tumor. Biopsies taken were negative for malignancy. Continue outpatient follow-up with hematology/oncology physician, Dr. Simpson. (3) Prostate cancer: Status post TURP with most recent PSA 0 in June 2019. Continue with oncology follow-up as above. (4) Paroxysmal atrial fibrillation: History of pulmonary vein isolation in 2013 also with history of aortic atherosclerosis with moderate aortic sufficient insufficiency and enlarged aortic root. Variable systolic function with EF 45 to 65% with small circumferential pericardial effusion. Not on anticoagulation therapy secondary to advanced bladder cancer, multiple recurrent falls, persistent anemia and poor tolerance. Continue rate control efforts with metoprolol twice daily. (5) COPD (chronic obstructive pulmonary disease): Chronic, stable. Continue home nocturnal oxygen and Breo and Spiriva daily (6) Tobacco abuse: -give nicotine patch -Advised to quit smoking and drinking alcohol (7) Alcohol use: No withdrawal symptoms during this admission. Encouraged to quit as this can promote bone marrow suppression and contribute to anemia. In addition this is not good for his health. (8) DVT prophylaxis: SCDs, chemoprophylaxis contraindicated in the setting of severe anemia Full code Disposition-likely to [facility] pending improvement of JAXON in the morning. Radha Angela DO [facility] hHospitalist Discharge Plan Discharge Items Patient Disposition: Transfer Inpatient Rehab Fac Reason For Visit: SYMPTOMATIC ANEMIA, PAF,COPD Discharge Diagnosis: Symptomatic anemia, JAXON, paroxysmal atrial fibrillation, Chronic Obstructive pulmonary disease, Tobacco Use (abuse), Alcohol Use Condition on Discharge: Good Health Concerns: Stop drinking alcohol Stop smoking Avoid NSAIDs Activity: Resume your previous activity Non-emergency contact: Primary Care Provider Call non-emergency contact if: you have any medication questions Follow-up/Referrals: Nba Good MD [Primary Care Provider] - Diet: Heart Healthy Addtl Attending Provider Instructions: Patient to be discharged to [facility]pc facility of [facility] for physical therapy. You will need to have a CBC and BMP performed on 09/08 and then once per week for the next 4 weeks. The staff at [facility] will draw this. Please send the results to your PCP and to Dr. Alina Camargo in [facility] Nephrology. Patient will need follow up with primary medical doctor within one week of discharge. You may need outpatient referral/arrangements for [facility] Gastroenterology clinic for an outpatient colonoscopy to continue with the workup of your anemia source. Upcoming [facility] clinic appointments: 09/19/2019 11:00 AM Provider Rg Prater PA-C Department Cardiology, [facility] 10/10/2019 1:15 PM Provider Juventino Simpson MD Department Hematology/Oncology [facility] As discussed please follow-up with Dr. Camargo at [facility] Nephrology within 4 weeks of discharge. It was a pleasure taking care of you! Please call if you have any questions or problems. You can reach a [facility] hospitalist on duty at [facility] 24 hours a day by calling [phone]. Take care of yourself. Radha Angela, [facility] Pending Studies at Discharge: No Stand-Alone Forms: My [facility] Skilled Items Patient informed of condition?: Yes DNR: No Discharge Level of Care: Skilled Communicable Disease: No Discharge Prognosis: Stable Lines: None Urinary Catheter: No Medications and DC Order Prescriptions: New pantoprazole 40 mg Tablet,Delayed Release (Dr/Ec) 40 mg PO QAM 30 Days Qty: 30 RF: 0 nicotine 7 mg/24 hr Patch 24 Hour 14 mg transdermal QAM 30 Days Qty: 30 RF: 0 Continued trospium 60 mg capsule,extended release 24hr 60 mg PO QAM Qty: 30 RF: 6 atorvastatin 40 mg Tablet 40 mg PO QPM RF: 0 clobetasol [Temovate] 0.05 % Ointment 1 applic TOPICAL BID PRN (Reason: Rash) RF: 0 desonide 0.05 % Cream 1 applic TOPICAL BID PRN (Reason: Outbreak) RF: 0 Spiriva with HandiHaler 18 mcg Capsule, W/Inhalation Device 1 cap INHALATION QAM RF: 0 Breo Ellipta 100-25 mcg/dose Blister With Device 1 inh INHALATION QAM RF: 0 ProAir RespiClick 90 mcg/actuation Aerosol Powdr Breath Activated 1 - 2 puff INHALATION Q4H PRN (Reason: SOB/Wheezing and/or Cough) RF: 0 metoprolol succinate 25 mg Tablet Extended Release 24 Hr 25 mg PO BID RF: 0 potassium chloride 10 mEq Tablet Extended Release 10 meq PO QAM RF: 0 acetaminophen [Tylenol] 325 mg Capsule 325 mg PO Q6H PRN (Reason: Fever Or Pain) RF: 0 multivitamin tablet 1 tab PO QPM RF: 0 magnesium 200 mg tablet 400 mg PO QAM RF: 0 Discharge Orders: Discharge Order (Routine); Ordered 09/04/19 Ordered By: Radha Angela Admission Data Admit Date/Time: 08/29/19 15:55 Attending Provider: Radha Angela Admit Provider: Sean Valdez Primary Care Provider: Nba Good Other Providers: Rudi Cruz ; Sean Valdez ; Hermann Crook ; Agustin Tejeda Other Interventions: Discharge Summary Assessment (RN) Last Done: 09/01/19 10:18
== END 2019-09-04 14:43 | DRG 378 ==
LOC: ED 13:35 → 2S 15:55 → SUATTDRO 15:55 → 2S 16:21 → 2N 09-02 08:40

== ENCOUNTER 2019-12-09 11:32 | Inpatient (IN) ==
[2019-12-09 12:43] LABS: Mean Corpuscular Hgb Conc 33.5 g/dL (32-36)
[2019-12-09 12:53] LABS: Alanine Aminotransferase 16 U/L (12-78); Albumin Level 2.3 gm/dl (3.4-5.0); Aspartate Aminotransferase 15 U/L (15-37); BUN Creatinine Ratio 22.7 (10-20); Blood Urea Nitrogen 52 mg/dl (7-18); Calcium 8.8 mg/dl (8.5-10.1); Carbon Dioxide 24 mmol/L (21-32); Chloride 89 mmol/L (98-107); Est GFR (African American) 31.1; Est GFR (Non-African American) 26.9; Glucose 102 mg/dl (70-99); Lipase 1117 U/L (73-393); Magnesium 1.6 mg/dl (1.8-2.4); Potassium 3.6 mmol/L (3.5-5.1); Sodium 124 mmol/L (136-145)
[2019-12-09 12:56] LABS: Albumin Globulin Ratio 0.5 (0.9-2); Alkaline Phosphatase 90 U/L (45-117); Bilirubin,Total 0.4 mg/dl (0.2-1); Globulin 4.9 gm/dl (2.5-4.0); Total Protein 7.2 gm/dl (6.4-8.2)
[2019-12-09 13:04] LABS: Anisocytosis Present; Basophils # (auto) 0.01 K/uL (0-0.2); Basophils % (auto) 0.1 %; Eosinophils # (auto) 0.08 K/uL (0-0.5); Eosinophils % (auto) 1.1 %; Hematocrit (blood only) 25.4 % (42-52); Hemoglobin 8.5 g/dL (14.0-18.0); Immature Granulocytes % (auto) 1.4 %; Lymphocytes # (auto) 0.83 K/uL (1.2-3.4); Lymphocytes % (auto) 11.5 %; Mean Corpuscular Hemoglobin 31.3 pg (25-34); Mean Corpuscular Volume 93.4 fL (80-100); Mean Platelet Volume 9.9 fL (7.4-10.4); Monocytes # (auto) 0.81 K/uL (0.11-0.59); Monocytes % (auto) 11.3 %; Neutrophils # (auto) 5.36 K/uL (1.4-6.5); Neutrophils % (auto) 74.6 %; Platelet Count 361 K/uL (130-400); Polychromasia 1+; RDW Coefficient of Variation 15.6 % (11.5-14.5); RDW Standard Deviation 52.8 fL (36.4-46.3); Red Blood Count 2.72 M/uL (4.7-6.1); Rouleaux 1+; White Blood Count 7.19 K/uL (4.8-10.8)
[2019-12-09 13:25] LABS: Appearance Urine Cloudy (Clear); Bacteria Urine Automated 1+ (Negative); Bilirubin Urine Negative (Negative); Blood Urine 1+ (Negative); Cast Urine Automated 0 /lpf (0-5); Color Urine Yellow; Epithelial Cell Urine Auto 0-5 /lpf (0-5); Glucose Urine UA Negative (Negative); Ketones Urine Negative (Negative); Leukocyte Esterase Urine 3+ (Negative); Nitrite Urine Negative (Negative); Protein Urine Trace (Negative); RBC Urine Automated 0-4 /hpf (0-4); Specific Gravity Urine 1.009 (1.000-1.030); Urobilinogen Urine Negative (Negative); WBC Urine Automated >30 /hpf (0-5); pH Urine 6.5 (4.5-7.5)
--- NOTE | 2019-12-09 14:45 | XRay Report ---
XR chest 1V portable CLINICAL HISTORY: SOB dyspnea COMPARISON STUDY: 11/09/2019 FINDINGS: Moderate cardiomegaly. Findings of congestive heart failure. Small left pleural effusion. IMPRESSION: Congestive heart failure ACT 112: Negative or not required by law. The above report was generated using voice recognition software. It may contain grammatical, syntax or spelling errors. Electronically signed by: Rg Neff M.D. 12/09/2019 2:44 PM
--- NOTE | 2019-12-09 15:12 | History & Physical Report ---
Date of Service December 09, 2019 Assessment & Plan (1) Hyponatremia: Serum Na 122 in clinic, repeat today 124. Chronic hyponatremia, but worse than baseline. Patient admits noncompliance with fluid restriction. Resume 1500 ml fluid restriction. Follow. (2) Acute exacerbation of CHF (congestive heart failure): Chronic left ventricular systolic heart failure. LVEF by echo on 11/05/2019 was 45-50%. Chest x-ray shows cardiomegaly and CHF. Acute on chronic left ventricular systolic heart failure. Change diuretics to intravenous until improved. (3) Atrial fibrillation: History of paroxysmal atrial fibrillation/flutter. In atrial fibrillation with controlled rate at this time. Continue metoprolol. (4) Hypertension: Continue metoprolol. (5) COPD (chronic obstructive pulmonary disease): Oxygen dependent COPD. Respiratory symptoms stable. Continue O2 and bronchodilators. (6) Chronic respiratory failure with hypoxia: Secondary to COPD. Continue supplemental O2. (7) CKD (chronic kidney disease), stage IV: CKD stage IV with baseline creatinine fluctuating between 2.3 - 3.0. Creatinine today = 2.28. Follow. (8) Anemia: Chronic anemia of CKD. Baseline Hgb 8 - 9. Has had recent Fe studies, B12, folate. Hgb today 8.5. Follow. (9) Alcohol use: Patient drinks about 5 alcoholic beverages per day and is not interested in q uitting. Last drink was this morning. Alcohol withdrawal protocol. Multivitamin, thiamine, folic acid. (10) DVT prophylaxis: Subcutaneous heparin. Ambulate. (11) Discharge planning issues: Anticipated discharge to home. Family Medicine follow-up with Dr. Good. Nephrology follow-up with Dr. Camargo. History of Present Illness Chief Complaint: referred to ED for abnormal lab work Primary Care Provider: Nba Good MD 74-year-old male followed by Dr. Good for Family Medicine and Dr. Camargo for Nephrology. History of CHF, atrial fibrillation/flutter, chronic kidney disease, hyponatremia, and other problems as outlined below. Severe hyponatremia with a serum sodium 122 was noted on outpatient blood work and patient was referred to the ED for evaluation. Patient notes generalized weakness. No headaches or confusion. No seizures. No nausea, vomiting, diarrhea. Compliant with diuretic regimen. Admits that he has not been compliant with his 1500 mL fluid restriction. Allergies Allergy/AdvReac Type Severity Reaction Status Date / Time No Known Allergies Allergy Verified 12/09/19 12:48 Home Medications Home Medications Medication Instructions Recorded Confirmed Type Breo Ellipta 1 inh INHALATION QAM 09/01/18 12/09/19 History ProAir RespiClick 1 - 2 puff INHALATION Q4H PRN 09/01/18 12/09/19 History Spiriva with HandiHaler 1 cap INHALATION QAM 09/01/18 12/09/19 History clobetasol [Temovate] 1 applic TOPICAL BID PRN 09/01/18 12/09/19 History metoprolol succinate 37.5 mg PO BID 05/03/19 12/09/19 History multivitamin 1 tab PO HS 07/04/19 12/09/19 History trospium 60 mg capsule,extended 60 mg PO QAM #30 cap 08/12/19 12/09/19 Rx release 24 hr magnesium oxide 400 mg PO QAM 09/22/19 12/09/19 History Oxygen Home #1 ea 11/12/19 Rx potassium chloride [Klor-Con M20] 20 meq PO QAM #30 tab 11/12/19 12/09/19 Rx acetaminophen [Tylenol Extra 1,000 mg PO BID 12/09/19 12/09/19 History Strength] furosemide 40 mg PO QAM 12/09/19 12/09/19 History furosemide [Lasix] 20 mg PO UD 12/09/19 12/09/19 History guaifenesin [Mucinex] 600 mg PO BID 12/09/19 12/09/19 History ipratropium-albuterol 3 ml INHALATION UD 12/09/19 12/09/19 History Past Med/Surg History Medical History Alcohol abuse (Acute) Arthritis Atrial fibrillation S/P pulmonary vein isolation ablation (2013) Atrial flutter COPD (chronic obstructive pulmonary disease) Elevated LFTs History of anemia HOSPITALIZED AT [facility] AUGUST 2019 Hyperlipidemia Hypertension Hyponatremia Lower extremity edema Obesity (BMI 30.0-34.9) On home oxygen therapy 2-3 L/MIN NC HS ONLY Orthostatic hypotension Smoker (Acute) Tremor familial Urinary incontinence Surgical History Bladder cancer s/p TURBT, ureteral stent and BCG instillations, 4 cycles of neoadjuvant cisplatin and gemcitabine, s/p completion of "palliative radiation" therapy 10/2017 History of anesthesia reaction TURBT 2013- patient had respiratory distress- sats decreased to 80's and patient was reintubated on ventilator 24-48 hours- ?fluid overload/pleural effusions; patient had subsequent TURBT with SAB (tolerated well). 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") FOLLOWED BY CHARLI COMBS History of colonoscopy History of cystoscopy SCAR TISSUE REMOVAL History of esophagogastroduodenoscopy (EGD) History of pancreatic surgery BENIGN CYST REMOVED/INCIDENTAL SPLENECTOMY History of surgery A-PORT Prostate cancer Adenocarcinoma prostate s/p hormonal suppression, external beam radiation therapy (completed 2003), s/p iodine seed implant (2003) Family History Other No significant family history Social History Preferred Language: Faroese Communication Ability: Effective 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 Beliefs That Will Affect Care: None marital status: Current Living Situation: Spouse Other Information That Helps Us Care for You: No Feels Safe at Home: Yes Safety Concerns: Feels Safe At This Time Smoking Status: Current every day smoker Tobacco Type: cigarettes ; Cigarettes Per Day: 15 ; Do You Dip or Chew Tobacco: No ; Second Hand Exposure: No ; Tobacco Cessation Education Requested by Patient: No Hx Alcohol Use: Yes Alcohol type: hard liquor Hx Substance Use: No Review of Systems Constitutional: + weight loss; no fever Eyes: no diplopia and no worsening vision Ear, Nose, Mouth, Throat: + hearing loss; no nasal congestion, no sinus pain/pressure and no sore throat Respiratory: + cough (chronic, unchanged) and + dyspnea on exertion (chronic, unchanged) Cardiovascular: + palpitations and + edema; no chest pain Gastrointestinal: no nausea, no vomiting, no constipation, no diarrhea/loose stools, no blood in stools and no melena Musculoskeletal: + joint pain; no myalgia Integumentary: no rash and no new lesions Neurologic: no headache(s) Endocrine: no polydipsia and no polyuria Hematologic / Lymphatic: + easy bruising; no easy bleeding and no lymphadenop athy Physical Exam Constitutional: WD/WN, vitals as above no acute distress Eyes: PERRL, conjunctivae normal, anicteric sclerae ENMT: external ear and nose normal, oropharynx normal Neck: trachea midline, no thyromegaly Respiratory: no respiratory distress Auscultation: + wheezes Cardiovascular: Rate/Rhythm: + irregularly irregular Heart Sounds: no gallop, no murmur and no cardiac rub Vessels: + JVD Extremities: normal capillary refill and + edema (1+); no calf tenderness Gastrointestinal (Abdomen): normal bowel sounds, soft, nontender, no hepatosplenomegaly Musculoskeletal: Head/Neck/Chest: neck supple Extremities: strength 5/5 throughout; no cyanosis and no clubbing Skin: no rashes, warm and dry ecchymoses Neurologic: PERRL, EOMI no facial palsy no dysarthria or aphasia Psychiatric: Orientation: alert and oriented x 3 Affect: euthymic affect Lymphatic: no cervical lymphadenopathy Results & Data Vital Signs (Past 12 Hours) Vital Signs Temp Pulse Resp BP Pulse Ox 12/09/19 13:30 119 H 25 H 109/74 91 12/09/19 13:01 95 H 26 H 129/64 95 12/09/19 12:31 93 H 20 125/73 96 12/09/19 12:26 88 23 108/70 92 12/09/19 11:58 93 12/09/19 11:51 36.5 C 88 24 101/56 L 96 Laboratory Results 12/09/19 12:25 12/09/19 12:25 Diagnostic Findings PORTABLE CHEST X-RAY FINDINGS: Moderate cardiomegaly. Findings of congestive heart failure. Small left pleural effusion. IMPRESSION: Congestive heart failure ACT 112: Negative or not required by law. The above report was generated using voice recognition software. It may contain grammatical, syntax or spelling errors. Electronically signed by: Rg Neff M.D. 12/09/2019 2:44 PM Code Status & VTE Plan Code Status Advanced directives and resuscitation status discussed with patient. He has a living will. He would like resuscitation attempted in the event of a cardiopulmonary arrest if there is a reasonable chance of a meaningful recovery, but does not want extraordinary measures initiated or continued if prognosis is poor. VTE Prophylaxis Plan VTE Prophylaxis will be ordered: Yes (1) Hypertension Hypertension type: essential hypertension Qualified Code(s): I10 - Essential (primary) hypertension (2) COPD (chronic obstructive pulmonary disease) COPD type: unspecified COPD Qualified Code(s): J44.9 - Chronic obstructive pulmonary disease, unspecified
--- NOTE | 2019-12-09 16:59 | Emergency Department Note ---
Entered by Latrell Simpson acting as a scribe for History of Present Illness General Chief complaint: Abnormal Labs/Diagnostic Testing Stated complaint: SODIUM IS WAY TO LOW Time Seen by Provider: 12/09/19 11:55 Source: patient Limitations: no limitations History of Present Illness Location: head Severity: similar to prior episodes Pain Consistency: + constant Maximum Pain Intensity: 0 Quality: + constant Associated symptoms: + denies other symptoms (new leg swelling, diarrhea, ); no confusion, no headaches, no nausea/vomiting and no shortness of breath Treatments prior to arrival: other (diuretics) The patient is a 74 year old male who presents to the Emergency Room with complaints of constant weakness. The patient states he has been feeling more sleepy and tired. He states his sodium yesterday was 122. The patient states nothing is physically bothering him right now. The patient denies having confusi on, headaches, SOB, nausea, vomiting, diarrhea, and new leg swelling. He states he always wears oxygen. He notes he takes diuretics. He states he is at 1500 mL fluid restriction, and notes he goes above that. Home Medications Home Medications Medication Instructions Recorded Confirmed Type Breo Ellipta 1 inh INHALATION QAM 09/01/18 12/09/19 History ProAir RespiClick 1 - 2 puff INHALATION Q4H PRN 09/01/18 12/09/19 History Spiriva with HandiHaler 1 cap INHALATION QAM 09/01/18 12/09/19 History clobetasol [Temovate] 1 applic TOPICAL BID PRN 09/01/18 12/09/19 History metoprolol succinate 37.5 mg PO BID 05/03/19 12/09/19 History multivitamin 1 tab PO HS 07/04/19 12/09/19 History trospium 60 mg capsule,extended 60 mg PO QAM #30 cap 08/12/19 12/09/19 Rx release 24 hr magnesium oxide 400 mg PO QAM 09/22/19 12/09/19 History Oxygen Home #1 ea 11/12/19 Rx potassium chloride [Klor-Con M20] 20 meq PO QAM #30 tab 11/12/19 12/09/19 Rx acetaminophen [Tylenol Extra 1,000 mg PO BID 12/09/19 12/09/19 History Strength] furosemide 40 mg PO QAM 12/09/19 12/09/19 History furosemide [Lasix] 20 mg PO UD 12/09/19 12/09/19 History guaifenesin [Mucinex] 600 mg PO BID 12/09/19 12/09/19 History ipratropium-albuterol 3 ml INHALATION UD 12/09/19 12/09/19 History Allergies Allergy/AdvReac Type Severity Reaction Status Date / Time No Known Allergies Allergy Verified 12/09/19 12:48 Past Med/Surg History Medical History Alcohol abuse (Acute) Arthritis Atrial fibrillation S/P pulmonary vein isolation ablation (2013) Atrial flutter COPD (chronic obstructive pulmonary disease) Elevated LFTs History of anemia HOSPITALIZED AT [facility] AUGUST 2019 Hyperlipidemia Hypertension Hyponatremia Lower extremity edema Obesity (BMI 30.0-34.9) On home oxygen therapy 2-3 L/MIN NC HS ONLY Orthostatic hypotension Smoker (Acute) Tremor familial Urinary incontinence Surgical History Bladder cancer s/p TURBT, ureteral stent and BCG instillations, 4 cycles of neoadjuvant cisplatin and gemcitabine, s/p completion of "palliative radiation" therapy 10/2017 History of anesthesia reaction TURBT 2013- patient had respiratory distress- sats decreased to 80's and patient was reintubated on ventilator 24-48 hours- ?fluid overload/pleural effusions; patient had subsequent TURBT with SAB (tolerated well). History of bladder surgery TURBT History of cardiac radiofrequency ablation 2013 DAVID SIFUENTES (CURRENTLY WEARING HOLTER MONITOR D/T "IN AND OUT OF A-FIB") FOLLOWED BY CHARLI COMBS History of colonoscopy History of cystoscopy SCAR TISSUE REMOVAL History of esophagogastroduodenoscopy (EGD) History of pancreatic surgery BENIGN CYST REMOVED/INCIDENTAL SPLENECTOMY History of surgery A-PORT Prostate cancer Adenocarcinoma prostate s/p hormonal suppression, external beam radiation therapy (completed 2003), s/p iodine seed implant (2003) Family History Other No significant family history Social History Preferred Language: Wolof Communication Ability: Effective Antisqueak Worker Required: No Beliefs That Will Affect Care: None marital status: Current Living Situation: Spouse Other Information That Helps Us Care for You: No Feels Safe at Home: Yes Safety Concerns: Feels Safe At This Time Smoking Status: Current every day smoker Tobacco Type: cigarettes ; Cigarettes Per Day: 15 ; Do You Dip or Chew Tobacco: No ; Second Hand Exposure: No ; Tobacco Cessation Education Requested by Patient: No Hx Alcohol Use: Yes Alcohol type: hard liquor Hx Substance Use: No Review of Systems See HPI for pertinent positives & negatives. and A total of 10 systems reviewed and were otherwise negative Physical Exam Vital Signs Vital Signs - 24 hr 12/09/19 11:51 12/09/19 11:58 12/09/19 12:26 Temperature 36.5 C Temperature Source Oral Pulse Rate 88 88 Pulse Rate from SpO2 Sensor 98 H Respiratory Rate 24 23 Respiratory Effort / Characteristics Non-Labored Respiratory Depth Normal Blood Pressure 101/56 L 108/70 Blood Pressure Mean 71 77 Pulse Oximetry 96 93 92 Oxygen Delivery Method Nasal Cannula Nasal Cannula Oxygen Flow Rate 3 3 Sepsis Recent Fever Within 48 Hours No Sepsis Action Taken by Nursing No Action Required 12/09/19 12:31 12/09/19 13:01 12/09/19 13:30 Temperature Temperature Source Pulse Rate 93 H 95 H 119 H Pulse Rate from SpO2 Sensor 88 91 H 96 H Respiratory Rate 20 26 H 25 H Respiratory Effort / Characteristics Respiratory Depth Blood Pressure 125/73 129/64 109/74 Blood Pressure Mean 90 101 82 Pulse Oximetry 96 95 91 Oxygen Delivery Method Oxygen Flow Rate Sepsis Recent Fever Within 48 Hours Sepsis Action Taken by Nursing 12/09/19 14:00 12/09/19 14:30 12/09/19 15:00 Temperature Temperature Source Pulse Rate 96 H 94 H 96 H Pulse Rate from SpO2 Sensor 98 H 100 H Respiratory Rate 26 H 32 H 20 Respiratory Effort / Characteristics Respiratory Depth Blood Pressure 118/63 136/88 123/92 Blood Pressure Mean 88 115 105 Pulse Oximetry 95 Oxygen Delivery Method Oxygen Flow Rate Sepsis Recent Fever Within 48 Hours Sepsis Action Taken by Nursing 12/09/19 15:30 12/09/19 16:52 Temperature Temperature Source Pulse Rate 100 H Pulse Rate from SpO2 Sensor 102 H Respiratory Rate 21 Respiratory Effort / Characteristics Respiratory Depth Blood Pressure 125/74 Blood Pressure Mean 97 Pulse Oximetry 93 Oxygen Delivery Method Nasal Cannula Oxygen Flow Rate 3 Sepsis Recent Fever Within 48 Hours Sepsis Action Taken by Nursing GENERAL: Sitting up in bed. Chronically ill appearing. On nasal cannula. EYE EXAM: normal conjunctiva OROPHARYNX: no exudate, no erythema, lips, buccal mucosa, and tongue normal and mucous membranes are moist NECK: supple, no nuchal rigidity, no adenopathy, non-tender LUNGS: Clear to auscultation. Normal chest wall mechanics HEART: no murmurs, S1 normal and S2 normal ABDOMEN: abdomen soft, non-tender, normo-active bowel sounds, no masses, no rebound or guarding. BACK: Back is symmetrical on inspection and there is no deformity, no midline tenderness, no CVA tenderness. SKIN: no rashes and no bruising UPPER EXTREMITIES: upper extremities are grossly normal. LOWER EXTREMITIES: No pitting edema. NEURO EXAM: Normal sensorium, cranial nerves II-XII grossly intact, normal speech, no gross weakness of arms, no gross weakness of legs. Course Course ED COURSE: Vital signs were reviewed and showed hypotension The patients medical record was reviewed The above diagnostic studies were performed and reviewed. ED treatments and interventions as stated above. 1156: The patient was evaluated in room B3. A complete history and physical examination was performed. 1340: Upon reevaluation, the patient is getting admitted. I discussed my findings with the patient and he understands and agrees with the treatment plan. 1342: I discussed the patient's case with Dr. Zamzam Sifuentes Hospitalist. He will evaluate the patient for further management Based on the patients age, coexisting illnesses, exam and lab findings the decision to treat as an inpatient was made. The patient remained stable while under my care. The patient will be evaluated for further management. Medical Decision Making Differential Diagnosis Differential Diagnosis includes but is not limited to dehydration, stroke, anemia, hypoglycemia, hyponatremia, hypernatremia, urinary tract infection, p neumonia, bronchitis, sepsis, gastroenteritis, additional abdominal pathology, metabolic abnormalities and infections. Medical Records Attestation: I reviewed the patient's medical records. Home Medications Current Medication List: was personally reviewed by me Laboratory Data Attestation: I reviewed the patient's lab results. Result diagrams: 12/09/19 12:25 12/09/19 12:25 Lab Results 12/09/19 12/09/19 12/09/19 Range/Units 12: 12: 13:00 WBC 7.19 (4.8-10.8) K/uL RBC 2.72 L (4.7-6.1) M/uL Hgb 8.5 L (14.0-18.0) g/dL Hct 25.4 L (42-52) % MCV 93.4 (80-100) fL MCH 31.3 (25-34) pg MCHC 33.5 (32-36) g/dL RDW Std Deviation 52.8 H (36.4-46.3) fL RDW Coeff of Jude 15.6 H (11.5-14.5) % Plt Count 361 (130-400) K/uL MPV 9.9 (7.4-10.4) fL Immature Gran % (Auto) 1.4 % Neut % (Auto) 74.6 % Lymph % (Auto) 11.5 % [place] % (Auto) 11.3 % Eos % (Auto) 1.1 % Baso % (Auto) 0.1 % Immature Gran # (Auto) 0.10 H (0.00-0.02) K/uL Neut # (Auto) 5.36 (1.4-6.5) K/uL Lymph # (Auto) 0.83 L (1.2-3.4) K/uL [place] # (Auto) 0.81 H (0.11-0.59) K/uL Eos # (Auto) 0.08 (0-0.5) K/uL Baso # (Auto) 0.01 (0-0.2) K/uL Polychromasia 1+ Anisocytosis Present Rouleaux 1+ Sodium 124 L (136-145) mmol/L Potassium 3.6 (3.5-5.1) mmol/L Chloride 89 L (98-107) mmol/L Carbon Dioxide 24 (21-32) mmol/L Anion Gap 11.0 (3-11) BUN 52 H (7-18) mg/dl Creatinine 2.28 H (0.6-1.4) mg/dl Est Cr Clr Drug Dosing Not Reportable Est GFR ( Amer) 31.1 Est GFR (Non-Af Amer) 26.9 BUN/Creatinine Ratio 22.7 H (10-20) Glucose 102 H (70-99) mg/dl Calcium 8.8 (8.5-10.1) mg/dl Magnesium 1.6 L (1.8-2.4) mg/dl Total Bilirubin 0.4 (0.2-1) mg/dl AST 15 (15-37) U/L ALT 16 (12-78) U/L Alkaline Phosphatase 90 (45-117) U/L Total Protein 7.2 (6.4-8.2) gm/dl Albumin 2.3 L (3.4-5.0) gm/dl Globulin 4.9 H (2.5-4.0) gm/dl Albumin/Globulin Ratio 0.5 L (0.9-2) Lipase 1117 H (73-393) U/L Urine Color Yellow Urine Appearance Cloudy A (Clear) Urine pH 6.5 (4.5-7.5) Ur Specific [place] 1.009 (1.000-1.030) Urine Protein Trace H (Negative) Urine Glucose (UA) Negative (Negative) Urine Ketones Negative (Negative) Urine Blood 1+ H (Negative) Urine Nitrite Negative (Negative) Urine Bilirubin Negative (Negative) Urine Urobilinogen Negative (Negative) Ur Leukocyte Esterase 3+ H (Negative) Urine WBC (Auto) >30 H (0-5) /hpf Urine RBC (Auto) 0-4 (0-4) /hpf U Hyaline Cast (Auto) 0 (0-5) /lpf U Epithel Cells (Auto) 0-5 (0-5) /lpf Urine Bacteria (Auto) 1+ H (Negative) Blood Pressure Blood Pressure Findings: Low blood pressure Blood Pressure Disposition: further management by hospitalist MDM Narrative Patient is a 74-year-old male referred in by his PCP for hyponatremia and weakness. IV was established blood work was obtained and shows no significant leukocytosis. Mild anemia at 8.5 consistent with previous. BMP with hyponatremia at 124 slightly up from 122. Creatinine at 228 consistent with pr evious. Magnesium slightly low at 1.6. LFTs bilirubin and was unremarkable. Lipase was slightly elevated at 1100. He has no abdominal pain. Do not favor this consistent with pancreatitis. Patient does admit to drinking more than his fluid restriction. Patient was updated bedside discussed with the hospitalist admitted for hyponatremia and further work-up as this is slightly lower than his baseline which appears to be 128. Impression & Plan Hyponatremia, Weakness, Elevated lipase Discharge Plan Visit Data Chief Complaint: Abnormal Labs/Diagnostic Testing Stated Complaint: SODIUM IS WAY TO LOW ED Provider: Jamie Henning Discharge Problem: Hyponatremia, Weakness, Elevated lipase Discharge Instructions Interventions: ED Discharge Assessment Last Done: 12/09/19 16:52 Forms Stand Alone Forms: [facility] Prescriptions Prescriptions: No Action trospium 60 mg capsule,extended release 24hr 60 mg PO QAM Qty: 30 RF: 6 clobetasol [Temovate] 0.05 % Ointment 1 applic TOPICAL BID PRN (Reason: Rash) RF: 0 Spiriva with HandiHaler 18 mcg Capsule, W/Inhalation Device 1 cap INHALATION QAM RF: 0 Breo Ellipta 100-25 mcg/dose Blister With Device 1 inh INHALATION QAM RF: 0 ProAir RespiClick 90 mcg/actuation Aerosol Powdr Breath Activated 1 - 2 puff INHALATION Q4H PRN (Reason: SOB/Wheezing and/or Cough) RF: 0 potassium chloride [Klor-Con M20] 20 mEq Tablet,Er Particles/Crystals 20 meq PO QAM Qty: 30 RF: 1 (DME) Oxygen Home Liters Per Minute See Rx Instructions .ROUTE .MEDSUPPLY Qty: 1 RF: 0 ipratropium-albuterol 0.5 mg-3 mg(2.5 mg base)/3 mL solution for nebulization 3 ml INHALATION UD RF: 0 acetaminophen [Tylenol Extra Strength] 500 mg Tablet 1,000 mg PO BID RF: 0 furosemide [Lasix] 20 mg Tablet 20 mg PO UD RF: 0 guaifenesin [Mucinex] 600 mg Tablet Extended Release 12hr 600 mg PO BID RF: 0 furosemide 40 mg tablet 40 mg PO QAM RF: 0 metoprolol succinate 25 mg Tablet Extended Release 24 Hr 37.5 mg PO BID RF: 0 multivitamin tablet 1 tab PO HS RF: 0 magnesium oxide 400 mg magnesium Tablet 400 mg PO QAM RF: 0 Referrals Referrals: Nba Good MD [Primary Care Provider] - The scribe's documentation has been prepared under my direction and personally reviewed by me in its entirety. I confirm that the note above accurately reflects all work, treatment, procedures, and medical decision making performed by me.
[2019-12-09] MEDS ORDERED: LORazepam 1 MG TAB PO PRN (18:09)
[2019-12-09] MEDS: NICOTINE 14 MG/24 HR PATCH TD SCH (19:24)
[2019-12-09] MEDS: THIAMINE HCL 100 MG TAB PO SCH (19:25)
[2019-12-09] MEDS: FOLIC ACID 1 MG TAB PO SCH (19:25)
[2019-12-09] MEDS: ALBUT/IPRATROP 3MG/0.5MG NEB 3 ML VIAL INH SCH (20:12)
[2019-12-09] MEDS: guaiFENesin 600 MG TABCR PO SCH (20:24)
[2019-12-09] MEDS: METOPROLOL SUCC 25MG EXT REL TAB PO SCH (20:25)
[2019-12-09] MEDS: MULTIVITAMIN TAB PO SCH (20:25)
[2019-12-09] MEDS: ACETAMINOPHEN 500 MG TAB PO SCH (20:26)
[2019-12-09] MEDS ORDERED: ACETAMINOPHEN 325 MG TAB PO STA (23:57)
[2019-12-10] MEDS: ACETAMINOPHEN 500 MG TAB PO SCH ×3 (00:37→19:17)
[2019-12-10] MEDS: ALBUTEROL HFA 8 GM INHALER INH PRN ×2 (00:39→04:16)
[2019-12-10] MEDS: HEPARIN 100 UNIT/ML 5ML FLUSH FLUSH PRN (06:12)
[2019-12-10 06:49] LABS: INR 1.1 (0.9-1.1); Partial Thromboplastin Ratio 1.6; Partial Thromboplastin Time 43.8 Seconds (21.0-31.0); Prothrombin Time 11.1 Seconds (9.0-12.0)
[2019-12-10 06:54] LABS: BUN Creatinine Ratio 22.3 (10-20); Calcium 9.4 mg/dl (8.5-10.1); Creatinine Clr Calc Pharmacy 25.4 ml/min; Est GFR (African American) 28.3; Est GFR (Non-African American) 24.4; Potassium 3.2 mmol/L (3.5-5.1)
[2019-12-10] MEDS: ALBUT/IPRATROP 3MG/0.5MG NEB 3 ML VIAL INH SCH ×4 (07:54→19:39)
[2019-12-10] MEDS: METOPROLOL SUCC 25MG EXT REL TAB PO SCH ×2 (08:33→21:20)
[2019-12-10] MEDS: POTASSIUM CHLORIDE 20 MEQ TABCR PO SCH (08:34)
[2019-12-10] MEDS: FOLIC ACID 1 MG TAB PO SCH (08:34)
[2019-12-10] MEDS: guaiFENesin 600 MG TABCR PO SCH ×2 (08:34→21:21)
[2019-12-10] MEDS: THIAMINE HCL 100 MG TAB PO SCH (08:35)
[2019-12-10] MEDS: MAGNESIUM OXIDE 400 MG TAB PO SCH (08:36)
[2019-12-10] MEDS: NICOTINE 14 MG/24 HR PATCH TD SCH (08:42)
[2019-12-10] MEDS: FLUTICASONE/VILANTEROL 100/25MCG 14 PUFFS/INHALER INH SCH (08:42)
[2019-12-10] MEDS: UMECLIDINIUM BROMIDE 62.5MCG/BLISTER 7 PUFFS/INHALER INH SCH (08:43)
[2019-12-10] MEDS: HEPARIN SOD 5,000 UNIT/0.5 ML VIAL SQ SCH ×2 (08:50→21:23)
[2019-12-10] MEDS ORDERED: FUROSEMIDE 40 MG TAB PO SCH (09:00)
[2019-12-10] MEDS ORDERED: FUROSEMIDE 40 MG in SYRINGE 0 ML IV SCH (09:00)
--- NOTE | 2019-12-10 09:13 | Nephrology Consultation ---
Date of Consultation December 10, 2019 Assessment & Plan (1) Hyponatremia: went from presenting sNa 122 on 12/09 at 1600 (present since at least 12/08 w/ sNa 122 at that time as well), improved to 127 by 0600 today. goal sNa for this afternoon is 128. hypervolemic (presume hypotonic) hyponatremia in setting of acute HF. -got lasix 40 mg IV this am x 1 dose -will recheck bmp and serum osms at 1600 (order in) -hold further lasix until results post but likely to need more frequent lower doses -cont 1.5L FR; added <2 gm daily Na diet Present on Admission?: Yes (2) Acute exacerbation of CHF (congestive heart failure): follow voluem status as above -needs strict I/O Present on Admission?: Yes (3) Hypokalemia: will give 40 mEq po stat one time in addition to 20 mEq AM dose -repeat bmp as above Present on Admission?: Yes (4) Acute on chronic renal failure: baseline creatinine 1.8-2.0, though in reality quite labile baseline. JAXON on ckd 3; nonoliguric and favor ischemic ATN from HF. presenting creatiine 2.4; to 2.3 today -bmp as above -careful lasix as above -no indication for dialysis discussion at this time -no indication for renal imaging at this time -f/u pending urine cx >> concerning for infection possibly Present on Admission?: Yes (5) Anemia: (6) Urinary retention: intermittent issue for him; has been advised to do chronic intermittent caths in past and not reliable w/ this -check PVR q shift x 2 shifts -strict I/O -re infection above Present on Admission?: Yes History of Present Illness Reason for Consultation: hyponatremia Requesting Physician: Dr Wyman Attending Physician: Samm Mckeon MD History of Present Illness 74 y/o M whom I'm asked to see for hyponatremia after he was admitted for same yesterday d/t abnormal OP labs. I sent him to ER after routine surveillance OP labs on 12/08 came back w/ sNa 122 w/ sCreat 2.4. sNa was 122 on presentation yesterday w/ creatinine 2.4. Was not feeling particularly ill prior to admission >> no malaise, no falls, no worsening dyspnea, no edema, no N/V, no voiding complaints. PMH includes proteinuric CKD 3 w/ baseline creatinine 1.7- 2.0 as recently as mid October. 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 Admitted here 11/04-11/12/19 for COPD/HF exacerbation w/ hypervolemic hypoNa and presenting sNa 117 at that time. On presentation yesterday, in addition to above labs, his CXR was c/w vol OL/ HF. Has had no lasix since presentation; Started on lasix 40 mg IV bid this am; also on 1.5L FR. on eval this AM feels at his OP baseline> denies voiding c/o, worse sob, edema, n/v. Allergies Allergy/AdvReac Type Severity Reaction Status Date / Time No Known Allergies Allergy Verified 12/09/19 12:48 Home Medications Home Medications Medication Instructions Recorded Confirmed Type Breo Ellipta 1 inh INHALATION QAM 09/01/18 12/09/19 History ProAir RespiClick 1 - 2 puff INHALATION Q4H PRN 09/01/18 12/09/19 History Spiriva with HandiHaler 1 cap INHALATION QAM 09/01/18 12/09/19 History clobetasol [Temovate] 1 applic TOPICAL BID PRN 09/01/18 12/09/19 History metoprolol succinate 37.5 mg PO BID 05/03/19 12/09/19 History multivitamin 1 tab PO HS 07/04/19 12/09/19 History trospium 60 mg capsule,extended 60 mg PO QAM #30 cap 08/12/19 12/09/19 Rx release 24 hr magnesium oxide 400 mg PO QAM 09/22/19 12/09/19 History Oxygen Home #1 ea 11/12/19 Rx potassium chloride [Klor-Con M20] 20 meq PO QAM #30 tab 11/12/19 12/09/19 Rx acetaminophen [Tylenol Extra 1,000 mg PO BID 12/09/19 12/09/19 History Strength] furosemide 40 mg PO QAM 12/09/19 12/09/19 History furosemide [Lasix] 20 mg PO UD 12/09/19 12/09/19 History guaifenesin [Mucinex] 600 mg PO BID 12/09/19 12/09/19 History ipratropium-albuterol 3 ml INHALATION UD 12/09/19 12/09/19 History Patient History Medical History Alcohol abuse (Acute) Arthritis Atrial fibrillation S/P pulmonary vein isolation ablation (2013) Atrial flutter Chronic respiratory failure with hypoxia Chronic systolic CHF (congestive heart failure) CKD (chronic kidney disease), stage IV COPD (chronic obstructive pulmonary disease) Elevated LFTs History of anemia H[facility]IZED AT [facility] 2019 Hyperlipidemia Hypertension Hyponatremia Lower extremity edema Obesity (BMI 30.0-34.9) On home oxygen therapy 2-3 L/MIN NC HS ONLY Orthostatic hypotension Smoker (Acute) Tremor familial Urinary incontinence Surgical History Bladder cancer s/p TURBT, ureteral stent and BCG instillations, 4 cycles of neoadjuvant cisplatin and gemcitabine, s/p completion of "palliative radiation" therapy 10/2017 History of anesthesia reaction TURBT 2013- patient had respiratory distress- sats decreased to 80's and patient was reintubated on ventilator 24-48 hours- ?fluid overload/pleural effusions; patient had subsequent TURBT with SAB (tolerated well). 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") FOLLOWED BY CHARLI COMBS History of colonoscopy History of cystoscopy SCAR TISSUE REMOVAL History of esophagogastroduodenoscopy (EGD) History of pancreatic surgery BENIGN CYST REMOVED/INCIDENTAL SPLENECTOMY History of surgery A-PORT Prostate cancer Adenocarcinoma prostate s/p hormonal suppression, external beam radiation therapy (completed 2003), s/p iodine seed implant (2003) Family History Other No significant family history Social History Preferred Language: Macedonian Communication Ability: Effective Service Desk Associate Required: No Beliefs That Will Affect Care: None marital status: Current Living Situation: Spouse Other Information That Helps Us Care for You: No Feels Safe at Home: Yes Safety Concerns: Feels Safe At This Time Smoking Status: Current every day smoker Tobacco Type: cigarettes ; Cigarettes Per Day: 15 ; Do You Dip or Chew Tobacco: No ; Second Hand Exposure: No ; Tobacco Cessation Education Requested by Patient: No Hx Alcohol Use: Yes Alcohol type: hard liquor Hx Substance Use: No Review of Systems Review of Systems: All systems reviewed & are unremarkable except as noted in HPI & below Physical Exam Constitutional: well developed, well nourished and cooperative; no acute distress sitting on side of bed on 02NC; restless Eyes: EOM intact bilaterally ENMT: Ears: no external ear abnormality Nose: no external nose abnormality Mouth: + dry oral mucous membranes Neck: no nuchal rigidity Respiratory: normal respiratory effort Auscultation: + diminished lung sounds (coarse), + crackles (scattered fine post bases) and + rhonchi; no wheezes Cardiovascular: Rate/Rhythm: regular rate and regular rhythm Extremities: no edema Gastrointestinal (Abdomen): Inspection/Auscultation: normal bowel sounds Percussion/Palpation: abdomen soft; abdomen nontender Musculoskeletal: Extremities: strength 5/5 throughout Skin: no rashes, warm and dry + ecchymosis (scattered) Neurologic: bolivar, fluent speech; +BLUE resting tremors as at previous visits Psychiatric: A+Ox3, euthymic affect Speech: normal rate/rhythm/volume of speech Genitourinary: no fuchs Results & Data Vital Signs (Past 12 Hours) Vital Signs Temp Pulse Pulse Resp BP Pulse Ox 12/10/19 07:55 78 19 95 12/10/19 07:19 36.5 C 66 18 105/64 96 12/10/19 04:06 36.3 C L 71 18 113/72 96 12/10/19 00:00 102 H 12/09/19 23:41 36.4 C L 94 H 18 100/56 L 96 12/09/19 21:57 88 Laboratory Results 12/09/19 12:25 12/10/19 06:12 u OSM 275 u NA 26 lipase 1117 ua cloudy yellow 1009 w/ 1+ blood, >30 wbc, 1+ bacteria, no epi, 3+ LE, trace protein Diagnostic Findings cxr > congestive HF TTE Oct EF 45%, mod CLVH severely dilated LAtrium; mod dil RAtrium mod-severe MRgg RVSP 45 (1) Anemia Anemia type: unspecified type Qualified Code(s): D64.9 - Anemia, unspecified (2) Acute on chronic renal failure Acute renal failure type: unspecified Chronic kidney disease stage: stage 4 (severe) Qualified Code(s): N17.9 - Acute kidney failure, unspecified; N18.4 - Chronic kidney disease, stage 4 (severe)
[2019-12-10] MEDS ORDERED: POTASSIUM CHLORIDE 20 MEQ TABCR PO ONE (13:30)
[2019-12-10] MEDS ORDERED: FUROSEMIDE 20 MG TAB PO SCH (14:00)
[2019-12-10] MEDS ORDERED: LORazepam 1 MG/2 ML VIAL IV PRN (16:34)
[2019-12-10] MEDS ORDERED: GABAPENTIN 600MG ALCOHOL WITHDRAWAL LOAD PO STA (16:34)
[2019-12-10] MEDS ORDERED: FOLIC ACID 1 MG TAB PO SCH (16:35)
[2019-12-10] MEDS ORDERED: THIAMINE HCL 100 MG TAB PO SCH (16:35)
--- NOTE | 2019-12-10 16:37 | Hospitalist Progress Note ---
Date of Service December 10, 2019 Assessment & Plan (1) Acute exacerbation of CHF (congestive heart failure): (1) Hyponatremia: Serum Na 122 in clinic, now 127 Chronic hyponatremia, but worse than baseline. 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 LVEF by echo on 11/05/2019 was 45-50%. Chest x-ray shows cardiomegaly and CHF. Acute on chronic left ventricular systolic heart failure. --Improving --On Lasix IV, sodium closely monitored (3) Atrial fibrillation: History of paroxysmal atrial fibrillation/flutter. Rate controlled, continue metoprolol (4) Hypertension: Stable Continue metoprolol. (5) COPD (chronic obstructive pulmonary disease): Oxygen dependent COPD. Dyspnea improving Continue O2 and bronchodilators. (6) Chronic respiratory failure with hypoxia: Secondary to COPD. Continue supplemental O2. (7) CKD (chronic kidney disease), stage IV: CKD stage IV with baseline creatinine fluctuating between 2.3 - 3.0. Creatinine today = 2.59 Monitor (8) Anemia: Chronic anemia of CKD. Baseline Hgb 8 - 9. Has had recent Fe studies, B12, folate. Hgb today 8.5. Follow. (9) Alcohol use: Patient drinks about 5 alcoholic beverages per day and is not interested in quitting. Start gabapentin protocol, Ativan as needed Monitor closely (10) DVT prophylaxis: Subcutaneous heparin. Ambulate. (11) Discharge planning issues: Anticipated discharge to home. Family Medicine follow-up with Dr. Good. Nephrology follow-up with Dr. Camargo. Admission and Anticipated Discharge Date Admission Date: December 09, 2019 Subjective Follow-up for seizure exacerbation, hyponatremia Seen resting in bed, comfortable, not in distress, on 3 L of nasal cannula States his breathing is improved today compared to yesterday Less coughing, no sputum No chest pain, dizziness, headache, palpitations Does report some mild tremors but no anxiety, sweating, hallucinations or confusion No other symptoms Review of Systems Review of Systems: All systems reviewed & are unremarkable except as noted in HPI & below Physical Exam Physical Exam: General- oriented x 3, not in distress, speaks in sentences with no effort or accessory muscle use Head- atraumatic Eyes- PERRL, EOMI, anicteric ENT- oropharynx clear Neck- supple, no JVD, no adenopathy, no thyromegaly; carotids +2/2, no bruits appreciated Lungs-mild rales bilaterally at the bases, no wheezing Heart- normal rate, irregularly irregular rhythm; no murmur, no gallop, no rub appreciated Abdomen- normal bowel sounds, nondistended, soft, nontender, no masses or hepatosplenomegaly Extremities-trace pretibial edema, no calf tenderness; peripheral pulses intact Neuro- alert, oriented x 3; CN 2-12 grossly intact; motor 5/5 bilaterally;sensation 100% on all extremities; no other gross focal neurologic deficits Skin- warm & dry Results & Data ([facility]) Vital Signs (Past 12 Hours) Vital Signs Temp Pulse Resp BP BP Pulse Ox 12/10/19 15:21 19 91 12/10/19 14:50 36.4 C L 83 18 105/55 L 98 12/10/19 11:24 79 20 87 L 12/10/19 07:55 78 19 95 12/10/19 07:19 36.5 C 66 18 105/64 96 Laboratory Results Laboratory Results - last 24 hr 12/10/19 12/10/19 12/10/19 04:44 06:12 06:12 PT 11.1 INR 1.1 APTT 43.8 H PTT Ratio 1.6 Sodium 127 L Potassium 3.2 L Chloride 93 L Carbon Dioxide 25 Anion Gap 9.0 BUN 55 H Creatinine 2.47 H Est Cr Clr Drug Dosing 25.4 Est GFR ( Amer) 28.3 Est GFR (Non-Af Amer) 24.4 BUN/Creatinine Ratio 22.3 H Glucose 100 H Osmolality Calcium 9.4 Magnesium 1.8 Folate 12/10/19 12/10/19 12/10/19 16:13 16:13 16:43 PT INR APTT PTT Ratio Sodium 129 L Potassium 3.8 D Chloride 94 L Carbon Dioxide 27 Anion Gap 8.0 BUN 56 H Creatinine 2.59 H Est Cr Clr Drug Dosing 24.3 Est GFR ( Amer) 26.7 Est GFR (Non-Af Amer) 23.0 BUN/Creatinine Ratio 21.7 H Glucose 125 H Osmolality 283 Calcium 8.7 Magnesium Folate > 24.00
[2019-12-10] MEDS ORDERED: GABAPENTIN 600 MG TAB PO ONE (17:00)
[2019-12-10 17:04] LABS: BUN Creatinine Ratio 21.7 (10-20); Calcium 8.7 mg/dl (8.5-10.1); Creatinine Clr Calc Pharmacy 24.3 ml/min; Est GFR (African American) 26.7
[2019-12-10 17:06] LABS: Potassium 3.8 mmol/L (3.5-5.1)
[2019-12-10] MEDS: LORazepam 0.5 MG/1 ML VIAL IV PRN (17:27)
[2019-12-10] MEDS ORDERED: Nursing to Pharmacy Communication ONE (19:01)
[2019-12-10] MEDS: MULTIVITAMIN TAB PO SCH (21:20)
[2019-12-10] MEDS ORDERED: XOPENEX/ATROVENT 1.25mg/0.5MG NEB COMBO NEB PRN (22:42)
[2019-12-10] MEDS ORDERED: MAGNESIUM SULFATE / D5W 1 GM/100 ML BAG IV ONE (22:43)
[2019-12-10] MEDS ORDERED: IPRATROPIUM BROMIDE NEB SOLN 0.02% 2.5 ML VIAL INH PRN (22:45)
[2019-12-10] MEDS ORDERED: LEVALBUTEROL 1.25MG/0.5ML NEB INH PRN (22:45)
[2019-12-10] MEDS: GABAPENTIN 100 MG CAP PO SCH (23:34)
[2019-12-11] MEDS ORDERED: XOPENEX/ATROVENT 1.25mg/0.5MG NEB COMBO NEB SCH (01:00)
[2019-12-11] MEDS: LEVALBUTEROL 1.25MG/0.5ML NEB INH SCH ×4 (01:08→20:44)
[2019-12-11] MEDS: IPRATROPIUM BROMIDE NEB SOLN 0.02% 2.5 ML VIAL INH SCH ×4 (01:09→20:44)
[2019-12-11] MEDS: GABAPENTIN 100 MG CAP PO SCH (05:12)
[2019-12-11 06:40] LABS: BUN Creatinine Ratio 21.7 (10-20); Calcium 9.2 mg/dl (8.5-10.1); Creatinine Clr Calc Pharmacy 25.4 ml/min; Est GFR (African American) 28.3; Est GFR (Non-African American) 24.4; Potassium 3.8 mmol/L (3.5-5.1)
[2019-12-11] MEDS ORDERED: FUROSEMIDE 20 MG in SYRINGE 0 ML IV ONE (09:00)
[2019-12-11] MEDS: HEPARIN SOD 5,000 UNIT/0.5 ML VIAL SQ SCH ×2 (09:00→20:28)
[2019-12-11] MEDS: METOPROLOL SUCC 25MG EXT REL TAB PO SCH ×2 (09:41→20:31)
[2019-12-11] MEDS: ACETAMINOPHEN 500 MG TAB PO SCH ×2 (09:42→20:31)
[2019-12-11] MEDS: POTASSIUM CHLORIDE 20 MEQ TABCR PO SCH (09:43)
[2019-12-11] MEDS: MAGNESIUM OXIDE 400 MG TAB PO SCH (09:43)
[2019-12-11] MEDS: FOLIC ACID 1 MG TAB PO SCH (09:43)
[2019-12-11] MEDS: guaiFENesin 600 MG TABCR PO SCH ×2 (09:43→20:30)
[2019-12-11] MEDS: FLUTICASONE/VILANTEROL 100/25MCG 14 PUFFS/INHALER INH SCH (09:44)
[2019-12-11] MEDS: UMECLIDINIUM BROMIDE 62.5MCG/BLISTER 7 PUFFS/INHALER INH SCH (09:44)
[2019-12-11] MEDS: THIAMINE HCL 100 MG TAB PO SCH (09:45)
[2019-12-11] MEDS: NICOTINE 14 MG/24 HR PATCH TD SCH (09:45)
--- NOTE | 2019-12-11 15:46 | Hospitalist Progress Note ---
Date of Service Delayed entry date of service noted below December 11, 2019 Assessment & Plan (1) Acute exacerbation of CHF (congestive heart failure): Acute exacerbation of CHF (congestive heart failure): Per admitting service notes: Chronic left ventricular systolic heart failure. LVEF by echo on 11/05/2019 was 45-50%. Chest x-ray shows cardiomegaly and CHF. Acute on chronic left ventricular systolic heart failure. --Improving gradually --On Lasix IV, sodium closely monitored CKD (chronic kidney disease), stage IV: CKD stage IV with baseline creatinine fluctuating between 2.3 - 3.0. Creatinine today = 2.4 Monitor Hyponatremia: Serum Na 122 in clinic, now 129 Chronic hyponatremia, but worse than baseline. 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 Rate controlled, continue metoprolol Hypertension: Stable Continue metoprolol. COPD (chronic obstructive pulmonary disease): Oxygen dependent COPD. Dyspnea improving Continue O2 and bronchodilators. Chronic respiratory failure with hypoxia: Secondary to COPD. Continue supplemental O2. Anemia: Chronic anemia of CKD. Baseline Hgb 8 - 9. Has had recent Fe studies, B12, folate. Hgb 8.5. Alcohol use: Patient drinks about 5 alcoholic beverages per day and is not interested in quitting. gabapentin protocol, Ativan as needed No signs of overt alcohol withdrawal DVT prophylaxis: Subcutaneous heparin. Ambulate. Discharge planning issues: Anticipated discharge to home. Family Medicine follow-up with Dr. Good. Nephrology follow-up with Dr. Camargo. Admission and Anticipated Discharge Date Admission Date: December 09, 2019 Subjective Follow-up for CHF exacerbation, CKD, other problems noted below Seen resting in bed, comfortable, not in distress States breathing is gradually improving, no chest pain shortness of breath Denies anxiety, tremors, hallucination No other symptoms Review of Systems Review of Systems: All systems reviewed & are unremarkable except as noted in HPI & below Physical Exam Physical Exam: General- oriented x 3, not in distress, speaks in sentences with no effort or accessory muscle use Eyes- anicteric Neck- no JVD Lungs-rales noted at the bases bilaterally, no wheeze Heart- normal rate, regular rhythm; no murmurs Abdomen- normal bowel sounds, nondistended, soft, nontender Extremities- no pretibial edema, no calf tenderness Neuro- alert, oriented x 3; no gross focal neurologic deficits Skin- warm & dry Results & Data ([facility]) Vital Signs (Past 12 Hours) Vital Signs Temp Pulse Resp BP Pulse Ox 12/11/19 13:22 110 H 18 96 12/11/19 11:25 36.6 C 59 L 22 126/72 90 12/11/19 07:41 36.4 C L 88 20 125/90 98 12/11/19 07:03 16 91 12/11/19 04:32 36.4 C L 76 18 116/71 100 Laboratory Results All noted and reviewed
--- NOTE | 2019-12-11 18:22 | Nephrology Progress Note ---
Date of Service December 11, 2019 Assessment & Plan (1) Hyponatremia: went from presenting sNa 122 on 12/09 at 1600 (present since at least 12/08 w/ sNa 122 at that time as well), improved to 129 today. goal sNa for tomorrow am is 134; would want him to maintain sNa >130 for 24 hrs w/o IV meds befor ed/c. hypervolemic (presume hypotonic) hyponatremia in setting of acute HF. -gave lasix 20 mg IV x 1 -hold further lasix until results post but likely to need more frequent lower doses -trial of more liberal FR 1.8 L; added <2 gm daily Na diet (2) Acute exacerbation of CHF (congestive heart failure): follow voluem status as above -needs strict I/O (3) Hypokalemia: improving on 20 mEq AM dose (4) Acute on chronic renal failure: baseline creatinine 1.8-2.0, though in reality quite labile baseline. JAXON on ckd 3; nonoliguric and favor ischemic ATN from HF. presenting creatiine 2.4; to 2.5 today -bmp as above -careful lasix as above -no indication for dialysis discussion at this time -no indication for renal imaging at this time -f/u pending urine cx >> polymicrobial (5) Anemia: (6) Urinary retention: intermittent issue for him; has been advised to do chronic intermittent caths in past and not reliable w/ this; incontinence also an issue -check PVR q shift x 2 shifts -strict I/O Admission and Anticipated Discharge Date Admission Date: December 09, 2019 Subjective seen on rounds this am; not sob more than baseline; no edema, no n/v; + ongoing tremors; c/o dry mouth and thirst Review of Systems Review of Systems: All systems reviewed & are unremarkable except as noted in HPI & below Physical Exam Constitutional: well developed, well nourished and cooperative; no acute distress Eyes: EOM intact bilaterally ENMT: Ears: no external ear abnormality Nose: no external nose abnormality Mouth: + dry oral mucous membranes Neck: no nuchal rigidity Respiratory: normal respiratory effort and + paradoxical thoraco-abdominal movement Auscultation: + diminished lung sounds (coarse), + crackles (scattered fine post bases) and + rhonchi; no wheezes Cardiovascular: Rate/Rhythm: regular rate and regular rhythm Extremities: no edema Gastrointestinal (Abdomen): Inspection/Auscultation: normal bowel sounds Percussion/Palpation: abdomen soft; abdomen nontender Musculoskeletal: Extremities: strength 5/5 throughout Skin: no rashes, warm and dry + ecchymosis (scattered) Neurologic: + tremors Psychiatric: A+Ox3, euthymic affect Speech: normal rate/rhythm/volume of speech Results & Data ([facility]) Vital Signs (Past 12 Hours) Vital Signs Temp Pulse Resp BP Pulse Ox 12/11/19 16:00 36.4 C L 104 H 18 103/66 90 12/11/19 13:22 110 H 18 96 12/11/19 11:25 36.6 C 59 L 22 126/72 90 12/11/19 07:41 36.4 C L 88 20 125/90 98 12/11/19 07:03 16 91 Laboratory Results 12/09/19 12:25 12/11/19 05:30 (1) Acute on chronic renal failure Acute renal failure type: unspecified Chronic kidney disease stage: stage 4 (severe) Qualified Code(s): N17.9 - Acute kidney failure, unspecified; N18.4 - Chronic kidney disease, stage 4 (severe) (2) Anemia Anemia type: unspecified type Qualified Code(s): D64.9 - Anemia, unspecified
[2019-12-11] MEDS: LORazepam 0.5 MG/1 ML VIAL IV PRN (20:27)
[2019-12-11] MEDS: MULTIVITAMIN TAB PO SCH (20:31)
[2019-12-12] MEDS: LEVALBUTEROL 1.25MG/0.5ML NEB INH SCH ×4 (01:02→20:43)
[2019-12-12] MEDS: IPRATROPIUM BROMIDE NEB SOLN 0.02% 2.5 ML VIAL INH SCH ×4 (01:02→20:44)
[2019-12-12] MEDS ORDERED: GABAPENTIN 600 MG TAB PO SCH (06:00)
[2019-12-12 06:50] LABS: BUN Creatinine Ratio 20.4 (10-20); Calcium 8.9 mg/dl (8.5-10.1); Creatinine Clr Calc Pharmacy 22.2 ml/min; Est GFR (Non-African American) 20.7; Potassium 4.1 mmol/L (3.5-5.1)
[2019-12-12] MEDS: HEPARIN 100 UNIT/ML 5ML FLUSH FLUSH PRN ×2 (07:47→17:31)
[2019-12-12] MEDS: FOLIC ACID 1 MG TAB PO SCH (07:48)
[2019-12-12] MEDS: HEPARIN SOD 5,000 UNIT/0.5 ML VIAL SQ SCH ×2 (07:48→21:25)
[2019-12-12] MEDS: FLUTICASONE/VILANTEROL 100/25MCG 14 PUFFS/INHALER INH SCH (07:48)
[2019-12-12] MEDS: guaiFENesin 600 MG TABCR PO SCH ×2 (07:49→21:25)
[2019-12-12] MEDS: METOPROLOL SUCC 25MG EXT REL TAB PO SCH ×2 (07:49→21:27)
[2019-12-12] MEDS: ACETAMINOPHEN 500 MG TAB PO SCH ×2 (07:49→21:25)
[2019-12-12] MEDS: MAGNESIUM OXIDE 400 MG TAB PO SCH (07:49)
[2019-12-12] MEDS: NICOTINE 14 MG/24 HR PATCH TD SCH (07:49)
[2019-12-12] MEDS: POTASSIUM CHLORIDE 20 MEQ TABCR PO SCH (07:49)
[2019-12-12] MEDS: THIAMINE HCL 100 MG TAB PO SCH (07:49)
[2019-12-12] MEDS: UMECLIDINIUM BROMIDE 62.5MCG/BLISTER 7 PUFFS/INHALER INH SCH (07:49)
[2019-12-12] MEDS ORDERED: FUROSEMIDE 40 MG TAB PO SCH (09:00)
[2019-12-12] MEDS ORDERED: FUROSEMIDE 20 MG TAB PO SCH (13:00)
--- NOTE | 2019-12-12 16:24 | Nephrology Progress Note ---
Date of Service December 12, 2019 Assessment & Plan (1) Hyponatremia: went from presenting sNa 122 on 12/09 at 1600 (present since at least 12/08 w/ sNa 122 at that time as well), improved to 130 today. goal sNa for tomorrow am is 134; would want him to maintain sNa >130 for 24 hrs on po meds with otherwise acceptable renal parameters before d/c. hypervolemic (presume hypotonic) hyponatremia in setting of acute HF. -given worsening volume parameters will stay on IV lasix 20 mg bid17 (had previously put him on po but now will go back to IV) -trial of more liberal FR 1.8 L; added <2 gm daily Na diet (2) Acute exacerbation of CHF (congestive heart failure): follow volume status as above; first standing weight this admission was 80.6 kg on December 10; next standing weight is this morning at 83.7 kg >> wrong direction -needs strict I/O -Continue daily standing weight (3) Hypokalemia: Acceptable on 20 mEq AM dose (4) Acute on chronic renal failure: Worsening. baseline creatinine 1.8-2.0, though in reality quite labile baseline. JAXON on ckd 3; baseline renal function as recently as mid October is 1.5-1.9. nonoliguric and favor ischemic ATN from HF. presenting creatinine 2.4; to 2.8 today -bmp as above -careful lasix as above -no indication for dialysis discussion at this time -Given worsening clinical status and history of retention, will attain renal ultrasound -f/u pending urine cx >> polymicrobial (5) Anemia: (6) Urinary retention: intermittent issue for him; has been advised to do chronic intermittent caths in past and not reliable w/ this; incontinence also an issue -continue to check PVR q shift x 2 shifts -strict I/O Admission and Anticipated Discharge Date Admission Date: December 09, 2019 Subjective Seen on rounds at approximately 1410 today. Patient's at bedside. States he feels proved. Slept well. Denies edema. Feels his breathing is at baseline. No nausea or vomiting. No confusion. Denies voiding concerns including urinary retention; ongoing thirst and dry mouth and again requests liberalization of fluid limit Review of Systems Review of Systems: All systems reviewed & are unremarkable except as noted in HPI & below Physical Exam Constitutional: well developed, well nourished and cooperative; no acute distress Sitting in bed on 2.5 L nasal cannula Eyes: EOM intact bilaterally ENMT: Ears: no external ear abnormality Nose: no external nose abnormality Mouth: + dry oral mucous membranes Neck: no nuchal rigidity Respiratory: normal respiratory effort, + prolonged expiratory phase and + paradoxical thoraco-abdominal movement Auscultation: + diminished lung sounds (coarse), + crackles (scattered fine post bases), + rhonchi and + wheezes (Scattered expiratory) Cardiovascular: Rate/Rhythm: regular rate and regular rhythm Extremities: no edema Gastrointestinal (Abdomen): Inspection/Auscultation: normal bowel sounds Percussion/Palpation: abdomen soft; abdomen nontender Musculoskeletal: Extremities: strength 5/5 throughout Skin: no rashes, warm and dry + ecchymosis (scattered) Neurologic: Still with mild but less tremor; moves all extremities, fluent speech Psychiatric: A+Ox3, euthymic affect Speech: normal rate/rhythm/volume of speech Results & Data ([facility]) Vital Signs (Past 12 Hours) Vital Signs Temp Pulse Pulse Resp BP BP Pulse Ox 12/12/19 15:54 36.3 C L 62 20 109/71 94 12/12/19 14:58 88 12/12/19 13:32 76 18 95 12/12/19 12:15 36.4 C L 78 18 91/58 L 100 12/12/19 08:05 36.7 C 90 20 111/64 94 12/12/19 08:00 86 12/12/19 07:45 87 18 90 Laboratory Results 12/09/19 12:25 12/12/19 05:35 (1) Acute on chronic renal failure Acute renal failure type: unspecified Chronic kidney disease stage: stage 4 (severe) Qualified Code(s): N17.9 - Acute kidney failure, unspecified; N18.4 - Chronic kidney disease, stage 4 (severe) (2) Anemia Anemia type: unspecified type Qualified Code(s): D64.9 - Anemia, unspecified
[2019-12-12] MEDS: FUROSEMIDE 20 MG in SYRINGE 0 ML IV SCH (17:31)
--- NOTE | 2019-12-12 18:48 | Hospitalist Progress Note ---
Date of Service December 12, 2019 Assessment & Plan (1) Acute exacerbation of CHF (congestive heart failure): Acute exacerbation of CHF (congestive heart failure): Acute on chronic left ventricular systolic heart failure. Per admitting service notes: Chronic left ventricular systolic heart failure. LVEF by echo on 11/05/2019 was 45-50%. Chest x-ray shows cardiomegaly and CHF. --Improving gradually --Creatinine increased to 2.8 Lasix 20 mg IV every 12 ordered Continue to monitor closely CKD (chronic kidney disease), stage IV: CKD stage IV with baseline creatinine fluctuating between 2.3 - 3.0. Creatinine today = 2.8 Monitor Hyponatremia: Serum Na 122 in clinic, now 130 Chronic hyponatremia, but worse than baseline. --Cautiously being given Lasix Robotics Testing Technician on board, appreciate recommendations Resume 1500 ml fluid restriction, need counseling regarding adherence Atrial fibrillation: History of paroxysmal atrial fibrillation/flutter. Rate controlled, continue metoprolol Hypertension: Stable Continue metoprolol. COPD (chronic obstructive pulmonary disease): Oxygen dependent COPD. Dyspnea improving Continue O2 and bronchodilators. Chronic respiratory failure with hypoxia: Secondary to COPD. Continue supplemental O2. Anemia: Chronic anemia of CKD. Baseline Hgb 8 - 9. Has had recent Fe studies, B12, folate. Hgb 8.5. Alcohol use: Patient drinks about 5 alcoholic beverages per day and is not interested in quitting. gabapentin protocol, Ativan as needed No signs of overt alcohol withdrawal DVT prophylaxis: Subcutaneous heparin. Ambulate. Discharge planning issues: Anticipated discharge to home. Family Medicine follow-up with Dr. Good. Nephrology follow-up with Dr. Camargo. Admission and Anticipated Discharge Date Admission Date: December 09, 2019 Subjective Follow-up for CHF exacerbation, CKD, hyponatremia Seen resting in bed, sitting up, having dinner Is comfortable on 2 L of nasal cannula States breathing is about the same as yesterday No cough, sputum Denies chest pain, palpitations, dizziness No problems with urination No others Review of Systems Review of Systems: All systems reviewed & are unremarkable except as noted in HPI & below Physical Exam Physical Exam: General- oriented x 3, not in distress, speaks in sentences with no effort or accessory muscle use Eyes- anicteric Neck- no JVD Lungs-mild rales at the bases, no wheezing, good air entry bilaterally Heart- normal rate, irregularly irregular rhythm; no murmurs Abdomen- normal bowel sounds, nondistended, soft, nontender Extremities- no pretibial edema, no calf tenderness Neuro- alert, oriented x 3; no gross focal neurologic deficits Skin- warm & dry Results & Data ([facility]) Vital Signs (Past 12 Hours) Vital Signs Temp Pulse Pulse Resp BP BP Pulse Ox 12/12/19 15:54 36.3 C L 62 20 109/71 94 12/12/19 14:58 88 12/12/19 13:32 76 18 95 12/12/19 12:15 36.4 C L 78 18 91/58 L 100 12/12/19 08:05 36.7 C 90 20 111/64 94 12/12/19 08:00 86 12/12/19 07:45 87 18 90 Laboratory Results Laboratory Results - last 24 hr 12/12/19 05:35 Sodium 130 L Potassium 4.1 Chloride 97 L Carbon Dioxide 26 Anion Gap 7.0 BUN 58 H Creatinine 2.83 H D Est Cr Clr Drug Dosing 22.2 Est GFR ( Amer) 24.0 Est GFR (Non-Af Amer) 20.7 BUN/Creatinine Ratio 20.4 H Glucose 79 Calcium 8.9
--- NOTE | 2019-12-12 20:07 | Ultrasound Report ---
RENAL ULTRASOUND HISTORY: Acute on chronic kidney failure history of urinary retention, worsening renal function and v olume overload COMPARISON: Abdomen and pelvis CT 06/27/2019. FINDINGS: Right kidney: 10.7 cm. No hydronephrosis. Mild cortical lobulation with slight increased cortical ech ogenicity. Left kidney: 9.2 cm. No hydronephrosis. A 1 cm upper pole cyst. Mild cortical lobulation with slight increased cortical echogenicity. Bladder: Mild bladder wall thickening. The bilateral ureteral jets were identified. IMPRESSION: 1. No hydronephrosis. 2. Mild bilateral cortical renal lobulation with slight increased cortical echogenicity. This suggest s chronic medical renal disease. 3. Mild bladder wall thickening. This could be chronic or due to a cystitis. Recommend correlation wi th urinalysis. ACT 112: Negative or not required by law. Electronically signed by: Parvez Guzman M.D. 12/12/2019 8:06 PM
[2019-12-12] MEDS: MULTIVITAMIN TAB PO SCH (21:25)
[2019-12-13] MEDS: IPRATROPIUM BROMIDE NEB SOLN 0.02% 2.5 ML VIAL INH SCH ×4 (01:04→20:35)
[2019-12-13] MEDS: LEVALBUTEROL 1.25MG/0.5ML NEB INH SCH ×4 (01:04→20:40)
[2019-12-13] MEDS: HEPARIN 100 UNIT/ML 5ML FLUSH FLUSH PRN (05:19)
[2019-12-13] MEDS ORDERED: GABAPENTIN 400 MG CAP PO SCH (06:00)
[2019-12-13 06:34] LABS: BUN Creatinine Ratio 22.9 (10-20); Calcium 9.2 mg/dl (8.5-10.1); Creatinine Clr Calc Pharmacy 22.8 ml/min; Est GFR (African American) 24.7; Est GFR (Non-African American) 21.3; Potassium 3.8 mmol/L (3.5-5.1)
[2019-12-13 06:42] LABS: Hematocrit (blood only) 24.1 % (42-52); Hemoglobin 7.8 g/dL (14.0-18.0); Mean Corpuscular Hemoglobin 30.8 pg (25-34); Mean Corpuscular Hgb Conc 32.4 g/dL (32-36); Mean Corpuscular Volume 95.3 fL (80-100); Mean Platelet Volume 9.4 fL (7.4-10.4); Platelet Count 345 K/uL (130-400); RDW Coefficient of Variation 16.3 % (11.5-14.5); RDW Standard Deviation 56.6 fL (36.4-46.3); Red Blood Count 2.53 M/uL (4.7-6.1); White Blood Count 7.39 K/uL (4.8-10.8)
[2019-12-13] MEDS: FUROSEMIDE 20 MG in SYRINGE 0 ML IV SCH ×2 (08:56→16:49)
[2019-12-13] MEDS: ACETAMINOPHEN 500 MG TAB PO SCH ×2 (08:56→20:32)
[2019-12-13] MEDS: METOPROLOL SUCC 25MG EXT REL TAB PO SCH ×2 (08:56→20:31)
[2019-12-13] MEDS: guaiFENesin 600 MG TABCR PO SCH ×2 (08:57→20:32)
[2019-12-13] MEDS: THIAMINE HCL 100 MG TAB PO SCH (08:57)
[2019-12-13] MEDS: FOLIC ACID 1 MG TAB PO SCH (08:57)
[2019-12-13] MEDS: POTASSIUM CHLORIDE 20 MEQ TABCR PO SCH (08:57)
[2019-12-13] MEDS: MAGNESIUM OXIDE 400 MG TAB PO SCH (08:57)
[2019-12-13] MEDS: HEPARIN SOD 5,000 UNIT/0.5 ML VIAL SQ SCH ×2 (08:57→20:33)
[2019-12-13] MEDS: FLUTICASONE/VILANTEROL 100/25MCG 14 PUFFS/INHALER INH SCH (08:58)
[2019-12-13] MEDS: UMECLIDINIUM BROMIDE 62.5MCG/BLISTER 7 PUFFS/INHALER INH SCH (08:58)
[2019-12-13] MEDS: NICOTINE 14 MG/24 HR PATCH TD SCH (08:58)
[2019-12-13] MEDS: MULTIVITAMIN TAB PO SCH (20:30)
--- NOTE | 2019-12-13 20:47 | Hospitalist Progress Note ---
Date of Service delayed entry date of service below December 13, 2019 Assessment & Plan (1) Acute exacerbation of CHF (congestive heart failure): Acute exacerbation of CHF (congestive heart failure): Acute on chronic left ventricular systolic heart failure. Per admitting service notes: Chronic left ventricular systolic heart failure. LVEF by echo on 11/05/2019 was 45-50%. Chest x-ray shows cardiomegaly and CHF. --Improving gradually --Creatinine increased to 2.7 Lasix 20 mg IV every 12 ordered Continue to monitor closely CKD (chronic kidney disease), stage IV: CKD stage IV with baseline creatinine fluctuating between 2.3 - 3.0. Creatinine today = 2.7 Monitor Hyponatremia: Serum Na 122 in clinic, now 130 Chronic hyponatremia, but worse than baseline. --Cautiously being given Lasix Mortar Carrier on board, appreciate recommendations Resume 1500 ml fluid restriction, need counseling regarding adherence Atrial fibrillation: History of paroxysmal atrial fibrillation/flutter. Rate controlled, continue metoprolol Hypertension: Stable Continue metoprolol. COPD (chronic obstructive pulmonary disease): Oxygen dependent COPD. Dyspnea improving Continue O2 and bronchodilators. Chronic respiratory failure with hypoxia: Secondary to COPD. Continue supplemental O2. Anemia: Chronic anemia of CKD. Baseline Hgb 8 - 9. Has had recent Fe studies, B12, folate. Hgb 8.5. Alcohol use: Patient drinks about 5 alcoholic beverages per day and is not interested in quitting. gabapentin protocol, Ativan as needed No signs of overt alcohol withdrawal DVT prophylaxis: Subcutaneous heparin. Ambulate. Discharge planning issues: Anticipated discharge to home. Family Medicine follow-up with Dr. Good. Nephrology follow-up with Dr. Camargo. Admission and Anticipated Discharge Date Admission Date: December 09, 2019 Subjective ff up for CHF seen resting in bed, comfortable states breathing is improving had urinary incontinence overnight denies other symptoms Review of Systems Review of Systems: All systems reviewed & are unremarkable except as noted in HPI & below Physical Exam Physical Exam: General- oriented x 3, not in distress, speaks in sentences with no effort or accessory muscle use Eyes- anicteric Neck- no JVD Lungs- mild rales at the bases, no wheezing Heart- normal rate, irregularly irregular rhythm; no murmurs Abdomen- normal bowel sounds, nondistended, soft, nontender Extremities- no pretibial edema, no calf tenderness Neuro- alert, oriented x 3; no gross focal neurologic deficits Skin- warm & dry Results & Data ([facility]) Vital Signs (Past 12 Hours) Vital Signs Temp Pulse Pulse Resp BP BP Pulse Ox 12/13/19 20:41 78 20 93 12/13/19 19:26 36.2 C L 95 H 20 120/61 95 12/13/19 16:00 83 12/13/19 15:13 36.4 C L 75 20 118/67 95 12/13/19 13:31 83 18 99 12/13/19 12:24 36.6 C 85 20 102/57 L 95
[2019-12-14] MEDS: IPRATROPIUM BROMIDE NEB SOLN 0.02% 2.5 ML VIAL INH SCH ×4 (00:20→19:13)
[2019-12-14] MEDS: LEVALBUTEROL 1.25MG/0.5ML NEB INH SCH ×4 (00:21→19:13)
[2019-12-14] MEDS ORDERED: GABAPENTIN 100 MG CAP PO SCH (06:00)
[2019-12-14] MEDS: POTASSIUM CHLORIDE 20 MEQ TABCR PO SCH (08:39)
[2019-12-14] MEDS: HEPARIN SOD 5,000 UNIT/0.5 ML VIAL SQ SCH ×2 (08:39→21:10)
[2019-12-14] MEDS: MAGNESIUM OXIDE 400 MG TAB PO SCH (08:39)
[2019-12-14] MEDS: FLUTICASONE/VILANTEROL 100/25MCG 14 PUFFS/INHALER INH SCH (08:39)
[2019-12-14] MEDS: THIAMINE HCL 100 MG TAB PO SCH (08:39)
[2019-12-14] MEDS: FOLIC ACID 1 MG TAB PO SCH (08:39)
[2019-12-14] MEDS: FUROSEMIDE 20 MG in SYRINGE 0 ML IV SCH (08:39)
[2019-12-14] MEDS: METOPROLOL SUCC 25MG EXT REL TAB PO SCH ×2 (08:40→21:10)
[2019-12-14] MEDS: NICOTINE 14 MG/24 HR PATCH TD SCH (08:40)
[2019-12-14] MEDS: ACETAMINOPHEN 500 MG TAB PO SCH ×2 (08:40→17:56)
[2019-12-14] MEDS: UMECLIDINIUM BROMIDE 62.5MCG/BLISTER 7 PUFFS/INHALER INH SCH (08:40)
[2019-12-14] MEDS: guaiFENesin 600 MG TABCR PO SCH ×2 (08:41→21:10)
[2019-12-14] MEDS: HEPARIN 100 UNIT/ML 5ML FLUSH FLUSH PRN (08:46)
[2019-12-14 09:05] LABS: BUN Creatinine Ratio 25.2 (10-20); Calcium 9.8 mg/dl (8.5-10.1); Creatinine Clr Calc Pharmacy 24.5 ml/min; Est GFR (African American) 26.9; Est GFR (Non-African American) 23.3; Potassium 4.1 mmol/L (3.5-5.1)
--- NOTE | 2019-12-14 10:00 | Progress Notes ---
DATE: 12/14/2019 SUBJECTIVE: No new issues overnight. The patient does not have any shortness of breath. He is urinating fairly well without any catheterization. Blood work has been fairly stable now for 2 days. OBJECTIVE: VITAL SIGNS: Blood pressure 91/59, pulse rate 96, temperature 36.3, 95% on 2 liter nasal cannula. HEENT: Mucous membranes moist. NECK: Supple. No jugular venous distention. CHEST: Bilateral decreased breath sounds, but no major rhonchi heard. ABDOMEN: Soft, nontender. CARDIOVASCULAR: Regular rate and rhythm, no edema. EXTREMITIES: Shows no edema. NEUROLOGIC: Awake, alert, oriented x3. LABORATORY TESTS: From this morning reviewed and shows sodium of 130, potassium 4.1, chloride 95, creatinine 2.57. ASSESSMENT AND PLAN: 1. Hyponatremia, presumed to be hypervolemic hyponatremia with aggressive fluid restriction and IV Lasix. Sodium has remained stable at around 130 for the last 3-4 days. At this point, I think he is stable. However, he has to be on a fluid restriction very faithfully even at home, which is usually a bigger problem. At this point, I would stop the IV Lasix and change to oral Lasix 40 twice daily. 2. Acute on chronic renal failure. He would need a newer baseline than in the past. Creatinine has been fairly stable now for the last few days and this might very well be his new baseline. MTDD
[2019-12-14] MEDS: FUROSEMIDE 40 MG TAB PO SCH (16:14)
--- NOTE | 2019-12-14 17:51 | Hospitalist Progress Note ---
Date of Service December 14, 2019 Assessment & Plan (1) Acute exacerbation of CHF (congestive heart failure): Acute exacerbation of CHF (congestive heart failure): Acute on chronic left ventricular systolic heart failure. Per admitting service notes: Chronic left ventricular systolic heart failure. LVEF by echo on 11/05/2019 was 45-50%. Chest x-ray shows cardiomegaly and CHF. --Improving gradually --Creatinine 2.5 transitioned to Lasix 40mg po daily CKD (chronic kidney disease), stage IV: CKD stage IV with baseline creatinine fluctuating between 2.3 - 3.0. Creatinine today = 2.5 Monitor Hyponatremia: Serum Na 122 in clinic, now 130 Chronic hyponatremia, but worse than baseline. --Cautiously being given Lasix Pre Sales Architect on board, appreciate recommendations Resume 1500 ml fluid restriction, need counseling regarding adherence Atrial fibrillation: History of paroxysmal atrial fibrillation/flutter. Rate controlled, continue metoprolol Hypertension: Stable Continue metoprolol. COPD (chronic obstructive pulmonary disease): Oxygen dependent COPD. Dyspnea improving Continue O2 and bronchodilators. Chronic respiratory failure with hypoxia: Secondary to COPD. Continue supplemental O2. Anemia: Chronic anemia of CKD. Baseline Hgb 8 - 9. Has had recent Fe studies, B12, folate. Hgb 8.5. Alcohol use: Patient drinks about 5 alcoholic beverages per day and is not interested in quitting. gabapentin protocol, Ativan as needed No signs of overt alcohol withdrawal DVT prophylaxis: Subcutaneous heparin. Ambulate. Discharge planning issues: Anticipated discharge to home. Family Medicine follow-up with Dr. Good. Nephrology follow-up with Dr. Camargo. Admission and Anticipated Discharge Date Admission Date: December 09, 2019 Subjective ff up for CHF seen resting in bed, comfortable, in good spirits states he feels improved less dyspnea, no cough no chest pain no tremors, anxiety no other symptoms Review of Systems Review of Systems: All systems reviewed & are unremarkable except as noted in HPI & below Physical Exam Physical Exam: General- oriented x 3, not in distress, speaks in sentences with no effort or accessory muscle use Eyes- anicteric Neck- no JVD Lungs- mild rales BL bases no wheezing Heart- normal rate, regular rhythm; no murmurs Abdomen- normal bowel sounds, nondistended, soft, nontender Extremities- no pretibial edema, no calf tenderness Neuro- alert, oriented x 3; no gross focal neurologic deficits Skin- warm & dry Results & Data ([facility]) Vital Signs (Past 12 Hours) Vital Signs Temp Pulse Resp BP BP Pulse Ox 12/14/19 15:43 110/61 12/14/19 15:08 36.9 C 87 20 93/55 L 94 12/14/19 13:42 91 H 18 96 12/14/19 12:40 36.7 C 85 20 89/50 L 91 12/14/19 07:48 36.3 C L 96 H 20 91/59 L 95 12/14/19 07:33 19 96 Laboratory Results Laboratory Results - last 24 hr 12/14/19 08:34 Sodium 130 L Potassium 4.1 Chloride 95 L Carbon Dioxide 28 Anion Gap 7.0 BUN 65 H Creatinine 2.57 H Est Cr Clr Drug Dosing 24.5 Est GFR ( Amer) 26.9 Est GFR (Non-Af Amer) 23.3 BUN/Creatinine Ratio 25.2 H Glucose 95 Calcium 9.8
[2019-12-14] MEDS: MULTIVITAMIN TAB PO SCH (21:10)
[2019-12-15] MEDS: IPRATROPIUM BROMIDE NEB SOLN 0.02% 2.5 ML VIAL INH SCH ×3 (00:47→13:53)
[2019-12-15] MEDS: LEVALBUTEROL 1.25MG/0.5ML NEB INH SCH ×3 (00:47→13:52)
[2019-12-15] MEDS: HEPARIN 100 UNIT/ML 5ML FLUSH FLUSH PRN ×2 (05:45→15:08)
[2019-12-15 06:32] LABS: BUN Creatinine Ratio 23.7 (10-20); Calcium 9.4 mg/dl (8.5-10.1); Creatinine Clr Calc Pharmacy 22.4 ml/min; Est GFR (African American) 24.3; Potassium 3.9 mmol/L (3.5-5.1)
[2019-12-15] MEDS: guaiFENesin 600 MG TABCR PO SCH (07:30)
[2019-12-15] MEDS: UMECLIDINIUM BROMIDE 62.5MCG/BLISTER 7 PUFFS/INHALER INH SCH (07:30)
[2019-12-15] MEDS: FLUTICASONE/VILANTEROL 100/25MCG 14 PUFFS/INHALER INH SCH (07:30)
[2019-12-15 07:31] LABS: Hematocrit (blood only) 24.5 % (42-52); Hemoglobin 7.9 g/dL (14.0-18.0); Mean Corpuscular Hgb Conc 32.2 g/dL (32-36); Mean Corpuscular Volume 96.1 fL (80-100); Mean Platelet Volume 9.3 fL (7.4-10.4); Platelet Count 361 K/uL (130-400); RDW Coefficient of Variation 16.2 % (11.5-14.5); RDW Standard Deviation 57.1 fL (36.4-46.3); Red Blood Count 2.55 M/uL (4.7-6.1); White Blood Count 7.83 K/uL (4.8-10.8)
[2019-12-15] MEDS: ACETAMINOPHEN 500 MG TAB PO SCH (07:31)
[2019-12-15] MEDS: POTASSIUM CHLORIDE 20 MEQ TABCR PO SCH (07:31)
[2019-12-15] MEDS: THIAMINE HCL 100 MG TAB PO SCH (07:31)
[2019-12-15] MEDS: FOLIC ACID 1 MG TAB PO SCH (07:31)
[2019-12-15] MEDS: NICOTINE 14 MG/24 HR PATCH TD SCH (07:31)
[2019-12-15] MEDS: MAGNESIUM OXIDE 400 MG TAB PO SCH (07:31)
[2019-12-15 07:32] LABS: Basophils # (auto) 0.02 K/uL (0-0.2); Basophils % (auto) 0.3 %; Eosinophils # (auto) 0.22 K/uL (0-0.5); Eosinophils % (auto) 2.8 %; Giant Platelets 1+; Immature Granulocytes # (auto) 0.05 K/uL (0.00-0.02); Immature Granulocytes % (auto) 0.6 %; Lymphocytes # (auto) 1.62 K/uL (1.2-3.4); Lymphocytes % (auto) 20.7 %; Monocytes # (auto) 0.85 K/uL (0.11-0.59); Monocytes % (auto) 10.9 %; Neutrophils # (auto) 5.07 K/uL (1.4-6.5); Neutrophils % (auto) 64.7 %; Stomatocytes 1+
[2019-12-15] MEDS: FUROSEMIDE 40 MG TAB PO SCH (07:32)
[2019-12-15] MEDS: HEPARIN SOD 5,000 UNIT/0.5 ML VIAL SQ SCH (07:32)
[2019-12-15] MEDS: METOPROLOL SUCC 25MG EXT REL TAB PO SCH (07:32)
--- NOTE | 2019-12-15 12:52 | Nephrology Progress Note ---
Date of Service December 15, 2019 Assessment & Plan (1) Hyponatremia: went from presenting sNa 122 on 12/09 at 1600 (present since at least 12/08 w/ sNa 122 at that time as well), improved to 131 today. hypervolemic hyponatremia in setting of acute HF. -continue p.o. Lasix twice daily. Patient can be discharged on 40 mg twice daily -FR 1.5 L; added <2 gm daily Na diet (2) Acute exacerbation of CHF (congestive heart failure): follow volume status as above; first standing weight this admission was 80.6 kg on December 10; next standing weight is this morning at 83.7 kg >> wrong direction -needs strict I/O -Continue daily standing weight (3) Hypokalemia: Acceptable on 20 mEq AM dose (4) Acute on chronic renal failure: Worsening. baseline creatinine 1.8-2.0, though in reality quite labile baseline. JAXON on ckd 3; baseline renal function as recently as mid October is 1.5-1.9. nonoliguric and favor ischemic ATN from HF. presenting creatinine 2.4; to 2.8 today -bmp as above -careful lasix as above -no indication for dialysis discussion at this time (5) Anemia: (6) Urinary retention: intermittent issue for him; has been advised to do chronic intermittent caths in past and not reliable w/ this; incontinence also an issue -continue to check PVR prn -strict I/O Admission and Anticipated Discharge Date Admission Date: December 09, 2019 Subjective Patient feels better today denies any shortness of breath. He is eager to be discharged home. No leg swelling. No vomiting or diarrhea. Review of Systems Review of Systems: All systems reviewed & are unremarkable except as noted in HPI & below Physical Exam Physical Exam: General exam: Appears comfortable, no acute distress HEENT: Pupils are equal and reactive to light Neck: No JVD, neck is supple trachea is midline Respiratory system: Clear breath sounds bilaterally. Gastrointestinal: Abdomen is soft, non distended, non tender, bowel sounds are present CVS: Regular rate and rhythm. No murmurs, rubs or gallops Musculoskeletal: No joint or muscle tenderness Extremities: Non tender, no edema, peripheral pulses are present Neuro: Oriented, no tremors, no focal neurological deficits Skin: No rashes Results & Data ([facility]) Vital Signs (Past 12 Hours) Vital Signs Temp Pulse Resp BP Pulse Ox 12/15/19 11:34 36.4 C L 92 H 18 118/77 97 12/15/19 07:19 83 18 92 12/15/19 06:30 36.4 C L 77 20 98/57 L 97 12/15/19 03:47 36.4 C L 93 H 20 122/64 90 Laboratory Results 12/15/19 05:47 12/15/19 05:47 WBC 7.83 RBC 2.55 L MCV 96.1 MCH 31.0 MCHC 32.2 RDW Std Deviation 57.1 H RDW Coeff of Jude 16.2 H Plt Count 361 MPV 9.3 (1) Acute on chronic renal failure Acute renal failure type: unspecified Chronic kidney disease stage: stage 4 (severe) Qualified Code(s): N17.9 - Acute kidney failure, unspecified; N18.4 - Chronic kidney disease, stage 4 (severe) (2) Anemia Anemia type: unspecified type Qualified Code(s): D64.9 - Anemia, unspecified
--- NOTE | 2019-12-15 14:58 | Hospitalist Progress Note ---
Date of Service delayed entry date of service noted below December 15, 2019 Assessment & Plan (1) Acute exacerbation of CHF (congestive heart failure): Acute exacerbation of CHF (congestive heart failure): Acute on chronic left ventricular systolic heart failure. Per admitting service notes: Chronic left ventricular systolic heart failure. LVEF by echo on 11/05/2019 was 45-50%. Chest x-ray shows cardiomegaly and CHF. -- lasix titrated gradually in light of hyponatremia and CKD --Creatinine remained within baseline -- patient diuresed adequately transitioned to Lasix 40mg po daily -- ff up with PCP and Steam Meter Reader CKD (chronic kidney disease), stage IV: CKD stage IV with baseline creatinine fluctuating between 2.3 - 3.0. Creatinine remained within baseline, 2.8 on discharge day monitor Hyponatremia: Serum Na 122 in clinic, now 131 Chronic hyponatremia, but worse than baseline. --Cautiously given Lasix Commercial Light Fixture Assembler consulted Resume 1500 ml fluid restriction, need counseling regarding adherence monitor as outpatient Atrial fibrillation: History of paroxysmal atrial fibrillation/flutter. Rate controlled, continue metoprolol Hypertension: Stable Continue metoprolol. COPD (chronic obstructive pulmonary disease): Oxygen dependent COPD. Dyspnea resolved Chronic respiratory failure with hypoxia: Secondary to COPD. Continue usual supplemental O2. Anemia: Chronic anemia of CKD. Baseline Hgb 8 - 9. Has had recent Fe studies, B12, folate. Hgb 8.5. monitor as outpatient Alcohol use: Patient drinks about 5 alcoholic beverages per day and is not interested in quitting. gabapentin protocol, Ativan as needed No signs of overt alcohol withdrawal DVT prophylaxis: Subcutaneous heparin. Ambulate. Discharge planning issues: Anticipated discharge to home. Family Medicine follow-up with Dr. Good. Nephrology follow-up with Dr. Camargo. Admission and Anticipated Discharge Date Admission Date: December 09, 2019 Subjective ff up for CHF seen resting in bed, comfortable, in good spirits states he feels much better overall denies shortness of breath no other symptoms states he is ready and would like to be discharged Review of Systems Review of Systems: All systems reviewed & are unremarkable except as noted in HPI & below Physical Exam Physical Exam: General- oriented x 3, not in distress, speaks in sentences with no effort or accessory muscle use Eyes- anicteric Neck- no JVD Lungs- clear breath sounds bilaterally, no crackles no wheezing Heart- normal rate, irregularly irregular rhythm; no murmurs Abdomen- normal bowel sounds, nondistended, soft, nontender Extremities- no pretibial edema, no calf tenderness Neuro- alert, oriented x 3; no gross focal neurologic deficits Skin- warm & dry Results & Data ([facility]) Vital Signs (Past 12 Hours) Vital Signs Temp Pulse Resp BP Pulse Ox 12/15/19 13:54 60 16 95 12/15/19 11:34 36.4 C L 92 H 18 118/77 97 12/15/19 07:19 83 18 92 12/15/19 06:30 36.4 C L 77 20 98/57 L 97 12/15/19 03:47 36.4 C L 93 H 20 122/64 90 Laboratory Results all noted and reviewed
--- NOTE | 2019-12-17 13:37 | Discharge Summary ---
Date of Service December 17, 2019 Admission HPI Per Admitting Provider 74-year-old male followed by Dr. Good for Family Medicine and Dr. Camargo for Nephrology. History of CHF, atrial fibrillation/flutter, chronic kidney disease, hyponatremia, and other problems as outlined below. Severe hyponatremia with a serum sodium 122 was noted on outpatient blood work and patient was referred to the ED for evaluation. Patient notes generalized weakness. No headaches or confusion. No seizures. No nausea, vomiting, diarrhea. Compliant with diuretic regimen. Admits that he has not been compliant with his 1500 mL fluid restriction. Admission Exam Per Admitting Provider Constitutional: WD/WN, vitals as above no acute distress Eyes: PERRL, conjunctivae normal, anicteric sclerae ENMT: external ear and nose normal, oropharynx normal Neck: trachea midline, no thyromegaly Respiratory: no respiratory distress Auscultation: + wheezes Cardiovascular: Rate/Rhythm: + irregularly irregular Heart Sounds: no gallop, no murmur and no cardiac rub Vessels: + JVD Extremities: normal capillary refill and + edema (1+); no calf tenderness Gastrointestinal (Abdomen): normal bowel sounds, soft, nontender, no hepatosplenomegaly Musculoskeletal: Head/Neck/Chest: neck supple Extremities: strength 5/5 throughout; no cyanosis and no clubbing Skin: no rashes, warm and dry ecchymoses Neurologic: PERRL, EOMI no facial palsy no dysarthria or aphasia Psychiatric: Orientation: alert and oriented x 3 Affect: euthymic affect Lymphatic: no cervical lymphadenopathy Principal Diagnosis ACUTE ON CHRONIC CHF EXACERBATION Discharge Exam General- oriented x 3, not in distress, speaks in sentences with no effort or accessory muscle use Eyes- anicteric Neck- no JVD Lungs- clear breath sounds bilaterally, no crackles no wheezing Heart- normal rate, irregularly irregular rhythm; no murmurs Abdomen- normal bowel sounds, nondistended, soft, nontender Extremities- no pretibial edema, no calf tenderness Neuro- alert, oriented x 3; no gross focal neurologic deficits Skin- warm & dry Discharge Data Allergies Allergy/AdvReac Type Severity Reaction Status Date / Time No Known Allergies Allergy Verified 12/09/19 12:48 Consultations 12/09/19 13:46 ED Decision to Admit Stat 12/09/19 18:09 Consult Nephrology Routine Ordered Studies 12/12/19 16:34 US renal/blad retro comp Routine Hospital Course (1) Acute exacerbation of CHF (congestive heart failure): Acute exacerbation of CHF (congestive heart failure): Acute on chronic left ventricular systolic heart failure. Per admitting service notes: Chronic left ventricular systolic heart failure. LVEF by echo on 11/05/2019 was 45-50%. Chest x-ray shows cardiomegaly and CHF. -- given IV lasix , titrated gradually in light of hyponatremia and CKD Director Systems consulted --Creatinine remained within baseline -- patient diuresed adequately transitioned to Lasix 40mg po daily -- ff up with PCP and World [employer] Counselor CKD (chronic kidney disease), stage IV: CKD stage IV with baseline creatinine fluctuating between 2.3 - 3.0. Creatinine remained within baseline, 2.8 on discharge day monitor Hyponatremia: Chronic hyponatremia, but worse than baseline. Serum Na 122 in clinic, 131 on discharge day --Cautiously given Lasix Director Systems consulted Resume 1500 ml fluid restriction, need counseling regarding adherence monitor as outpatient Atrial fibrillation: History of paroxysmal atrial fibrillation/flutter. Rate controlled, continue metoprolol Hypertension: Stable Continue metoprolol. COPD (chronic obstructive pulmonary disease): Oxygen dependent COPD. Dyspnea resolved Chronic respiratory failure with hypoxia: Secondary to COPD. Continue usual supplemental O2. Anemia: Chronic anemia of CKD. Baseline Hgb 8 - 9. Has had recent Fe studies, B12, folate. Hgb 8.5. monitor as outpatient Alcohol use: Patient drinks about 5 alcoholic beverages per day and is not interested in quitting. gabapentin protocol, Ativan as needed No signs of overt alcohol withdrawal DVT prophylaxis: Subcutaneous heparin. Ambulate. Discharge planning issues: discharge to home. Family Medicine follow-up with Dr. Good. Nephrology follow-up with Dr. Camargo. plan of care discussed with patient and his in detail all questions answered they are understanding, agreeable, comfortable with plan of care Total Time Total Time Spent Total Time Spent (In Minutes): > 30 minutes Discharge Plan Discharge Items Patient Disposition: Home - Home Health Services Reason For Visit: HYPONATREMIA Discharge Diagnosis: ACUTE ON CHRONIC CONGESTIVE HEART FAILURE EXACERBATION Activity: Resume your previous activity Activity Comment: Resume activity gradually as tolerated Lifting: Wait until after follow-up appointment Exercise/Sports: Wait until after follow-up appointment Driving/Machine Use: No driving until reevaluated and allowed by primary care physician Non-emergency contact: Primary Care Provider Call non-emergency contact if: you have any medication questions, your symptoms worsen and you have a fever Follow-up/Referrals: Nba Good MD [Primary Care Provider] - Diet: Heart Healthy and Low Potassium (2gm) Fluids: 1500ml (6 cups) Addtl Attending Provider Instructions: Increase your Lasix to 40 mg by mouth twice a day. Please follow fluid restriction 1.5 L/day, and low-salt diet, 2 g of sodium per day. Stop drinking alcohol, and smoking. Follow-up with Dr. Corrigan within 1 week. Call your Primary Care doctor if any of the following symptoms or problems start or get worse: Shortness of breath or difficulty breathing Wake up at night short of breath Chest pain Cough Swelling of your hands, feet, or legs More fatigued or tired with your normal activity Palpitations - sudden fast heart beats WEIGHT Weigh yourself every morning after using the bathroom. Use the same scale. Wear the same amount of clothing. Write your weight down on a chart. Call your Primary Care doctor if you gain more than 2-3 pounds in 1-2 days. MEDICATIONS Use this discharge instruction sheet for medication instructions. Take your medications at the time your doctor ordered. Do not skip a dose of your medicines. If you miss a dose of medicine, take it as soon as possible, but DO NOT DOUBLE A DOSE. Read your medicine information when you get home. Know all of the side effects of your medicine. If in doubt, ask your pharmacist Call your Primary Care doctor's office if you have any side effects. Be sure all of your doctors know what medicine and herbs you take (including cold, flu, and herbal medicine). Take the following with you to your follow-up doctor appointments: Weight Chart Medication List List of questions Who to Call and When: Call 911 or go to the Emergency Room if: If at any time you feel your situation is an emergency You have tightness or pain in your chest that does not go away with rest or Nitroglycerin You are very short of breath even with rest. Pending Studies at Discharge: Yes Studies:: Repeat blood work: basic metabolic profile on follow-up with primary care physician this week Stand-Alone Forms: My griddig, Smoking Cessation Medications and DC Order Prescriptions: Continued trospium 60 mg capsule,extended release 24hr 60 mg PO QAM Qty: 30 RF: 6 clobetasol [Temovate] 0.05 % Ointment 1 applic TOPICAL BID PRN (Reason: Rash) RF: 0 Spiriva with HandiHaler 18 mcg Capsule, W/Inhalation Device 1 cap INHALATION QAM RF: 0 Breo Ellipta 100-25 mcg/dose Blister With Device 1 inh INHALATION QAM RF: 0 ProAir RespiClick 90 mcg/actuation Aerosol Powdr Breath Activated 1 - 2 puff INHALATION Q4H PRN (Reason: SOB/Wheezing and/or Cough) RF: 0 potassium chloride [Klor-Con M20] 20 mEq Tablet,Er Particles/Crystals 20 meq PO QAM Qty: 30 RF: 1 (DME) Oxygen Home Liters Per Minute See Rx Instructions .ROUTE .MEDSUPPLY Qty: 1 RF: 0 ipratropium-albuterol 0.5 mg-3 mg(2.5 mg base)/3 mL solution for nebulization 3 ml INHALATION UD RF: 0 acetaminophen [Tylenol Extra Strength] 500 mg Tablet 1,000 mg PO BID RF: 0 guaifenesin [Mucinex] 600 mg Tablet Extended Release 12hr 600 mg PO BID RF: 0 metoprolol succinate 25 mg Tablet Extended Release 24 Hr 37.5 mg PO BID RF: 0 multivitamin tablet 1 tab PO HS RF: 0 magnesium oxide 400 mg magnesium Tablet 400 mg PO QAM RF: 0 Changed furosemide 40 mg tablet 40 mg PO BID 30 Days Qty: 60 RF: 2 Discontinued furosemide [Lasix] 20 mg Tablet 20 mg PO UD RF: 0 Discharge Orders: Discharge Order (Routine); Ordered 12/15/19 Ordered By: Samm Mckeon Admission Data Admit Date/Time: 12/09/19 13:51 Attending Provider: Samm Mckeon Admit Provider: Nba Wyman Primary Care Provider: Nba Good Other Providers: Nba Wyman ; Alina Camargo ; [place] Other Interventions: Discharge Summary Assessment (RN) Last Done: 12/15/19 15:07 DC Date/Time DO NOT enter until pt leaves facility: 12/15/19 15:28
== END 2019-12-15 15:28 | disposition home health service (06) | DRG 291 ==
LOC: ED 11:32 → SUATTDRO 13:51 → 2N 13:51